=== PATIENT | female | born 1960 | race Caucasian/White ===

== ENCOUNTER 2016-07-16 20:44 | Inpatient (IN) | payer OTHER ==
[~2016-07-16] VITALS: Ht 157.5 cm; Wt 78.1 kg
[~2016-07-16 20:44] MED LIST: ADVIN25/60 INH; ALBU1AER9 INH; EXEN1INJ3 INJ; FLUO40CA8 PO; GABA1CAP4 PO; INSUINJ12 SQ; OXYB10TA13 PO; SYMIN160 INH; TIOTCAP INH; TRAZ50TA35 PO
[2016-07-16] MEDS ORDERED: ONDANSETRON INJ 2 MG/ML 2 ML VIAL IV STA ×2 (21:18→23:36)
--- NOTE | 2016-07-16 21:40 | DIAGNOSTIC IMAGING REPORT ---
CHEST ONE VIEW PORTABLE CLINICAL HISTORY: DKA mental status change COMPARISON STUDY: 05/20/2015 FINDINGS: The bones soft tissues and hemidiaphragms are normal. The cardiomediastinal silhouette is normal. The lungs are clear. The pulmonary vasculature is normal. IMPRESSION: Negative chest. Electronically signed by: Victor Manuel Langston M.D. 07/16/2016 9:39 PM Dictated Date/Time: 07/16/2016 9:39 PM
[2016-07-16] MEDS ORDERED: LVMI SQ (22:07)
[2016-07-16] MEDS ORDERED: [UNRECOGNIZED DRUG - REMARK] (22:07)
[2016-07-16] MEDS ORDERED: SPRIN/30 INH (22:07)
[2016-07-16] MEDS ORDERED: INSDGI SC (22:07)
[2016-07-16] MEDS ORDERED: OXYC1TAB3 PO (22:07)
[2016-07-16 22:14] LABS: BASO % 0.1 %; BASO ABS # 0.01 K/uL (0-0.2); COMPLETE YES; EOS % 0.1 %; HEMATOCRIT 42.1 % (37-47); IG% 0.8 %; LYMPH % 15.2 %; LYMPH ABS # 1.37 K/uL (1.2-3.4); MEAN CELL VOLUME 87.3 fL (80-100); MEAN CORPUSCULAR HEMOGLOBIN 29.9 pg (25-34); MEAN CORPUSCULAR HGB CONC 34.2 g/dl (32-36); MEAN PLATELET VOLUME 9.6 fL (7.4-10.4); MONO % 7.9 %; NEUT % 75.9 %; PLATELET COUNT 170 K/uL (130-400); RED BLOOD COUNT 4.82 M/uL (4.2-5.4); WHITE BLOOD COUNT 9.03 K/uL (4.8-10.8)
[2016-07-16] MEDS ORDERED: SODIUM CHLORIDE 0.9% 1000ML 2,000 ML IV STA (22:24)
[2016-07-16] MEDS ORDERED: SODIUM CHLORIDE 0.9% 1000ML 1,000 ML IV STA (22:24)
[2016-07-16 22:34] LABS: ALB/GLOB RATIO 0.6 (0.9-2); BETA-HYDROXYBUTYRATE 43.6 mg/dL (0.2-2.81); BUN/CREATININE RATIO 22.1 (10-20); CALCIUM 9.6 mg/dl (8.5-10.1); CREATININE 1.4 mg/dl (0.60-1.20); POTASSIUM 4.9 mmol/L (3.5-5.1)
[2016-07-16] MEDS ORDERED: NovoLIN-R INSULIN PER UNIT CHARGE IV STA (22:38)
[2016-07-16 22:59] LABS: PROTHROMBIN TIME (PATIENT) 10.2 SECONDS (9.0-12.0)
[2016-07-16 23:03] LABS: MANUAL MICROSCOPIC REQUIRED? NO; REVIEW REQ? NO; URINE APPEARANCE CLEAR (CLEAR); URINE BILIRUBIN NEG (NEG); URINE COLOR YELLOW; URINE NITRITE NEG (NEG); URINE SPECIFIC GRAVITY 1.028 (1.000-1.030); UROBILINOGEN NEG (NEG); ZZUR CULT IF INDIC CLEAN CATCH YES
[2016-07-16 23:03] LABS: MAGNESIUM 2.2 mg/dl (1.8-2.4)
[2016-07-16] MEDS ORDERED: MODERATE STRESS LEVEL ONE (23:15)
[2016-07-16] MEDS ORDERED: CEFTRIAXONE SOD INJ 1 GM ADDVIAL IV STA (23:32)
[2016-07-16 23:46] LABS: VEN BLD GAS O2 SATURATION 90.4 %; VEN BLOOD GAS BASE EXCESS -1.1 mmol/L
[2016-07-17] VITALS (7 sets, daily range): BP systolic 99–137; BP diastolic 60–75; PULSE 90–103; TEMP 36.2–36.8; O2SAT 18–96; BMI 30.2
[2016-07-17] MEDS ORDERED: GLUCOSE 10 TABS/TUBE PO PRN (00:15)
[2016-07-17] MEDS ORDERED: DEXTROSE 50% 50 ML SYR IV PRN (00:15)
[2016-07-17] MEDS ORDERED: GLUCOSE 40% GEL 15 GM TUBE PO PRN (00:15)
[2016-07-17] MEDS ORDERED: GLUCAGON FOR INJ 1 MG VIAL SQ PRN (00:15)
[2016-07-17] MEDS ORDERED: INSULIN HUMAN REGULAR IV BOLUS 2 UNIT in SYRINGE 0 ML IV SCH (00:30)
[2016-07-17] MEDS: INSULIN REGULAR 250 UNITS in SODIUM CHLORIDE 0.9% 250ML 250 ML IV SCH ×9 (00:50→23:09)
[2016-07-17] MEDS ORDERED: INSULIN IV INFUSION PROTOCOL STA (02:04)
[2016-07-17] MEDS ORDERED: ACETAMINOPHEN 325 MG TAB PO PRN (02:15)
[2016-07-17] MEDS ORDERED: DC ALL PREVIOUSLY ORDERED DIABETES MEDS ONE (02:15)
[2016-07-17] MEDS ORDERED: MODERATE STRESS LEVEL ONE (02:15)
[2016-07-17] MEDS ORDERED: DKA GOAL RANGE 150-250 mg/dl 1 EA ONE (02:15)
[2016-07-17] MEDS ORDERED: POLYETHYLENE (MIRALAX) 17 GM PACK PO PRN (02:15)
[2016-07-17] MEDS ORDERED: MAGNESIUM HYDROXIDE SUSP 30 ML UDC PO PRN (02:15)
[2016-07-17] MEDS ORDERED: ONDANSETRON INJ 2 MG/ML 2 ML VIAL IV PRN (02:15)
[2016-07-17] MEDS ORDERED: PENDING NSS+20mEq KCL IVF SCH (02:15)
[2016-07-17] MEDS ORDERED: ALUMINUM/MAGNESIUM/SIMETH (MAALOX MAX) 30 ML UDC PO PRN (02:15)
[2016-07-17] MEDS ORDERED: PHARMACY GLYCEMIC MGMT CONSULT PRN (03:19)
--- NOTE | 2016-07-17 03:21 | History and Physical ---
History & Physical Date & Time of Service: Jul 17, 2016 at 03:04 Chief Complaint: Hyperglycemia, Insulin Dependent Diabetes Mellitus Primary Care Physician: No Doctor, Assigned History of Present Illness Source: patient 55 y/o F w/Hx IDDM, COPD, continued tobacco abuse. Pt developed abdominal pain nausea and vomiting 2 days earlier. She did not administer her insulin over this period as she was concerned that she would become hypoglycemic due to lack of PO intake. She denies fevers, diarrhea or dysuria. Initial labs revealed hyperglycemia at > 600 with an anion gap and ketones however there was no acidosis on an ABG and her bicarb was only moderately low. Past Medical/Surgical History Medical Problems: (1) Arthritis Status: Chronic (2) Asthma Status: Chronic (3) Depression Status: Chronic (4) DM (diabetes mellitus) Status: Chronic (5) HTN (hypertension) Status: Chronic Family History Diabetes mellitus Father in a [place] [facility] [place] [facility] at 65 - does not know cause - states mother from natural causes Social History Smokes 1.5 packs or more daily - no ETOH Smoking Status: Current Every Day Smoker Drug Use: none Marital Status: single Housing status: other Occupational Status: disabled Multi-Drug Resistant Organisms History of MDRO: No Allergies Coded Allergies: Codeine (Verified Allergy, Intermediate, dizziness, 07/16/16) Tramadol (Verified Allergy, Intermediate, itchy, 07/16/16) Metformin (Verified Allergy, Unknown, ., 07/16/16) Naproxen (Verified Allergy, Unknown, Unknown, 07/16/16) Aspirin (Verified Adverse Reaction, Unknown, rectal bleeding, 07/16/16) Home Medications Scheduled Budesonide/Formoterol Fumarate (Symbicort 160/4.5 Inhaler ), 2 PUFFS INH BID Fluoxetine (Prozac), 40 MG PO DAILY Fluticasone Prop/Salmeterol (Advair Diskus 250/50 60 Dose), 1 PUFF INH BID Gabapentin (Gabapentin), 300 MG PO TID Insulin Detemir (Levemir), 8 UNITS SQ QAM Insulin Glargine (Lantus), 10 UNITS SC QPM Oxybutynin Chloride Er (Ditropan Xl), 10 MG PO DAILY Tiotropium [place] (Spiriva Handihaler), 1 CAP INH DAILY Scheduled PRN Albuterol (Proair Hfa), 2 PUFFS INH Q4 PRN for Wheezing Oxycodone Ir (Roxicodone Ir), 1-2 TAB PO Q4H PRN for Severe Pain Trazodone Hcl (Trazodone), 50-100 MG PO HS PRN for Sleep Miscellaneous Medications [Antibiotic Unk], Unknown Dose Review of Systems Constitutional: No chills, No fever, No sweats Eyes: No eye pain, No worsening of vision ENT: No hearing loss, No nasal symptoms, No unusual epistaxis Respiratory: + cough (chronic productive cough) Cardiovascular: No PND, No chest pain, No orthopnea Abdomen: + nausea, + pain, + vomiting, No constipation, No diarrhea Musculoskeletal: No joint pain, No muscle pain Genitourinary - Female: No dysuria, No urinary frequency Neurologic: + weakness, No memory loss, No paralysis Psychiatric: No depression symptoms Endocrine: + fatigue Hematologic / Lymphatic: No abnormal bleeding/bruising Integumentary: No rash Allergic / Immunologic: No environmental allergies Physical Exam Vital Signs Date Time Temp Pulse Resp B/P Pulse Ox O2 Delivery O2 Flow Rate FiO2 07/17/16 02:34 105 20 131/79 95 07/17/16 01:38 109 20 127/74 93 Room Air 07/16/16 23:47 106 20 104/66 95 Room Air 07/16/16 21:46 110 20 129/81 98 Room Air 07/16/16 20:57 115 07/16/16 20:56 36.7 102 20 124/79 96 Room Air General Appearance: WD/WN, no apparent distress, + pertinent finding ( Overweight middle aged female in n distress) Head: normocephalic, atraumatic Eyes: normal inspection, PERRL, EOMI ENT: normal ENT inspection, pharynx normal Neck: supple, no JVD Respiratory/Chest: chest non-tender, lungs clear, no respiratory distress, no accessory muscle use, + decreased breath sounds Cardiovascular: regular rate, rhythm, no edema, no gallop, no JVD, no murmur, normal peripheral pulses Abdomen/GI: normal bowel sounds, non tender, soft Back: normal inspection, no CVA tenderness, no muscle spasm, normal range of motion Extremities/Musculoskelatal: normal inspection, no calf tenderness, normal capillary refill, no pedal edema, normal range of motion Neurologic/Psych: dry color tester II-XII nml as tested, no motor/sensory deficits, alert, oriented x 3 Skin: normal color, warm/dry, no rash Diagnostics Laboratory Results Results Past 24 Hours Test 07/16/16 20:53 07/16/16 21:15 07/16/16 22:50 07/16/16 23:20 Range/Units Bedside Glucose > 600 502 70-90 mg/dl White Blood Count 9.03 4.8-10.8 K/uL Red Blood Count 4.82 4.2-5.4 M/uL Hemoglobin 14.4 12.0-16.0 g/dL Hematocrit 42.1 37-47 % Mean Corpuscular Volume 87.3 80-100 fL Mean Corpuscular Hemoglobin 29.9 25-34 pg Mean Corpuscular Hemoglobin Concent 34.2 32-36 g/dl Platelet Count 170 130-400 K/uL Mean Platelet Volume 9.6 7.4-10.4 fL Neutrophils (%) (Auto) 75.9 % Lymphocytes (%) (Auto) 15.2 % Monocytes (%) (Auto) 7.9 % Eosinophils (%) (Auto) 0.1 % Basophils (%) (Auto) 0.1 % Neutrophils # (Auto) 6.86 1.4-6.5 K/uL Lymphocytes # (Auto) 1.37 1.2-3.4 K/uL Monocytes # (Auto) 0.71 0.11-0.59 K/uL Eosinophils # (Auto) 0.01 0-0.5 K/uL Basophils # (Auto) 0.01 0-0.2 K/uL RDW Standard Deviation 49.0 36.4-46.3 fL RDW Coefficient of Variation 15.1 11.5-14.5 % Immature Granulocyte % (Auto) 0.8 % Immature Granulocyte # (Auto) 0.07 0.00-0.02 K/uL Prothrombin Time 10.2 9.0-12.0 SECONDS Prothromb Time International Ratio 1.0 0.9-1.1 Activated Partial Thromboplast Time 26.8 21.0-31.0 SECONDS Partial Thromboplastin Ratio 1.0 Sodium Level 126 136-145 mmol/L Potassium Level 4.9 3.5-5.1 mmol/L Chloride Level 87 98-107 mmol/L Carbon Dioxide Level 22 21-32 mmol/L Anion Gap 17.0 3-11 mmol/L Blood Urea Nitrogen 31 7-18 mg/dl Creatinine 1.40 0.60-1.20 mg/dl Est Creatinine Clear Calc Drug Dose 42.6 ml/min Estimated GFR () 48.6 Estimated GFR (Non- 41.9 BUN/Creatinine Ratio 22.1 10-20 Random Glucose 685 70-99 mg/dl Calcium Level 9.6 8.5-10.1 mg/dl Magnesium Level 2.2 1.8-2.4 mg/dl Total Bilirubin 0.5 0.2-1 mg/dl Aspartate Amino Transf (AST/SGOT) 8 15-37 U/L Alanine Aminotransferase (ALT/SGPT) 16 12-78 U/L Alkaline Phosphatase 85 45-117 U/L Troponin I < 0.015 0-0.045 ng/ml Total Protein 8.4 6.4-8.2 gm/dl Albumin 3.3 3.4-5.0 gm/dl Globulin 5.1 2.5-4.0 gm/dl Albumin/Globulin Ratio 0.6 0.9-2 Beta-Hydroxybutyric Acid 43.60 0.2-2.81 mg/dL Urine Color YELLOW Urine Appearance CLEAR CLEAR Urine pH 5.0 4.5-7.5 Urine Specific [place] 1.028 1.000-1.030 Urine Protein TRACE NEG Urine Glucose (UA) 3+ NEG Urine Ketones 2+ NEG Urine Occult Blood 1+ NEG Urine Nitrite NEG NEG Urine Bilirubin NEG NEG Urine Urobilinogen NEG NEG Urine Leukocyte Esterase NEG NEG Urine WBC (Auto) 10-30 0-5 /hpf Urine RBC (Auto) 0-4 0-4 /hpf Urine Hyaline Casts (Auto) 0 0-5 /lpf Urine Epithelial Cells (Auto) 5-10 0-5 /lpf Urine Bacteria (Auto) 2+ NEG Test 07/16/16 23:37 07/17/16 01:54 Range/Units Venous Blood pH 7.43 7.36-7.41 Venous Blood Partial Pressure CO2 35 38.0-50.0 mmHg Venous Blood Partial Pressure O2 60 mmHg Venous Blood HCO3 23 mmol/L Venous Blood Oxygen Saturation 90.4 % Venous Blood Base Excess -1.1 mmol/L Bedside Glucose 373 70-90 mg/dl Microbiology Results 3/17/17 Urine Culture, Received Pending Impression Assessment and Plan 55 y/o F w/Hx IDDM, COPD, continued tobacco abuse. Pt developed abdominal pain nausea and vomiting 2 days earlier. She did not administer her insulin over this period as she was concerned that she would become hypoglycemic due to lack of PO intake. She denies fevers, diarrhea or dysuria. Initial labs revealed hyperglycemia at > 600 with an anion gap and ketones however there was no acidosis on an ABG and her bicarb was only moderately low. 1) Hyperglycemia - anion gap - pt is not acidotic however considering her labs and persistently elevated Glu we will place her on a DKA protocol. BMP, Mag, Phos will be checked Q4 and replaced as necessary. 2) Nausea, vomiting - no pain at the time of admission - progressive diet - IVF , antiemetics as needed 3) COPD - no evidence of exacerbation - cont inhalers as prescribed 4) Tobacco abuse - explained to pt in no uncertain terms regarding the hazards of continued smoking with COPD and DM. Full code - Heparin prophylaxis Total time for this admit including review of labs, meds, records - discussion with ER attending and pt - 38 min Level of Care Telemetry Resuscitation Status FULL RESUSCITATION VTE Prophylaxis VTE Risk Assessment Done? Y/N: Yes Risk Level: Low Given or contraindicated: Unfractionated heparin SQ
[2016-07-17] MEDS ORDERED: TRAZODONE HCL 50 MG TAB PO PRN (03:30)
[2016-07-17] MEDS ORDERED: ALBUTEROL HFA 8 GM INHALER INH PRN (03:30)
[2016-07-17] MEDS ORDERED: OXYCODONE HCL IR 5 MG TAB (IMMEDIATE RELEASE) PO PRN (03:30)
[2016-07-17] MEDS ORDERED: NURSING VERBAL MED ORDER ONE ×4 (03:45→21:45)
[2016-07-17 04:19] LABS: BUN/CREATININE RATIO 24.8 (10-20); CALCIUM 8.7 mg/dl (8.5-10.1); CREATININE 1.1 mg/dl (0.60-1.20); PHOSPHORUS 2.4 mg/dl (2.5-4.9); POTASSIUM 4.1 mmol/L (3.5-5.1)
[2016-07-17 04:35] LABS: BETA-HYDROXYBUTYRATE 25.2 mg/dL (0.2-2.81)
--- NOTE | 2016-07-17 04:35 | Pharmacy Progress Note ---
Glycemic: Assessment & Plan Date of Service Jul 17, 2016. Assessment & Plan Regarding Inpatient Glycemic Control: Assessment: * 55 y/o diabetic who has been unwell x 2 days prior to admission with nausea and vomiting. * has not take her insulin secondary to decreased PO intake. * BSGs subsequently elevated * Upon admission, BSG >600mg/dL, BHA elevated, anion gap and ketones * insulin infusion started in ED with NSS IV fluids. * A1c unknown at time of consult Plan: * Continue IV insulin infusion at this time * Moderate protocol * Goal range 150-250mg/dL * NovoLog PC and HS * IV fluids per protocol (based on K+ and BSG) * A1c ordered with AM labs to help assess home regimen and SQ insulin needs * also added to discharge instructions * Lantus 10 units SQ q PM ordered by college or university business manager.
[2016-07-17] MEDS: NSS + 20MEQ KCL 1000ML 1,000 ML IV SCH ×4 (04:37→23:40)
[2016-07-17 05:56] LABS: ESTIMATED AVERAGE GLUCOSE 355 mg/dl; HA1C FLAG Normal (Normal)
[2016-07-17] MEDS ORDERED: HEPARIN SOD 5000 UNIT/0.5 ML CARP SQ SCH (06:00)
--- NOTE | 2016-07-17 06:27 | EMERGENCY ROOM VISIT NOTE ---
History First contact with patient: 22:21 Chief Complaint: VOMITING Stated Complaint: HYPERGLYCEMIA, INSULIN DEPENDENT DIABETES MELLITUS Nursing Triage Summary: see triage note History of Present Illness The patient is a 55 year old female who presents to the Emergency Room with complaints of nausea, vomiting and hyperglycemia today. Patient states her blood sugars yesterday were in the 100s. Patient denies chest pain, dyspnea, fever, chills, cough, congestion, back pain, urinary symptoms, abdominal pain, flulike illness. No history of DKA. Review of Systems See HPI for pertinent positives & negatives. A total of 10 systems reviewed and were otherwise negative. Past Medical/Surgical History Medical Problems: (1) Arthritis (2) Asthma (3) Depression (4) DM (diabetes mellitus) (5) HTN (hypertension) (6) Insulin dependent diabetes mellitus (7) Lumbago Family History Diabetes mellitus Social History Smoking Status: Current Every Day Smoker Alcohol Use: none Drug Use: none Marital Status: single Housing Status: lives alone Occupation Status: disabled Current/Historical Medications Scheduled Budesonide/Formoterol Fumarate (Symbicort 160/4.5 Inhaler ), 2 PUFFS INH BID Fluoxetine (Prozac), 40 MG PO DAILY Fluticasone Prop/Salmeterol (Advair Diskus 250/50 60 Dose), 1 PUFF INH BID Gabapentin (Gabapentin), 300 MG PO TID Insulin Detemir (Levemir), 8 UNITS SQ QAM Insulin Glargine (Lantus), 10 UNITS SC QPM Oxybutynin Chloride Er (Ditropan Xl), 10 MG PO DAILY Tiotropium [place] (Spiriva Handihaler), 1 CAP INH DAILY Scheduled PRN Albuterol (Proair Hfa), 2 PUFFS INH Q4 PRN for Wheezing Oxycodone Ir (Roxicodone Ir), 1-2 TAB PO Q4H PRN for Severe Pain Trazodone Hcl (Trazodone), 50-100 MG PO HS PRN for Sleep Miscellaneous Medications [Antibiotic Unk], Unknown Dose Allergies Coded Allergies: Codeine (Verified Allergy, Intermediate, dizziness, 07/16/16) Tramadol (Verified Allergy, Intermediate, itchy, 07/16/16) Metformin (Verified Allergy, Unknown, ., 07/16/16) Naproxen (Verified Allergy, Unknown, Unknown, 07/16/16) Aspirin (Verified Adverse Reaction, Unknown, rectal bleeding, 07/16/16) Physical Exam Vital Signs Date Time Temp Pulse Resp B/P Pulse Ox O2 Delivery O2 Flow Rate FiO2 07/17/16 01:38 109 20 127/74 93 Room Air 07/16/16 23:47 106 20 104/66 95 Room Air 07/16/16 21:46 110 20 129/81 98 Room Air 07/16/16 20:57 115 07/16/16 20:56 36.7 102 20 124/79 96 Room Air Pain Rating (0-10): 0 Physical Exam VITALS: Vitals are noted on the nurse's note and reviewed by myself. Vital signs tachycardic GENERAL: Pleasant female actively vomiting, in no acute distress, nondiaphoretic , well-developed well-nourished. SKIN: The skin was without rashes, erythema, edema, or bruising. There is no tenting of the skin. Capillary reflex less than 2 seconds. HEAD: Normocephalic atraumatic. EARS: External auditory canals clear, tympanic membranes pearly sandoval without erythema or effusion bilaterally. EYES: Pupils equal round and reactive to light and accommodation. Conjunctivae without injection, sclerae without icterus. Extraocular movements intact. NOSE: Patent, turbinates without inflammation or discharge. No sinus tenderness. MOUTH: Mucous membranes dry. Pharynx without erythema or exudate. Uvula midline. Airway patent. Tongue does not deviate. NECK: Supple without nuchal rigidity. No lymphadenopathy. No thyromegaly. Cervical spine is nontender. No JVD. HEART: Regular rate and rhythm LUNGS: Clear to auscultation bilaterally without wheezes, rales or rhonchi. No dullness to percussion. No retractions or accessory muscle use. ABDOMEN: Positive bowel sounds x 4. Normal tympanic percussion. Soft, nontender, without masses or organomegaly. Angulo sign negative. No guarding or rebound tenderness. MUSCULOSKELETAL: No muscle atrophy, erythema, or edema noted. NEURO: Patient was alert and oriented to person place and time. Normal sensation to light and sharp touch. No focal neurological deficits. Medical Decision & Procedures Laboratory Results 07/16/16 21:15 Red Blood Count 4.82, Mean Corpuscular Volume 87.3, Mean Corpuscular Hemoglobin 29.9, Mean Corpuscular Hemoglobin Concent 34.2, Mean Platelet Volume 9.6, Neutrophils (%) (Auto) 75.9, Lymphocytes (%) (Auto) 15.2, Monocytes (%) (Auto) 7.9, Eosinophils (%) (Auto) 0.1, Basophils (%) (Auto) 0.1, Neutrophils # (Auto) 6.86, Lymphocytes # (Auto) 1.37, Monocytes # (Auto) 0.71, Eosinophils # (Auto) 0.01, Basophils # (Auto) 0.01 Test 07/16/16 21:15 07/16/16 22:50 07/16/16 23:37 White Blood Count 9.03 K/uL (4.8-10.8) Red Blood Count 4.82 M/uL (4.2-5.4) Hemoglobin 14.4 g/dL (12.0-16.0) Hematocrit 42.1 % (37-47) Mean Corpuscular Volume 87.3 fL (80-100) Mean Corpuscular Hemoglobin 29.9 pg (25-34) Mean Corpuscular Hemoglobin Concent 34.2 g/dl (32-36) Platelet Count 170 K/uL (130-400) Mean Platelet Volume 9.6 fL (7.4-10.4) Neutrophils (%) (Auto) 75.9 % Lymphocytes (%) (Auto) 15.2 % Monocytes (%) (Auto) 7.9 % Eosinophils (%) (Auto) 0.1 % Basophils (%) (Auto) 0.1 % Neutrophils # (Auto) 6.86 K/uL (1.4-6.5) Lymphocytes # (Auto) 1.37 K/uL (1.2-3.4) Monocytes # (Auto) 0.71 K/uL (0.11-0.59) Eosinophils # (Auto) 0.01 K/uL (0-0.5) Basophils # (Auto) 0.01 K/uL (0-0.2) RDW Standard Deviation 49.0 fL (36.4-46.3) RDW Coefficient of Variation 15.1 % (11.5-14.5) Immature Granulocyte % (Auto) 0.8 % Immature Granulocyte # (Auto) 0.07 K/uL (0.00-0.02) Prothrombin Time 10.2 SECONDS (9.0-12.0) Prothromb Time International Ratio 1.0 (0.9-1.1) Activated Partial Thromboplast Time 26.8 SECONDS (21.0-31.0) Partial Thromboplastin Ratio 1.0 Magnesium Level 2.2 mg/dl (1.8-2.4) Total Bilirubin 0.5 mg/dl (0.2-1) Aspartate Amino Transf (AST/SGOT) 8 U/L (15-37) Alanine Aminotransferase (ALT/SGPT) 16 U/L (12-78) Alkaline Phosphatase 85 U/L (45-117) Troponin I < 0.015 ng/ml (0-0.045) Total Protein 8.4 gm/dl (6.4-8.2) Albumin 3.3 gm/dl (3.4-5.0) Globulin 5.1 gm/dl (2.5-4.0) Albumin/Globulin Ratio 0.6 (0.9-2) Urine Color YELLOW Urine Appearance CLEAR (CLEAR) Urine pH 5.0 (4.5-7.5) Urine Specific [place] 1.028 (1.000-1.030) Urine Protein TRACE (NEG) Urine Glucose (UA) 3+ (NEG) Urine Ketones 2+ (NEG) Urine Occult Blood 1+ (NEG) Urine Nitrite NEG (NEG) Urine Bilirubin NEG (NEG) Urine Urobilinogen NEG (NEG) Urine Leukocyte Esterase NEG (NEG) Urine WBC (Auto) 10-30 /hpf (0-5) Urine RBC (Auto) 0-4 /hpf (0-4) Urine Hyaline Casts (Auto) 0 /lpf (0-5) Urine Epithelial Cells (Auto) 5-10 /lpf (0-5) Urine Bacteria (Auto) 2+ (NEG) Venous Blood pH 7.43 (7.36-7.41) Venous Blood Partial Pressure CO2 35 mmHg (38.0-50.0) Venous Blood Partial Pressure O2 60 mmHg Venous Blood HCO3 23 mmol/L Venous Blood Oxygen Saturation 90.4 % Venous Blood Base Excess -1.1 mmol/L Medications Administered Medications (Trade) Dose Ordered Sig/Barbra Route Start Time Stop Time Status Last Admin Dose Admin Ondansetron HCl 4 mg 4 mg NOW STAT IV 07/16/16 21:18 07/16/16 21:20 DC 07/16/16 21:41 4 MG Sodium Chloride (Nss 1000ml) 2,000 ml @ 999 mls/hr Q2H1M STAT IV 07/16/16 22:24 07/17/16 00:24 DC 07/16/16 22:39 999 MLS/HR Insulin Human Regular (novoLIN-R U-100 PER UNIT) 10 units NOW STAT IV 07/16/16 22:38 07/16/16 22:39 DC 07/16/16 22:38 10 UNITS Ceftriaxone Sodium (Rocephin Inj) 1 gm NOW STAT IV 07/16/16 23:32 07/16/16 23:33 DC 07/16/16 23:46 1 GM Ondansetron HCl 4 mg 4 mg NOW STAT IV 07/16/16 23:36 07/16/16 23:37 DC 07/16/16 23:47 4 MG Insulin Human Regular 2 unit/ Syringe 2 ml @ 1 mls/min 0030 IV 07/17/16 00:30 07/17/16 00:31 DC 07/17/16 00:50 1 MLS/MIN Insulin Human Regular/Sodium Chloride (novoLIN-R/Nss 250ml) 252.5 ml @ 0 mls/hr TODAY@0030 IV 07/17/16 00:30 07/17/16 11:29 07/17/16 00:50 1.9 MLS/HR ED Course Prior records/ancillary studies reviewed and summarized above. Nursing notes reviewed. Additional history obtained from family. The patient's history was concerning for vomiting with hyperglycemia Differential diagnosis: Etiologies such as metabolic, infection, hypo/hyperglycemia, electrolyte abnormalities, cardiac sources, intracerebral event, toxicologic, neurologic, as well as others were entertained. Physical examination: As above. ER treatment provided: IV Lock Rocephin, IV fluids, insulin with drip On reassessment the patient felt better. Diagnostics interpretation by me: ECG: Normal sinus, normal intervals, no acute ST-T wave changes. Impression normal sinus rhythm interpreted by myself The labs revealed hyperglycemia with an a.m. Concerning for DKA, urine concerning for infection and sent for culture Imaging studies: CHEST ONE VIEW PORTABLE CLINICAL HISTORY: DKA mental status change COMPARISON STUDY: 05/20/2015 FINDINGS: The bones soft tissues and hemidiaphragms are normal. The cardiomediastinal silhouette is normal. The lungs are clear. The pulmonary vasculature is normal. IMPRESSION: Negative chest. Electronically signed by: Victor Manuel Langston M.D. 07/16/2016 9:39 PM Consultation: A consultation was placed with the hospitalist, Dr Colon. The case was discussed and diagnostics were reviewed. The patient was evaluated in the ER for further treatment. Exam and history seem consistent with hyperglycemia with an and Concerning for DKA. She is started on insulin drip with moderate stress. She is hydrated as above. She started on antibiotics for possible UTI and urine culture was sent. She will be evaluated by medicine for admission. She was reassessed multiple times. By the evaluation outlined above emergent etiologies such as cardiac sources, intracerebral event, toxologic, neurologic, as well as others were deemed relatively unlikely. The pt informed about the findings as listed above. All questions were answered and pleased with the treatment. Case reviewed by attending Medical Decision As above Impression Primary Impression: DKA (diabetic ketoacidoses) Additional Impression: UTI (urinary tract infection) Departure Information Dispostion Admitted as an inpatient Condition GOOD Referrals No Doctor, Assigned (PCP) Forms HOME CARE DOCUMENTATION FORM, IMPORTANT VISIT INFORMATION Patient Instructions [facility] Problem Qualifiers Primary Impression: DKA (diabetic ketoacidoses) Diabetes mellitus type: type 2 Diabetes mellitus complication detail: without coma Qualified Codes: E13.10 - Other specified diabetes mellitus with ketoacidosis without coma
[2016-07-17] MEDS ORDERED: INFLUENZA ADMINISTRATION CHARGE ONE (08:00)
[2016-07-17] MEDS ORDERED: INFLUENZA VIRUS QUAD VACCINE 0.5 ML SYR IM. ONE (08:00)
[2016-07-17 08:33] LABS: BUN/CREATININE RATIO 27.6 (10-20); CALCIUM 9.1 mg/dl (8.5-10.1); CREATININE 0.87 mg/dl (0.60-1.20); POTASSIUM 4.3 mmol/L (3.5-5.1)
[2016-07-17 08:34] LABS: PHOSPHORUS 2.3 mg/dl (2.5-4.9)
[2016-07-17 08:43] LABS: BETA-HYDROXYBUTYRATE 20.17 mg/dL (0.2-2.81)
[2016-07-17] MEDS: FLUTICASONE/SALMETEROL 250/50 (ADVAIR) 14 PUFF/1 INHALER INH SCH ×2 (08:45→21:39)
[2016-07-17] MEDS: GABAPENTIN 300 MG CAP PO SCH ×3 (08:47→21:39)
[2016-07-17] MEDS: BUDESONIDE/FORMOTEROL FUMARATE 160/4.5 60 PUFFS/INHALER INH SCH ×2 (08:47→21:39)
[2016-07-17] MEDS: OXYBUTYNIN CHLORIDE 5 MG TABCR PO SCH (08:47)
[2016-07-17] MEDS: FLUOXETINE HCL 20 MG CAP PO SCH (08:47)
[2016-07-17] MEDS: INSULIN ASPART 100 UNITS/ML 3 ML PEN SC SCH ×4 (08:49→20:33)
[2016-07-17] MEDS ORDERED: TIOTROPIUM BROMIDE 5 PUFF/90 MCG INH INH SCH (09:00)
[2016-07-17] MEDS ORDERED: INSULIN ASPART 100 UNITS/ML 3 ML PEN SC SCH (09:00)
[2016-07-17] MEDS ORDERED: INSULIN GLARGINE SOLOSTAR 100 UNITS/ML 3 ML PEN SC SCH ×2 (09:20→21:00)
[2016-07-17] MEDS ORDERED: PANTOprazole SOD 40 MG TAB PO STA (09:53)
--- NOTE | 2016-07-17 09:53 | Progress Note ---
Subjective Date of Service: Jul 17, 2016. Subjective Pt evaluation today including: conversation w/ patient, physical exam, chart review, lab review, review of studies, conversation w/ performance consultant, review of inpatient medication list Voiding: no voiding problems Reported no appetite, however nausea edition was resolved, no vomiting, last bowel movement was 2 days ago, nurse reported in monitoring tech was showing possible tachycardia or a flutter, EKG was done Problem List Medical Problems: (1) DKA (diabetic ketoacidoses) Status: Acute (2) Mood disorder Status: Acute (3) Non-cardiac chest pain Status: Acute (4) Suicidal ideation Status: Acute (5) UTI (urinary tract infection) Status: Acute Review of Systems Constitutional: + fatigue, No chills, No fever, No problem reported, No sweats , No weakness, No weight loss Eyes: No diplopia, No discharge, No eye pain, No redness, No worsening of vision ENT: No dental problems, No hearing loss, No nasal symptoms, No sore throat, No tinnitus, No trouble swallowing, No unusual epistaxis Respiratory: + cough, No dyspnea at rest, No dyspnea on exertion, No hemoptysis , No shortness of breath, No sputum, No wheezing Cardiac: No PND, No chest pain, No claudication, No edema, No orthopnea, No palpitations Abdomen: No constipation, No diarrhea, No nausea, No pain, No vomiting Musculoskeletal: + joint pain, No calf pain, No muscle pain, No swelling Female : No abnormal vaginal bleeding, No dysuria, No hematuria, No incontinence, No urinary frequency, No vaginal discharge Neurologic: + problem reported (very sensitive bilateral lower extremity because or neuropathy), No balance problems, No memory loss, No numbness/ tingling, No paralysis, No vertigo, No weakness Psychiatric: No anhedonism, No anxiety, No depression symptoms, No insomnia, No substance abuse Heme: No abnormal bleeding/bruising, No clotting problems, No night sweats, No swollen lymph nodes Endo: No excessive thirst, No excessive urination, No fatigue Skin: No bleeding, No color change, No itch, No new/changing skin lesions, No rash Objective Vital Signs Date Time Temp Pulse Resp B/P Pulse Ox O2 Delivery O2 Flow Rate FiO2 07/17/16 07:49 36.8 103 16 108/65 90 Room Air 07/17/16 04:00 94 Room Air 07/17/16 04:00 94 Room Air 07/17/16 03:30 36.8 100 20 137/67 07/17/16 03:30 94 Room Air 07/17/16 02:34 105 20 131/79 95 07/17/16 01:38 109 20 127/74 93 Room Air 07/16/16 23:47 106 20 104/66 95 Room Air 07/16/16 21:46 110 20 129/81 98 Room Air 07/16/16 20:57 115 07/16/16 20:56 36.7 102 20 124/79 96 Room Air Physical Exam General Appearance: WD/WN, no apparent distress, + obese, + pertinent finding ( look much older than her age) Eyes: normal inspection, PERRL, EOMI, sclerae normal ENT: normal ENT inspection, hearing grossly normal, pharynx normal, + pertinent finding (mucosa is not dry) Neck: supple, no adenopathy, thyroid normal, no JVD, no carotid bruits, trachea midline Respiratory/Chest: chest non-tender, normal breath sounds, no respiratory distress, no accessory muscle use, + decreased breath sounds, + wheezing ( occasional) Cardiovascular: regular rate, rhythm, no edema, no gallop, no JVD, no murmur Abdomen: normal bowel sounds, non tender, soft, no organomegaly, no pulsatile mass Extremities: normal range of motion, non-tender, normal inspection, no pedal edema, no calf tenderness, normal capillary refill, pelvis stable Neurologic/Psychiatric: 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 nml as tested, no motor/sensory deficits, alert, normal mood/affect, oriented x 3 Skin: normal color, warm/dry, no rash Lymphatic: no adenopathy Laboratory Results Last 24 Hours Test 07/16/16 20:53 07/16/16 21:15 07/16/16 22:50 07/16/16 23:20 Bedside Glucose > 600 mg/dl 502 mg/dl White Blood Count 9.03 K/uL Red Blood Count 4.82 M/uL Hemoglobin 14.4 g/dL Hematocrit 42.1 % Mean Corpuscular Volume 87.3 fL Mean Corpuscular Hemoglobin 29.9 pg Mean Corpuscular Hemoglobin Concent 34.2 g/dl Platelet Count 170 K/uL Mean Platelet Volume 9.6 fL Neutrophils (%) (Auto) 75.9 % Lymphocytes (%) (Auto) 15.2 % Monocytes (%) (Auto) 7.9 % Eosinophils (%) (Auto) 0.1 % Basophils (%) (Auto) 0.1 % Neutrophils # (Auto) 6.86 K/uL Lymphocytes # (Auto) 1.37 K/uL Monocytes # (Auto) 0.71 K/uL Eosinophils # (Auto) 0.01 K/uL Basophils # (Auto) 0.01 K/uL RDW Standard Deviation 49.0 fL RDW Coefficient of Variation 15.1 % Immature Granulocyte % (Auto) 0.8 % Immature Granulocyte # (Auto) 0.07 K/uL Prothrombin Time 10.2 SECONDS Prothromb Time International Ratio 1.0 Activated Partial Thromboplast Time 26.8 SECONDS Partial Thromboplastin Ratio 1.0 Sodium Level 126 mmol/L Potassium Level 4.9 mmol/L Chloride Level 87 mmol/L Carbon Dioxide Level 22 mmol/L Anion Gap 17.0 mmol/L Blood Urea Nitrogen 31 mg/dl Creatinine 1.40 mg/dl Est Creatinine Clear Calc Drug Dose 42.6 ml/min Estimated GFR () 48.6 Estimated GFR (Non- 41.9 BUN/Creatinine Ratio 22.1 Random Glucose 685 mg/dl Calcium Level 9.6 mg/dl Magnesium Level 2.2 mg/dl Total Bilirubin 0.5 mg/dl Aspartate Amino Transf (AST/SGOT) 8 U/L Alanine Aminotransferase (ALT/SGPT) 16 U/L Alkaline Phosphatase 85 U/L Troponin I < 0.015 ng/ml Total Protein 8.4 gm/dl Albumin 3.3 gm/dl Globulin 5.1 gm/dl Albumin/Globulin Ratio 0.6 Beta-Hydroxybutyric Acid 43.60 mg/dL Urine Color YELLOW Urine Appearance CLEAR Urine pH 5.0 Urine Specific [place] 1.028 Urine Protein TRACE Urine Glucose (UA) 3+ Urine Ketones 2+ Urine Occult Blood 1+ Urine Nitrite NEG Urine Bilirubin NEG Urine Urobilinogen NEG Urine Leukocyte Esterase NEG Urine WBC (Auto) 10-30 /hpf Urine RBC (Auto) 0-4 /hpf Urine Hyaline Casts (Auto) 0 /lpf Urine Epithelial Cells (Auto) 5-10 /lpf Urine Bacteria (Auto) 2+ Test 07/16/16 23:37 07/17/16 01:54 07/17/16 03:49 07/17/16 03:53 Venous Blood pH 7.43 7.36 Venous Blood Partial Pressure CO2 35 mmHg Venous Blood Partial Pressure O2 60 mmHg Venous Blood HCO3 23 mmol/L Venous Blood Oxygen Saturation 90.4 % Venous Blood Base Excess -1.1 mmol/L Bedside Glucose 373 mg/dl 356 mg/dl Sodium Level 134 mmol/L Potassium Level 4.1 mmol/L Chloride Level 99 mmol/L Carbon Dioxide Level 24 mmol/L Anion Gap 11.0 mmol/L Blood Urea Nitrogen 27 mg/dl Creatinine 1.10 mg/dl Est Creatinine Clear Calc Drug Dose 54.3 ml/min Estimated GFR () 65.0 Estimated GFR (Non- 56.1 BUN/Creatinine Ratio 24.8 Random Glucose 339 mg/dl Estimated Average Glucose 355 mg/dl Hemoglobin A1c 14.0 % Calcium Level 8.7 mg/dl Phosphorus Level 2.4 mg/dl Beta-Hydroxybutyric Acid 25.20 mg/dL Test 07/17/16 04:42 07/17/16 05:46 07/17/16 06:54 07/17/16 07:58 Bedside Glucose 340 mg/dl 321 mg/dl 327 mg/dl Venous Blood pH 7.41 Sodium Level 135 mmol/L Potassium Level 4.3 mmol/L Chloride Level 101 mmol/L Carbon Dioxide Level 21 mmol/L Anion Gap 13.0 mmol/L Blood Urea Nitrogen 24 mg/dl Creatinine 0.87 mg/dl Est Creatinine Clear Calc Drug Dose 68.5 ml/min Estimated GFR () 86.3 Estimated GFR (Non- 74.5 BUN/Creatinine Ratio 27.6 Random Glucose 305 mg/dl Calcium Level 9.1 mg/dl Phosphorus Level 2.3 mg/dl Beta-Hydroxybutyric Acid 20.17 mg/dL Test 07/17/16 07:59 07/17/16 08:27 07/17/16 08:34 07/17/16 09:07 Bedside Glucose 290 mg/dl 370 mg/dl Creatine Kinase MB Ratio Creatine Kinase MB < 0.5 ng/ml Troponin I < 0.015 ng/ml Assessment and Plan 55 y/o F w/Hx IDDM, COPD, continued tobacco abuse admitted because of severe hyperglycemia Severe hyperglycemia with history of insulin-dependent diabetic, uncontrolled, A1c 14, no us no acidosis in ABG, bicarbonate was more than 20, I don't believe she has DKA Condition is improving after insulin drip, the latest blood glucose was 299 Will restart home dose Lantus insulin 8 units in the morning 10 units in the evening, Continue insulin drip Continue IV fluid Diabetic education Possible gastritis with abdominal pain nausea and vomiting 2 days prior to this admission. Resolved, but will make sure give Protonix by mouth Acute kidney failure with creatinine 1.4, totally resolved, likely because of dehydration from hyperglycemia History of COPD with history of tobacco abuse disorder - no evidence of exacerbation - cont inhalers as prescribed, and will give nicotine patch, consult to quit smoking , and offer help GI and DVT prophylaxis is covered Possible discharge day [address] [facility] stay due to: multiple IV medications needed Discharge planning: home
[2016-07-17] MEDS ORDERED: INSULIN GLARGINE SOLOSTAR 100 UNITS/ML 3 ML PEN SC ONE (11:00)
[2016-07-17 13:25] LABS: BUN/CREATININE RATIO 27.4 (10-20); CALCIUM 8.8 mg/dl (8.5-10.1); CREATININE 0.77 mg/dl (0.60-1.20); POTASSIUM 4.2 mmol/L (3.5-5.1)
[2016-07-17 13:27] LABS: PHOSPHORUS 1.8 mg/dl (2.5-4.9)
[2016-07-17] MEDS ORDERED: INSULIN PROTOCOL GOAL RANGE ONE ×2 (14:00→15:15)
--- NOTE | 2016-07-17 14:05 | Pharmacy Progress Note ---
Glycemic Control Intl Consult Date of Service Jul 17, 2016. Scope Glycemic Pharmacist consulted for glycemic control and to write orders per [facility] inpatient glycemic control protocol Objective Weight (Kilograms): 75.000 Accuchecks BSG (last 24hrs): Test 07/16/16 20:53 07/16/16 21:15 07/16/16 23:20 07/17/16 01:54 Bedside Glucose > 600 mg/dl (70-90) 502 mg/dl (70-90) 373 mg/dl (70-90) Random Glucose 685 mg/dl (70-99) Test 07/17/16 03:49 07/17/16 03:53 07/17/16 04:42 07/17/16 05:46 Bedside Glucose 356 mg/dl (70-90) 340 mg/dl (70-90) 321 mg/dl (70-90) Random Glucose 339 mg/dl (70-99) Test 07/17/16 06:54 07/17/16 07:58 07/17/16 07:59 07/17/16 09:07 Bedside Glucose 327 mg/dl (70-90) 290 mg/dl (70-90) 370 mg/dl (70-90) Random Glucose 305 mg/dl (70-99) Test 07/17/16 10:06 07/17/16 10:56 07/17/16 12:04 07/17/16 12:10 Bedside Glucose 347 mg/dl (70-90) 321 mg/dl (70-90) 271 mg/dl (70-90) Random Glucose 287 mg/dl (70-99) Test 07/17/16 13:11 Bedside Glucose 386 mg/dl (70-90) Laboratory Data (last 24hrs) Test 07/16/16 21:15 07/17/16 03:53 07/17/16 07:58 07/17/16 12:04 Anion Gap 17.0 mmol/L 11.0 mmol/L 13.0 mmol/L 11.0 mmol/L BUN/Creatinine Ratio 22.1 24.8 27.6 27.4 Blood Urea Nitrogen 31 mg/dl 27 mg/dl 24 mg/dl 21 mg/dl Creatinine 1.40 mg/dl 1.10 mg/dl 0.87 mg/dl 0.77 mg/dl Potassium Level 4.9 mmol/L 4.1 mmol/L 4.3 mmol/L 4.2 mmol/L Sodium Level 126 mmol/L 134 mmol/L 135 mmol/L 135 mmol/L White Blood Count 9.03 K/uL Red Blood Count 4.82 M/uL Hemoglobin 14.4 g/dL Hematocrit 42.1 % Mean Corpuscular Volume 87.3 fL Mean Corpuscular Hemoglobin 29.9 pg Mean Corpuscular Hemoglobin Concent 34.2 g/dl Platelet Count 170 K/uL Mean Platelet Volume 9.6 fL Neutrophils (%) (Auto) 75.9 % Lymphocytes (%) (Auto) 15.2 % Monocytes (%) (Auto) 7.9 % Eosinophils (%) (Auto) 0.1 % Basophils (%) (Auto) 0.1 % Neutrophils # (Auto) 6.86 K/uL Lymphocytes # (Auto) 1.37 K/uL Monocytes # (Auto) 0.71 K/uL Eosinophils # (Auto) 0.01 K/uL Basophils # (Auto) 0.01 K/uL Hemoglobin A1c 14.0 % HbA1c Test 07/17/16 03:53 Hemoglobin A1c 14.0 % (4.5-5.6) H Recent Pertinent Medications Outpatient Anti-diabetic Regimen: * Lantus 8 units SQ AM * Levemir 10 units SQ PM Assessment & Plan ASSESSMENT: * 55yo diabetic female with poor outpatient control per A1c = 14% on 07/17/16 * Pt initiated on IV insulin infusion for severe hyperglycemia w/o acidosis. Outpatient basal insulin doses resumed with infusion to help facilitate transitioning off of insulin drip. * Outpatient doses are likely too low for patient's degree of insulin resistance. Regimen will need adjusted at discharge. Based on A1c of 14% patient will need prandial insulin in addition to increased basal insulin doses. * Will initiate aggressive weight based SQ basal bolus insulin regimen in addition to IV insulin infusion. The IV insulin infusion will serve as "correctional" insulin. * ADA & AACE recommend a goal blood sugar range 140-180 mg/dl for the majority of critically ill & non-critically ill patients. However, more stringent targets may be selected in individual cases. PLAN FOR INPATIENT GLYCEMIC CONTROL: * Regarding the IV insulin infusion: * LOWER the Goal Range to 140 - 180 mg/dl * Regarding IVF: Continue IVF as ordered per protocol * Initial fluid therapy is directed toward expansion of the intravascular, interstitial, and intracellular volume, all of which are reduced in hyperglycemic crises and mosque of renal perfusion. Adequate hydration increases insulin sensitivity. * Prevent Hypoglycemia: Incorporate 5% dextrose to replacement fluids to allow continued insulin administration until ketonemia is controlled while at the same time avoiding hypoglycemia. Change IVF to incorporate dextrose when BSG reaches ordered goal range * Prevention of Hypokalemia: Change IVF to incorporate potassium when serum K+ falls below the upper limit of normal for lab (5.1 mmol/L) * INCREASE Basal insulin, patient uses 2 different basal insulins and would like to continue this for admission. For cost savings purposes, this may need simplified if prandial insulin is added as well at discharge. * Patient received Lantus 8 units SQ this AM, will give additional 8 units this AM and then continue Lantus 15 units SQ AM tomorrow. * Increase PM basal insulin dose to Levemir 15 units SQ PM * Correctional Insulin with NOVOLOG per scale ACHS or Q6hrs while NPO * Goal Range: Low 140 mg/dL - High 180 mg/dL * Correction Factor: 20 mg/dL/unit not to be utilized while on IV insulin infusion * Nutritional / Prandial insulin per carb ratio of 1 unit per 7 grams CHO consumed * A1c added to d/c instructions to be communicated to PCP * Please note that the plan above was derived based on current level of insulin resistance and hospital stress. These recommendations are appropriate for inpatient admission only. Plan of care upon discharge will need to be reassessed to avoid potential outpatient hypo/hyperglycemia. Thank you.
[2016-07-17 16:59] LABS: BUN/CREATININE RATIO 24.6 (10-20); CALCIUM 8.6 mg/dl (8.5-10.1); CREATININE 0.87 mg/dl (0.60-1.20); POTASSIUM 4.1 mmol/L (3.5-5.1)
[2016-07-17 17:13] LABS: PHOSPHORUS 1.5 mg/dl (2.5-4.9)
[2016-07-17] MEDS ORDERED: POTASSIUM PHOS 3 MMOL/1 ML INFUSION IV STA (17:24)
[2016-07-17] MEDS ORDERED: POTASSIUM PHOSPHATE INJ 30 MMOL in SODIUM CHLORIDE 0.9% 500ML 500 ML IV ONE (18:00)
[2016-07-17] MEDS ORDERED: INSULIN DETEMIR FLEXPEN/FLEX TOUCH 100 UNITS/ML 3ML SC SCH ×2 (21:00)
[2016-07-17 21:16] LABS: BUN/CREATININE RATIO 26.1 (10-20); CALCIUM 8.3 mg/dl (8.5-10.1); CREATININE 0.79 mg/dl (0.60-1.20); POTASSIUM 4.2 mmol/L (3.5-5.1)
[2016-07-17] MEDS: TIOTROPIUM BROMIDE 5 PUFF/90 MCG INH INH SCH (22:05)
[2016-07-17] MEDS: PENDING D5 1/2NS+20mEq KCL IVF SCH ×2 (22:15→23:40)
[2016-07-18] VITALS (7 sets, daily range): BP systolic 84–122; BP diastolic 52–78; PULSE 86–96; TEMP 36.5–37; O2SAT 94–97
[2016-07-18] MEDS: INSULIN REGULAR 250 UNITS in SODIUM CHLORIDE 0.9% 250ML 250 ML IV SCH ×7 (00:06→09:12)
[2016-07-18 01:00] LABS: BUN/CREATININE RATIO 28.1 (10-20); CALCIUM 8.1 mg/dl (8.5-10.1); CREATININE 0.63 mg/dl (0.60-1.20); PHOSPHORUS 2.3 mg/dl (2.5-4.9); POTASSIUM 4.1 mmol/L (3.5-5.1)
[2016-07-18] MEDS ORDERED: NURSING VERBAL MED ORDER ONE ×2 (02:15→05:00)
[2016-07-18] MEDS ORDERED: D5W AND 1/2NSS + 20MEQ KCL 1,000 ML IV SCH (02:30)
[2016-07-18] MEDS ORDERED: NSS + 20MEQ KCL 1000ML 1,000 ML IV SCH (05:15)
[2016-07-18] MEDS: FLUTICASONE/SALMETEROL 250/50 (ADVAIR) 14 PUFF/1 INHALER INH SCH ×2 (08:12→20:00)
[2016-07-18] MEDS: BUDESONIDE/FORMOTEROL FUMARATE 160/4.5 60 PUFFS/INHALER INH SCH ×2 (08:12→20:03)
[2016-07-18] MEDS: GABAPENTIN 300 MG CAP PO SCH (08:13)
[2016-07-18] MEDS: OXYBUTYNIN CHLORIDE 5 MG TABCR PO SCH (08:13)
[2016-07-18] MEDS: PANTOprazole SOD 40 MG TAB PO SCH (08:14)
[2016-07-18] MEDS: FLUOXETINE HCL 20 MG CAP PO SCH (08:16)
[2016-07-18] MEDS: ENOXAPARIN 40 MG/0.4 ML SYR SQ SCH (08:17)
[2016-07-18] MEDS: INSULIN ASPART 100 UNITS/ML 3 ML PEN SC SCH ×4 (08:25→20:09)
[2016-07-18] MEDS: INSULIN GLARGINE SOLOSTAR 100 UNITS/ML 3 ML PEN SC SCH ×2 (08:25→20:08)
[2016-07-18] MEDS ORDERED: INSULIN GLARGINE SOLOSTAR 100 UNITS/ML 3 ML PEN SC SCH (09:00)
[2016-07-18] MEDS ORDERED: NICOTINE 14 MG/24 HR TDSY TD SCH (09:00)
--- NOTE | 2016-07-18 10:42 | Progress Note ---
Subjective Date of Service: Jul 18, 2016. Subjective Pt evaluation today including: conversation w/ patient, physical exam, chart review, lab review, review of studies, review of inpatient medication list Was anxious and report to like cigarettes craving, want to go outside to have smoking, or wants to go home, reported she is missing her cats at home Otherwise no other complaining, Problem List Medical Problems: (1) DKA (diabetic ketoacidoses) Status: Acute (2) Mood disorder Status: Acute (3) Non-cardiac chest pain Status: Acute (4) Suicidal ideation Status: Acute (5) UTI (urinary tract infection) Status: Acute Review of Systems Constitutional: + fatigue, No chills, No fever, No problem reported, No sweats , No weakness, No weight loss Eyes: No diplopia, No discharge, No eye pain, No redness, No worsening of vision ENT: No dental problems, No hearing loss, No nasal symptoms, No sore throat, No tinnitus, No trouble swallowing, No unusual epistaxis Respiratory: No cough, No dyspnea at rest, No dyspnea on exertion, No hemoptysis, No shortness of breath, No sputum, No wheezing Cardiac: No PND, No chest pain, No claudication, No edema, No orthopnea, No palpitations Abdomen: + constipation, No diarrhea, No nausea, No pain, No vomiting Musculoskeletal: No calf pain, No joint pain, No muscle pain, No swelling Female : No abnormal vaginal bleeding, No dysuria, No hematuria, No incontinence, No urinary frequency, No vaginal discharge Neurologic: No balance problems, No memory loss, No numbness/tingling, No paralysis, No vertigo, No weakness Psychiatric: No anhedonism, No anxiety, No depression symptoms, No insomnia, No substance abuse Heme: No abnormal bleeding/bruising, No clotting problems, No night sweats, No swollen lymph nodes Endo: No excessive thirst, No excessive urination, No fatigue Skin: No bleeding, No color change, No itch, No new/changing skin lesions, No rash Objective Vital Signs Date Time Temp Pulse Resp B/P Pulse Ox O2 Delivery O2 Flow Rate FiO2 07/18/16 08:00 Room Air 07/18/16 07:22 36.7 86 18 100/67 97 07/18/16 04:00 Room Air 07/18/16 04:00 96 105/70 07/18/16 03:51 37.0 93 20 84/52 95 Room Air 07/18/16 00:00 Room Air 07/17/16 23:29 36.5 99 18 99/60 94 Room Air 07/17/16 20:00 Room Air 07/17/16 19:39 36.5 90 18 109/72 18 Room Air 07/17/16 16:12 Room Air 07/17/16 14:55 36.6 96 16 109/69 96 Room Air 07/17/16 12:23 Room Air 07/17/16 11:49 36.2 103 16 108/75 96 Nasal Cannula Physical Exam General Appearance: WD/WN, no apparent distress, + pertinent finding (mild anxious) Eyes: normal inspection, PERRL, EOMI, sclerae normal ENT: normal ENT inspection, hearing grossly normal, pharynx normal Neck: supple, no adenopathy, thyroid normal, no JVD, no carotid bruits, trachea midline Respiratory/Chest: chest non-tender, normal breath sounds, no respiratory distress, no accessory muscle use, + decreased breath sounds Cardiovascular: regular rate, rhythm, no edema, no gallop, no JVD, no murmur Abdomen: normal bowel sounds, non tender, soft, no organomegaly, no pulsatile mass Extremities: normal range of motion, non-tender, normal inspection, no pedal edema, no calf tenderness, normal capillary refill, pelvis stable, + pertinent finding (right lower extremity sensitive to touch because of pain) Neurologic/Psychiatric: 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, no motor/sensory deficits, alert, normal mood/affect, oriented x 3 Skin: normal color, warm/dry, no rash Lymphatic: no adenopathy Laboratory Results Last 24 Hours Test 07/17/16 10:56 07/17/16 12:04 07/17/16 12:10 07/17/16 13:11 Bedside Glucose 321 mg/dl 271 mg/dl 386 mg/dl Sodium Level 135 mmol/L Potassium Level 4.2 mmol/L Chloride Level 102 mmol/L Carbon Dioxide Level 22 mmol/L Anion Gap 11.0 mmol/L Blood Urea Nitrogen 21 mg/dl Creatinine 0.77 mg/dl Est Creatinine Clear Calc Drug Dose 77.4 ml/min Estimated GFR () 100.0 Estimated GFR (Non- 86.3 BUN/Creatinine Ratio 27.4 Random Glucose 287 mg/dl Calcium Level 8.8 mg/dl Phosphorus Level 1.8 mg/dl Test 07/17/16 13:58 07/17/16 15:01 07/17/16 16:04 07/17/16 16:20 Bedside Glucose 315 mg/dl 285 mg/dl 241 mg/dl Sodium Level 136 mmol/L Potassium Level 4.1 mmol/L Chloride Level 103 mmol/L Carbon Dioxide Level 24 mmol/L Anion Gap 9.0 mmol/L Blood Urea Nitrogen 21 mg/dl Creatinine 0.87 mg/dl Est Creatinine Clear Calc Drug Dose 68.5 ml/min Estimated GFR () 86.3 Estimated GFR (Non- 74.5 BUN/Creatinine Ratio 24.6 Random Glucose 211 mg/dl Calcium Level 8.6 mg/dl Phosphorus Level 1.5 mg/dl Test 07/17/16 17:04 07/17/16 18:02 07/17/16 19:04 07/17/16 20:02 Bedside Glucose 245 mg/dl 236 mg/dl 231 mg/dl 186 mg/dl Test 07/17/16 20:28 07/17/16 21:03 07/17/16 21:57 07/17/16 23:04 Venous Blood pH 7.42 Sodium Level 135 mmol/L Potassium Level 4.2 mmol/L Chloride Level 103 mmol/L Carbon Dioxide Level 23 mmol/L Anion Gap 9.0 mmol/L Blood Urea Nitrogen 21 mg/dl Creatinine 0.79 mg/dl Est Creatinine Clear Calc Drug Dose 75.4 ml/min Estimated GFR () 97.0 Estimated GFR (Non- 83.7 BUN/Creatinine Ratio 26.1 Random Glucose 164 mg/dl Calcium Level 8.3 mg/dl Phosphorus Level 2.0 mg/dl Bedside Glucose 173 mg/dl 206 mg/dl 207 mg/dl Test 07/18/16 00:04 07/18/16 00:14 07/18/16 01:00 07/18/16 01:57 Bedside Glucose 163 mg/dl 155 mg/dl 112 mg/dl Sodium Level 136 mmol/L Potassium Level 4.1 mmol/L Chloride Level 105 mmol/L Carbon Dioxide Level 24 mmol/L Anion Gap 7.0 mmol/L Blood Urea Nitrogen 18 mg/dl Creatinine 0.63 mg/dl Est Creatinine Clear Calc Drug Dose 94.6 ml/min Estimated GFR () 116.2 Estimated GFR (Non- 100.3 BUN/Creatinine Ratio 28.1 Random Glucose 153 mg/dl Calcium Level 8.1 mg/dl Phosphorus Level 2.3 mg/dl Test 07/18/16 02:13 07/18/16 02:32 07/18/16 02:45 07/18/16 03:47 Bedside Glucose 103 mg/dl 118 mg/dl 152 mg/dl 224 mg/dl Test 07/18/16 04:46 07/18/16 05:41 07/18/16 06:47 07/18/16 07:43 Bedside Glucose 300 mg/dl 225 mg/dl 170 mg/dl 172 mg/dl Test 07/18/16 08:45 07/18/16 09:09 07/18/16 09:48 Bedside Glucose 224 mg/dl 255 mg/dl 219 mg/dl Assessment and Plan 55 y/o F w/Hx IDDM, COPD, continued tobacco abuse admitted because of severe hyperglycemia Severe hyperglycemia upon admission with history of insulin-dependent diabetic, uncontrolled, A1c 14, no acidosis in ABG, bicarbonate was more than 20, I don't believe she has DKA Condition is improving after insulin drip Her home dose Lantus insulin 8 units in the morning 10 units in the evening, Discussed with pharmacist, increased to Lantus 20 units twice a day, Continue insulin drip, was slowly bridging over to subcutaneous Lantus, plus insulin sliding scale for post prandial choleretic Discontinue IV fluid, diabetic diet Diabetic education was ordered Diabetic neuropathy, increased the Neurontin from 300 to 400 3 times a day Possible gastritis with abdominal pain nausea and vomiting 2 days prior to this admission. Resolved, continue Protonix by mouth Constipation, will give Colace, MiraLAX and Dulcolax as needed Acute kidney failure with creatinine 1.4, totally resolved, likely because of dehydration from hyperglycemia History of COPD with history of tobacco abuse disorder - no evidence of exacerbation cont inhalers as prescribed, and will give nicotine patch, consult to quit smoking , and offer help GI and DVT prophylaxis is covered Possible discharge day 1 or 2 Continued [facility] stay due to: home environment unsafe for pt Discharge planning: home
[2016-07-18] MEDS ORDERED: BISACODYL 10 MG SUPP PR PRN (10:45)
[2016-07-18] MEDS ORDERED: NICOTINE 21 MG/24 HR TDSY TD ONE (11:00)
[2016-07-18] MEDS ORDERED: BISACODYL 10 MG SUPP PR ONE (11:00)
[2016-07-18] MEDS ORDERED: DOCUSATE SODIUM 100 MG CAP PO ONE (11:00)
--- NOTE | 2016-07-18 11:11 | Pharmacy Progress Note ---
Glycemic Control: Progress Nt Date of Service Jul 18, 2016. Scope Glycemic Pharmacist consulted for glycemic control and to write orders per [facility] inpatient glycemic control protocol. Objective Accuchecks BSG (last 24hrs): Test 07/17/16 12:04 07/17/16 12:10 07/17/16 13:11 07/17/16 13:58 Random Glucose 287 mg/dl (70-99) Bedside Glucose 271 mg/dl (70-90) 386 mg/dl (70-90) 315 mg/dl (70-90) Test 07/17/16 15:01 07/17/16 16:04 07/17/16 16:20 07/17/16 17:04 Bedside Glucose 285 mg/dl (70-90) 241 mg/dl (70-90) 245 mg/dl (70-90) Random Glucose 211 mg/dl (70-99) Test 07/17/16 18:02 07/17/16 19:04 07/17/16 20:02 07/17/16 20:28 Bedside Glucose 236 mg/dl (70-90) 231 mg/dl (70-90) 186 mg/dl (70-90) Random Glucose 164 mg/dl (70-99) Test 07/17/16 21:03 07/17/16 21:57 07/17/16 23:04 07/18/16 00:04 Bedside Glucose 173 mg/dl (70-90) 206 mg/dl (70-90) 207 mg/dl (70-90) 163 mg/dl (70-90) Test 07/18/16 00:14 07/18/16 01:00 07/18/16 01:57 07/18/16 02:13 Random Glucose 153 mg/dl (70-99) Bedside Glucose 155 mg/dl (70-90) 112 mg/dl (70-90) 103 mg/dl (70-90) Test 07/18/16 02:32 07/18/16 02:45 07/18/16 03:47 07/18/16 04:46 Bedside Glucose 118 mg/dl (70-90) 152 mg/dl (70-90) 224 mg/dl (70-90) 300 mg/dl (70-90) Test 07/18/16 05:41 07/18/16 06:47 07/18/16 07:43 07/18/16 08:45 Bedside Glucose 225 mg/dl (70-90) 170 mg/dl (70-90) 172 mg/dl (70-90) 224 mg/dl (70-90) Test 07/18/16 09:09 07/18/16 09:48 Bedside Glucose 255 mg/dl (70-90) 219 mg/dl (70-90) Laboratory Data (last 24hrs) Test 07/17/16 12:04 07/17/16 16:20 07/17/16 20:28 07/18/16 00:14 Anion Gap 11.0 mmol/L 9.0 mmol/L 9.0 mmol/L 7.0 mmol/L BUN/Creatinine Ratio 27.4 24.6 26.1 28.1 Blood Urea Nitrogen 21 mg/dl 21 mg/dl 21 mg/dl 18 mg/dl Creatinine 0.77 mg/dl 0.87 mg/dl 0.79 mg/dl 0.63 mg/dl Potassium Level 4.2 mmol/L 4.1 mmol/L 4.2 mmol/L 4.1 mmol/L Sodium Level 135 mmol/L 136 mmol/L 135 mmol/L 136 mmol/L HbA1c: Test 07/17/16 03:53 Hemoglobin A1c 14.0 % (4.5-5.6) H Recent Pertinent Medications Outpatient Anti-diabetic Regimen: * Lantus 8 units SQ AM * Levemir 10 units SQ PM Assessment & Plan ASSESSMENT: * 55yo diabetic female with poor outpatient control per A1c = 14% on 07/17/16 * Outpatient regimen will need adjusted at discharge. Based on A1c patient will need prandial insulin in addition to increased basal insulin doses. * Pt initiated on IV insulin infusion for severe hyperglycemia w/o acidosis/ metabolic changes. * Outpatient basal insulin doses resumed with infusion to help facilitate transitioning off of insulin drip. The IV insulin infusion is basically serving as "correctional" insulin. * Patient meets criteria to transition off of IV insulin infusion and continue SQ basal bolus insulin regimen monotherapy * Basal insulin doses have been increased/titrated over the last 24hrs * ADA & AACE recommend a goal blood sugar range 140-180 mg/dl for the majority of critically ill & non-critically ill patients. However, more stringent targets may be selected in individual cases. PLAN FOR INPATIENT GLYCEMIC CONTROL: * Regarding the IV insulin infusion: * Transition off of infusion * Increase basal insulin doses further to help facilitate drip "turning itself off" * Will continue overlap with Lantus x 4 more hours this morning. D/C gtt ~ 1300 if or when held per calculator, whichever happens sooner. * INCREASE Basal insulin, patient uses 2 different basal insulins as an outpatient. For cost savings purposes, will simplify this as prandial insulin will most likely be needed at discharge. * INCREASE basal insulin with Lantus (only) to 20 units SQ BID * NOVOLOG per scale ACHS or Q6hrs while NPO * Goal Range: Low 140 mg/dL - High 180 mg/dL * Correction Factor: 20 mg/dL/unit * Nutritional / Prandial insulin per carb ratio of 1 unit per 7 grams CHO consumed * A1c added to d/c instructions to be communicated to PCP LOOKING AHEAD TO DISCHARGE: * A1c = 14%. Pt needs increased basal insulin dosing plus prandial insulin * Ideally, recommend SQ basal bolus with Lantus + NovoLog with meals * Recommend continuing Lantus 15-20 units SQ BID * Recommend NovoLog 10units SQ TIDM * If above regimen is cost-prohibited or too cumbersome (5 injections/day): * Recommend Novolin 70/30 premixed insulin 30-40 units SQ with the morning meal + 10-20 units SQ with the evening meal. * Total daily [id number] units/day * Please note that the plan above was derived based on current level of insulin resistance and hospital stress. These recommendations are appropriate for inpatient admission only. Plan of care upon discharge will need to be reassessed to avoid potential outpatient hypo/hyperglycemia. Thank you.
[2016-07-18] MEDS ORDERED: [UNRECOGNIZED DRUG - REMARK] SCH (13:00)
[2016-07-18] MEDS: GABAPENTIN 400 MG CAP PO SCH ×2 (14:13→20:05)
[2016-07-18] MEDS: TIOTROPIUM BROMIDE 5 PUFF/90 MCG INH INH SCH (20:01)
[2016-07-18] MEDS: DOCUSATE SODIUM 100 MG CAP PO SCH (20:04)
[2016-07-19] VITALS (9 sets, daily range): BP systolic 106–118; BP diastolic 72–78; PULSE 77–99; TEMP 36.5–37.1; O2SAT 94–98; Ht 157.5 cm; Wt 78.1 kg
[2016-07-19 06:45] LABS: CALCIUM 8.6 mg/dl (8.5-10.1); CREATININE 0.76 mg/dl (0.60-1.20); MAGNESIUM 2.1 mg/dl (1.8-2.4); PHOSPHORUS 2.4 mg/dl (2.5-4.9); POTASSIUM 4.4 mmol/L (3.5-5.1)
--- NOTE | 2016-07-19 07:49 | Hospitalist Progress Note ---
Hospitalist Progress Note Date of Service Jul 19, 2016. Objective Vital Signs Date Time Temp Pulse Resp B/P Pulse Ox O2 Delivery O2 Flow Rate FiO2 07/19/16 04:33 94 Room Air 07/19/16 03:56 37.0 83 20 118/76 96 Room Air 07/19/16 00:15 94 Room Air 07/19/16 00:01 37.1 99 20 106/72 97 Room Air 07/18/16 20:00 94 Room Air 07/18/16 19:24 36.5 92 18 122/78 94 Room Air 07/18/16 16:00 Room Air 07/18/16 15:34 36.9 93 18 103/62 94 Room Air 07/18/16 12:00 Room Air 07/18/16 11:51 36.5 96 18 114/76 96 07/18/16 08:00 Room Air Laboratory Results Last 24 Hours Test 07/18/16 07:43 07/18/16 08:45 07/18/16 09:09 07/18/16 09:48 Bedside Glucose 172 mg/dl 224 mg/dl 255 mg/dl 219 mg/dl Test 07/18/16 11:04 07/18/16 16:20 07/18/16 20:04 07/19/16 05:40 Bedside Glucose 163 mg/dl 213 mg/dl 238 mg/dl Sodium Level 137 mmol/L Potassium Level 4.4 mmol/L Chloride Level 103 mmol/L Carbon Dioxide Level 25 mmol/L Anion Gap 9.0 mmol/L Blood Urea Nitrogen 15 mg/dl Creatinine 0.76 mg/dl Est Creatinine Clear Calc Drug Dose 80.0 ml/min Estimated GFR () 101.6 Estimated GFR (Non- 87.7 BUN/Creatinine Ratio 20.0 Random Glucose 238 mg/dl Calcium Level 8.6 mg/dl Phosphorus Level 2.4 mg/dl Magnesium Level 2.1 mg/dl Assessment and Plan 55 y/o F wPMHx IDDM, COPD, continued tobacco abuse admitted because of severe hyperglycemia with glucose >600 at time of admission, not in DKA Severe hyperglycemia upon admission with history of insulin-dependent diabetic, uncontrolled, - A1c 14, - Condition is improving after insulin drip - off now - Pharmacy on board- have increased Lantus 20 units BID, was only receiving 8 U in the morning and 10 U in the evening prior to admission. - Continue sliding scale insulin ACHS - Discontinue IV fluid, diabetic diet - marketing traffic manager on board Diabetic neuropathy - cont Neurontin from 400 TID Possible gastritis with abdominal pain nausea and vomiting 2 days prior to this admission. - Resolved, continue Protonix by mouth Constipation - prn Colace, MiraLAX and Dulcolax Acute kidney failure - creatinine 1.4 now down to 0.76 - totally resolved, likely because of dehydration from hyperglycemia History of COPD with history of tobacco abuse disorder - no evidence of exacerbation - cont inhalers as prescribed, and will give nicotine patch, consult to quit smoking , and offer help GI and DVT prophylaxis is covered Disposition: From home
[2016-07-19] MEDS: FLUTICASONE/SALMETEROL 250/50 (ADVAIR) 14 PUFF/1 INHALER INH SCH (08:08)
[2016-07-19] MEDS: BUDESONIDE/FORMOTEROL FUMARATE 160/4.5 60 PUFFS/INHALER INH SCH (08:08)
[2016-07-19] MEDS: DOCUSATE SODIUM 100 MG CAP PO SCH (08:09)
[2016-07-19] MEDS: OXYBUTYNIN CHLORIDE 5 MG TABCR PO SCH (08:09)
[2016-07-19] MEDS: GABAPENTIN 400 MG CAP PO SCH ×2 (08:09→14:02)
[2016-07-19] MEDS: PANTOprazole SOD 40 MG TAB PO SCH (08:10)
[2016-07-19] MEDS: FLUOXETINE HCL 20 MG CAP PO SCH (08:10)
[2016-07-19] MEDS: ENOXAPARIN 40 MG/0.4 ML SYR SQ SCH (08:11)
[2016-07-19] MEDS: INSULIN GLARGINE SOLOSTAR 100 UNITS/ML 3 ML PEN SC SCH (08:16)
[2016-07-19] MEDS: INSULIN ASPART 100 UNITS/ML 3 ML PEN SC SCH ×2 (08:18→12:35)
--- NOTE | 2016-07-19 08:41 | Clinical Documentation Query ---
CLINICAL DOCUMENTATION QUERY 55 year old female who presents to the Emergency Room with complaints of nausea, vomiting and hyperglycemia today. In your clinical opinion is this patient being managed for: ( ) Diabetes mellitus with Hyperglycemic Hyperosmolar State (HHS) ( ) Other explanation of clinical findings (Please Explain) ( ) Unable to determine (Please Define) ( ) Need to Discuss ( ) Not Agree The medical record reflects the following clinical findings, treatment, and risk factors. Clinical Indicators: Patient reports not giving herself her normal required insulin to do lack of PO intake. Sodium 126, Serum Glucose 685, Urine glucose 3+, Treatment: IVF boluses, IV insulin push then gtt, IV Potassium, Risk Factors: Age, diabetes, underlying question of UTI and gastritis. Please clarify and document your clinical opinion in the progress notes and discharge summary. Terms such as "probable", "suspected", "likely", "questionable", "possible", or "still to be ruled out" are acceptable. IF IN AGREEMENT, YOU MUST DOCUMENT ABOVE DIAGNOSTIC STATEMENT IN DAILY PROGRESS NOTES AND DISCHARGE SUMMARY. This document is not part of the patient's record. Thank You, Kayden Rosado, BAKARI [phone]
[2016-07-19] MEDS ORDERED: NICOTINE 21 MG/24 HR TDSY TD SCH (09:00)
[2016-07-19] MEDS ORDERED: NCDT21 TD (10:07)
[2016-07-19] MEDS ORDERED: GABA1CAP4 PO (10:07)
--- NOTE | 2016-07-19 10:45 | Discharge Summary ---
Discharge Summary Date of Service Jul 19, 2016. (Lee Ann Dillon PA-C) Discharge Summary Admission Date: Jul 17, 2016 at 02:10 Discharge Date: Jul 19, 2016 Discharge Disposition: Home Principal Diagnosis: hyperglycemia Problems/Secondary Diagnoses: IDDM, COPD, chronic tobacco abuse, obesity, intellectual disability/reading impairment Procedures: CHEST ONE VIEW PORTABLE CLINICAL HISTORY: DKA mental status change COMPARISON STUDY: 05/20/2015 FINDINGS: The bones soft tissues and hemidiaphragms are normal. The cardiomediastinal silhouette is normal. The lungs are clear. The pulmonary vasculature is normal. IMPRESSION: Negative chest. Electronically signed by: Victor Manuel Langston M.D. 07/16/2016 9:39 PM Dictated Date/Time: 07/16/2016 9:39 PM The status of this report is Signed. Draft = Not yet reviewed or approved by Radiologist. Signed = Reviewed and approved by Radiologist. Consultations: Diabetic education (Lee Ann Dillon PA-C) Medication Reconciliation New Medications: Insulin Glargine (Lantus) 100 Unit/Ml Inj 20 UNITS SC AMPM for 30 Days, #60 DOSE Insulin Aspart (Novolog Flexpen) 100 Units/Ml Inj 10 UNITS SC ACHS for 30 Days, #90 DOSE Take 10 U with meals Nicotine (Nicotine) 1 Patch Tdsy 1 PATCH TD QAM for 21 Days, #21 PATCH Changed Medications: Gabapentin (Gabapentin) 300 Mg Cap 400 MG PO TID for 15 Days, #60 DOSE 3 Refills (Changed from: 300 MG) Continued Medications: Albuterol (Proair Hfa) Aers 2 PUFFS INH Q4 PRN for Wheezing NEEDED FOR WHEEZING. Budesonide/Formoterol Fumarate (Symbicort 160/4.5 Inhaler ) Aero 2 PUFFS INH BID Fluoxetine (Prozac) 40 Mg Cap 40 MG PO DAILY Fluticasone Prop/Salmeterol (Advair Diskus 250/50 60 Dose) 1 Ea Aerp 1 PUFF INH BID Oxybutynin Chloride Er (Ditropan Xl) 10 Mg Tab 10 MG PO DAILY Oxycodone Ir (Roxicodone Ir) 5 Mg Tab 1-2 TAB PO Q4H PRN for Severe Pain, #12 TAB Tiotropium [place] (Spiriva Handihaler) 30 Puff/540 Mcg Aerp 1 CAP INH DAILY, INHALER Trazodone Hcl (Trazodone) 50 Mg Tab 50-100 MG PO HS PRN for Sleep, TAB [Antibiotic Unk] () Unknown Dose Discontinued Medications: Insulin Detemir (Levemir) 100 Units/Ml Inj 8 UNITS SQ PM Insulin Glargine (Lantus) 100 Unit/Ml Inj 10 UNITS SC QAM, VIAL Discharge Exam The patient was seen and examined this morning. Patient reports feeling well. Is anticipating discharge to home today. States she was spoken to about diet and exercise. chemical educator is planning on coming to see the patient today , discussion was held with Case Management regarding insurance coverage for Lantus and NovoLog, which should be affordable for the patient. The patient denies any chest pain, shortness of breath, abdominal pain, constipation. Patient reports she had a bowel movement last night. She is eating and drinking fine. Review of Systems: Constitutional: No chills, No fatigue, No fever, No sweats, No weakness Eyes: No diplopia, No worsening of vision ENT: No nasal symptoms, No sore throat Respiratory: No cough, No shortness of breath Cardiovascular: No chest pain, No palpitations Abdomen: No constipation, No nausea, No pain, No vomiting Musculoskeletal: No joint pain, No swelling Genitourinary - Female: No dysuria, No hematuria Neurologic: + numbness/tingling (bilateral lower extremities up to ankle) Integumentary: No itch, No rash Physical Exam: General Appearance: WD/WN, no apparent distress, + obese Eyes: PERRL, + pertinent finding (endentulous) ENT: hearing grossly normal, pharynx normal Neck: supple, no JVD Respiratory/Chest: lungs clear, normal breath sounds, no respiratory distress, no accessory muscle use Cardiovascular: regular rate, rhythm, normal peripheral pulses Abdomen / GI: normal bowel sounds, non tender, soft, no organomegaly, + pertinent finding (obese) Extremities: no calf tenderness, no pedal edema Neurologic/Psychiatric: alert, normal mood/affect, oriented x 3 Skin: normal color, warm/dry (Lee Ann Dillon, JEANA) Hospital Course H&P per Dr. Isaiah MD. History of Present Illness Source: patient 55 y/o F w/Hx IDDM, COPD, continued tobacco abuse. Pt developed abdominal pain nausea and vomiting 2 days earlier. She did not administer her insulin over this period as she was concerned that she would become hypoglycemic due to lack of PO intake. She denies fevers, diarrhea or dysuria. Initial labs revealed hyperglycemia at > 600 with an anion gap and ketones however there was no acidosis on an ABG and her bicarb was only moderately low. PE: Vital Signs Date Time Temp Pulse Resp B/P Pulse Ox O2 Delivery O2 Flow Rate FiO2 07/17/16 02:34 105 20 131/79 95 07/17/16 01:38 109 20 127/74 93 Room Air 07/16/16 23:47 106 20 104/66 95 Room Air 07/16/16 21:46 110 20 129/81 98 Room Air 07/16/16 20:57 115 07/16/16 20:56 36.7 102 20 124/79 96 Room Air General Appearance: WD/WN, no apparent distress, + pertinent finding ( Overweight middle aged female in n distress) Head: normocephalic, atraumatic Eyes: normal inspection, PERRL, EOMI ENT: normal ENT inspection, pharynx normal Neck: supple, no JVD Respiratory/Chest: chest non-tender, lungs clear, no respiratory distress, no accessory muscle use, + decreased breath sounds Cardiovascular: regular rate, rhythm, no edema, no gallop, no JVD, no murmur, normal peripheral pulses Abdomen/GI: normal bowel sounds, non tender, soft Back: normal inspection, no CVA tenderness, no muscle spasm, normal range of motion Extremities/Musculoskelatal: normal inspection, no calf tenderness, normal capillary refill, no pedal edema, normal range of motion Neurologic/Psych: program coordinator executive education II-XII nml as tested, no motor/sensory deficits, alert, oriented x 3 Skin: normal color, warm/dry, no rash Hospital Course: 55 y/o F wPMHx IDDM, COPD, continued tobacco abuse admitted because of severe hyperglycemia with glucose >600 at time of admission, not in DKA Severe hyperglycemia upon admission with history of insulin-dependent diabetic, uncontrolled, - A1c 14 - Condition is improving after insulin drip - off now - Pharmacy on board- have increased Lantus 20 units BID, was only receiving 8 U in the morning and 10 U in the evening prior to admission. - Discussion was held with case management regarding Lantus and NovoLog insurance coverage, appears that this will be affordable for the patient can be discharged on the regimen - Continue sliding scale insulin ACHS - Discontinue IV fluid, diabetic diet - chemical educator on board - Insulin regimen was adjusted to Lantus 20 units twice daily, pt was previously on levemir - Novolog 10 U three times daily with meals. - Pt was counseled on continuing to eat a balanced diet as instructed while in the hospital with fruits and vegetables, and low amounts of carbohydrates such as pasta, bread, crackers, chips, and other junk food. Diabetic neuropathy - cont Neurontin from 400 TID Possible gastritis with abdominal pain nausea and vomiting 2 days prior to this admission. - Resolved, continue Protonix by mouth Constipation - prn Colace, MiraLAX and Dulcolax Acute kidney failure - creatinine 1.4 now down to 0.76 - totally resolved, likely because of dehydration from hyperglycemia History of COPD with history of tobacco abuse disorder - no evidence of exacerbation - cont inhalers as prescribed - Smoking cessation was encouraged: nicotine patch prescribed at discharge DVT ppx: Edwar, SCDs Patient is ambulating out of bed Disposition: From home, discharge home today Total Time Spent: Greater than 30 minutes This includes examination of the patient, discharge planning, medication reconciliation, and communication with other providers. (Lee Ann Dillon PA-C) MARYSE Physician Supervision Note: I interviewed and examined the patient. Discussed with Lee Ann Dillon PAC and agree with findings and plan as documented in the note. Any exceptions or clarifications are listed here: None Pt was interested in going home, was counselled in diabetic foot care and smoking cessation vitals are stable car is regular lungs are clear Ok for discharge, case management has worked to provide insurance friendly insulin, encouraged close follow up Documented By: Aquilino Merrill (Aquilino Merrill M.D.) Discharge Instructions Please refer to the electronic Patient Visit Report (Discharge Instructions) for additional information. (Lee Ann Dillon, JEANA) Follow-Up Follow up with your Primary Care Provider within 1 week. (Lee Ann Dillon PA-C)
--- NOTE | 2016-07-19 10:55 | Discharge Instructions ---
Discharge Instructions Date of Service Jul 19, 2016. Admission Reason for Admission: Hyperglycemia, Insulin Dependent Diabetes Mellitus Discharge Discharge Diagnosis / Problem: hyperglycemia Discharge Goals Goal(s): Decrease discomfort, Improve function, Increase independence, Improve disease control Activity Recommendations Activity Limitations: resume your previous activity Lifting Limitations: no more than 25 pounds, gradually increase as tolerated Exercise/Sports Limitations: gradually increase as tolerated Shower/Bathe: no limitations Driving or Machine Use: DO NOT DRIVE . Instructions / Follow-Up Instructions / Follow-Up You were admitted to [facility] with hyperglycemia and diagnosed with hypoglycemia due to dehydration and gastritis with nausea and vomiting. - During your stay here you were treated with intravenous fluids. - Insulin regimen was adjusted and you required Lantus 20 units twice daily, ( long acting insulin) which is an increase from what you were previously taking. - Novolog (short acting insulin) should be taken three times daily with meals. - You have received a prescription for both of the types of insulin as listed above - Continue to eat a balanced diet as instructed while in the hospital with fruits and vegetables, and low amounts of carbohydrates such as pasta, bread, crackers, chips, and other junk food. Imaging studies which were completed include chest x-ray, and were normal Continue taking on the medications as prescribed. Follow-up with your PCP within one week. Current Hospital Diet Patient's current hospital diet: AHA Diet (Heart Healthy), Diabetes Type 2 Diet Discharge Diet Recommended Diet: AHA Diet (Heart Healthy), Diabetes Type 2 Diet Procedures Procedures Performed: None Pending Studies Studies pending at discharge: no Laboratory Results Hemoglobin A1c Test 07/17/16 03:53 Range/Units Estimated Average Glucose 355 mg/dl Hemoglobin A1c 14.0 H 4.5-5.6 % Medical Emergencies . Who to Call and When: Medical Emergencies: If at any time you feel your situation is an emergency, please call 911 immediately. . Non-Emergent Contact Non-Emergency issues call your: Primary Care Provider Call Non-Emergent contact if: you have a fever, temperature is above 100.5, you have any medication questions Headache, lightheadedness, dizziness, pain, heart flutter, abdominal pain, nausea, vomiting, diarrhea, constipation, or if you have other concerns regarding your health. . Past History Medical & Surgical History: (1) Hyperglycemia (2) Asthma (3) DM (diabetes mellitus) (4) HTN (hypertension) (5) Lumbago (6) Chronic lower back pain (7) Depression . "Provider Documentation" section prepared by Kassandra Dillon. VTE Core Measure Inpt VTE Proph given/why not?: Unfractionated heparin SQ
[2016-07-19] MEDS ORDERED: NVLGIPEN SC (13:52)
[2016-07-19] MEDS ORDERED: INSDGI SC (13:52)
[2016-07-20] MEDS ORDERED: HMLIS INJ (10:24)
--- NOTE | 2016-07-20 10:38 | Hospitalist Progress Note ---
Hospitalist Progress Note Date of Service Jul 20, 2016. Objective Vital Signs Date Time Temp Pulse Resp B/P Pulse Ox O2 Delivery O2 Flow Rate FiO2 07/19/16 12:11 36.9 93 17 95 Room Air 07/19/16 12:09 36.9 93 17 115/77 95 Room Air 07/19/16 12:00 94 Room Air Laboratory Results Last 24 Hours Test 07/19/16 11:40 Bedside Glucose 350 mg/dl Assessment and Plan Was called by Care Management and was told that the patients insurance would not cover novolog flexpen, but that humalog quickpen. Quickpen was in formulary for the patient. Changes to medications have been made per the EMR. I prescribed her humalog quickpen 10 U TID with meals through EMR and faxed a prescription for needles for that specific pen. CM, Emely Gerard, called the patient and left a message for further dosing instructions.
== END 2016-07-19 14:31 | disposition home or self-care (01) | DRG 638 ==
LOC: ENRESERVTM → ENRESERVDT → EDBD 20:44 → C.EDC 20:45 → C.MED 07-17 02:10
PROVIDERS: ADMIT Internal Medicine; ATTEND Hospitalist
DX: E11.65 Type 2 diabetes mellitus with hyperglycemia (principal); N17.9 Acute kidney failure, unspecified; N39.0 Urinary tract infection, site not specified; J44.9 Chronic obstructive pulmonary disease, unspecified; E11.40 Type 2 diabetes mellitus with diabetic neuropathy, unspecified; K29.70 Gastritis, unspecified, without bleeding; F17.210 Nicotine dependence, cigarettes, uncomplicated; E86.0 Dehydration; K59.00 Constipation, unspecified; I10 Essential (primary) hypertension; E66.9 Obesity, unspecified; M19.90 Unspecified osteoarthritis, unspecified site; J45.909 Unspecified asthma, uncomplicated; F32.9 Major depressive disorder, single episode, unspecified; M54.5 Low back pain; F79 Unspecified intellectual disabilities; F81.9 Developmental disorder of scholastic skills, unspecified; Z79.899 Other long term (current) drug therapy; Z79.4 Long term (current) use of insulin; Z79.891 Long term (current) use of opiate analgesic; Z79.51 Long term (current) use of inhaled steroids

== ENCOUNTER 2017-12-26 22:16 | Emergency (ER) | payer OTHER ==
[~2017-12-26] VITALS: Ht 157.5 cm; Wt 88.1 kg
[~2017-12-26 22:16] MED LIST changes: -EXEN1INJ3 INJ; +GABA-1219 PO; -GABA1CAP4 PO; +HMLIS INJ; -INSUINJ12 SQ; +NCDT21 TD; +OXYC-90 PO; +SPRIN/30 INH; -TIOTCAP INH; +[UNRECOGNIZED DRUG - REMARK]
[2017-12-26 22:30] VITALS: TEMP 36.6; Ht 157.5 cm; Wt 88.1 kg
[2017-12-26] MEDS ORDERED: KETOROLAC TROMETHAMINE 60 MG/2 ML VIAL IM STA (23:32)
[2017-12-26] MEDS ORDERED: OXYCODONE/ACETAMINOPHEN 5-325 TAB PO ONE (23:45)
--- NOTE | 2017-12-26 23:46 | EMERGENCY ROOM VISIT NOTE ---
History Report prepared by Maurice: Araceli Iglesias Under the Supervision of: Dr. Tawny Osuna D.O. First contact with patient: 23:08 Chief Complaint: ARM PAIN Stated Complaint: LEFT ARM PAIN/TINGLING, LOWER BACK PAIN History of Present Illness The patient is a 57 year old female who presents to the Emergency Room with complaints of persistent right arm pain that started 3-4 days ago. The patient rates her pain a 9/10 in severity. The patient reports the pain radiates to her neck and into her back. She is complaining of pain in her mid-back. The patient states the pain in her neck is giving her a headache. She states her right arm has been tingly and weak which started yesterday. She notes she has had trouble sleeping since yesterday. The daughter states she lifted the patient's arm up and she heard a pop. The patient states it was very painful. The patient states she has been taking Ibuprofen for pain with no relief. She denies any recent falls or injuries. She has a history of diabetes and COPD. Source of History: patient Onset: 3-4 days ago Position: arm (right) Symptom Intensity: 9/10 Quality: tingling Timing: other (persistent) Associated Symptoms: + neck pain, + back pain, + weakness Review of Systems See HPI for pertinent positives & negatives. A total of 10 systems reviewed and were otherwise negative. Past Medical & Surgical Medical Problems: (1) Arthritis (2) Asthma (3) Depression (4) DM (diabetes mellitus) (5) HTN (hypertension) (6) Insulin dependent diabetes mellitus (7) Lumbago Family History Diabetes mellitus Social History Smoking Status: Heavy Tobacco Smoker Alcohol Use: none Drug Use: none Marital Status: single Housing Status: lives alone Occupation Status: disabled Current/Historical Medications Scheduled Budesonide/Formoterol Fumarate (Symbicort 160/4.5 Inhaler ), 2 PUFFS INH BID Fluoxetine (Prozac), 40 MG PO DAILY Fluticasone Prop/Salmeterol (Advair Diskus 250/50 60 Dose), 1 PUFF INH BID Gabapentin (Gabapentin), 400 MG PO TID Insulin Human Lispro (Humalog Kwikpen), 10 UNITS INJ TID Oxybutynin Chloride Er (Ditropan Xl), 10 MG PO DAILY Tiotropium Blain (Spiriva Handihaler), 1 CAP INH DAILY Scheduled PRN Albuterol Hfa (Ventolin Hfa), 2 PUFFS INH Q6H PRN for SOB/Wheezing Trazodone Hcl (Trazodone), 50-100 MG PO HS PRN for Sleep Allergies Coded Allergies: Codeine (Verified Allergy, Intermediate, dizziness, 12/27/17) Tramadol (Verified Allergy, Intermediate, itchy, 12/27/17) Metformin (Verified Allergy, Unknown, ., 12/27/17) Naproxen (Verified Allergy, Unknown, Unknown, 12/27/17) Aspirin (Verified Adverse Reaction, Unknown, rectal bleeding, 12/27/17) Physical Exam Vital Signs Date Time Temp Pulse Resp B/P (MAP) Pulse Ox O2 Delivery O2 Flow Rate FiO2 12/27/17 00:43 95 20 158/75 94 12/26/17 22:30 36.6 98 18 162/77 95 Room Air Physical Exam General: Obese female, smells heavily of tobacco. HEENT: Head - normocephalic and atraumatic Pupils are equal, round, and reactive to light. Extraocular eye muscles are intact, and sclera are anicteric. Nose - moist nasal mucosa without discharge. Mouth - moist buccal mucosa. Oropharynx is nonerythematous and there is no tonsillar exudate or edema noted. Neck: Supple; no JVD, nuchal rigidity, cervical lymphadenopathy; pain to palpation over the entire cervical spine.. Heart: Regular rate and rhythm. There is a normal S1 and S2 with no murmurs, clicks, or gallops appreciated. Lungs: Clear to auscultation bilaterally with no wheezes, rales, or rhonchi. Abdomen: Soft, completely nontender, nondistended, with good bowel sounds. There are no palpable pulsatile masses or hepatosplenomegaly. There is no guarding, rigidity, or rebound noted. Back: Pain to palpation to entire thoracic spine with light touch. Extremities: No evidence of cyanosis, clubbing, or edema. There are easily palpable peripheral pulses. Limited range of motion in right upper extremity especially at shoulder, cannot abduct or extend back. The patient cannot raise her right arm over her head. Skin: warm and dry with good turgor and no rashes. Medical Decision & Procedures Medications Administered Medications (Trade) Dose Ordered Sig/Barbra Route Start Time Stop Time Status Last Admin Dose Admin Oxycodone/ Acetaminophen (Percocet 5-325mg Tab) 1 tab NOW ONCE PO 12/26/17 23:45 12/26/17 23:46 DC 12/26/17 23:51 1 TAB Ketorolac Tromethamine (Toradol Inj) 60 mg NOW STAT IM 12/26/17 23:32 12/26/17 23:34 DC 12/26/17 23:51 60 MG Procedure Toradol Inj 60 mg IM. Oxycodone/Acetaminophen 1 tab PO. ED Course 5: Past medical records reviewed. The patient was evaluated in room C12B. A complete history and physical exam was performed. 2331: Ordered Toradol Inj 60 mg IM. 5: Ordered Oxycodone/Acetaminophen 1 tab PO. 0018: I reevaluated the patient. She has had some relief. I offered her a sling. 0030: Upon reevaluation, the patient is resting comfortably. I discussed findings and results with her. She verbalized agreement of the treatment plan. She was discharged home. Medical Decision The patient is a 57 year old female who presents to the Emergency Department with right arm pain. Differential diagnosis includes rotator cuff injury, herniated cervical disc, cervical strain, shoulder strain. The patient has exquisite pain with any type of movement to her right shoulder. She has moderate pain with palpation to the cervical spine, thoracic spine, and entire right shoulder/rotator cuff. The patient was given a dose of Toradol and Percocet with significant improvement in her symptoms. A sling was placed for comfort. I have asked the patient to follow-up with her PCP for further evaluation with MRI. The patient tells me that she recently had an MRI of her entire spine. She was encouraged to continue to use NSAIDs for the discomfort. Medication Reconcilliation Current Medication List: was personally reviewed by me Blood Pressure Screening Patient's blood pressure: Elevated blood pressure Blood pressure disposition: Elevated BP felt to be situational Impression Primary Impression: Thoracic spine pain Additional Impression: Rotator cuff tendonitis Scribe Attestation The scribe's documentation has been prepared under my direction and personally reviewed by me in its entirety. I confirm that the note above accurately reflects all work, treatment, procedures, and medical decision making performed by me. Departure Information Dispostion Home / Self-Care Referrals Dustin Patel M.D. (PCP) Patient Instructions My [facility] tarpipe Additional Instructions Use the arm sling for comfort take arm out 3-4 times a day to do range of motion exercises Motrin - 600mg every 6 hours with food for pain. Follow up with PCP to schedule MRI of C-spine and right shoulder Arrange of ortho follow up Problem Qualifiers Additional Impression: Rotator cuff tendonitis Laterality: right Qualified Codes: M75.81 - Other shoulder lesions, right shoulder
[2017-12-27] MEDS ORDERED: VNTHFA/IN INH (00:28)
[2017-12-27 00:43] VITALS: BP 158/75; PULSE 95; O2SAT 94
== END 2017-12-27 00:43 | disposition home or self-care (01) ==
LOC: C.EDB 22:17 → C.EDC 12-27 00:43
DX: M54.6 Pain in thoracic spine (principal); M75.81 Other shoulder lesions, right shoulder; M19.90 Unspecified osteoarthritis, unspecified site; J45.909 Unspecified asthma, uncomplicated; F32.9 Major depressive disorder, single episode, unspecified; E11.9 Type 2 diabetes mellitus without complications; I10 Essential (primary) hypertension; Z79.4 Long term (current) use of insulin; F17.200 Nicotine dependence, unspecified, uncomplicated; Z88.5 Allergy status to narcotic agent; Z88.8 Allergy status to other drugs, medicaments and biological substances

== ENCOUNTER 2019-05-07 12:25 | Inpatient (IN) ==
--- OUTSIDE RECORDS SUMMARY | 2019-05-07 12:27 | External Medical Summary | Continuity of Care Document ---
:1960 Author Name Curtis Burkett Address Unavailable Unavailable , Care Team Providers Name Role Phone Randi Burkett Unavailable [email or web address] Unavailable Unavailable Problems Active medical history not documented Allergies and Adverse Reactions No Known Drug Allergies (Allergy) Medications oxyCODONE HCl - 5 MG Oral Tablet; TAKE 1 TABLET BY MOUTH LELO RY DAY NEEDED Start: 06-Jan-2017 Refills: 0 Ativan 0.5 MG Oral Tablet; TAKE 1 TABLET DAILY NEEDED. Start: 06-Jan-2017 Refills: 0 Procedures Procedures not documented Immunizations Immunizations not documented Social History - Smoking Status Current every day smoker Plan of Treatment Planned Observations Planned Goals not documented Results No Known Results Results not documented Encounters Appointment; Yodit Bryan M.D. 05-Oct-2018 10:20 Encounter Diagnosis: Problem not documented
[2019-05-07] MEDS ORDERED: LEVOFLOXACIN/D5W 750 MG/150 ML BAG IV STA (13:05)
[2019-05-07] MEDS ORDERED: methylPREDNISolone 125 MG/2 ML VIAL IV STA (13:09)
[2019-05-07] MEDS ORDERED: ALBUTEROL 0.083% NEBU SOLN 3 ML VIAL NEB STA (13:09)
[2019-05-07] MEDS ORDERED: SODIUM CHLORIDE 0.9% 1000ML 2,000 ML IV SCH (13:15)
[2019-05-07 13:26] LABS: Basophils # (auto) 0.01 K/uL (0-0.2); Basophils % (auto) 0.1 %; Hematocrit (blood only) 39.8 % (37-47); Hemoglobin 13.3 g/dL (12.0-16.0); Immature Granulocytes # (auto) 0.08 K/uL (0.00-0.02); Immature Granulocytes % (auto) 0.9 %; Lymphocytes # (auto) 1.09 K/uL (1.2-3.4); Mean Corpuscular Hemoglobin 29.6 pg (25-34); Mean Corpuscular Hgb Conc 33.4 g/dL (32-36); Mean Corpuscular Volume 88.4 fL (80-100); Mean Platelet Volume 9.4 fL (7.4-10.4); Monocytes # (auto) 0.74 K/uL (0.11-0.59); Monocytes % (auto) 8.1 %; Neutrophils # (auto) 7.17 K/uL (1.4-6.5); Neutrophils % (auto) 78.9 %; Platelet Count 132 K/uL (130-400); RDW Standard Deviation 48.8 fL (36.4-46.3); White Blood Count 9.09 K/uL (4.8-10.8)
--- NOTE | 2019-05-07 13:37 | XRay Report ---
XR chest 1V portable CLINICAL HISTORY: Dyspnea COMPARISON STUDY: Chest radiograph March 14, 2018. FINDINGS: There is no pneumothorax or pleural effusion. Borderline cardiomegaly is noted. There is re ticulonodular interstitial thickening and mild left basilar opacity. Patient is rotated. IMPRESSION: Interstitial thickening and mild left basilar opacity. Pulmonary edema is favored. An in fectious process could appear similar. Radiographic follow up is recommended. ACT 112: Negative or not required by law. Electronically signed by: Carroll Choi M.D. 05/07/2019 1:35 PM
[2019-05-07 13:38] LABS: Partial Thromboplastin Time 27.7 Seconds (21.0-31.0); Prothrombin Time 10.4 Seconds (9.0-12.0)
[2019-05-07 13:51] LABS: Alanine Aminotransferase 16 U/L (12-78); Albumin Globulin Ratio 0.6 (0.9-2); Albumin Level 2.9 gm/dl (3.4-5.0); Alkaline Phosphatase 66 U/L (45-117); Aspartate Aminotransferase 10 U/L (15-37); BUN Creatinine Ratio 16.7 (10-20); Bilirubin,Total 0.4 mg/dl (0.2-1); Blood Urea Nitrogen 23 mg/dl (7-18); Calcium 9.4 mg/dl (8.5-10.1); Carbon Dioxide 28 mmol/L (21-32); Chloride 98 mmol/L (98-107); Est GFR (African American) 49.2; Est GFR (Non-African American) 42.5; Globulin 5.2 gm/dl (2.5-4.0); Glucose 377 mg/dl (70-99); Potassium 4.8 mmol/L (3.5-5.1); Sodium 131 mmol/L (136-145); Total Protein 8.1 gm/dl (6.4-8.2); Troponin I < 0.015 ng/ml (0-0.045)
[2019-05-07] MEDS ORDERED: NovoLIN-R INSULIN PER UNIT CHARGE IV STA (14:18)
--- NOTE | 2019-05-07 15:41 | Electrocardiogram Report ---
Test Reason : Blood Pressure : / mmHG Vent. Rate : 095 BPM Atrial Rate : 095 BPM P-R Int : 146 ms QRS Dur : 084 ms QT Int : 330 ms P-R-T Axes : 066 020 055 degrees QTc Int : 414 ms Normal sinus rhythm Normal ECG When compared with ECG of 17-JUL-2016 08:29, No significant change was found Confirmed by Gerald Uriarte ([id number]) on 05/07/2019 3:40:56 PM Referred By: REFERRED SELF Confirmed By:Gerald Uriarte
[2019-05-07 16:31] LABS: Influenza B virus by PCR Neg for Influ B (Neg)
--- NOTE | 2019-05-07 17:19 | History & Physical Report ---
Date of Service May 07, 2019 Assessment & Plan (1) Acute respiratory failure: Admit to inpatient PCU on telemetry. Vital signs every 4 hours Duo nebs every 4 hours scheduled with as needed Solu-Medrol 40 mg IV twice daily and taper down Started Tamiflu 75 mg twice daily. Lactate 1.5. Patient does not appear to be septic, most likely local infection. Blood culture pending Started ceftriaxone 2 mg IV every 24 and doxycycline 100 mg p.o. twice daily DVT prophylaxis Heparin 5000 units every 12 hours Full code Present on Admission?: Yes (2) HTN (hypertension): Stable. Patient is not on medication for high blood pressure. Continue monitoring blood pressure Present on Admission?: Yes (3) DM (diabetes mellitus): Patient received steroids in the ER and her blood sugar is not well controlled. Hold hypoglycemic agents and continue with basal glargine and sliding scale insulin. If necessary use full dose of home basal glargine to cover for elevated sugar most likely due to use of steroids. A1c pending. Glycemic control per pharmacy. Present on Admission?: Yes (4) Depression: Stable. Continue home medicine bupropion 300 mg p.o. every morning, fluoxetine 40 mg p.o. daily. Present on Admission?: Yes (5) Acute kidney injury: Avoid nephrotoxic agents. Baseline creatinine 1.09. Today 1.39. Continue monitoring creatinine and GFR daily. Present on Admission?: Yes (6) Influenza A: Started Tamiflu 75 mg p.o. twice a day for 5 days. Present on Admission?: Yes History of Present Illness Chief Complaint: Pneumonia and influenza A Primary Care Provider: Gaby Chi PCU on telemetryPatient is a 58 years old female with past medical history of asthma, hypertension, diabetes mellitus type 2, depression, history of prior head injury, chronic back pain who presents to the emergency room with a complaint of an illness that started a week ago. Patient states that she is experiencing a sore throat and cough with yellowish and green sputum production. Patient states that she also has abdominal pain and episodes of vomiting which were associated with hard coughing. Patient also reports shortness of breath. Patient reports nothing relieves her symptoms. Patient is current smoker but refused a nicotine patch. Patient reports using inhalers. Patient reports fever and chills but denies chest pain abdominal pain frequency or urgency. Labs are reviewed which shows WBCs of 9.09, hemoglobin 13.3, hematocrit 39.8, platelets 132, PT 10.4, INR 1, APTT 27.7, sodium 131, potassium 4.8, chloride 98, BUN 23, creatinine 1.36 from 1.09, GFR 49.2 from 64.8, lactate 0.8, procalcitonin 0.35. Positive influenza A and negative influenza B. Chest x-ray significant for interstitial thickening and mild left basilar opacity. Pulmonary edema is favored. An infectious process could appear similar. Radiological follow-up is recommended. Decision was made to admit patient to [facility] on telemetry for flu generalized malaise and pneumonia. Allergies Allergy/AdvReac Type Severity Reaction Status Date / Time codeine Allergy Intermediate dizziness Verified 05/07/19 13:57 tramadol Allergy Intermediate itchy Verified 05/07/19 13:57 metformin Allergy Unknown . Verified 05/07/19 13:57 naproxen Allergy Unknown Unknown Verified 05/07/19 13:57 aspirin AdvReac Unknown rectal Verified 05/07/19 13:57 bleeding Home Medications Home Medications Medication Instructions Recorded Confirmed Type albuterol sulfate [ProAir HFA] 2 puff INHALATION Q6H PRN 03/14/18 05/07/19 History atorvastatin 20 mg PO QAM 03/14/18 05/07/19 History bupropion HCl 300 mg PO QAM 03/14/18 05/07/19 History cyclobenzaprine 5 mg PO TID PRN #14 tab 03/14/18 05/07/19 Rx empagliflozin [Jardiance] 10 mg PO QAM 03/14/18 05/07/19 History fluoxetine [Prozac] 40 mg PO DAILY 03/14/18 05/07/19 History ibuprofen 800 mg PO TID PRN 03/14/18 05/07/19 History insulin glargine [Lantus Solostar 15 unit SUBCUT BID 03/14/18 05/07/19 History U-100 Insulin] insulin lispro [Humalog KwikPen 20 units SUBCUT BID 03/14/18 05/07/19 History Insulin] levocetirizine 5 mg PO DAILY PRN 03/14/18 05/07/19 History linagliptin [Tradjenta] 5 mg PO DAILY 03/14/18 05/07/19 History loperamide 2 mg PO UD PRN 03/14/18 05/07/19 History montelukast 10 mg PO QPM 03/14/18 05/07/19 History oxybutynin chloride 5 mg PO QAM 03/14/18 05/07/19 History pregabalin [Lyrica] 100 mg PO BID 03/14/18 05/07/19 History ropinirole 0.25 mg PO HS 03/14/18 05/07/19 History trazodone 150 - 200 mg PO HS 03/14/18 05/07/19 History umeclidinium-vilanterol [Anoro 1 puff INHALATION DAILY 03/14/18 05/07/19 History Ellipta] Past Med/Surg History Medical History Diabetes (Chronic) HTN (hypertension) (Chronic) Family History Other No pertinent family history Social History Preferred Language: Danish Communication Ability: Effective Clinical Research Assistant Required: No Beliefs That Will Affect Care: None Current Living Situation: Significant Other Other Information That Helps Us Care for You: No Feels Safe at Home: Yes Safety Concerns: Feels Safe At This Time Smoking Status: Current every day smoker Tobacco Type: cigarettes ; Cigarettes Per Day: 25 ; Hx Alcohol Use: No Hx Substance Use: No Review of Systems Review of Systems: All systems reviewed & are unremarkable except as noted in HPI & below Physical Exam Constitutional: WD/WN, vitals as above + obese Eyes: PERRL, conjunctivae normal, anicteric sclerae ENMT: external ear and nose normal, oropharynx normal Neck: trachea midline, no thyromegaly Respiratory: Auscultation: + crackles and + wheezes Cardiovascular: RRR, no murmur, no edema Vessels: dorsalis pedis pulses present Gastrointestinal (Abdomen): normal bowel sounds, soft, nontender, no hepatosplenomegaly Musculoskeletal: no cyanosis or clubbing, extremities motor strength 5/5 Skin: no rashes, warm and dry Neurologic: patellar DTR's 2+ bilat, sensation intact Psychiatric: A+Ox3, euthymic affect Lymphatic: no cervical or axillary lymphadenopathy Results & Data Vital Signs (Past 12 Hours) Vital Signs Temp Pulse Pulse Resp BP BP Pulse Ox 05/07/19 17:06 115 H 24 145/71 H 94 05/07/19 16:39 116 H 24 137/65 95 05/07/19 16:21 114 H 22 139/58 L 92 05/07/19 15:52 36.7 C 121 H 24 134/74 93 05/07/19 15:00 121 H 22 123/68 94 05/07/19 14:00 113 H 157/74 H 100 05/07/19 13:32 104 H 22 94 05/07/19 13:24 95 H 18 130/66 93 05/07/19 12:42 18 90 05/07/19 12:35 37.2 C 109 H 16 121/69 76 L Code Status & VTE Plan Code Status full code VTE Prophylaxis Plan VTE Prophylaxis will be ordered: Yes PG Care Time/CCT Total # of Minutes Spent Total Time Spent with Patient: Total time spent is greater than 50% in coordination of care (as documented) at patient's floor/unit and/or counseling patient:
[2019-05-07] MEDS ORDERED: GLUCOSE 10 TABS/TUBE PO PRN (17:23)
[2019-05-07] MEDS ORDERED: CARBOHYDRATES FOR HYPOGLYCEMIA PO PRN (17:23)
[2019-05-07] MEDS ORDERED: GLUCAGON FOR INJ 1 MG VIAL SQ PRN (17:23)
[2019-05-07] MEDS ORDERED: DEXTROSE 50% 50 ML SYRINGE IV PRN (17:23)
[2019-05-07] MEDS ORDERED: GLUCOSE 40% GEL 15 GM TUBE PO PRN (17:23)
--- NOTE | 2019-05-07 18:35 | Emergency Department Note ---
Entered by Marylu Sorto acting as a scribe for Nba Chatman DO History of Present Illness General Chief complaint: Flu Like Symptoms Stated complaint: VOMITING Source: patient History of Present Illness Provider complaint: illness Onset (ago): week(s) 1 Location: left and right Pain Consistency: + constant Maximum Pain Intensity: 6 Quality: + other (illness) Associated symptoms: + cough (Yellow and green production), + nausea/vomiting (Positive vomiting; Negative nausea), + shortness of breath and + other (Positive abdominal pain; Positive sore throat; Negative urinary symptoms) The patient, who is a 58 year old female with a medical history of asthma, hypertension and diabetes mellitus, who presents to the Emergency Room with complaints of an illness that started a week ago. The patient states that she is experiencing a sore throat and cough with yellowish and green production. The patient states that she has abdominal pain and an episode of vomiting that is associated with her cough. The patient reports that her last vomiting episode was at 1000 and it resulted from a coughing spell. The patient states that she has shortness of breath. The patient states that she is unable to eat anything. The patient denies fevers or urinary symptoms. The patient confirms that she is currently smoking. The patient states that she has been using her inhaler. The patient denies any previous abdominal surgeries. Home Medications Home Medications Medication Instructions Recorded Confirmed Type albuterol sulfate [ProAir HFA] 2 puff INHALATION Q6H PRN 03/14/18 05/07/19 History atorvastatin 20 mg PO QAM 03/14/18 05/07/19 History bupropion HCl 300 mg PO QAM 03/14/18 05/07/19 History cyclobenzaprine 5 mg PO TID PRN #14 tab 03/14/18 05/07/19 Rx empagliflozin [Jardiance] 10 mg PO QAM 03/14/18 05/07/19 History fluoxetine [Prozac] 40 mg PO DAILY 03/14/18 05/07/19 History ibuprofen 800 mg PO TID PRN 03/14/18 05/07/19 History insulin glargine [Lantus Solostar 15 unit SUBCUT BID 03/14/18 05/07/19 History U-100 Insulin] insulin lispro [Humalog KwikPen 20 units SUBCUT BID 03/14/18 05/07/19 History Insulin] levocetirizine 5 mg PO DAILY PRN 03/14/18 05/07/19 History linagliptin [Tradjenta] 5 mg PO DAILY 03/14/18 05/07/19 History loperamide 2 mg PO UD PRN 03/14/18 05/07/19 History montelukast 10 mg PO QPM 03/14/18 05/07/19 History oxybutynin chloride 5 mg PO QAM 03/14/18 05/07/19 History pregabalin [Lyrica] 100 mg PO BID 03/14/18 05/07/19 History ropinirole 0.25 mg PO HS 03/14/18 05/07/19 History trazodone 150 - 200 mg PO HS 03/14/18 05/07/19 History umeclidinium-vilanterol [Anoro 1 puff INHALATION DAILY 03/14/18 05/07/19 History Ellipta] Allergies Allergy/AdvReac Type Severity Reaction Status Date / Time codeine Allergy Intermediate dizziness Verified 05/07/19 13:57 tramadol Allergy Intermediate itchy Verified 05/07/19 13:57 metformin Allergy Unknown . 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 and A total of 10 systems reviewed and were otherwise negative Physical Exam Vital Signs Vital Signs - 24 hr 05/07/19 12:35 05/07/19 12:42 05/07/19 13:24 Temperature 37.2 C Temperature Source Oral Pulse Rate 109 H Pulse Rate [Apical] 95 H Pulse Rhythm Regular Pulse Strength Normal Respiratory Rate 16 18 18 Respiratory Effort / Characteristics Non-Labored Non-Labored Respiratory Depth Normal Normal Respiratory Pattern Regular Blood Pressure 121/69 Blood Pressure [Left Arm] 130/66 Blood Pressure Mean 86 Blood Pressure Mean [Left Arm] 87 Blood Pressure Position Sitting Pulse Oximetry 76 L 90 93 Oxygen Delivery Method Room Air Nasal Cannula Nasal Cannula Oxygen Flow Rate 2 2 Sepsis Recent Fever Within 48 Hours No Sepsis Action Taken by Nursing No Action Required 05/07/19 13:30 05/07/19 13:32 05/07/19 14:00 Temperature Temperature Source Pulse Rate Pulse Rate [Apical] 104 H 113 H Pulse Rhythm Pulse Strength Respiratory Rate 22 Respiratory Effort / Characteristics Spontaneous Respiratory Depth Respiratory Pattern Blood Pressure Blood Pressure [Left Arm] 157/74 H Blood Pressure Mean Blood Pressure Mean [Left Arm] 101 Blood Pressure Position Pulse Oximetry 94 100 Oxygen Delivery Method Nasal Cannula Nasal Cannula Nebulizer Oxygen Flow Rate 2 2 8 Sepsis Recent Fever Within 48 Hours Sepsis Action Taken by Nursing 05/07/19 15:00 05/07/19 15:52 05/07/19 16:21 Temperature 36.7 C Temperature Source Oral Pulse Rate Pulse Rate [Apical] 121 H 121 H 114 H Pulse Rhythm Pulse Strength Respiratory Rate 22 24 22 Respiratory Effort / Characteristics Respiratory Depth Respiratory Pattern Blood Pressure Blood Pressure [Left Arm] 123/68 134/74 139/58 L Blood Pressure Mean Blood Pressure Mean [Left Arm] 86 94 85 Blood Pressure Position Pulse Oximetry 94 93 92 Oxygen Delivery Method Nasal Cannula Nasal Cannula Nasal Cannula Oxygen Flow Rate 3 3 3 Sepsis Recent Fever Within 48 Hours Sepsis Action Taken by Nursing 05/07/19 16:39 05/07/19 17:06 Temperature Temperature Source Pulse Rate Pulse Rate [Apical] 116 H 115 H Pulse Rhythm Pulse Strength Respiratory Rate 24 24 Respiratory Effort / Characteristics Respiratory Depth Respiratory Pattern Blood Pressure Blood Pressure [Left Arm] 137/65 145/71 H Blood Pressure Mean Blood Pressure Mean [Left Arm] 89 95 Blood Pressure Position Pulse Oximetry 95 94 Oxygen Delivery Method Nasal Cannula Nasal Cannula Oxygen Flow Rate 3 3 Sepsis Recent Fever Within 48 Hours Sepsis Action Taken by Nursing GENERAL: alert, ill appearing, well nourished, alert in bed, on nasal cannula, dyspneic with conversation EYE EXAM: normal conjunctiva OROPHARYNX: no exudate, no erythema, lips, buccal mucosa, and tongue normal and mucous membranes are moist NECK: supple, no nuchal rigidity, no adenopathy, non-tender LUNGS: Diffuse wheezing throughout. Normal chest wall mechanics HEART: no murmurs, S1 normal and S2 normal ABDOMEN: abdomen soft, non-tender, normo-active bowel sounds, no masses, no re bound or guarding. BACK: Back is symmetrical on inspection and there is no deformity, no midline te nderness, no CVA tenderness. SKIN: no rashes and no bruising UPPER EXTREMITIES: upper extremities are grossly normal. LOWER EXTREMITIES: No pitting edema. NEURO EXAM: Normal sensorium, cranial nerves II-XII grossly intact, normal speech, no gross weakness of arms, no gross weakness of legs. Course Course ED COURSE: Vital signs were reviewed and showed hypertensive The patients medical record was reviewed The above diagnostic studies were performed and reviewed. ED treatments and interventions as stated above. 1300: The patient was evaluated in room B5. A complete history and physical examination was performed. 1409: I reviewed the patient's case with Dr. Reed, [facility] Hospitalist. He will evaluate the patient for further management. 1416: Upon reevaluation, the patient is resting.I discussed my findings with the patient and she understands and agrees with the treatment plan. Based on the patients age, coexisting illnesses, exam and lab findings the decision to treat as an inpatient was made. The patient remained stable while under my care. The patient will be evaluated for further management. Consultations Consultation #1: I reviewed the patient's case with Dr. Reed, [facility] Hospital ist. He will evaluate the patient for further management. Time: 14:09 Administered Medications Discontinued Medications Albuterol (Ventolin 0.083% 2.5mg/3ml) 10 mg NEB NOW STA Stop: 05/07/19 13:10 Last Admin: 05/07/19 13:31 Dose: 10 mg Documented by: [id number] Sodium Chloride (Nss 1000ml) 2,000 mls @ 999 mls/hr IV .Q2H1M HU Stop: 05/07/19 15:15 Last Infusion: 05/07/19 15:25 Dose: 0 mls/hr Documented by: [id number] Admin: 05/07/19 13:25 Dose: 999 mls/hr Documented by: [id number] Levofloxacin/Dextrose (Levaquin/D5w) 750 mg in 150 mls @ 100 mls/hr IV NOW STA Stop: 05/07/19 14:34 Last Infusion: 05/07/19 15:00 Dose: 0 mls/hr Documented by: [id number] Admin: 05/07/19 13:27 Dose: 100 mls/hr Documented by: [id number] Insulin Human Regular (Novolin R U-100 Per Unit) 5 units IV NOW STA Stop: 05/07/19 14:19 Last Admin: 05/07/19 14:27 Dose: 5 units Documented by: [id number] Cosigned by: [id number] Methylprednisolone (Solumedrol) 60 mg IV NOW STA Stop: 05/07/19 13:10 Last Admin: 05/07/19 13:25 Dose: 60 mg Documented by: [id number] Critical Care Time Critical Care Time: Yes Total Critical Care Time: 32 I have personally spent about 32 minutes of critical care time in the direct management of this patient. This includes bedside care, interpretation of diagnostic studies, and testing, discussion with consultants, patient, and family members, and other required patient management activities. This 32 minutes is in excess of all separately billable procedures. Medical Decision Making Differential Diagnosis Differential diagnoses includes but is not limited to pneumonia, bronchitis, COPD/Asthma exacerbation, pneumothorax, pulmonary embolism, congestive heart f ailure, acute coronary syndrome Medical Records Attestation: I reviewed the patient's medical records. Home Medications Current Medication List: was personally reviewed by me Laboratory Data Attestation: I reviewed the patient's lab results. Result diagrams: 05/07/19 13:18 05/07/19 13:18 Lab Results 05/07/19 05/07/19 05/07/19 Range/Units 13:10 13:18 13:18 WBC 9.09 (4.8-10.8) K/uL RBC 4.50 (4.2-5.4) M/uL Hgb 13.3 (12.0-16.0) g/dL Hct 39.8 (37-47) % MCV 88.4 (80-100) fL MCH 29.6 (25-34) pg MCHC 33.4 (32-36) g/dL RDW Std Deviation 48.8 H (36.4-46.3) fL RDW Coeff of Iza 15.0 H (11.5-14.5) % Plt Count 132 (130-400) K/uL MPV 9.4 (7.4-10.4) fL Immature Gran % (Auto) 0.9 % Neut % (Auto) 78.9 % Lymph % (Auto) 12.0 % [place] % (Auto) 8.1 % Eos % (Auto) 0.0 % Baso % (Auto) 0.1 % Immature Gran # (Auto) 0.08 H (0.00-0.02) K/uL Neut # (Auto) 7.17 H (1.4-6.5) K/uL Lymph # (Auto) 1.09 L (1.2-3.4) K/uL [place] # (Auto) 0.74 H (0.11-0.59) K/uL Eos # (Auto) 0.00 (0-0.5) K/uL Baso # (Auto) 0.01 (0-0.2) K/uL PT 10.4 (9.0-12.0) Seconds INR 1.0 (0.9-1.1) APTT 27.7 (21.0-31.0) Seconds PTT Ratio 1.0 Sodium (136-145) mmol/L Potassium (3.5-5.1) mmol/L Chloride (98-107) mmol/L Carbon Dioxide (21-32) mmol/L Anion Gap (3-11) BUN (7-18) mg/dl Creatinine (0.6-1.2) mg/dl Est Cr Clr Drug Dosing Est GFR ( Amer) Est GFR (Non-Af Amer) BUN/Creatinine Ratio (10-20) Glucose (70-99) mg/dl POC Glucose (70-99) Calcium (8.5-10.1) mg/dl Total Bilirubin (0.2-1) mg/dl AST (15-37) U/L ALT (12-78) U/L Alkaline Phosphatase (45-117) U/L Troponin I (0-0.045) ng/ml Total Protein (6.4-8.2) gm/dl Albumin (3.4-5.0) gm/dl Globulin (2.5-4.0) gm/dl Albumin/Globulin Ratio (0.9-2) Beta-Hydroxybutyric Acd (0.2-2.81) mg/dl Hepatitis C Ab Screen (Neg) Influenza Type A (PCR) Pos for Influ A A* (Neg) Influenza Type B (PCR) Neg for Influ B (Neg) 05/07/19 05/07/19 05/07/19 Range/Units 13:18 13:18 14:23 WBC (4.8-10.8) K/uL RBC (4.2-5.4) M/uL Hgb (12.0-16.0) g/dL Hct (37-47) % MCV (80-100) fL MCH (25-34) pg MCHC (32-36) g/dL RDW Std Deviation (36.4-46.3) fL RDW Coeff of Iza (11.5-14.5) % Plt Count (130-400) K/uL MPV (7.4-10.4) fL Immature Gran % (Auto) % Neut % (Auto) % Lymph % (Auto) % [place] % (Auto) % Eos % (Auto) % Baso % (Auto) % Immature Gran # (Auto) (0.00-0.02) K/uL Neut # (Auto) (1.4-6.5) K/uL Lymph # (Auto) (1.2-3.4) K/uL [place]ie # (Auto) (0.11-0.59) K/uL Eos # (Auto) (0-0.5) K/uL Baso # (Auto) (0-0.2) K/uL PT (9.0-12.0) Seconds INR (0.9-1.1) APTT (21.0-31.0) Seconds PTT Ratio Sodium 131 L (136-145) mmol/L Potassium 4.8 (3.5-5.1) mmol/L Chloride 98 (98-107) mmol/L Carbon Dioxide 28 (21-32) mmol/L Anion Gap 5.0 (3-11) BUN 23 H (7-18) mg/dl Creatinine 1.36 H (0.6-1.2) mg/dl Est Cr Clr Drug Dosing Not Reportable Est GFR ( Amer) 49.2 Est GFR (Non-Af Amer) 42.5 BUN/Creatinine Ratio 16.7 (10-20) Glucose 377 H* (70-99) mg/dl POC Glucose 389 H* (70-99) Calcium 9.4 (8.5-10.1) mg/dl Total Bilirubin 0.4 (0.2-1) mg/dl AST 10 L (15-37) U/L ALT 16 (12-78) U/L Alkaline Phosphatase 66 (45-117) U/L Troponin I < 0.015 (0-0.045) ng/ml Total Protein 8.1 (6.4-8.2) gm/dl Albumin 2.9 L (3.4-5.0) gm/dl Globulin 5.2 H (2.5-4.0) gm/dl Albumin/Globulin Ratio 0.6 L (0.9-2) Beta-Hydroxybutyric Acd (0.2-2.81) mg/dl Hepatitis C Ab Screen Neg (Neg) Influenza Type A (PCR) (Neg) Influenza Type B (PCR) (Neg) 05/07/19 05/07/19 05/07/19 Range/Units 14:25 15:50 15:51 WBC (4.8-10.8) K/uL RBC (4.2-5.4) M/uL Hgb (12.0-16.0) g/dL Hct (37-47) % MCV (80-100) fL MCH (25-34) pg MCHC (32-36) g/dL RDW Std Deviation (36.4-46.3) fL RDW Coeff of Iza (11.5-14.5) % Plt Count (130-400) K/uL MPV (7.4-10.4) fL Immature Gran % (Auto) % Neut % (Auto) % Lymph % (Auto) % [place] % (Auto) % Eos % (Auto) % Baso % (Auto) % Immature Gran # (Auto) (0.00-0.02) K/uL Neut # (Auto) (1.4-6.5) K/uL Lymph # (Auto) (1.2-3.4) K/uL [place] # (Auto) (0.11-0.59) K/uL Eos # (Auto) (0-0.5) K/uL Baso # (Auto) (0-0.2) K/uL PT (9.0-12.0) Seconds INR (0.9-1.1) APTT (21.0-31.0) Seconds PTT Ratio Sodium (136-145) mmol/L Potassium (3.5-5.1) mmol/L Chloride (98-107) mmol/L Carbon Dioxide (21-32) mmol/L Anion Gap (3-11) BUN (7-18) mg/dl Creatinine (0.6-1.2) mg/dl Est Cr Clr Drug Dosing Est GFR ( Amer) Est GFR (Non-Af Amer) BUN/Creatinine Ratio (10-20) Glucose (70-99) mg/dl POC Glucose 396 H* 378 H* 364 H* (70-99) Calcium (8.5-10.1) mg/dl Total Bilirubin (0.2-1) mg/dl AST (15-37) U/L ALT (12-78) U/L Alkaline Phosphatase (45-117) U/L Troponin I (0-0.045) ng/ml Total Protein (6.4-8.2) gm/dl Albumin (3.4-5.0) gm/dl Globulin (2.5-4.0) gm/dl Albumin/Globulin Ratio (0.9-2) Beta-Hydroxybutyric Acd (0.2-2.81) mg/dl Hepatitis C Ab Screen (Neg) Influenza Type A (PCR) (Neg) Influenza Type B (PCR) (Neg) Imaging Data Radiologist's Impression: Radiology results as stated below per my review and the radiologist's interpretation: XR chest 1V portable CLINICAL HISTORY: Dyspnea COMPARISON STUDY: Chest radiograph March 14, 2018. FINDINGS: There is no pneumothorax or pleural effusion. Borderline cardiomegaly is noted. There is reticulonodular interstitial thickening and mild left basilar opacity. Patient is rotated. IMPRESSION: Interstitial thickening and mild left basilar opacity. Pulmonary edema is favored. An infectious process could appear similar. Radiographic follow up is recommended. ACT 112: Negative or not required by law. Electronically signed by: Carroll Choi M.D. 05/07/2019 1:35 PM ECG Data Attestation: I personally reviewed and interpreted this ECG as follows: Indication: + other (hypoxia) Rate (beats per minute): 95 Rhythm: + sinus rhythm ECG Intervals/blocks: + Normal QT-c ECG [place]: + Normal ECG Findings: no PVCs Blood Pressure Blood Pressure Findings: Elevated blood pressure Blood Pressure Disposition: further management by hospitalist ELBA Narrative The patient, who is a 58 year old female with a medical history of asthma, hypertension and diabetes mellitus, presents to the Emergency Room with complaints of an illness that started a week ago. She notes that it started with a cough, runny nose and congestion. Patient does have a history of asthma and is still smoking. Upon arrival she is found to be hypoxic at 86%. She is placed on 3 L nasal cannula. IV was established blood work was obtained showed no significant leukocytosis or anemia. INR was unremarkable. BMP with mild hyponatremia. Glucose was elevated at 364 and she was given IV insulin. LFTs troponin was normal. Patient was positive for flu A. She did have wheezing throughout her lungs. She was given an hour-long neb treatment. She is covered with IV Levaquin for possible infiltrate on chest x-ray and she did have some mild vascular congestion although I do not think that she is in overt failure. Patient was updated discussed the hospitalist for observation. Impression & Plan Hypoxia, Hyperglycemia, Asthma, Influenza Discharge Plan Visit Data Chief Complaint: Flu Like Symptoms Stated Complaint: VOMITING ED Provider: Nba Chatman Discharge Problem: Hypoxia, Hyperglycemia, Asthma, Influenza Forms Stand Alone Forms: [facility] Prescriptions Prescriptions: No Action fluoxetine [Prozac] 40 mg Capsule 40 mg PO DAILY RF: 0 atorvastatin 20 mg tablet 20 mg PO QAM RF: 0 ibuprofen 800 mg tablet 800 mg PO TID PRN (Reason: Pain) RF: 0 loperamide 2 mg Tablet 2 mg PO UD PRN (Reason: Diarrhea) RF: 0 trazodone 100 mg tablet 150 - 200 mg PO HS RF: 0 ropinirole 0.25 mg tablet 0.25 mg PO HS RF: 0 oxybutynin chloride 5 mg tablet extended release 24hr 5 mg PO QAM RF: 0 montelukast 10 mg tablet 10 mg PO QPM RF: 0 albuterol sulfate [ProAir HFA] 90 mcg/actuation HFA aerosol inhaler 2 puff Inhalation Q6H PRN (Reason: Shortness Of Breath Or Wheezing) RF: 0 insulin lispro [Humalog KwikPen Insulin] 100 unit/mL insulin pen 20 units subcut BID RF: 0 bupropion HCl 300 mg tablet extended release 24 hr 300 mg PO QAM RF: 0 pregabalin [Lyrica] 100 mg capsule 100 mg PO BID RF: 0 Lantus Solostar U-100 Insulin 100 unit/mL (3 mL) insulin pen 15 unit subcut BID RF: 0 levocetirizine 5 mg tablet 5 mg PO DAILY PRN (Reason: Allergy Symptoms) RF: 0 Tradjenta 5 mg tablet 5 mg PO DAILY RF: 0 Anoro Ellipta 62.5-25 mcg/actuation blister with device 1 puff Inhalation DAILY RF: 0 Jardiance 10 mg tablet 10 mg PO QAM RF: 0 cyclobenzaprine 5 mg tablet 5 mg PO TID PRN (Reason: muscle spasm) Qty: 14 RF: 0 Referrals Referrals: Gaby Chi PA-C [Primary Care Provider] - Discharge Problem: Asthma Qualifiers: Asthma severity: unspecified severity Asthma persistence: unspecified Asthma complication type: unspecified Qualified Code(s): J45.909 - Unspecified asthma, uncomplicated The scribe's documentation has been prepared under my direction and personally reviewed by me in its entirety. I confirm that the note above accurately reflects all work, treatment, procedures, and medical decision making performed by me.
[2019-05-07] MEDS ORDERED: POLYETHYLENE (MIRALAX) 17 GM PACK PO PRN (19:16)
[2019-05-07] MEDS ORDERED: MAGNESIUM HYDROXIDE SUSP 30 ML UDC PO PRN (19:16)
[2019-05-07] MEDS ORDERED: ALUMINUM/MAGNESIUM SUSP 30 ML UDC PO PRN (19:16)
[2019-05-07] MEDS ORDERED: ALBUTEROL HFA 8 GM INHALER INH PRN (19:16)
[2019-05-07] MEDS ORDERED: ACETAMINOPHEN 325 MG TAB PO PRN (19:16)
[2019-05-07] MEDS ORDERED: CYCLOBENZAPRINE HCL 5 MG TAB PO PRN (19:16)
[2019-05-07] MEDS ORDERED: PHARMACY GLYCEMIC MGMT CONSULT PRN (19:32)
[2019-05-07] MEDS: ALBUT/IPRATROP 3MG/0.5MG NEB 3 ML VIAL NEB SCH ×2 (19:42→23:18)
[2019-05-07] MEDS ORDERED: PATIENT'S HEIGHT AND/OR WEIGHT NEEDED SCH (19:45)
[2019-05-07] MEDS ORDERED: LOPERAMIDE HCL 2 MG CAP PO PRN (19:52)
[2019-05-07 20:30] LABS: Thyroid Stimulating Hormone 1.42 uIu/ml (0.300-4.500)
[2019-05-07] MEDS ORDERED: INSULIN HUMAN REGULAR IV BOLUS 2 UNITS in SYRINGE 0 ML IV ONE (20:45)
[2019-05-07] MEDS ORDERED: INSULIN GLARGINE SOLOSTAR 100 UNITS/ML 3 ML PEN SC ONE (21:00)
[2019-05-07] MEDS ORDERED: INSULIN GLARGINE SOLOSTAR 100 UNITS/ML 3 ML PEN SQ SCH (21:00)
[2019-05-07] MEDS ORDERED: INSULIN REGULAR 250 UNITS in SODIUM CHLORIDE 0.9% 247.5 ML IV SCH (21:00)
[2019-05-07] MEDS: cefTRIAXone SODIUM 2,000 MG in DEXTROSE 5% 50 ML IV SCH (21:47)
[2019-05-07] MEDS: ATORVASTATIN 20 MG TAB PO SCH (21:48)
[2019-05-07] MEDS: ROPINIROLE HCL 0.25 MG TABLET PO SCH (21:49)
[2019-05-07] MEDS: OXYBUTYNIN CHLORIDE XL 5 MG TABCR PO SCH (21:50)
[2019-05-07] MEDS: TRAZODONE HCL 100 MG TAB PO SCH (21:50)
[2019-05-07] MEDS: MONTELUKAST SODIUM 10 MG TABLET PO SCH (21:50)
[2019-05-07] MEDS: OSELTAMIVIR PHOSPHATE SUSP 30 MG/5 ML UDP PO SCH (21:51)
[2019-05-07] MEDS: HEPARIN SOD 5,000 UNIT/0.5 ML VIAL SQ SCH (21:51)
[2019-05-07] MEDS: DOXYCYCLINE HYCLATE 100 MG CAP PO SCH (21:51)
[2019-05-07] MEDS: PREGABALIN 100 MG CAP PO SCH (21:57)
[2019-05-07] MEDS: INSULIN ASPART 100 UNITS/ML 3 ML PEN SC SCH (22:44)
[2019-05-08] MEDS: [UNRECOGNIZED DRUG - REMARK] SCH ×2 (00:09→08:15)
[2019-05-08] MEDS: ALBUT/IPRATROP 3MG/0.5MG NEB 3 ML VIAL NEB SCH ×6 (02:11→22:04)
[2019-05-08 05:53] LABS: Estimated Average Glucose 209 mg/dl; Hemoglobin A1C 8.9 % (4.5-5.6)
[2019-05-08] MEDS: FLUOXETINE HCL 20 MG CAP PO SCH (08:04)
[2019-05-08] MEDS: INSULIN ASPART 100 UNITS/ML 3 ML PEN SC SCH ×4 (08:04→21:30)
[2019-05-08] MEDS: PREGABALIN 100 MG CAP PO SCH ×2 (08:04→21:34)
[2019-05-08] MEDS: HEPARIN SOD 5,000 UNIT/0.5 ML VIAL SQ SCH ×2 (08:04→21:31)
[2019-05-08] MEDS: OSELTAMIVIR PHOSPHATE SUSP 30 MG/5 ML UDP PO SCH (08:05)
[2019-05-08] MEDS: ATORVASTATIN 20 MG TAB PO SCH (08:05)
[2019-05-08] MEDS: OXYBUTYNIN CHLORIDE XL 5 MG TABCR PO SCH (08:06)
[2019-05-08] MEDS: DOXYCYCLINE HYCLATE 100 MG CAP PO SCH ×2 (08:06→21:38)
[2019-05-08] MEDS: BuPROPion XL 300 MG TABCR PO SCH (08:06)
[2019-05-08 08:35] LABS: Basophils # (auto) 0.02 K/uL (0-0.2); Basophils % (auto) 0.3 %; Hematocrit (blood only) 38.2 % (37-47); Hemoglobin 12.5 g/dL (12.0-16.0); Immature Granulocytes # (auto) 0.12 K/uL (0.00-0.02); Immature Granulocytes % (auto) 1.5 %; Lymphocytes # (auto) 1.32 K/uL (1.2-3.4); Mean Corpuscular Hemoglobin 29.3 pg (25-34); Mean Corpuscular Hgb Conc 32.7 g/dL (32-36); Mean Corpuscular Volume 89.5 fL (80-100); Mean Platelet Volume 9.6 fL (7.4-10.4); Monocytes # (auto) 0.71 K/uL (0.11-0.59); Monocytes % (auto) 9.1 %; Neutrophils # (auto) 5.59 K/uL (1.4-6.5); Neutrophils % (auto) 72.1 %; Platelet Count 145 K/uL (130-400); RDW Coefficient of Variation 15.2 % (11.5-14.5); RDW Standard Deviation 49.3 fL (36.4-46.3); Red Blood Count 4.27 M/uL (4.2-5.4); White Blood Count 7.76 K/uL (4.8-10.8)
[2019-05-08] MEDS ORDERED: INSULIN GLARGINE SOLOSTAR 100 UNITS/ML 3 ML PEN SC SCH (09:00)
[2019-05-08 09:14] LABS: Albumin Globulin Ratio 0.5 (0.9-2); Albumin Level 2.6 gm/dl (3.4-5.0); BUN Creatinine Ratio 24.8 (10-20); Bilirubin,Total 0.2 mg/dl (0.2-1); Calcium 9.5 mg/dl (8.5-10.1); Creatinine Clr Calc Pharmacy 61.7 ml/min; Est GFR (African American) 74.1; Est GFR (Non-African American) 63.9; Globulin 4.9 gm/dl (2.5-4.0); Potassium 4.2 mmol/L (3.5-5.1); Total Protein 7.5 gm/dl (6.4-8.2)
[2019-05-08] MEDS ORDERED: OSELTAMIVIR PHOSPHATE SUSP 30 MG/5 ML UDP PO ONE (10:00)
--- NOTE | 2019-05-08 15:07 | Pharmacy Report ---
Glycemic Control Consultation - Date of Service May 08, 2019 - Scope Scope: Glycemic Pharmacist consulted by Dr Reed on 05/08/2019 for glycemic control and to write orders per [facility] inpatient glycemic control protocol - Objective Weight: 81.2 kg Accuchecks BSG (last 24hrs): 05/07/19 05/07/19 05/07/19 15:50 15:51 19:30 Glucose POC Glucose 378 H* 364 H* 389 H* 05/07/19 05/07/19 05/07/19 19:32 22:03 23:26 Glucose POC Glucose 413 H* 505 H* 453 H* 05/08/19 05/08/19 05/08/19 00:29 01:30 02:34 Glucose POC Glucose 422 H* 420 H* 388 H* 05/08/19 05/08/19 05/08/19 03:28 04:30 05:39 Glucose POC Glucose 352 H* 340 H* 285 H 05/08/19 05/08/19 05/08/19 06:24 07:31 08:01 Glucose 197 H POC Glucose 261 H 217 H 05/08/19 05/08/19 05/08/19 08:31 09:41 10:40 Glucose POC Glucose 257 H 248 H 198 H 05/08/19 05/08/19 05/08/19 11:35 12:53 13:31 Glucose POC Glucose 178 H 203 H 198 H Laboratory Data (last 24hrs): 05/08/19 08:01 Potassium 4.2 Carbon Dioxide 27 Anion Gap 5.0 Creatinine 0.97 D Est Cr Clr Drug Dosing 61.7 HbA1c: Hemoglobin A1c 8.9 % (4.5-5.6) H 05/07/19 19:52 - Recent Pertinent Medications Outpatient Anti-diabetic Regimen: * Jardiance 10 mg daily * Tradjenta 5 mg daily * Lantus 15 units BID * Humalog 20 units BID * Patient has not taken in about 1 week The patient is currently receiving: * Basal insulin: Lantus 15 units x 1 * Correctional Insulin: Novolog Correction per scale ACHS Goal Range: Low -- mg/dL - High -- mg/dL Correction Factor: -- mg/dL/unit * Prandial insulin: Per carb ratio of 1 unit per -- grams CHO consumed * Insulin infusion: running at 5.6 units/hr Risk Factors for Insulin Resistance: * Steroids: Solu-Medrol 60 mg IV x 1 * Infection: flu on Tamiflu plus pneumonia on Rocephin and Doxycycline * Diet: T2DM - Assessment & Plan Assessment & Plan: ASSESSMENT: * Ms Lopez is a very nice 58 y/o woman with T2DM who presents with flu and pneumonia. Patient has not taken her insulin or any pills for about ONE WEEK. * Initially started on insulin infusion with peak rates of 5.6 units/hr (seen this morning). Patient given Lantus 15 units last night and additional 20 units this morning. Home regimen is 30 units daily. Will provide 25 units toda y (45 units or 1.5 x home dose to load patient) at dinner time. Scale for tomorrow. * Novolog weight-based stress of 3 as patient is insulin deficient plus received one dose of steroids. * Hold oral meds while inpatient - not stocked as well. PLAN FOR INPATIENT GLYCEMIC CONTROL: * Holding outpatient oral diabetes medications * Basal insulin * Lantus 25 units SQ x 1 then 15-20 units SQ BID * Lantus 15 units if BSG less than 160 mg/dL * Lantus 20 units if BSG 160 mg/dL or greater * Bolus insulin * NovoLog per scale ACHS or Q6hrs while NPO * Goal Range: Low 110 mg/dL - High 140 mg/dL * Correction Factor: 20 mg/dL/unit * Nutritional / Prandial insulin per carb ratio of 1 unit per 7 grams CHO consumed * Please note that the plan above was derived based on current level of insulin resistance and hospital stress. These recommendations are appropriate for inpatient admission only. Plan of care upon discharge will need to be reassessed to avoid potential outpatient hypo/hyperglycemia. Thank you.
[2019-05-08] MEDS ORDERED: INSULIN GLARGINE SOLOSTAR 100 UNITS/ML 3 ML PEN SC ONE (16:30)
--- NOTE | 2019-05-08 17:29 | Hospitalist Progress Note ---
Date of Service May 08, 2019 Assessment & Plan (1) Acute respiratory failure: CXR noted for L sided PNA Flu A + in ED Nebs Solu-Medrol 40 mg IV twice daily with taper Started Tamiflu 75 mg twice daily. Lactate 1.5 on admission Patient does not appear to be septic, most likely local infection. Blood culture pending Started ceftriaxone 2 mg IV every 24 and doxycycline 100 mg p.o. twice daily Trop neg x1 BNP WNL Pt reported to that her home nebulizer is broken. Rx to for replacement (2) HTN (hypertension): Stable. Patient is not on medication for high blood pressure. Continue monitoring blood pressure (3) DM (diabetes mellitus): Patient received steroids in the ER and her blood sugar is not well controlled. Hold hypoglycemic agents and continue with basal glargine and sliding scale insu lily. If necessary use full dose of home basal glargine to cover for elevated sugar most likely due to use of steroids. A1c 8.9 Insulin drip d/c LDL 50, HDL 17, TG 321 (4) Depression: Stable. Continue home medicine bupropion 300 mg p.o. every morning, fluoxetine 40 mg p.o. daily. (5) Acute kidney injury: Avoid nephrotoxic agents. Baseline creatinine 1.09, but 1.39 on admission WNL s/p IVF (6) Influenza A: Started Tamiflu 75 mg p.o. on 05/07 HS x 5 days. (7) DVT prophylaxis: DVT prophylaxis Heparin 5000 units every 12 hours Full code Subjective Pt still feels SOB, but is better. Not nearly as SOB at rest and feels the LEGGETT is also improved. Still a bit tight. She states that she takes nebs at home and these have not been being given here. She states she had some chest pain on admission, but this is most gone now. Still feels tight though. Tolerating PO without issue. Pt denies fever, abd pain, n/v, LE pain or swelling. Pt states she has started having diarrhea today. She states that happens often with abx use. Review of Systems Review of Systems: Pertinent positives and negatives reviewed in HPI--all others negative Physical Exam Constitutional: WD/WN, vitals as above Eyes: normal visual brooks by confrontation and + anicteric sclerae Neck: normal visual inspection and trachea midline Respiratory: normal respiratory effort; no respiratory distress Auscultation: + diminished lung sounds and + crackles; no wheezes Cardiovascular: Rate/Rhythm: regular rate and regular rhythm Gastrointestinal (Abdomen): Inspection/Auscultation: abdomen not distended Percussion/Palpation: abdomen soft; abdomen nontender Musculoskeletal: Head/Neck/Chest: normocephalic and head atraumatic negative for edema, peripheral pulses intact Skin: no rashes, warm and dry Neurologic: awake; not confused Speech / Cognition: normal speech Psychiatric: A+Ox3, euthymic affect Results & Data Vital Signs (Past 12 Hours) Vital Signs Temp Pulse Pulse Resp BP Pulse Ox 05/08/19 16:28 85 05/08/19 15:44 83 20 98 05/08/19 14:33 36.3 C L 83 20 105/66 98 05/08/19 11:48 36.5 C 90 18 104/65 92 05/08/19 10:25 86 16 96 05/08/19 10:12 84 05/08/19 07:40 36.8 C 86 18 99/60 L 94 05/08/19 07:32 84 20 94 PG Care Time/CCT Total # of Minutes Spent Total Time Spent with Patient: Total time spent is greater than 50% in coordination of care (as documented) at patient's floor/unit and/or counseling patient:
[2019-05-08] MEDS: LACTOBACILLUS ACIDOPHILUS 1 GM PACK PO SCH (17:36)
[2019-05-08] MEDS: cefTRIAXone SODIUM 2,000 MG in DEXTROSE 5% 50 ML IV SCH (21:28)
[2019-05-08] MEDS: TRAZODONE HCL 100 MG TAB PO SCH (21:35)
[2019-05-08] MEDS: ROPINIROLE HCL 0.25 MG TABLET PO SCH (21:37)
[2019-05-08] MEDS: MONTELUKAST SODIUM 10 MG TABLET PO SCH (21:38)
[2019-05-08] MEDS: OSELTAMIVIR PHOSPHATE 75 MG CAP PO SCH (21:41)
[2019-05-09] MEDS: INSULIN ASPART 100 UNITS/ML 3 ML PEN SC SCH ×4 (00:35→12:20)
[2019-05-09] MEDS: ALBUT/IPRATROP 3MG/0.5MG NEB 3 ML VIAL NEB SCH ×4 (02:10→15:24)
[2019-05-09] MEDS: PREGABALIN 100 MG CAP PO SCH (07:43)
[2019-05-09] MEDS: OXYBUTYNIN CHLORIDE XL 5 MG TABCR PO SCH (07:44)
[2019-05-09] MEDS: ATORVASTATIN 20 MG TAB PO SCH (07:44)
[2019-05-09] MEDS: FLUOXETINE HCL 20 MG CAP PO SCH (07:44)
[2019-05-09] MEDS: DOXYCYCLINE HYCLATE 100 MG CAP PO SCH (07:44)
[2019-05-09] MEDS: BuPROPion XL 300 MG TABCR PO SCH (07:45)
[2019-05-09] MEDS: OSELTAMIVIR PHOSPHATE 75 MG CAP PO SCH (07:45)
[2019-05-09] MEDS: LACTOBACILLUS ACIDOPHILUS 1 GM PACK PO SCH ×2 (07:45→12:21)
[2019-05-09 07:58] LABS: Hematocrit (blood only) 36.6 % (37-47); Hemoglobin 11.6 g/dL (12.0-16.0); Mean Corpuscular Hemoglobin 28.7 pg (25-34); Mean Corpuscular Hgb Conc 31.7 g/dL (32-36); Mean Corpuscular Volume 90.6 fL (80-100); Mean Platelet Volume 9.4 fL (7.4-10.4); Platelet Count 177 K/uL (130-400); RDW Coefficient of Variation 15.3 % (11.5-14.5); RDW Standard Deviation 51.1 fL (36.4-46.3); Red Blood Count 4.04 M/uL (4.2-5.4); White Blood Count 9.07 K/uL (4.8-10.8)
[2019-05-09] MEDS: HEPARIN SOD 5,000 UNIT/0.5 ML VIAL SQ SCH (08:16)
[2019-05-09 08:25] LABS: Albumin Level 2.5 gm/dl (3.4-5.0); BUN Creatinine Ratio 24.5 (10-20); Calcium 9.8 mg/dl (8.5-10.1); Creatinine Clr Calc Pharmacy 55.4 ml/min; Est GFR (African American) 65.1; Est GFR (Non-African American) 56.1; Potassium 4.2 mmol/L (3.5-5.1)
[2019-05-09 08:27] LABS: Albumin Globulin Ratio 0.5 (0.9-2); Bilirubin,Total 0.2 mg/dl (0.2-1); Globulin 4.6 gm/dl (2.5-4.0); Total Protein 7.1 gm/dl (6.4-8.2)
[2019-05-09 08:32] LABS: Basophils # (auto) 0.02 K/uL (0-0.2); Basophils % (auto) 0.2 %; Eosinophils # (auto) 0.03 K/uL (0-0.5); Eosinophils % (auto) 0.3 %; Immature Granulocytes # (auto) 0.25 K/uL (0.00-0.02); Immature Granulocytes % (auto) 2.8 %; Lymphocytes # (auto) 2.15 K/uL (1.2-3.4); Lymphocytes % (auto) 23.7 %; Monocytes # (auto) 0.74 K/uL (0.11-0.59); Monocytes % (auto) 8.2 %; Neutrophils # (auto) 5.88 K/uL (1.4-6.5); Neutrophils % (auto) 64.8 %
--- NOTE | 2019-05-09 08:51 | Pharmacy Report ---
Glycemic Control Progress Note - Date of Service May 09, 2019 - Scope Glycemic Pharmacist consulted for glycemic control to write orders per [facility] inpatient glycemic control protocol. - Objective Accuchecks BSG(last 24 hours):: 05/08/19 05/08/19 05/08/19 07:31 08:01 08:31 Glucose 197 H POC Glucose 217 H 257 H 05/08/19 05/08/19 05/08/19 09:41 10:40 11:35 Glucose POC Glucose 248 H 198 H 178 H 05/08/19 05/08/19 05/08/19 12:53 13:31 16:45 Glucose POC Glucose 203 H 198 H 207 H 05/08/19 05/09/19 05/09/19 20:00 00:04 04:01 Glucose POC Glucose 246 H 288 H 238 H 05/09/19 05/09/19 07:39 07:40 Glucose 184 H POC Glucose 199 H HbA1c:: Hemoglobin A1c 8.9 % (4.5-5.6) H 05/07/19 19:52 - Recent Pertinent Medications The patient is currently receiving: * Basal insulin: Lantus 20 units x 1 then 25 units at dinner time. Now ordered Lantus 20 units (15 units if BSG < 160 mg/dL) SQ BID * Correctional Insulin: Novolog Correction per scale ACHS Goal Range: Low 110 mg/dL - High 140 mg/dL Correction Factor: 20 mg/dL/unit * Prandial insulin: Per carb ratio of 1 unit per 7 grams CHO consumed - Outpatient Anti-Diabetic Meds Jardiance 10 mg qAM Lantus 15 units SQ BID Humalog 20 units SQ BID Tradjenta 5 mg daily - Assessment & Plan ASSESSMENT: * See progress note from 05/08/2019 for more background info, in short: * Pt receiving SQ basal bolus insulin regimen for hyperglycemia secondary to baseline DM (outpatient regimen on hold),stress/infection (flu and pneumonia). She received Solu-Medrol 60 mg IV on 05/07/2019 * Patient is currently receiving an average of 70 units of insulin per day in addition to insulin infusion running at max of 5.6 units/hr. This eneded around 1300. * 45 units of basal insulin * 25 units of prandial/correctional insulin * BSGs ranging 178 - 388 mg/dl over the past 24hrs * Changes needed to insulin regimen: * AM Fasting BSG = 199 mg/dl. This is above goal range for patient based on inpatient targets and co-morbidities. The patient's regimen yesterday was basal heavy with 45 units. Will continue with Lantus 20 units SQ BID with a lower dose available if patient's BSGs are lower. * Post-prandial BSGs trended upwards after dinner. Tighten slightly * Total daily dose = 70-80 units. PLAN FOR INPATIENT GLYCEMIC CONTROL: * Continuing Lantus 20 units SQ BID (Lantus 15 units if BSG less than 140 mg/dL) * TIGHTENING correction factor to 18 mg/dl/unit * TIGHTENING carb ratio to 1 unit per 6 grams CHO consumed * Continuing goal range to Low 110 mg/dL - High 140 mg/dL RECOMMENDATIONS FOR DISCHARGE: * Repeat HbA1C. Patient had stopped all agents for about 1 week prior to admission. * Consider d/c of Tradjenta and titrating upwards on insulin as appropriate. Thank you.
[2019-05-09] MEDS ORDERED: INSULIN GLARGINE SOLOSTAR 100 UNITS/ML 3 ML PEN SC ONE (09:00)
[2019-05-09] MEDS ORDERED: INSULIN GLARGINE SOLOSTAR 100 UNITS/ML 3 ML PEN SC SCH (09:00)
--- NOTE | 2019-05-09 14:31 | Discharge Summary ---
Date of Service May 09, 2019 Admission HPI Per Admitting Provider PCU on telemetryPatient is a 58 years old female with past medical history of asthma, hypertension, diabetes mellitus type 2, depression, history of prior head injury, chronic back pain who presents to the emergency room with a complaint of an illness that started a week ago. Patient states that she is experiencing a sore throat and cough with yellowish and green sputum production. Patient states that she also has abdominal pain and episodes of vomiting which were associated with hard coughing. Patient also reports shortness of breath. Patient reports nothing relieves her symptoms. Patient is current smoker but refused a nicotine patch. Patient reports using inhalers. Patient reports fever and chills but denies chest pain abdominal pain frequency or urgency. Labs are reviewed which shows WBCs of 9.09, hemoglobin 13.3, hematocrit 39.8, platelets 132, PT 10.4, INR 1, APTT 27.7, sodium 131, potassium 4.8, chloride 98, BUN 23, creatinine 1.36 from 1.09, GFR 49.2 from 64.8, lactate 0.8, procalcitonin 0.35. Positive influenza A and negative influenza B. Chest x-ray significant for interstitial thickening and mild left basilar opacity. Pulmonary edema is favored. An infectious process could appear similar. Radiological follow-up is recommended. Decision was made to admit patient to [facility] on telemetry for flu generalized malaise and pneumonia. Principal Diagnosis Pt feels she is improving. No SOB at rest or with OOB while on O2. Tolerating PO without issue. Pt denies fever, chest pain, abd pain, n/v/c/d, LE pain or swelling. She is anxious for d/c due to her dogs and feels she is ready for home today. Discharge Exam Constitutional WD/WN, vitals as above Eyes normal visual brooks by confrontation and + anicteric sclerae Neck normal visual inspection and trachea midline Respiratory normal respiratory effort; no respiratory distress Auscultation: no crackles and no wheezes Cardiovascular Rate/Rhythm: regular rate and regular rhythm Gastrointestinal (Abdomen) Inspection/Auscultation: abdomen not distended Percussion/Palpation: abdomen soft; abdomen nontender Musculoskeletal Head/Neck/Chest: normocephalic and head atraumatic Skin no rashes, warm and dry Neurologic awake; not confused Speech / Cognition: normal speech Psychiatric A+Ox3, euthymic affect Discharge Data Allergies Allergy/AdvReac Type Severity Reaction Status Date / Time tramadol Allergy Intermediate itchy Verified 05/07/19 13:57 metformin Allergy Unknown . Verified 05/07/19 13:57 naproxen Allergy Unknown Unknown Verified 05/07/19 13:57 codeine AdvReac Intermediate dizziness Verified 05/08/19 09:30 aspirin AdvReac Unknown rectal Verified 05/07/19 13:57 bleeding Consultations 05/07/19 14:09 ED Decision to Admit Stat Hospital Course (1) Acute respiratory failure: CXR noted for L sided PNA Flu A + in ED Prednisone taper as outpt Finish course of Tamiflu 75 mg twice daily Will complete course of doxy as outpt Lactate 1.5 on admission Blood culture neg on prelim Trop neg x1 BNP WNL Pt reported to CM that her home nebulizer is broken. Rx to CM for replacement (2) HTN (hypertension): Stable. Patient is not on medication for high blood pressure. Continue monitoring blood pressure (3) DM (diabetes mellitus): Patient received steroids in the ER and her blood sugar is not well controlled at baseline A1c 8.9 LDL 50, HDL 17, TG 321 Pt should be on aspirin 81mg for prevention, will leave this to discretion of PCP (4) Depression: Stable. Continue home medicine bupropion 300 mg p.o. every morning, fluoxetine 40 mg p.o. daily. (5) Acute kidney injury: Avoid nephrotoxic agents. Baseline creatinine 1.09, but 1.39 on admission WNL s/p IVF (6) Influenza A: Started Tamiflu 75 mg p.o. on 05/07 HS x 5 days. (7) DVT prophylaxis: DVT prophylaxis Heparin 5000 units every 12 hours Full code Total Time Total Time Spent Total Time Spent (In Minutes): >30 Total Time Includes: Examination of the Patient, Discharge Planning, Medication Reconciliation and Other Discharge Plan Discharge Items Patient Disposition: Home - Self-Care Reason For Visit: FLU,GENERALIZED MALAISE,PNA Discharge Diagnosis: PNA, flu Activity: Resume your previous activity Non-emergency contact: Primary Care Provider Call non-emergency contact if: you have any medication questions and your symptoms worsen Follow-up/Referrals: Gaby Chi PA-C [Primary Care Provider] - 05/15/19 3:00 pm (An appointment has been made on your behalf at your PCP's office with Dr. Billy. ) Diet: Carb Consistent or DM2 Addtl Attending Provider Instructions: You should follow up with your PCP in the next few days Pending Studies at Discharge: Yes Studies:: Final blood cx (prelim neg) Stand-Alone Forms: [facility], Smoking Cessation Medications and DC Order Prescriptions: New oseltamivir 75 mg capsule 75 mg PO BID 3 Days Qty: 6 RF: 0 doxycycline hyclate 100 mg Capsule 100 mg PO BID 10 Days Qty: 20 RF: 0 prednisone 20 mg tablet 20 mg PO UD 8 Days Qty: 8 RF: 0 Continued fluoxetine [Prozac] 40 mg Capsule 40 mg PO DAILY RF: 0 atorvastatin 20 mg tablet 20 mg PO QAM RF: 0 ibuprofen 800 mg tablet 800 mg PO TID PRN (Reason: Pain) RF: 0 loperamide 2 mg Tablet 2 mg PO UD PRN (Reason: Diarrhea) RF: 0 trazodone 100 mg tablet 150 - 200 mg PO HS RF: 0 ropinirole 0.25 mg tablet 0.25 mg PO HS RF: 0 oxybutynin chloride 5 mg tablet extended release 24hr 5 mg PO QAM RF: 0 montelukast 10 mg tablet 10 mg PO QPM RF: 0 albuterol sulfate 90 mcg/actuation HFA aerosol inhaler 2 puff Inhalation Q6H PRN (Reason: Shortness Of Breath Or Wheezing) RF: 0 insulin lispro 100 unit/mL insulin pen 20 units subcut BID RF: 0 bupropion HCl 300 mg tablet extended release 24 hr 300 mg PO QAM RF: 0 pregabalin 100 mg capsule 100 mg PO BID RF: 0 insulin glargine 100 unit/mL (3 mL) insulin pen 15 unit subcut BID RF: 0 levocetirizine 5 mg tablet 5 mg PO DAILY PRN (Reason: Allergy Symptoms) RF: 0 linagliptin 5 mg tablet 5 mg PO DAILY RF: 0 umeclidinium-vilanterol 62.5-25 mcg/actuation blister with device 1 puff Inhalation DAILY RF: 0 empagliflozin 10 mg tablet 10 mg PO QAM RF: 0 cyclobenzaprine 5 mg tablet 5 mg PO TID PRN (Reason: muscle spasm) Qty: 14 RF: 0 Discharge Orders: Discharge Order (Routine); Ordered 05/09/19 Ordered By: Payton Slater Admission Data Admit Date/Time: 05/07/19 17:15 Attending Provider: Payton Slater Admit Provider: Rolando Reed Primary Care Provider: Gaby Chi Other Providers: Rolando Reed Other Interventions: Discharge Summary Assessment (RN) Last Done: 05/09/19 14:48
== END 2019-05-09 16:00 | disposition home or self-care (01) | DRG 193 ==
LOC: ED 12:25 → 2W 17:15 → SUATTDRO 17:15 → 2W 18:33

== ENCOUNTER 2024-03-19 07:51 | Inpatient (IN) ==
--- NOTE | 2024-03-13 09:20 | PAT Medication Instructions ---
Medication Instructions Date of Service March 13, 2024 Home Medications albuterol sulfate 90 mcg/actuation aerosol inhaler (Ventolin HFA) 2 puff inhalation Q6H PRN acetaminophen 500 mg tablet (Tylenol Extra Strength) 1,000 mg PO Q12H PRN hydroxyzine HCl 25 mg tablet 25 mg PO TID PRN insulin glargine 100 unit/mL (3 mL) subcutaneous pen (Lantus Solostar U-100 Insulin) 28 units subcut QAM aripiprazole 2 mg tablet (Abilify) 2 mg PO DAILY bupropion HCl 150 mg tablet,12 hr sustained-release (Wellbutrin SR) 225 mg PO BID dapagliflozin propanediol 10 mg tablet (Farxiga) 10 mg PO DAILY fluticasone fur. 100 mcg-umeclid 62.5 mcg-vilant 25 mcg inhalat.powder (Trelegy Ellipta) 1 inh inhalation DAILY linaclotide 145 mcg capsule (Linzess) 145 mcg PO DAILY lisinopril 10 mg tablet 20 mg PO DAILY atorvastatin 40 mg tablet 40 mg PO DAILY doxycycline hyclate 100 mg tablet 100 mg PO BID duloxetine 30 mg capsule,delayed release sprinkle 30 mg PO DAILY duloxetine 60 mg capsule,delayed release 60 mg PO DAILY famotidine 20 mg tablet 20 mg PO BID insulin lispro 100 unit/mL subcutaneous pen (Humalog KwikPen (U-100) Insulin) 15 unit subcut USEASDIRECTD lamotrigine 150 mg tablet 150 mg PO QAM loperamide 2 mg capsule 2 mg PO Q4H PRN ondansetron 4 mg disintegrating tablet 4 mg PO Q6H PRN oxycodone-acetaminophen 5 mg-325 mg tablet 1 tab PO Q6H PRN quetiapine 50 mg tablet 50 mg PO HS trazodone 100 mg tablet 50 mg PO HS STOP 3 days before surgery dapagliflozin propanediol 10 mg tablet (Farxiga) 10 mg PO DAILY Continue as directed aripiprazole 2 mg tablet (Abilify) 2 mg PO DAILY fluticasone fur. 100 mcg-umeclid 62.5 mcg-vilant 25 mcg inhalat.powder (Trelegy Ellipta) 1 inh inhalation DAILY atorvastatin 40 mg tablet 40 mg PO DAILY duloxetine 30 mg capsule,delayed release sprinkle 30 mg PO DAILY duloxetine 60 mg capsule,delayed release 60 mg PO DAILY DO NOT take the morning of surgery linaclotide 145 mcg capsule (Linzess) 145 mcg PO DAILY lisinopril 10 mg tablet 20 mg PO DAILY insulin lispro 100 unit/mL subcutaneous pen (Humalog KwikPen (U-100) Insulin) 15 unit subcut USEASDIRECTD loperamide 2 mg capsule 2 mg PO Q4H PRN Take morning of surgery With a small sip of water, OTHERWISE NOTHING TO EAT OR DRINK AFTER MIDNIGHT: albuterol sulfate 90 mcg/actuation aerosol inhaler (Ventolin HFA) 2 puff inhalation Q6H PRN(use if needed; please bring with you to hospital day of surgery if possible) acetaminophen 500 mg tablet (Tylenol Extra Strength) 1,000 mg PO Q12H PRN(if needed) hydroxyzine HCl 25 mg tablet 25 mg PO TID PRN(if needed) bupropion HCl 150 mg tablet,12 hr sustained-release (Wellbutrin SR) 225 mg PO BID doxycycline hyclate 100 mg tablet 100 mg PO BID famotidine 20 mg tablet 20 mg PO BID lamotrigine 150 mg tablet 150 mg PO QAM ondansetron 4 mg disintegrating tablet 4 mg PO Q6H PRN(if needed) oxycodone-acetaminophen 5 mg-325 mg tablet 1 tab PO Q6H PRN(if needed) Take evening before surgery albuterol sulfate 90 mcg/actuation aerosol inhaler (Ventolin HFA) 2 puff inhalation Q6H PRN(if needed) acetaminophen 500 mg tablet (Tylenol Extra Strength) 1,000 mg PO Q12H PRN(if needed) hydroxyzine HCl 25 mg tablet 25 mg PO TID PRN(if needed) bupropion HCl 150 mg tablet,12 hr sustained-release (Wellbutrin SR) 225 mg PO BID doxycycline hyclate 100 mg tablet 100 mg PO BID famotidine 20 mg tablet 20 mg PO BID loperamide 2 mg capsule 2 mg PO Q4H PRN(if needed) ondansetron 4 mg disintegrating tablet 4 mg PO Q6H PRN(if needed) oxycodone-acetaminophen 5 mg-325 mg tablet 1 tab PO Q6H PRN(if needed) quetiapine 50 mg tablet 50 mg PO HS trazodone 100 mg tablet 50 mg PO HS Insulin Dependent Diabetic Patients * Test your blood sugar the morning of surgery * If Blood Sugar is GREATER THAN 150, take HALF of your regular dose of: insulin glargine 100 unit/mL (3 mL) subcutaneous pen (Lantus Solostar U-100 Insulin). * If Blood Sugar is LESS THAN 150, DO NOT TAKE ANY: insulin glargine 100 unit/mL (3 mL) subcutaneous pen (Lantus Solostar U-100 Insulin). Other Notes If you have any questions please call us at [phone] or [phone] or [phone] or [phone]
--- NOTE | 2024-03-15 15:58 | Anesthesiology Consultation ---
Date of Service March 15, 2024 Assessment & Plan (1) Encounter for pre-operative examination: Plan - will request hospital records from [facility], patient states was discharged yesterday. - check BSG am DOS. - Per disbursing agent on 03/09/24: Nausea, vomiting and fatigue onset 03/02/24- prescribed and completed antibiotic from PCP (pt unsure which antibiotic) and zofran-persistent nausea and vomiting. Reports negative 03/05/24 COVID test. I contacted patient who states that she still occasionally has coughing, fatigue, chills and nausea-denies productive cough or vomiting today. She states was just discharged from [facility] today. She was advised determination on 03/19 surgery will pend further review of hospital records. [place] with surgeon's office made aware. Chart Review Chart Review: Pending: Refer to Additional Notes / Consult section and Patient NOT seen in Pre Admission Testing History Surgery Operation Date: 03/19/24 09:40 Proposed Procedures p Right Femoral Popliteal Prosthetic Bypass - Alvin Espinoza MD Height/Weight Height: 5 ft 2 in Weight: 73.482 kg Allergies Allergy/AdvReac Type Severity Reaction Status Date / Time tramadol Allergy Intermediate itchy Verified 03/09/24 13:47 naproxen Allergy Unknown avoids due Verified 03/09/24 13:47 to kidney disease stage 2 strawberry Allergy . Verified 03/09/24 13:47 metformin AdvReac Severe severe GI Verified 03/09/24 13:47 distress codeine AdvReac Intermediate dizziness Verified 03/09/24 13:47 aspirin AdvReac Unknown rectal Verified 03/09/24 13:47 bleeding Medications Home Medications Medication Instructions Recorded Confirmed Last Taken albuterol sulfate 90 mcg/actuation 2 puff inhalation Q6H PRN 03/14/18 03/09/24 03/01/24 18:00 aerosol inhaler (Ventolin HFA) Shortness Of Breath Or Wheezing acetaminophen 500 mg tablet 1,000 mg PO Q12H PRN Pain 06/21/19 03/09/24 03/01/24 14:00 (Tylenol Extra Strength) blood sugar diagnostic (OneTouch #10 ea 06/21/19 11/21/20 Unknown Ultra Blue Test Strip) hydroxyzine HCl 25 mg tablet 25 mg PO TID PRN Itching 0203/09/24 03/01/24 10:00 insulin glargine 100 unit/mL (3 28 units subcut QAM 06/21/19 03/09/24 03/01/24 19:00 mL) subcutaneous pen (Lantus Solostar U-100 Insulin) lancets (OneTouch UltraSoft #50 ea 06/21/19 11/21/20 Unknown Lancets) pen needle, diabetic 31 gauge x #30 ea 06/21/19 11/21/20 Unknown 3/16" (BD Ultra-Fine Mini Pen Needle) aripiprazole 2 mg tablet (Abilify) 2 mg PO DAILY 05/11/23 03/09/24 03/01/24 16:00 bupropion HCl 150 mg tablet,12 hr 225 mg PO BID 05/11/23 03/09/24 03/01/24 20:00 sustained-release (Wellbutrin SR) dapagliflozin propanediol 10 mg 10 mg PO DAILY 05/11/23 03/09/24 03/01/24 10:00 tablet (Farxiga) fluticasone fur. 100 mcg-umeclid 1 inh inhalation DAILY 05/11/23 03/09/24 03/01/24 20:00 62.5 mcg-vilant 25 mcg inhalat.powder (Trelegy Ellipta) linaclotide 145 mcg capsule 145 mcg PO DAILY 05/11/23 03/09/24 03/01/24 20:00 (Linzess) lisinopril 10 mg tablet 20 mg PO DAILY 05/11/23 03/09/24 03/01/24 10:00 atorvastatin 40 mg tablet 40 mg PO DAILY 03/09/24 03/09/24 Unknown doxycycline hyclate 100 mg tablet 100 mg PO BID 03/09/24 03/09/24 Unknown duloxetine 30 mg capsule,delayed 30 mg PO DAILY 03/09/24 03/09/24 Unknown release sprinkle duloxetine 60 mg capsule,delayed 60 mg PO DAILY 03/09/24 03/09/24 Unknown release famotidine 20 mg tablet 20 mg PO BID 03/09/24 03/09/24 Unknown insulin lispro 100 unit/mL 15 unit subcut USEASDIRECTD 03/09/24 03/09/24 Unknown subcutaneous pen (Humalog KwikPen (U-100) Insulin) lamotrigine 150 mg tablet 150 mg PO QAM 03/09/24 03/09/24 Unknown loperamide 2 mg capsule 2 mg PO Q4H PRN Diarrhea 03/09/24 03/09/24 Unknown ondansetron 4 mg disintegrating 4 mg PO Q6H PRN n/v 03/09/24 03/09/24 Unknown tablet oxycodone-acetaminophen 5 mg-325 1 tab PO Q6H PRN Pain 03/09/24 03/09/24 Unknown mg tablet quetiapine 50 mg tablet 50 mg PO HS 03/09/24 03/09/24 Unknown trazodone 100 mg tablet 50 mg PO HS 03/09/24 03/09/24 Unknown Past Medical History Medical History (Updated 03/15/24 @ 15:50 by Cece Bhakta PA-C) Anxiety Asthma Bipolar disorder Chronic back pain Chronic kidney disease stage 2 Chronic obstructive pulmonary disease Chronic sinusitis Degenerative disc disease Depression Diabetes mellitus, type 2 Gout History of bleeding ulcers History of kidney stones no surgical intervention, passed on own History of migraine History of pneumonia ~2013 last episode (not hospitalized) History of pressure ulcer right foot (2020?) treated with medication. pt reports resolved. Hx of cancer of uterus (1987) Hx of myocardial infarction "years ago" no surgical intervention. 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 possible sepsis? Hypertension Osteoarthritis PAD (peripheral artery disease) Peripheral neuropathy Poor historian S/P arteriogram of extremity Sleep apnea non-compliant with machine - no machine Past Family History Family History Mother Diabetes Dementia Heart disease Thyroid disease Father Diabetes Heart disease Stroke Brother Diabetes Hypertension Sister Diabetes Hypertension Uncle Cancer of neck Family/Other Thyroid disease Other No family history of adverse response to anesthesia No pertinent family history Past Surgical History Surgical History History of appendectomy History of arthroscopic knee surgery Meniiscectomy History of below knee amputation left History of breast biopsy History of cataract surgery Bilateral History of section x1 History of cholecystectomy History of colonoscopy History of dilatation and curettage History of esophagogastroduodenoscopy (EGD) History of tooth extraction History of total abdominal hysterectomy Social History Smoking Status: Current every day smoker tobacco type: cigarettes Smoking cigarettes per day: 1 pack (advised on policy) Do You Dip or Chew Tobacco: No Hx Alcohol Use: No Alcohol type: hard liquor alcohol intake frequency: holidays/special occasions only Hx Substance Use: No substance use type: does not use Lab Results Anesthesia Preop Results Results Anesthesia Widget: BUN 39 mg/dl (6-23) H 03/02/24 Creat 1.42 mg/dl (0.6-1.2) H 03/02/24 POC Glucose 214 mg/dl (70-99) H 03/02/24 Testing Laboratory Results 02/16 WBC: 10.3 H/H: PLATELETS: 395,000 UA: glucose 500, trace blood Electrocardiogram Date: 02/07/24 Afib, rate 66 bpm RBBB
--- NOTE | 2024-03-19 07:41 | History & Physical Report ---
Date of Service March 19, 2024 History of Present Illness Primary Care Provider: [place] [address] History & Physical Report Signed Patient: MARIELA LOPEZ Admit Date: 03/01/24 MR#: [id number] Att Phy: Alvin Espinoza M.D. Acct ID: [id number] Alysha Phy: Gaby Chi PA-C Date: 1960 Fam Phy: Age: 63 Location: [facility] Sex: F Room/Bed: cc: ~ *NOTICE TO RECEIVING [facility]/AGENCY This information is strictly Confidential and protected under [place] law. [place] law prohibits you from making any further disclosure of this information unless further disclosure is expressly permitted by the written consent of the person to whom it pertains or is authorized by law. A general authorization for the release of medical or other information is not sufficient for this purpose. Hospital accepts no responsibility if the information is made available to any other person, INCLUDING THE PATIENT. Date of Service March 01, 2024 History of Present Illness Primary Care Provider: Gaby Chi Name: MARIELA LOPEZ Patient Number: [id number] : 1960 Date of Service: 02/21/2024 Chief Complaint: Right foot wound HPI: Ms. Lopez is a pleasant 63F with PMH of DM, HTN and PAD. She presents for evaluation of a right foot wound. Patient was last seen in our office in 2019. Since that time she had stents placed by Dr. Urena in her right leg. She also underwent a left BKA for left foot wounds several years ago. Unfortunately she developed a right great toe wound several weeks ago. This became infected and she developed osteomyelitis. She underwent right great toe amputation about one week ago by Dr. Jackman. Her wound however has not healed. She was then referred for an arterial duplex of her right leg and to her office. Patient's surgical wound has not healed. There is drainage. No fevers. Endorses chills. There is no surrounding erythema. She does have 10/10 pain particularly with weightbearing. No claudication or rest pain. Sensation reduced due to neuropathy. Motor intact. The patient denies headaches, fevers, chills, dizziness, chest pain, shortness of breath, abdominal pain, nausea, vomiting, diarrhea, constipation, dysuria, hematuria, or other concerns. Patient has an allergy to aspirin due to GI bleed. Last colonoscopy was in her 40s. She has not taken a blood thinner or antiplatelet since that time. ALLERGIES: INCLUDE ASPIRIN, CODEINE, GLUCOPHAGE, STRAWBERRIES, AND TRAMADOL. HOME MEDICATIONS: Include Anoro Ellipta, atorvastatin, bupropion XL, Humalog, Jardiance, Lantus, levocetirizine, oxybutynin, ropinirole, Singulair, Tradjenta and trazodone. PAST MEDICAL HISTORY: Positive for insulin-dependent diabetes mellitus, hypertension, anxiety, COPD, hypercholesterolemia. Her surgical history is positive for a hysterectomy and a breast biopsy. Left BKA. Right great toe amp FAMILY HISTORY: Positive for coronary artery disease, hypertension, diabetes, carotid disease and CVA as well as peripheral arterial disease in both parents. SOCIAL HISTORY: Positive for cigarette use. She smoked 1-1/2 packs of cigarettes a day since she was a teenager. She denies alcohol or drug use. REVIEW OF SYSTEMS: Negative for fatigue, fevers, sweats, weight loss, abnormal moles or rashes, vision changes or photophobia, ear pain, sinus problems or sore throat, cough, shortness of breath no chest pain, palpitations or syncope. She denies edema, abdominal pain, nausea, vomiting, diarrhea, constipation, muscle weakness, headaches, dizziness, or seizures. Current Home Meds: (Last Updated 02/20 13:40) acetaminophen-oxycodone (acetaminophen-oxycodone 325 mg-5 mg oral tablet) 1 tab PO q6h PRN: as needed for pain atorvastatin (atorvastatin 40 mg oral tablet) TAKE 1 TABLET BY MOUTH EVERY DAY buPROPion (buPROPion 300 mg/24 hours (XL) oral tablet, extended release) 300 mg PO Daily cephalexin (cephalexin 500 mg oral capsule) TAKE 1 CAPSULE BY MOUTH EVERY 8 HOURS FOR 14 DAYS. doxycycline (doxycycline hyclate 100 mg oral capsule) TAKE 1 CAPSULE BY MOUTH TWICE A DAY FOR 14 DAYS empagliflozin (Jardiance 10 mg oral tablet) 10 mg PO qAM fluticasone/umeclidinium/vilanterol (Trelegy Ellipta 100 mcg-62.5 mcg-25 mcg/inh inhalation powder) 1 puff inhaled Daily insulin glargine (Lantus 100 units/mL subcutaneous solution) 20 unit subQ bid insulin lispro (HumaLOG 100 units/mL injectable solution) 20 unit subQ q breakfast and supper levocetirizine (levocetirizine 5 mg oral tablet) 5 mg PO qPM PRN: allergy symptoms linagliptin (Tradjenta 5 mg oral tablet) 5 mg PO Daily loperamide (loperamide 2 mg oral capsule) 2 mg PO q4h metroNIDAZOLE (metroNIDAZOLE 500 mg oral tablet) TAKE 1 TABLET BY MOUTH EVERY 8 HOURS FOR 7 DAYS rOPINIRole (rOPINIRole 0.25 mg oral tablet) 0.25 mg PO qhs traZODone (traZODone 100 mg oral tablet) 100 mg PO qhs umeclidinium-vilanterol (Anoro Ellipta 62.5 mcg-25 mcg/inh inhalation powder) 1 puff inhaled Daily Allergies and Sensitivities: strawberries(Hives) traMADol(Vomiting) codeine(Vomiting) Glucophage(Hyperglycemia) aspirin(Rectal bleeding) Past Medical History: Problems: Atherosclerosis Tobacco user OBJECTIVE Vitals: Last Updated 02/21/24 13:51 Date Temp BP Location Pulse RR SpO2 Pain 02/21/24 4 02/21/24 130/78 Right Arm 02/21/24 146/78 Left Arm 86 95 Vital Signs are the last 3 documented. No Orthostatic Data Available Height and Weight: Last Updated 05/22/18 14:48 Date BMI Wt(kg) Wt(lb) Method Ht(cm) (ft-in) Method 05/22/18 34.31 85.1 187 Standing Scale 157.48 5-2 Heights and Weights are the last 3 documented. Physical Exam General: no acute distress, resting comfortably in chair HEENT:normocephalic,atraumatic Cardiovascular: nontachycardic Pulmonary: breathing comfortably on room air, equal chest rise bilaterally Abdomen: soft, nondistended Extremity:Well healed L BKA. Right leg with DP and PT signal, monophasic. There is an open right foot wound with proene sutures in place. Fibrinous slough appreciated. No pus. Neuro: CNII-CNXII grossly intact, no focal deficits appreciated Skin: warm and well perfused, no rashes or jaundice appreciated Imaging: Review of patient's arterial duplex from today demonstrates occluded right SFA. Stents placed are occluded. There is reconstitution distally at the distal SFA/AK pop. The PT is occluded. The HANK is 0.5 ASSESSMENT: Ms. Lopez is a pleasant 63F with PMH of DM, HTN and PAD. She presents for evaluation of a right foot wound. Patient was last seen in our office in 2019. She recently underwent amputation of her right great toe. This has not healed well and is nonhealing. It will likely need further debridement. She had an arterial duplex performed. This showed occlusion of her right SFA and prior stents. Her HANK was 0.5. Clinically she has decreased pedal flow. Patient has chronic limb threatening ischemia with a current open nonhealing wound and severe PAD based on her HANK. She will need an angiogram with the goal of revascularization of her right leg We discussed the above procedure including steps, what to expect, risks and possible benefits in great detail. Patient was provided the opportunity to ask questions and they were answered to her satisfaction. She would like to proceed with surgery. We will therefore schedule it for a mutually acceptable time. PLAN: _ 1 ) Right lower extremity angiogram, possible intervention I saw and evaluated the patient. Discussed with the resident and agree with the resident's findings and plan as documented in the resident's note. I have personally spent___50__ minutes performing [id number] and [id number] activities on this date of service. Activities Include: _x_ review of the medical record _x_ obtaining a history _x_ physical exam/evaluation __ review labs _x_ review radiology reports _x_ counseling/educating patient/family/caregiver __ discussion/referral to other healthcare professional _x_ documenting care in the medical record __ independent interpretation of results __ communication of results to patient/family/caregiver __ coordination of care Signature Line Electronic Signature on File CC: Aquilino Jackman DPM [address] [facility] [id number] * CC: Gaby Chi PA-C [address] [place] [id number] * Electronically Reviewed/Signed by: Jn Ta MD Author Signature Dt/Tm:02/21/2024 02:39 PM Resident Division of General Surgery Electronically Reviewed/Signed by: Alvin Espinoza MD Cosigner Signature Dt/Tm: 02/21/2024 03:00 PM Business Development Coordinator Melchor Herndon [facility] [place] [address], [address] [place] [address] PC Result Type:Vascular Surgery Outpt Note Date of Service:February 21, 2024 14:17 EDT Authorization Status:Final Author or Import Date:MD Cely, Jn on February 21, 2024 14:39 EDT Verified By:MD Olga, Alvin Boo on February 21, 2024 15:00 EDT Encounter info:[id number], [place] [address], Clinic, 02/21/2024 - 02/21/2024 Allergies Allergy/AdvReac Type Severity Reaction Status Date / Time tramadol Allergy Intermediate itchy Verified 09/30/22 14:48 metformin Allergy Unknown . Verified 09/30/22 14:48 naproxen Allergy Unknown Unknown Verified 09/30/22 14:48 ondansetron [From Zofran] Allergy Unknown Verified 09/30/22 14:48 codeine AdvReac Intermediate dizziness Verified 09/30/22 14:48 aspirin AdvReac Unknown rectal Verified 09/30/22 14:48 bleeding STRAWBERRIES Allergy Unknown Uncoded 09/30/22 14:48 Home Medications Medication Instructions Recorded Confirmed Type albuterol sulfate 90 mcg/actuation 2 puff inhalation Q6H PRN 03/14/18 09/30/22 History aerosol inhaler (Ventolin HFA) Shortness Of Breath Or Wheezing atorvastatin 20 mg tablet (Lipitor) 20 mg PO QAM 03/14/18 09/30/22 History acetaminophen 500 mg tablet 1,000 mg PO Q12H PRN Pain 06/21/19 09/30/22 History (Tylenol Extra Strength) blood sugar diagnostic (OneTouch #10 ea 06/21/19 11/21/20 History Ultra Blue Test Strip) duloxetine 20 mg capsule,delayed 20 mg PO DAILY 06/21/19 09/30/22 History release (Cymbalta) duloxetine 60 mg capsule,delayed 60 mg PO DAILY 06/21/19 09/30/22 History release (Cymbalta) fluticasone propionate 50 1 - 2 sprays intranasal QAM 06/21/19 09/30/22 History mcg/actuation nasal spray,suspension (Flonase Allergy Relief) hydroxyzine HCl 25 mg tablet 25 mg PO TID PRN Itching 06/21/19 09/30/22 History insulin glargine 100 unit/mL (3 20 units subcut BID 06/21/19 09/30/22 History mL) subcutaneous pen (Lantus Solostar U-100 Insulin) lancets (OneTouch UltraSoft #50 ea 06/21/19 11/21/20 History Lancets) pen needle, diabetic 31 gauge x #30 ea 06/21/19 11/21/20 History 3/16" (BD Ultra-Fine Mini Pen Needle) aluminum-mag hydroxide-simethicone 5 ml PO ONCE PRN 05/11/23 History 200 mg-200 mg-20 mg/5 mL oral susp (Maalox Advanced) aripiprazole 2 mg tablet (Abilify) 2 mg PO DAILY 05/11/23 History bupropion HCl 150 mg tablet,12 hr 225 mg PO BID 05/11/23 History sustained-release (Wellbutrin SR) dapagliflozin propanediol 10 mg 10 mg PO DAILY 05/11/23 History tablet (Farxiga) docusate sodium 100 mg capsule 100 mg PO DAILY 05/11/23 History (Colace) famotidine 20 mg tablet (Pepcid) 20 mg PO BID 05/11/23 History fluticasone fur. 100 mcg-umeclid 1 inh inhalation DAILY 05/11/23 History 62.5 mcg-vilant 25 mcg inhalat.powder (Trelegy Ellipta) furosemide 20 mg tablet (Lasix) 20 mg PO DAILY 05/11/23 History hydrocodone 7.5 mg-acetaminophen 1 tab PO Q8H PRN 05/11/23 History 325 mg tablet lactobacillus combination no.9 4 4,000 mmu cells PO DAILY 05/11/23 History billion cell capsule (Adult 50 Plus Probiotic) linaclotide 145 mcg capsule 145 mcg PO DAILY 05/11/23 History (Linzess) lisinopril 10 mg tablet 20 mg PO DAILY 05/11/23 History pantoprazole 40 mg tablet,delayed 40 mg PO DAILY 05/11/23 History release polyethylene glycol 3350 17 17 g PO DAILY PRN 05/11/23 History gram/dose oral powder (Miralax) trazodone 50 mg tablet 50 mg PO DAILY 05/11/23 History Past Med/Surg History Problem List (Updated 05/11/23 @ 09:02 by Kurt Wright MA) GERD (gastroesophageal reflux disease) PAD (peripheral artery disease) DVT prophylaxis Influenza A Acute kidney injury Acute respiratory failure Hypoxia (Acute) Hyperglycemia (Acute) Influenza (Acute) HTN (hypertension) (Chronic) DM (diabetes mellitus) (Chronic) Asthma (Chronic) Back contusion (Acute) Contracture of right shoulder (Acute) Hyperglycemia (Acute) Syncope (Acute) Head injury (Acute) Multiple contusions (Acute) Back contusion (Acute) Hyperglycemia (Acute) Syncope (Acute) Head injury (Acute) Back contusion (Acute) Shoulder contusion (Acute) Sciatica (Acute) Arthritis (Chronic) Depression (Chronic) Back pain (Acute) Cervical strain (Acute) Chronic lower back pain (Acute) Chronic lower back pain (Acute) Contusion of multiple sites (Acute) Fall (Acute) Head trauma (Acute) Hyperglycemia (Acute) Insulin dependent diabetes mellitus Postconcussive syndrome (Acute) Sciatica (Acute) Medical History (Updated 05/11/23 @ 09:02 by Kurt Wright MA) Diabetes HTN (hypertension) Surgical History History of colonoscopy History of breast biopsy History of cataract surgery BilateralHistory of arthroscopic knee surgery MeniiscectomyHistory of appendectomy History of total abdominal hysterectomy Family History (Updated 05/11/23 @ 09:25 by Kurt Wright MA) Mother Diabetes Thyroid disease Dementia Heart diseaseFather Diabetes Heart disease StrokeBrother Diabetes HypertensionSister Diabetes HypertensionUncle Cancer of neckFamily/Other Thyroid diseaseOther No pertinent family history Social History Smoking Status: Current every day smoker Cigarettes Per Day: 1/2 pack; Hx Alcohol Use: No Hx Substance Use: No Preferred Language: Lithuanian Communication Ability: Effective Director Cardiovascular Required: No Beliefs That Will Affect Care: None marital status: Life Partner Current Living Situation: Spouse Feels Safe at Home: Yes Assistive Devices: None Signed By: <Electronically signed by Alvin Espinoza MD> 03/01/24 0952 Created: 03/01/24 0951 The status of this report is Signed. Draft = Not yet reviewed or approved by Medical Physician. Signed = Reviewed and approved by Medical Physician. Allergies Allergy/AdvReac Type Severity Reaction Status Date / Time tramadol Allergy Intermediate itchy Verified 03/09/24 13:47 naproxen Allergy Unknown avoids due Verified 03/09/24 13:47 to kidney disease stage 2 strawberry Allergy . Verified 03/09/24 13:47 metformin AdvReac Severe severe GI Verified 03/09/24 13:47 distress codeine AdvReac Intermediate dizziness Verified 03/09/24 13:47 aspirin AdvReac Unknown rectal Verified 03/09/24 13:47 bleeding Home Medications Medication Instructions Recorded Confirmed Type albuterol sulfate 90 mcg/actuation 2 puff inhalation Q6H PRN 03/14/18 03/09/24 History aerosol inhaler (Ventolin HFA) Shortness Of Breath Or Wheezing acetaminophen 500 mg tablet 1,000 mg PO Q12H PRN Pain 06/21/19 03/09/24 History (Tylenol Extra Strength) blood sugar diagnostic (OneTouch #10 ea 06/21/19 11/21/20 History Ultra Blue Test Strip) hydroxyzine HCl 25 mg tablet 25 mg PO TID PRN Itching 06/21/19 03/09/24 History insulin glargine 100 unit/mL (3 28 units subcut QAM 06/21/19 03/09/24 History mL) subcutaneous pen (Lantus Solostar U-100 Insulin) lancets (OneTouch UltraSoft #50 ea 06/21/19 11/21/20 History Lancets) pen needle, diabetic 31 gauge x #30 ea 06/21/19 11/21/20 History 3/16" (BD Ultra-Fine Mini Pen Needle) aripiprazole 2 mg tablet (Abilify) 2 mg PO DAILY 05/11/23 03/09/24 History bupropion HCl 150 mg tablet,12 hr 225 mg PO BID 05/11/23 03/09/24 History sustained-release (Wellbutrin SR) dapagliflozin propanediol 10 mg 10 mg PO DAILY 05/11/23 03/09/24 History tablet (Farxiga) fluticasone fur. 100 mcg-umeclid 1 inh inhalation DAILY 05/11/23 03/09/24 History 62.5 mcg-vilant 25 mcg inhalat.powder (Trelegy Ellipta) linaclotide 145 mcg capsule 145 mcg PO DAILY 05/11/23 03/09/24 History (Linzess) lisinopril 10 mg tablet 20 mg PO DAILY 05/11/23 03/09/24 History atorvastatin 40 mg tablet 40 mg PO DAILY 03/09/24 03/09/24 History doxycycline hyclate 100 mg tablet 100 mg PO BID 03/09/24 03/09/24 History duloxetine 30 mg capsule,delayed 30 mg PO DAILY 03/09/24 03/09/24 History release sprinkle duloxetine 60 mg capsule,delayed 60 mg PO DAILY 03/09/24 03/09/24 History release famotidine 20 mg tablet 20 mg PO BID 03/09/24 03/09/24 History insulin lispro 100 unit/mL 15 unit subcut USEASDIRECTD 03/09/24 03/09/24 History subcutaneous pen (Humalog KwikPen (U-100) Insulin) lamotrigine 150 mg tablet 150 mg PO QAM 03/09/24 03/09/24 History loperamide 2 mg capsule 2 mg PO Q4H PRN Diarrhea 03/09/24 03/09/24 History ondansetron 4 mg disintegrating 4 mg PO Q6H PRN n/v 03/09/24 03/09/24 History tablet oxycodone-acetaminophen 5 mg-325 1 tab PO Q6H PRN Pain 03/09/24 03/09/24 History mg tablet quetiapine 50 mg tablet 50 mg PO HS 03/09/24 03/09/24 History trazodone 100 mg tablet 50 mg PO HS 03/09/24 03/09/24 History Past Med/Surg History Problem List (Updated 03/15/24 @ 15:50 by Cece Bhakta PA-C) Encounter for pre-operative examination GERD (gastroesophageal reflux disease) PAD (peripheral artery disease) Insulin dependent diabetes mellitus Chronic lower back pain (Acute) Cervical strain (Acute) Depression (Chronic) Arthritis (Chronic) Asthma (Chronic) DM (diabetes mellitus) (Chronic) HTN (hypertension) (Chronic) Medical History Anxiety Asthma Bipolar disorder Chronic back pain Chronic kidney disease stage 2 Chronic obstructive pulmonary disease Chronic sinusitis Degenerative disc disease Depression Diabetes mellitus, type 2 Gout History of bleeding ulcers History of kidney stones no surgical intervention, passed on own History of migraine History of pneumonia ~2013 last episode (not hospitalized) History of pressure ulcer right foot (2020?) treated with medication. pt reports resolved. Hx of cancer of uterus (1987) Hx of myocardial infarction "years ago" no surgical intervention. 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 possible sepsis? Hypertension Osteoarthritis PAD (peripheral artery disease) Peripheral neuropathy Poor historian S/P arteriogram of extremity Sleep apnea non-compliant with machine - no machine Surgical History History of appendectomy History of arthroscopic knee surgery Meniiscectomy History of below knee amputation left History of breast biopsy History of cataract surgery Bilateral History of section x1 History of cholecystectomy History of colonoscopy History of dilatation and curettage History of esophagogastroduodenoscopy (EGD) History of tooth extraction History of total abdominal hysterectomy Family History Mother Diabetes Dementia Heart disease Thyroid disease Father Diabetes Heart disease Stroke Brother Diabetes Hypertension Sister Diabetes Hypertension Uncle Cancer of neck Family/Other Thyroid disease Other No family history of adverse response to anesthesia No pertinent family history Social History Smoking Status: Current every day smoker Tobacco Type: Cigarettes Cigarettes Per Day: 1 pack (advised on policy); Second Hand Exposure: No; Do You Dip or Chew Tobacco: No; Tobacco Cessation Education Requested by Patient: No Hx Alcohol Use: No Hx Substance Use: No Preferred Language: Lithuanian Communication Ability: Effective Director Cardiovascular Required: No Beliefs That Will Affect Care: None marital status: Life Partner Current Living Situation: Spouse Other Information That Helps Us Care for You: No Feels Safe at Home: Yes Safety Concerns: Feels Safe At This Time Assistive Devices: Prosthesis and Wheelchair
--- OUTSIDE RECORDS SUMMARY | 2024-03-19 08:30 | External Medical Summary | Continuity of Care Document ---
Author Name Unknown Organization [place] [address] [facility] Address [address] [place], [place] [id number] Care Team Providers Care Fire Engine Operator Name Role Phone Gaby Chi Primary Care Physician [phone] [id number] Date(s): 03/06/24 - 03/06/[address], [address] [place] [address] [phone] Encounter Diagnosis Atherosclerosis(Discharge Diagnosis) - 03/06/24 Discharge Disposition: Home or Self Care Attending Physician: MD Espinoza Eugene J Referring Physician: JEANA Chi Taylor M Allergies, Adverse Reactions, Alerts Substance Criticality Severity Reaction Reaction Severity Status codeine Vomiting Active aspirin Rectal bleeding Acti ve Glucophage Hyperglycemia Activ e traMADol Vomiting Active strawberries Hives Active Medications acetaminophen-oxycodone 325 mg-5 mg oral tablet Start: 02/21/24 1:33:00 PM EDT, 1 tab, PO, q6h, Refills: 0, PRN: as needed for pain Start Date: 02/21/24 Status: Ordered Anoro Ellipta 62.5 mcg-25 mcg/inh inhalation powder Start: 05/22/18 2:40:00 PM EST, 1 puff, inhaled, Daily Start Date: 05/22/18 Status: Ordered atorvastatin 40 mg oral tablet TAKE 1 TABLET BY MOUTH EVERY DAY Start Date: 02/21/24 Status: Ordered buPROPion 300 mg/24 hours (XL) oral tablet, extended release Start: 05/22/18 2:42:00 PM EST, 1 tab, PO, Daily Start Date: 05/22/18 Status: Ordered cephalexin 500 mg oral capsule TAKE 1 CAPSULE BY MOUTH EVERY 8 HOURS FOR 14 DAYS. Start Date: 02/21/24 Status: Ordered doxycycline hyclate 100 mg oral capsule TAKE 1 CAPSULE BY MOUTH TWICE A DAY FOR 14 DAYS Start Date: 02/21/24 Status: Ordered HumaLOG 100 units/mL injectable solution Start: 05/22/18 2:39:00 PM EST, See Instructions, 20 unit subQ q breakfast and supper Start Date: 05/22/18 Status: Ordered Jardiance 10 mg oral tablet Start: 05/22/18 2:41:00 PM EST, 1 tab, PO, qAM Start Date: 05/22/18 Status: Ordered Lantus 100 units/mL subcutaneous solution Start: 05/22/18 2:40:00 PM EST, 20 unit =, subQ, bid Start Date: 05/22/18 Status: Ordered levocetirizine 5 mg oral tablet Start: 05/22/18 2:42:00 PM EST, 1 tab, PO, qPM, PRN: allergy symptoms Start Date: 05/22/18 Status: Ordered loperamide 2 mg oral capsule Start: 02/21/24 1:33:00 PM EDT, 1 cap, PO, q4h Start Date: 02/21/24 Status: Ordered metroNIDAZOLE 500 mg oral tablet TAKE 1 TABLET BY MOUTH EVERY 8 HOURS FOR 7 DAYS Start Date: 02/21/24 Status: Ordered Percocet 5 mg-325 mg oral tablet Start: 03/06/24 3:01:00 PM EST, 1 tab, PO, q6h, Disp# 30 tab, Refills: 0, PRN: as needed for pain, Pharmacy: [facility] [id number] Start Date: 03/06/24 Status: Ordered rOPINIRole 0.25 mg oral tablet Start: 05/22/18 2:41:00 PM EST, 1 tab, PO, qhs Start Date: 05/22/18 Status: Ordered Tradjenta 5 mg oral tablet Start: 05/22/18 2:40:00 PM EST, 1 tab, PO, Daily Start Date: 05/22/18 Status: Ordered traZODone 100 mg oral tablet Start: 05/22/18 2:41:00 PM EST, 1 tab, PO, qhs Start Date: 05/22/18 Status: Ordered Trelegy Ellipta 100 mcg-62.5 mcg-25 mcg/inh inhalation powder Start: 02/21/24 1:39:00 PM EDT, 1 puff, inhaled, Daily Start Date: 02/21/24 Status: Ordered Mental Status 03/06/24 Barriers to Learning one year None evide nt Mandatory Health Literacy Documentation Yes Health Literacy Communication Barriers N ever Primary Language Ugandan Problem List Condition Confirmation Course Effective Dates Status Health St atus Informant Atherosclerosis Confirmed Active Tobacco user Confirmed Active Diagnosis Diagnosis Type Effective Dates Health Status Cl inical Service Informant Atherosclerosis Discharge Diagnosis 03/06/24 Vital Signs Most recent to oldest [Reference Range]: 1 Heart Rate 95 bpm (03/06/24 1:56 PM) Blood Pressure 160/76mmHg (03/06/24 1:56 PM) Cuff Pulse Pressure 84 mmHg (03/06/24 1:56 PM) BP Location # 1 Right Arm (03/06/24 1:56 PM) Social History Social History Type Response Smoking Status Never smoked cigaret orin Sex Female Sex Representation Female (finding) Patient Care team information Care Team Personnel Name: JEANA Chi Taylor M Position: Referring Member Role: Primary Care Provider [address]: [address] [place] [id number] [place] Name: JEANA Betancourt Lynn Position: Physician Chronometer Assembler And Adjuster Exempt - Vasc Surg Member Role: Lifetime Relationship [address]: [address] [place] [id number] [place]
[2024-03-19] MEDS: LACTATED RINGER'S 1,000 ML IV SCH ×2 (08:55→17:52)
[2024-03-19] MEDS ORDERED: INSULIN HUMAN REGULAR PER UNIT 10 UNITS in SYRINGE 0 ML IV STA (09:15)
[2024-03-19] MEDS ORDERED: MIDAZOLAM HCL 1 MG/ML 2ML VIAL ONE (09:22)
[2024-03-19] MEDS ORDERED: ROCURONIUM BROMIDE 10 MG/ML 5 ML VIAL IV ONE ×3 (09:22→13:58)
[2024-03-19] MEDS ORDERED: fentaNYL citrate PF 100 MCG/2 ML VIAL ONE ×3 (09:22→15:19)
[2024-03-19] MEDS ORDERED: LIDOCAINE 2% 2 ML VIAL/AMP(20MG/ML) INFIL ONE ×2 (09:22→12:25)
[2024-03-19] MEDS ORDERED: PROPOFOL IV EMULSION 10 MG/ML 20 ML VIAL IV ONE ×2 (09:22→12:25)
[2024-03-19] MEDS: NovoLIN-R INSULIN PER UNIT CHARGE IV STA (09:29)
[2024-03-19] MEDS ORDERED: NALOXONE HCL 0.4 MG/1 ML VIAL/CARP IV PRN (09:32)
[2024-03-19] MEDS ORDERED: fentaNYL citrate PF 100 MCG/2 ML VIAL IV PRN (09:32)
[2024-03-19] MEDS ORDERED: ePHEDrine sulfate 50 MG/ML AMP IV PRN (09:32)
[2024-03-19] MEDS ORDERED: ATROPINE SULFATE 0.1 MG/ML 10ML SYR IV PRN (09:32)
[2024-03-19] MEDS ORDERED: FLUMAZENIL 0.1 MG/1 ML 10 ML VIAL IV PRN (09:32)
[2024-03-19] MEDS ORDERED: ONDANSETRON INJ 2 MG/ML 2 ML VIAL IV PRN ×2 (09:32→17:15)
[2024-03-19] MEDS: ALBUTEROL 0.083% NEBU SOLN 3 ML VIAL ONE (09:36)
[2024-03-19] MEDS: NovoLIN-R INSULIN PER UNIT CHARGE ONE ×2 (09:38→16:12)
--- NOTE | 2024-03-19 10:59 | History & Physical Bridge Note ---
Date of Service March 19, 2024 History & Physical Bridge Note I have examined the patient, reviewed the History & Physical and in the interval since the performance of the History & Physical I have noted the following changes of clinical significance: no changes noted
[2024-03-19] MEDS: ceFAZolin 2000MG 2,000 MG/15 ML SYR IV SCH ×2 (11:51→20:29)
[2024-03-19] MEDS ORDERED: PHENYLEPHRINE 100MCG/ML 5ML SYR ONE (12:26)
[2024-03-19] MEDS ORDERED: NITROGLYCERIN/D5W 100 MCG/ML BTL ONE (12:26)
[2024-03-19] MEDS ORDERED: ESMOLOL HCL INJ 10 MG/ML 10ML VIAL IV ONE (12:26)
[2024-03-19] MEDS ORDERED: HEPARIN SOD (PORCINE) 1000 UNIT/ML ONE ×2 (13:01→14:08)
[2024-03-19] MEDS ORDERED: METOPROLOL TARTRATE 1 MG/ML VIAL IV ONE (13:11)
[2024-03-19] MEDS: LIDOCAINE 1% LOCAL 20 ML VIAL ONE (13:42)
[2024-03-19] MEDS: PAPAVERINE HCL INJ 30 MG/ML 2 ML VIAL ONE (13:42)
[2024-03-19] MEDS: BUPIVACAINE/EPINEPHRINE 0.5% MPF 1:200,000 30 ML VIAL ONE (13:43)
[2024-03-19] MEDS: ALBUTEROL 0.083% NEBU SOLN 3 ML VIAL NEB STA (13:44)
[2024-03-19] MEDS: THROMBIN FOR SOLN 20000 UNIT KIT ONE (14:56)
[2024-03-19] MEDS: GELATIN SPONGE SZ 100 ONE (14:56)
[2024-03-19] MEDS: ceFAZolin 330 MG/ML 1 GM VIAL ONE (14:57)
[2024-03-19] MEDS: HEPARIN (PORCINE) 1000 UNIT/ML 10 ML (CATH LAB USE ONLY) ONE (14:57)
[2024-03-19] MEDS ORDERED: SUGAMMADEX SODIUM 200 MG/2 ML VIAL IV ONE ×2 (14:59→15:15)
--- NOTE | 2024-03-19 15:15 | Post Operative Brief Note ---
Immediate Post Op Note Date of Surgery March 19, 2024 Pre & Post Diagnosis Operation Date: 03/19/24 09:40 Pre-Op Diagnosis: Non Healing Wound Right foot Post-Op Diagnosis: Non Healing Wound Right foot I identified the patient and participated in the time-out.: Yes Procedure Operation Date: 03/19/24 09:40 Actual Procedures p Right Common Femoral Artery Endarterectomy with Bovine Patch, Right Above the Knee Femoral Popliteal Prosthetic Bypass - Alvin Espinoza MD Surgeon Alvin Espinoza MD Front Desk Specialist Jeremiah,PAC Estimated Blood Loss 100 Findings Consistent with Post-Op Diagnosis Drains Juarez Catheter (inserted by Preeti Dumont RN without difficulty draining clear yellow urine. ) Anesthesia Type General Complications none Disposition Accompanied Patient To Recovery: No Disposition: Recovery Room
--- NOTE | 2024-03-19 15:16 | Operative Report ---
Post Operative Report Pre & Post Diagnosis Operation Date: 03/19/24 09:40 Pre-Op Diagnosis: Non Healing Wound Right foot Post-Op Diagnosis: Non Healing Wound Right foot I identified the patient and participated in the time-out.: Yes Procedure Operation Date: 03/19/24 09:40 Actual Procedures p Right Common Femoral Artery Endarterectomy with Bovine Patch, Right Above the Knee Femoral Popliteal Prosthetic Bypass - Alvin Espinoza MD Surgeon Alvin Espinoza MD Interface Designer Jeremiah,PAC Estimated Blood Loss 100 Findings Consistent with Post-Op Diagnosis Specimens none Anesthesia Type General Complications none Disposition Accompanied Patient To Recovery: No Disposition: Recovery Room Indications This is a 63-year-old female who had an amputation of toes of her right foot and now has a nonhealing wound with necrotic tissue. She has a superficial femoral artery occlusion and infrapopliteal occlusive disease. Endovascular treatment cannot be done. She is now admitted for femoropopliteal bypass of the right side. I have discussed the risks options and benefits of the procedure with the patient. The patient understands the risks options and benefits and agrees to the procedure. Description of Procedure The patient was taken the operating placed spine position. After general esthesia was accomplished the right lower extremity and groin were prepped and draped in a sterile manner. A timeout was performed and the patient was identified. A longitude incision made in the right groin. This carried down through the common femoral artery was identified. It was heavily calcified from the inguinal ligament down to the bifurcation. There was isolated just above the inguinal ligament and both superficial and profundofemoral artery origins were isolated. Patient was heparinized at that time. A longitudinal arteriotomy was performed revealing extensive plaque in the common femoral artery causing a near occlusion of the common femoral artery. We then started endarterectomy in appropriate plane. This was carried upward to a nice breakoff point was accomplished at the inguinal ligament. It was carried down distally to get nice breaking points off the profunda and superficial femoral artery. All loose flap and debris were removed. After this was completed the arteriotomy was closed with a bovine patch using a 5-0 Prolene suture. Once this was completed clamps were removed and good good flow was noted through the profunda. We then made a longitudinal incision in the lower thigh and the medial aspect. This carried out to the proximal popliteal artery was identified. It was good caliber and soft and very usable for anastomosis. We then made a subsartorial tunnel and passed a 6 mm ringed propatent graft. The popliteal arteries then clamped proximal distally. A longitude arteriotomy was performed. Good lumen was noted. The graft was beveled and an distal anastomosis was accomplished with a 5-0 Prolene suture. Clamps were removed. There was backbleeding seen up through the graft. Clamp was then replaced on the graft just before the anastomosis and the graft irrigated free of blood. We then reclamped the common femoral artery proximal distally. We performed a longitudinal arteriotomy in the bovine patch and then trimmed the [place]Unruly graft to the appropriate length and beveled in the appropriate fashion. We then did a proximal anastomosis in end-to-side fashion using a 5-0 Prolene suture in the usual vascular fashion. Backbleeding and forward bleeding was allowed to occur. Final few sutures were placed securely tied. Clamps were removed. Good flow was seen. There is good Doppler signals heard in the foot at that point. I have hemostasis was noted of the suture lines. Wounds were also inspected attic hemostasis was noted. Wounds were then closed in usual fashion using 2-0 Vicryl suture for femoral sheath, 3-0 Vicryl subtendinous layer both incisions, and karan for the skin. Sterile dressings were applied to the wounds.The patient left the operation room in satisfactory condition and tolerated the procedure well. All needle and sponge counts were correct at the end of the procedure. Erica Betancourt Pac assisted due to lack of resident availability and was necessary for positioning, draping, retraction, wound closure deep layers, subcutaneous tissue, and skin closure and was necessary for assisting with the case. I attest to the content of the Intraoperative Record and any orders documented therein. Any exceptions are noted below.
[2024-03-19] MEDS ORDERED: LABETALOL HCL IV 5 MG/ML 20ML IV ONE (15:42)
[2024-03-19] MEDS: INSULIN HUMAN REGULAR SC STA (15:50)
[2024-03-19] MEDS: PROMETHAZINE HCL 6.25 MG in SODIUM CHLORIDE 0.9% 50 ML IV PRN (16:00)
[2024-03-19] MEDS ORDERED: LOPERAMIDE HCL 2 MG CAP PO PRN (17:15)
[2024-03-19] MEDS ORDERED: ALBUTEROL HFA 8 GM INHALER INH PRN (17:15)
[2024-03-19] MEDS ORDERED: oxyCODONE/ACETAMINOPHEN 5mg/325mg TAB PO PRN (17:15)
[2024-03-19] MEDS ORDERED: hydrOXYzine HCl 25 MG TAB PO PRN (17:15)
[2024-03-19] MEDS ORDERED: PHARMACY GLYCEMIC MGMT CONSULT PRN (17:15)
[2024-03-19] MEDS ORDERED: ONDANSETRON 4 MG OD TAB PO PRN (17:15)
[2024-03-19] MEDS: PROMETHAZINE HCL INJ 25 MG/ML 1 ML VIAL ONE (17:18)
[2024-03-19] MEDS: SODIUM CHLORIDE 0.9% 50 ML BAG ONE (17:18)
--- NOTE | 2024-03-19 17:24 | Anesthesiology Progress Note ---
Date of Service March 19, 2024 Anesthesia Post Procedure Vital Signs Vital Signs: Temp Pulse Resp BP BP BP Pulse Ox 03/19/24 17:10 36.9 C 86 21 183/70 H 158/77 H 97 03/19/24 16:40 36.9 C 84 20 165/92 H 181/64 H 96 03/19/24 16:30 84 23 157/92 H 176/61 H 96 03/19/24 16:20 84 20 168/89 H 182/65 H 93 03/19/24 16:10 84 21 163/75 H 181/65 H 97 03/19/24 16:00 82 19 164/70 H 189/82 H 95 03/19/24 15:50 79 21 157/73 H 178/97 H 91 03/19/24 15:40 78 21 168/71 H 180/80 H 88 L 03/19/24 15:32 36 C L 80 20 166/72 H 194/93 H 85 L 03/19/24 09:36 91 H 17 98 03/19/24 08:40 03/19/24 08:40 36.6 C 90 18 158/94 H 98 O2 Del Method O2 Flow Rate 03/19/24 17:10 Nasal Cannula 2 03/19/24 16:40 Nasal Cannula 2 03/19/24 16:30 Oxymask 2 03/19/24 16:20 Oxymask 2 03/19/24 16:10 Oxymask 5 03/19/24 16:00 Oxymask 5 03/19/24 15:50 Oxymask 15 03/19/24 15:40 Oxymask 15 03/19/24 15:32 Oxymask 15 03/19/24 09:36 Room Air 03/19/24 08:40 Room Air 03/19/24 08:40 Room Air Pain Intensity Right Foot: Pain Intensity: 6 Transfer of Care Handoff Completed per policy Notes Mental Status: alert / awake / arousable Patient Amnestic to Procedure: Yes Nausea / Vomiting: adequately controlled Pain: adequately controlled Airway Patency, RR, SpO2: stable & adequate BP & HR: stable & adequate Hydration State: stable & adequate Anesthetic Complications: no major complications apparent
--- NOTE | 2024-03-19 17:46 | Critical Care Consultation ---
Date of Consultation March 19, 2024 Assessment & Plan (1) GERD (gastroesophageal reflux disease): (2) PAD (peripheral artery disease): (3) Insulin dependent diabetes mellitus: (4) HTN (hypertension): (5) Bipolar disorder: (6) Depression: (7) Anxiety: (8) Sleep apnea: Plan -- Peripheral vascular disease S/p right femoropopliteal bypass on 03/19/[address] Espinoza Continue with neurochecks Monitor for signs of bleeding --COPD with emphysema On Trelegy 100 at home -- Diabetes type 2 Continue with ICU hypoglycemia protocol -- Hypertension and dyslipidemia Lisinopril 20 mg Atorvastatin 40 mg -- Anxiety with mood/bipolar disorder On duloxetine 60 Mg in the morning, 30 mg in the evening, Aripiprazole 2 mg Quetiapine 50 mg, trazodone 50 mg -- GERD Continue with Pepcid --History of SANDIP Noncompliant with CPAP --Prophylaxis VTE: IPC GI: Pepcid Lines: Left radial Diet: Cardiac Plan: Strict in and out Monitor H&H ICU hypoglycemia protocol Given the patient has SANDIP, would recommend to keep O2 saturation around 90-92%, do not avoid oxygen with the patient Patient is still very somnolent, once the patient starts to wake up would recommend to give her evening dose of her mood disorder medication. Please note the above document was generated using voice recognition software. It may contain grammatical, syntax or spelling errors.Any formal questions or concerns about the content, text or information contained within the body of this dictation should be directly addressed to the provider for clarification. History of Present Illness Attending Physician: Alvin Espinoza MD History of Present Illness 63-year-old female came to the hospital for femoropopliteal bypass Past medical history: Hypertension, diabetes, peripheral artery disease Patient was sent to the ICU for postop care At the time of examination patient was not in any distress She was still under the influence of anesthesia Systolic blood pressure was in the 170s on the radial line, heart rate in the 80s She was somnolent but easily arousable. Denied any shortness of breath, no chest pain Complained of some discomfort in the right groin as well as right lower quadrant Mild headache Had some nausea in the PACU. Social history: Approximately 17-olob-tule smoking history Allergies Allergy/AdvReac Type Severity Reaction Status Date / Time tramadol Allergy Intermediate itchy Verified 03/19/24 08:30 naproxen Allergy Unknown avoids due Verified 03/19/24 08:30 to kidney disease stage 2 strawberry Allergy Hives Verified 03/19/24 08:31 metformin AdvReac Severe severe GI Verified 03/19/24 08:30 distress codeine AdvReac Intermediate dizziness Verified 03/19/24 08:30 aspirin AdvReac Unknown rectal Verified 03/19/24 08:30 bleeding Home Medications Medication Instructions Recorded Confirmed Type albuterol sulfate 90 mcg/actuation 2 puff inhalation Q6H PRN 03/14/18 03/19/24 History aerosol inhaler (Ventolin HFA) Shortness Of Breath Or Wheezing acetaminophen 500 mg tablet 1,000 mg PO Q12H PRN Pain 06/21/19 03/19/24 History (Tylenol Extra Strength) blood sugar diagnostic (Fuelmaxx IncTouch #10 ea 06/21/19 11/21/20 History Ultra Blue Test Strip) hydroxyzine HCl 25 mg tablet 25 mg PO TID PRN Itching 06/21/19 03/19/24 History insulin glargine 100 unit/mL (3 28 units subcut QAM 06/21/19 03/19/24 History mL) subcutaneous pen (Lantus Solostar U-100 Insulin) lancets (Simplebookletuch UltraSoft #50 ea 06/21/19 11/21/20 History Lancets) pen needle, diabetic 31 gauge x #30 ea 06/21/19 11/21/20 History 3/16" (BD Ultra-Fine Mini Pen Needle) aripiprazole 2 mg tablet (Abilify) 2 mg PO DAILY 05/11/23 03/19/24 History bupropion HCl 150 mg tablet,12 hr 225 mg PO BID 05/11/23 03/19/24 History sustained-release (Wellbutrin SR) dapagliflozin propanediol 10 mg 10 mg PO DAILY 05/11/23 03/19/24 History tablet (Farxiga) fluticasone fur. 100 mcg-umeclid 1 inh inhalation DAILY 05/11/23 03/19/24 Hist ory 62.5 mcg-vilant 25 mcg inhalat.powder (Trelegy Ellipta) lisinopril 10 mg tablet 20 mg PO DAILY 05/11/23 03/19/24 History atorvastatin 40 mg tablet 40 mg PO DAILY 03/09/24 03/19/24 History doxycycline hyclate 100 mg tablet 100 mg PO BID 03/09/24 03/19/24 History duloxetine 30 mg capsule,delayed 30 mg PO DAILY 03/09/24 03/19/24 History release sprinkle duloxetine 60 mg capsule,delayed 60 mg PO DAILY 03/09/24 03/19/24 History release (Cymbalta) famotidine 20 mg tablet 20 mg PO BID 03/09/24 03/19/24 History insulin lispro 100 unit/mL 15 unit subcut USEASDIRECTD 03/09/24 03/19/24 History subcutaneous pen (Humalog KwikPen (U-100) Insulin) lamotrigine 150 mg tablet 150 mg PO QAM 03/09/24 03/19/24 History loperamide 2 mg capsule 2 mg PO Q4H PRN Diarrhea 03/09/24 03/19/24 History ondansetron 4 mg disintegrating 4 mg PO Q6H PRN n/v 03/09/24 03/19/24 History tablet oxycodone-acetaminophen 5 mg-325 1 tab PO Q6H PRN Pain 03/09/24 03/19/24 History mg tablet quetiapine 50 mg tablet 50 mg PO HS 03/09/24 03/19/24 History trazodone 100 mg tablet 50 mg PO HS 03/09/24 03/19/24 History Patient History Medical History Anxiety Asthma Bipolar disorder Chronic back pain Chronic kidney disease stage 2 Chronic obstructive pulmonary disease Chronic sinusitis Degenerative disc disease Depression Diabetes mellitus, type 2 Gout History of bleeding ulcers History of kidney stones no surgical intervention, passed on own History of migraine History of pneumonia ~2013 last episode (not hospitalized) History of pressure ulcer right foot (2020?) treated with medication. pt reports resolved. Hx of cancer of uterus (1987) Hx of myocardial infarction "years ago" no surgical intervention. no lacing presser Hx of sepsis treated at [facility] 01/2024? possible sepsis? Hypertension Osteoarthritis PAD (peripheral artery disease) Peripheral neuropathy Poor historian S/P arteriogram of extremity Sleep apnea non-compliant with machine - no machine Surgical History History of appendectomy History of arthroscopic knee surgery Meniiscectomy History of below knee amputation left History of breast biopsy History of cataract surgery Bilateral History of section x1 History of cholecystectomy History of colonoscopy History of dilatation and curettage History of esophagogastroduodenoscopy (EGD) History of tooth extraction History of total abdominal hysterectomy Family History Mother Diabetes Dementia Heart disease Thyroid disease Father Diabetes Heart disease Stroke Brother Diabetes Hypertension Sister Diabetes Hypertension Uncle Cancer of neck Family/Other Thyroid disease Other No family history of adverse response to anesthesia No pertinent family history Social History Smoking Status: Current every day smoker Tobacco Type: Cigarettes Cigarettes Per Day: 1 pack (advised on policy); Second Hand Exposure: No; Do You Dip or Chew Tobacco: No; Tobacco Cessation Education Requested by Patient: No Hx Alcohol Use: No Hx Substance Use: No Preferred Language: Frisian Communication Ability: Effective Varnish Maker Required: No Beliefs That Will Affect Care: None marital status: Life Partner Current Living Situation: Spouse Other Information That Helps Us Care for You: No Feels Safe at Home: Yes Safety Concerns: Feels Safe At This Time Assistive Devices: Prosthesis and Wheelchair Review of Systems Review of Systems: All systems reviewed & are unremarkable except as noted in HPI & below Physical Exam Physical Exam: Constitutional: No acute distress HEENT: EOMI, PERRLA Respiratory system: Decreased air entry bilaterally, no wheeze, rhonchi, mild crackles bilaterally CVS: S1-S2 positive, no murmurs or gallops Abdomen: Soft, nondistended, positive bowel sounds x4, obese, mild right lower quadrant tenderness, no rebound Extremities: +2 pulses bilaterally radialis/+1 right dorsalis pedis, no cyanosis, left BKA, +1 right lower extremity edema Neuro: Somnolent but easily arousable, moving all extremities to command Psych: Unable to assess G/U: Positive Juarez Skin: no rashes, warm and dry Lymphatic: no cervical or axillary lymphadenopathy Results & Data Results & Data Vital Signs (Past 12 Hours) Vital Signs Temp Pulse Resp BP BP BP Pulse Ox 03/19/24 17:15 03/19/24 17:10 36.9 C 86 21 183/70 H 158/77 H 97 03/19/24 16:40 36.9 C 84 20 165/92 H 181/64 H 96 03/19/24 16:30 84 23 157/92 H 176/61 H 96 03/19/24 16:20 84 20 168/89 H 182/65 H 93 03/19/24 16:10 84 21 163/75 H 181/65 H 97 03/19/24 16:00 82 19 164/70 H 189/82 H 95 03/19/24 15:50 79 21 157/73 H 178/97 H 91 03/19/24 15:40 78 21 168/71 H 180/80 H 88 L 03/19/24 15:32 36 C L 80 20 166/72 H 194/93 H 85 L 03/19/24 09:36 91 H 17 98 03/19/24 08:40 03/19/24 08:40 36.6 C 90 18 158/94 H 98 O2 Del Method O2 Flow Rate 03/19/24 17:15 Nasal Cannula 2 03/19/24 17:10 Nasal Cannula 2 03/19/24 16:40 Nasal Cannula 2 03/19/24 16:30 Oxymask 2 03/19/24 16:20 Oxymask 2 03/19/24 16:10 Oxymask 5 03/19/24 16:00 Oxymask 5 03/19/24 15:50 Oxymask 15 03/19/24 15:40 Oxymask 15 03/19/24 15:32 Oxymask 15 03/19/24 09:36 Room Air 03/19/24 08:40 Room Air 03/19/24 08:40 Room Air Coding Level of Care Code 87686 IN/OBS CONSULT LVL 4,60M Diagnoses GERD (gastroesophageal reflux disease) K21.9 PAD (peripheral artery disease) I73.9 Insulin dependent diabetes mellitus E11.9; Z79.4 HTN (hypertension) I10 Bipolar disorder F31.9 Depression F32.A Anxiety F41.9 Sleep apnea G47.30
[2024-03-19] MEDS: INSULIN ASPART PER UNIT CHARGE SC SCH ×2 (18:20→23:49)
[2024-03-19] MEDS: LANTUS PER UNIT CHARGE SC STA (18:21)
[2024-03-19] MEDS: QUEtiapine FUMARATE 25 MG TABLET PO SCH (20:31)
[2024-03-19] MEDS: FAMOTIDINE 20 MG TAB PO SCH (20:31)
[2024-03-19] MEDS: traZODone HCL 50 MG TAB PO SCH (20:31)
[2024-03-19] MEDS ORDERED: NON-FORMULARY MEDICATION (Doxycycline Hyclate 100 mg Tablet) PO SCH (21:00)
[2024-03-19] MEDS ORDERED: buPROPion SR 150 MG TABCR PO SCH (21:00)
[2024-03-19] MEDS: oxyCODONE/ACETAMINOPHEN 5mg/325mg TAB PO PRN (21:13)
[2024-03-20 04:18] LABS: Basophils # (auto) 0.01 K/uL (0.00-0.20); Basophils % (auto) 0.1 %; Eosinophils # (auto) 0.02 K/uL (0.00-0.50); Eosinophils % (auto) 0.2 %; Hematocrit (blood only) 25.6 % (37.0-47.0); Hemoglobin 8.1 g/dl (12.0-16.0); Immature Granulocytes # (auto) 0.06 K/uL (0.01-0.20); Immature Granulocytes % (auto) 0.6 %; Lymphocytes # (auto) 2.04 K/uL (1.20-3.40); Lymphocytes % (auto) 19.9 %; Mean Corpuscular Hemoglobin 30.1 pg (25.0-34.0); Mean Corpuscular Hgb Conc 31.6 g/dL (32.0-36.0); Mean Corpuscular Volume 95.2 fL (80.0-100.0); Mean Platelet Volume 9.1 fL (9.4-12.4); Monocytes # (auto) 0.75 K/uL (0.11-0.59); Monocytes % (auto) 7.3 %; Neutrophils # (auto) 7.37 K/uL (1.40-6.50); Neutrophils % (auto) 71.9 %; Platelet Count 260 K/uL (130-400); RDW Coefficient of Variation 14.6 % (11.5-14.5); RDW Standard Deviation 50.4 fL (36.4-46.3); Red Blood Count 2.69 M/uL (4.20-5.40); White Blood Count 10.25 K/ul (4.8-10.8)
[2024-03-20 04:34] LABS: BUN Creatinine Ratio 18.9 (10-20); Calcium 8.6 mg/dl (8.6-10.3); Creatinine Clr Calc Pharmacy 46.9 ml/min
--- NOTE | 2024-03-20 07:32 | Critical Care Progress Note ---
Date of Service March 20, 2024 Assessment & Plan (1) GERD (gastroesophageal reflux disease): (2) PAD (peripheral artery disease): (3) Insulin dependent diabetes mellitus: (4) HTN (hypertension): (5) Bipolar disorder: (6) Depression: (7) Anxiety: (8) Sleep apnea: Plan -- Peripheral vascular disease S/p right femoropopliteal bypass on 03/19/[address] Espinoza Continue with neurochecks Monitor for signs of bleeding --COPD with emphysema On Trelegy 100 at home -- Diabetes type 2 Continue with ICU hypoglycemia protocol -- Hypertension and dyslipidemia Lisinopril 20 mg Atorvastatin 40 mg -- Anxiety with mood/bipolar disorder On duloxetine 60 Mg in the morning, 30 mg in the evening, Aripiprazole 2 mg Quetiapine 50 mg, trazodone 50 mg -- GERD Continue with Pepcid --History of SANDIP Noncompliant with CPAP --Prophylaxis VTE: IPC GI: Pepcid Lines: Left radial Diet: Cardiac Plan: In/out: +1 L, urine output 1800 mL Patient's hemoglobin did drop by 2 g compared to her baseline. 1 unit PRBCs were ordered by vascular team Repeat H&H later today Surgery has been informed regarding the right lower quadrant tenderness. Disposition as per vascular surgery Please note the above document was generated using voice recognition software. It may contain grammatical, syntax or spelling errors.Any formal questions or concerns about the content, text or information contained within the body of this dictation should be directly addressed to the provider for clarification. Admission and Anticipated Discharge Date Admission Date: March 19, 2024 Subjective Patient seen and examined at bedside. No acute distress, no adverse events overnight She was awake alert oriented and answering all the questions appropriately No nausea or vomiting Fair appetite Denied any chest pain, no shortness of breath Was saturating 95 to 96% on room air Review of Systems 2 Review of Systems: All systems reviewed & are unremarkable except as noted in Subjective Physical Exam 2 Physical Exam: Constitutional: No acute distress HEENT: EOMI, PERRLA Respiratory system: Decreased air entry bilaterally, no wheeze, rhonchi, mild crackles bilaterally CVS: S1-S2 positive, no murmurs or gallops Abdomen: Soft, nondistended, positive bowel sounds x4, obese, positive right lower quadrant tenderness, no rebound Extremities: +2 pulses bilaterally radialis/+1 right dorsalis pedis, no cyanosis, left BKA, +1 right lower extremity edema Neuro: Somnolent but easily arousable, moving all extremities to command Psych: Unable to assess G/U: Positive Juarez Skin: no rashes, warm and dry Lymphatic: no cervical or axillary lymphadenopathy Results & Data Results & Data Vital Signs (Past 12 Hours) Vital Signs Temp Pulse Resp BP Pulse Ox O2 Del Method O2 Flow Rate 03/20/24 06:12 94 H 27 H 91 03/20/24 06:09 142/68 H 03/20/24 06:00 95 H 28 H 89 L 03/20/24 05:54 95 H 27 H 92 03/20/24 05:39 134/66 03/20/24 05:09 145/69 H 03/20/24 05:09 93 H 26 H 91 03/20/24 05:00 92 H 27 H 91 03/20/24 04:57 92 H 27 H 91 03/20/24 04:36 93 H 25 H 94 03/20/24 04:21 92 H 26 H 92 03/20/24 04:15 91 H 27 H 91 03/20/24 04:09 140/70 03/20/24 04:09 89 25 H 92 03/20/24 04:03 89 24 92 03/20/24 03:51 92 H 24 94 03/20/24 03:42 92 H 27 H 91 03/20/24 03:39 140/71 03/20/24 03:39 140/71 03/20/24 03:39 140/71 03/20/24 03:39 140/71 03/20/24 03:36 90 24 92 03/20/24 03:15 89 26 H 92 03/20/24 03:12 36.8 C 03/20/24 03:03 90 24 93 03/20/24 02:54 89 23 92 03/20/24 02:42 90 21 94 03/20/24 02:39 149/70 H 03/20/24 02:36 89 22 94 03/20/24 02:24 90 21 92 03/20/24 02:12 88 22 93 03/20/24 02:09 129/64 03/20/24 02:09 129/64 03/20/24 02:09 129/64 03/20/24 02:09 129/64 03/20/24 01:54 88 21 93 03/20/24 01:42 87 23 91 03/20/24 01:39 126/63 03/20/24 01:39 126/63 03/20/24 01:36 87 23 91 03/20/24 01:33 85 21 93 03/20/24 01:21 87 21 93 03/20/24 01:12 86 22 94 03/20/24 01:09 123/61 03/20/24 01:09 123/61 03/20/24 01:09 123/61 03/20/24 01:06 86 22 93 03/20/24 00:54 87 19 92 03/20/24 00:45 89 21 96 03/20/24 00:39 124/65 03/20/24 00:36 89 18 97 03/20/24 00:30 89 20 93 03/20/24 00:09 125/69 03/20/24 00:09 125/69 03/20/24 00:08 86 22 100 03/20/24 00:05 87 19 100 03/20/24 00:05 36.7 C 03/19/24 23:53 87 20 98 03/19/24 23:39 111/63 03/19/24 23:30 87 20 98 03/19/24 23:23 89 20 98 03/19/24 23:15 88 20 98 03/19/24 23:09 113/62 03/19/24 23:09 113/62 03/19/24 23:00 90 20 97 03/19/24 22:39 131/66 03/19/24 22:39 131/66 03/19/24 22:39 131/66 03/19/24 22:21 87 23 98 03/19/24 22:20 87 22 98 03/19/24 22:18 87 22 98 03/19/24 22:09 87 25 H 96 03/19/24 22:09 133/66 03/19/24 22:09 133/66 03/19/24 22:09 133/66 03/19/24 22:02 88 25 H 97 03/19/24 21:50 88 23 97 03/19/24 21:45 88 25 H 98 03/19/24 21:39 138/72 03/19/24 21:36 87 24 98 03/19/24 21:21 86 23 97 03/19/24 21:18 86 19 98 03/19/24 21:09 129/84 03/19/24 21:09 129/84 03/19/24 21:03 87 23 97 03/19/24 20:45 85 21 98 03/19/24 20:39 154/79 H 03/19/24 20:39 154/79 H 03/19/24 20:21 89 18 100 03/19/24 20:15 84 21 100 03/19/24 20:00 86 19 99 03/19/24 19:51 86 23 99 03/19/24 19:45 85 19 100 03/19/24 19:39 170/82 H 03/19/24 19:39 89 20 100 03/19/24 19:32 Nasal Cannula 2 03/19/24 19:31 36.9 C 03/19/24 19:30 88 20 96 Laboratory Results 03/20/24 03:44 03/20/24 03:44 Coding Level of Care Code 50171 SUB INP/OBS CARE 235MIN Diagnoses GERD (gastroesophageal reflux disease) K21.9 PAD (peripheral artery disease) I73.9 Insulin dependent diabetes mellitus E11.9; Z79.4 HTN (hypertension) I10 Bipolar disorder F31.9 Depression F32.A Anxiety F41.9 Sleep apnea G47.30
[2024-03-20] MEDS: LANTUS PER UNIT CHARGE SC SCH (08:05)
[2024-03-20] MEDS: FLUTICASONE FUROATE 100MCG 14 PUFFS/INHALER INH SCH (08:06)
[2024-03-20] MEDS: lisinopril 20 MG TAB PO SCH (08:06)
[2024-03-20] MEDS: UMECLIDINIUM/VILANTEROL 62.5/25MCG 7 PUFFS/INHALER INH SCH (08:06)
[2024-03-20] MEDS: ARIPIprazole 1 MG/ML ORAL SOLN 150 ML BTL PO SCH (08:07)
[2024-03-20] MEDS: DULoxetine HCL 60 MG CAP PO SCH (08:07)
[2024-03-20] MEDS: DULoxetine HCL 30 MG CAP PO SCH (08:07)
[2024-03-20] MEDS: ATORVASTATIN 40 MG TAB PO SCH (08:07)
[2024-03-20] MEDS: lamoTRIgine 100 MG TAB PO SCH (08:07)
[2024-03-20] MEDS: lamoTRIgine 25 MG TAB PO SCH (08:07)
[2024-03-20] MEDS ORDERED: SODIUM CHLORIDE 0.9% 100 ML IV PRN (08:49)
[2024-03-20] MEDS ORDERED: SODIUM CHLORIDE 0.9% 50 ML IV PRN (08:49)
[2024-03-20] MEDS ORDERED: NON-FORMULARY MEDICATION (Dapagliflozin Propanediol [Farxiga] 10 mg tablet) PO SCH (09:00)
[2024-03-20] MEDS ORDERED: LANTUS PER UNIT CHARGE SC SCH (09:00)
[2024-03-20] MEDS ORDERED: NON-FORMULARY MEDICATION (Fluticasone-Umeclidin-Vilanter [Trelegy Ellipta] 100-62.5-25 mcg INH SCH (09:00)
--- NOTE | 2024-03-20 09:01 | Surgery Progress Note ---
Date of Service March 20, 2024 Assessment & Plan (1) S/P femoral-popliteal bypass surgery: Plan: Pt now POD #1 after RLE RUBY SOFTWARE DEVELOPER endart and fem-AK pop BPG, doing well post op. Foot pain improved, now with incisional pain primary concern. (2) PAD (peripheral artery disease): Plan: see above (3) Acute blood loss as cause of postoperative anemia: Plan: Hgb 8.1 this AM. Pt asymptomatic, however, will transfuse 1 U PRBC d/t significant blood loss. Admission and Anticipated Discharge Date Admission Date: March 19, 2024 Subjective 63 yo f POD #1 after R RUBY SOFTWARE DEVELOPER endarterectomy with bovine patch and femoral-AK pop prosthetic BPG, seen in f/u today. Pt states pain in R groin and leg incisions, but pain in her foot is significantly improved. No other complaints. Review of Systems Review of Systems: All systems reviewed & are unremarkable except as noted in HPI & below Physical Exam Constitutional: WD/WN, vitals as above not in distress Respiratory: normal respiratory effort, lungs clear to auscultation (coarse) Auscultation: + diminished lung sounds Cardiovascular: Rate/Rhythm: regular rate and regular rhythm Vessels: abdominal aortic pulse present, posterior tibial pulses present (doppler RLE, LLE BKA) and dorsalis pedis pulses present (doppler RLE, LLE BKA) Gastrointestinal (Abdomen): Inspection/Auscultation: abdomen normal to inspection and normal bowel sounds Percussion/Palpation: abdomen soft; abdom en nontender Musculoskeletal: Extremities: + amputation noted Skin: no rashes, warm and dry Neurologic: moves all extremities and awake; no focal motor deficits and not confused Psychiatric: A+Ox3, euthymic affect Results & Data Vital Signs (Past 12 Hours) Vital Signs Temp Pulse Resp BP Pulse Ox O2 Del Method 03/20/24 08:00 95 H 22 116/67 92 03/20/24 07:46 Room Air 03/20/24 07:41 98 H 03/20/24 07:37 36.5 C 03/20/24 06:12 94 H 27 H 91 03/20/24 06:09 142/68 H 03/20/24 06:00 95 H 28 H 89 L 03/20/24 05:54 95 H 27 H 92 03/20/24 05:39 134/66 03/20/24 05:09 145/69 H 03/20/24 05:09 93 H 26 H 91 03/20/24 05:00 92 H 27 H 91 03/20/24 04:57 92 H 27 H 91 03/20/24 04:36 93 H 25 H 94 03/20/24 04:21 92 H 26 H 92 03/20/24 04:15 91 H 27 H 91 03/20/24 04:09 140/70 03/20/24 04:09 89 25 H 92 03/20/24 04:03 89 24 92 03/20/24 03:51 92 H 24 94 03/20/24 03:42 92 H 27 H 91 03/20/24 03:39 140/71 03/20/24 03:39 140/71 03/20/24 03:39 140/71 03/20/24 03:39 140/71 03/20/24 03:36 90 24 92 03/20/24 03:15 89 26 H 92 03/20/24 03:12 36.8 C 03/20/24 03:03 90 24 93 03/20/24 02:54 89 23 92 03/20/24 02:42 90 21 94 03/20/24 02:39 149/70 H 03/20/24 02:36 89 22 94 03/20/24 02:24 90 21 92 03/20/24 02:12 88 22 93 03/20/24 02:09 129/64 03/20/24 02:09 129/64 03/20/24 02:09 129/64 03/20/24 02:09 129/64 03/20/24 01:54 88 21 93 03/20/24 01:42 87 23 91 03/20/24 01:39 126/63 03/20/24 01:39 126/63 03/20/24 01:36 87 23 91 03/20/24 01:33 85 21 93 03/20/24 01:21 87 21 93 03/20/24 01:12 86 22 94 03/20/24 01:09 123/61 03/20/24 01:09 123/61 03/20/24 01:09 123/61 03/20/24 01:06 86 22 93 03/20/24 00:54 87 19 92 03/20/24 00:45 89 21 96 03/20/24 00:39 124/65 03/20/24 00:36 89 18 97 03/20/24 00:30 89 20 93 03/20/24 00:09 125/69 03/20/24 00:09 125/69 03/20/24 00:08 86 22 100 03/20/24 00:05 87 19 100 03/20/24 00:05 36.7 C 03/19/24 23:53 87 20 98 03/19/24 23:39 111/63 03/19/24 23:30 87 20 98 03/19/24 23:23 89 20 98 03/19/24 23:15 88 20 98 03/19/24 23:09 113/62 03/19/24 23:09 113/62 03/19/24 23:00 90 20 97 03/19/24 22:39 131/66 03/19/24 22:39 131/66 03/19/24 22:39 131/66 03/19/24 22:21 87 23 98 03/19/24 22:20 87 22 98 03/19/24 22:18 87 22 98 03/19/24 22:09 87 25 H 96 03/19/24 22:09 133/66 03/19/24 22:09 133/66 03/19/24 22:09 133/66 03/19/24 22:02 88 25 H 97 03/19/24 21:50 88 23 97 03/19/24 21:45 88 25 H 98 03/19/24 21:39 138/72 03/19/24 21:36 87 24 98 03/19/24 21:21 86 23 97 03/19/24 21:18 86 19 98 03/19/24 21:09 129/84 03/19/24 21:09 129/84 03/19/24 21:03 87 23 97
[2024-03-20] MEDS: MoRPHine SULFATE 4 MG/ML 1 ML CARP\\VIAL IV PRN (09:48)
--- NOTE | 2024-03-20 10:29 | Pharmacy Report ---
Pharmacy Glycemic Short Note 2 - Date of Service March 20, 2024 - Glycemic Short BSG Results (Last 24 hours): 03/19/24 03/19/24 03/19/24 15:41 15:43 17:25 Glucose POC Glucose 314 H* 314 H* 312 H* 03/19/24 03/19/24 03/19/24 17:26 20:20 23:30 Glucose POC Glucose 334 H* 255 H 195 H 03/20/24 03/20/24 03/20/24 03:27 03:44 07:23 Glucose 163 H POC Glucose 159 H 224 H OUTPATIENT ANTIDIABETIC REGIMEN: * Dapagliflozin * Lantus, unclear dose. 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 Will split BID for now as an inpatient, and scale dose. Total daily dose today will range 23-38 units * Severe stress Novolog appropriate for now, and correction factor reduced BSG's yesterday nicely. Significant CHO intake with breakfast today - will see how the CHO manages this. May loosen if see a significant downtrend in BSG's PLAN FOR INPATIENT GLYCEMIC CONTROL: * Hold outpatient dapagliflozin * Basal insulin * Lantus 18 units SQ x1 this AM then 5-20 units tonight based on BSG * Bolus insulin * NovoLog per scale ACHS or Q6hrs while NPO * Goal Range: Low 140 mg/dL - High 180 mg/dL * Correction Factor: 25 mg/dL/unit * Nutritional / Prandial insulin per carb ratio of 1 unit per 8 grams CHO consumed
[2024-03-20 13:28] LABS: Hematocrit (blood only) 28.9 % (37.0-47.0); Hemoglobin 9.3 g/dl (12.0-16.0)
[2024-03-20 18:18] LABS: Estimated Average Glucose 263 mg/dl; Hemoglobin A1C 10.8 % (4.5-5.6)
[2024-03-20] MEDS: LANTUS PER UNIT CHARGE SC ONE (20:23)
[2024-03-20 21:01] VITALS: RESP 16
--- NOTE | 2024-03-20 21:37 | Podiatry Consultation ---
Date of Consultation March 20, 2024 Assessment & Plan (1) S/P femoral-popliteal bypass surgery: (2) PAD (peripheral artery disease): (3) Osteomyelitis of foot, right, acute: (4) 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 bone: Plan Patient was examined and evaluated. We discussed at length the etiology and treatment of her right forefoot wound. We discussed that she will require an amputation of the forefoot, and would benefit most from a transmetatarsal amputation. We would be happy to perform this here in the next couple of days, however, she would like to have this done in [place] with Dr. Jackman. Dr. Jackman is theoretically retiring soon, which I know from professional experience, and may not want to take this on. She is welcome to discharge home when stable per Dr. Espinoza and follow up with Dr. Jackman. If he is on willing to perform the surgical intervention, we would be happy to reassess for transmetatarsal amputation on an outpatient basis. This could still be performed at [facility] and likely in the next 1-2 weeks.As long as her right foot remains stable, she can have this performed on an outpatient basis though we did discuss that if she elects to attempt follow-up with Dr. Jackman and she gets worse acutely, she would require presenting to the emergency department and likely having a more emergent transmetatarsal amputation performed. I did discuss thhat my firm recommendation is a transmetatarsal amputation performed by me here on , so she is not currently amenable to this. Until then, that is to say until her surgical intervention, she should continue with local wound care to prevent infection. given the level of necrosis and obvious osteomyelitis, should benefit from conservative wound care rather than any expensive or invasive collagenase ointment. A prescription for mupirocin ointment was ordered and daily dressing changes can be performed. Thank you for the consult, we are happy to help if she changes her mind. Otherwise, we will see her on an as-needed basis. History of Present Illness Reason for Consultation: Right foot wound Attending Physician: Alvin Espinoza MD History of Present Illness Patient seen at bedside. She states that she has been admitted on this hospitalization after revascularization of her right lower extremity. She has been admitted to Dr. Espinoza's service After this surgical revascularization. She did have a right hallux amputation performed by a physician in [place] everal weeks ago and that wound has not healed. Since that time, her second toe has also become gangrenous. This all happened quickly, As prior to the right foot ulcer developing she had not had foot and ankle concerns on this side. She has also had a left Leg below the knee amputation, However. Now, since the wreck revascularization she has had decreased pain to the forefoot but does still have pain with pressure from the leg at and bed sheets. She would like definitive surgical correction for this wound if possible, but also would like this performed in [place] by her former surgeon. She denies any new or worsening signs or symptoms of infection, locally or systemically. She also denies any other recent medical history changes. Allergies Allergy/AdvReac Type Severity Reaction Status Date / Time tramadol Allergy Intermediate itchy Verified 03/19/24 08:30 naproxen Allergy Unknown avoids due Verified 03/19/24 08:30 to kidney disease stage 2 strawberry Allergy Hives Verified 03/19/24 08:31 metformin AdvReac Severe severe GI Verified 03/19/24 08:30 distress codeine AdvReac Intermediate dizziness Verified 03/19/24 08:30 aspirin AdvReac Unknown rectal Verified 03/19/24 08:30 bleeding Home Medications Medication Instructions Recorded Confirmed Type albuterol sulfate 90 mcg/actuation 2 puff inhalation Q6H PRN 03/14/18 03/19/24 History aerosol inhaler (Ventolin HFA) Shortness Of Breath Or Wheezing acetaminophen 500 mg tablet 1,000 mg PO Q12H PRN Pain 06/21/19 03/19/24 History (Tylenol Extra Strength) blood sugar diagnostic (StarCardTouch #10 ea 06/21/19 11/21/20 History Ultra Blue Test Strip) hydroxyzine HCl 25 mg tablet 25 mg PO TID PRN Itching 06/21/19 03/19/24 History insulin glargine 100 unit/mL (3 28 units subcut QAM 06/21/19 03/19/24 History mL) subcutaneous pen (Lantus Solostar U-100 Insulin) lancets (StarCardTouch UltraSoft #50 ea 06/21/19 11/21/20 History Lancets) pen needle, diabetic 31 gauge x #30 ea 06/21/19 11/21/20 History 3/16" (BD Ultra-Fine Mini Pen Needle) aripiprazole 2 mg tablet (Abilify) 2 mg PO DAILY 05/11/23 03/19/24 History bupropion HCl 150 mg tablet,12 hr 225 mg PO BID 05/11/23 03/19/24 History sustained-release (Wellbutrin SR) dapagliflozin propanediol 10 mg 10 mg PO DAILY 05/11/23 03/19/24 History tablet (Farxiga) fluticasone fur. 100 mcg-umeclid 1 inh inhalation DAILY 05/11/23 03/19/24 History 62.5 mcg-vilant 25 mcg inhalat.powder (Trelegy Ellipta) lisinopril 10 mg tablet 20 mg PO DAILY 05/11/23 03/19/24 History atorvastatin 40 mg tablet 40 mg PO DAILY 03/09/24 03/19/24 History doxycycline hyclate 100 mg tablet 100 mg PO BID 03/09/24 03/19/24 History duloxetine 30 mg capsule,delayed 30 mg PO DAILY 03/09/24 03/19/24 History release sprinkle duloxetine 60 mg capsule,delayed 60 mg PO DAILY 03/09/24 03/19/24 History release (Cymbalta) famotidine 20 mg tablet 20 mg PO BID 03/09/24 03/19/24 History insulin lispro 100 unit/mL 15 unit subcut USEASDIRECTD 03/09/24 03/19/24 History subcutaneous pen (Humalog KwikPen (U-100) Insulin) lamotrigine 150 mg tablet 150 mg PO QAM 03/09/24 03/19/24 History loperamide 2 mg capsule 2 mg PO Q4H PRN Diarrhea 03/09/24 03/19/24 History ondansetron 4 mg disintegrating 4 mg PO Q6H PRN n/v 03/09/24 03/19/24 History tablet oxycodone-acetaminophen 5 mg-325 1 tab PO Q6H PRN Pain 03/09/24 03/19/24 History mg tablet quetiapine 50 mg tablet 50 mg PO HS 03/09/24 03/19/24 History trazodone 100 mg tablet 50 mg PO HS 03/09/24 03/19/24 History Patient History Medical History Hx of sepsis treated at [facility] 01/2024? possible sepsis? Poor historian Osteoarthritis History of pressure ulcer right foot (2020?) treated with medication. pt reports resolved. Gout Degenerative disc disease Chronic back pain History of kidney stones no surgical intervention, passed on own Chronic kidney disease stage 2 History of bleeding ulcers Diabetes mellitus, type 2 Hx of cancer of uterus (1987) Chronic sinusitis Bipolar disorder Depression Anxiety History of migraine Peripheral neuropathy Hypertension History of pneumonia ~2013 last episode (not hospitalized) Chronic obstructive pulmonary disease Asthma PAD (peripheral artery disease) S/P arteriogram of extremity Hx of myocardial infarction "years ago" no surgical intervention. no cuff stitcher Sleep apnea non-compliant with machine - no machine Surgical History History of section x1 History of dilatation and curettage History of below knee amputation left History of cholecystectomy History of tooth extraction History of esophagogastroduodenoscopy (EGD) History of colonoscopy History of breast biopsy History of cataract surgery Bilateral History of arthroscopic knee surgery Meniiscectomy History of appendectomy History of total abdominal hysterectomy Family History Mother Diabetes Dementia Heart disease Thyroid disease Father Diabetes Heart disease Stroke Brother Diabetes Hypertension Sister Diabetes Hypertension Uncle Cancer of neck Family/Other Thyroid disease Other No family history of adverse response to anesthesia No pertinent family history Social History Smoking Status: Current every day smoker Tobacco Type: Cigarettes Cigarettes Per Day: 1 pack (advised on policy); Second Hand Exposure: No; Do You Dip or Chew Tobacco: No; Tobacco Cessation Education Requested by Patient: No Hx Alcohol Use: No Hx Substance Use: No Preferred Language: Serbian Communication Ability: Effective Fixed Interest Dealer Required: No Beliefs That Will Affect Care: None marital status: Life Partner Current Living Situation: Spouse Other Information That Helps Us Care for You: No Feels Safe at Home: Yes Safety Concerns: Feels Safe At This Time Assistive Devices: Walker and Wheelchair Review of Systems Review of Systems: All systems reviewed & are unremarkable except as noted in HPI & below Constitutional: no fever, no chills and no fatigue Eyes: no problem reported Ear, Nose, Mouth, Throat: no problem reported Respiratory: no problem reported Cardiovascular: + edema; no problem reported Gastrointestinal: no nausea, no vomiting and no problem reported Genitourinary: no problem reported Musculoskeletal: no problem reported Integumentary: + non-healing lesions, + skin ulcer, + w ounds and + erythema Neurologic: + loss of sensation, + numbness and + pa resthesia; no generalized weakness Psychiatric: no problem reported Physical Exam Physical Exam: Left lower extremity amputation noted. Right lower extremity focused exam: DP/PT pulses nonpalpable on clinical exam. Large ischemic appearing ulceration is noted circumferentially around the head of the first metatarsal along with dorsal foot, extending to the level of the proximal second metatarsal. This wound is 100% fibrotic with the metatarsal head obviously noted. The right second toe is also mummified, 100% necrotic to the level of the second metatarsal phalangeal joint. No ascending cellulitis is noted. Pain is noted on palpation of the toes, consistent with these clinical exam findings. CFT is still brisk to the remaining digits. Active range of motion is noted to the third fourth and fifth toes with no motion to the second toe. No remaining ulcerations noted otherwise. Constitutional: WD/WN, vitals as above + ill appearing and + obese Eyes: PERRL, conjunctivae normal, anicteric sclerae ENMT: external ear and nose normal, oropharynx normal Neck: trachea midline, no thyromegaly normal visual inspection Respiratory: normal respiratory effort; no respiratory distress Cardiovascular: Rate/Rhythm: regular rate and regular rhythm Vessels: + posterior tibial pulses abnormal and + dorsalis pedis pulses abnormal Chest (Breasts): Chest: normal inspection of chest Gastrointestinal (Abdomen): Inspection/Auscultation: abdomen normal to inspection Percussion/Palpation: + abdomen tender and abdomen soft Musculoskeletal: no cyanosis or clubbing, extremities motor strength 5/5 Head/Neck/Chest: normocephalic and head atraumatic Extremities: extremities normal to inspection and + amputation noted Skin: + ulcer, + wound, + skin atrophy and + d ry skin Neurologic: awake; + abnormal touch/pain/proprioception, + abnormal sensation to monofilament and no focal motor deficits Psychiatric: A+Ox3, euthymic affect Results & Data Vital Signs (Past 12 Hours) Vital Signs Temp Pulse Pulse Resp BP BP BP 03/20/24 20:02 37.0 C 90 16 116/71 03/20/24 14:46 36.8 C 85 12 109/69 03/20/24 12:21 37.0 C 90 16 116/71 03/20/24 11:25 03/20/24 11:22 36.5 C 91 H 16 113/66 03/20/24 11:08 37.0 C 88 18 129/63 03/20/24 10:08 37.1 C 88 18 131/66 03/20/24 09:38 37.2 C 87 18 112/56 L Pulse Ox O2 Del Method 03/20/24 20:02 90 Room Air 03/20/24 14:46 92 Room Air 03/20/24 12:21 91 03/20/24 11:25 Room Air 03/20/24 11:22 94 Room Air 03/20/24 11:08 95 03/20/24 10:08 97 03/20/24 09:38 92
[2024-03-21] MEDS: NICOTINE 21 MG/24 HR TDSY TD SCH (08:47)
[2024-03-21] MEDS: MUPIROCIN 2% OINT 22 GM TUBE EXT SCH (08:48)
[2024-03-21] MEDS: LANTUS PER UNIT CHARGE SC SCH (08:54)
--- NOTE | 2024-03-21 10:25 | Pharmacy Report ---
Pharmacy Glycemic Short Note 2 - Date of Service March 21, 2024 - Glycemic Short BSG Results (Last 24 hours): 03/20/24 03/20/24 03/20/24 11:28 16:36 20:05 POC Glucose 287 H 256 H 247 H 03/21/24 07:19 POC Glucose 218 H OUTPATIENT ANTIDIABETIC REGIMEN: * Dapagliflozin * Lantus, unclear dose. 28 units daily or 20 units BID both possibilities * Humalog 15 units SC UD * HbA1c pending for this AM ASSESSMENT: 03/21 * Yareli received 71 units of insulin yesterday (38 were basal) * Fasting BSG this AM above goal range, will give a slightly increased dose this AM and allow for extra at bedtime if BSGs remain elevated * Post-prandial BSGs continued to be elevated throughout the day, tightened Novolog parameters similar to reported home Humalog dosing, lowered goal range. * No glycemic stressors noted at this time. 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 Will split BID for now as an inpatient, and scale dose. Total daily dose today will range 23-38 units * Severe stress Novolog appropriate for now, and correction factor reduced BSG's yesterday nicely. Significant CHO intake with breakfast today - will see how the CHO manages this. May loosen if see a significant downtrend in BSG's PLAN FOR INPATIENT GLYCEMIC CONTROL: * Hold outpatient dapagliflozin * Basal insulin * Lantus 40 units SQ daily * Lantus 0-10 units SQ HS based on BSG (see eMAR for additional details) * Bolus insulin * NovoLog per scale ACHS or Q6hrs while NPO * Goal Range: Low 110 mg/dL - High 140 mg/dL * Correction Factor: 25 mg/dL/unit * Nutritional / Prandial insulin per carb ratio of 1 unit per 8 grams CHO consumed
--- NOTE | 2024-03-21 13:23 | Surgery Progress Note ---
Date of Service March 21, 2024 Assessment & Plan (1) S/P femoral-popliteal bypass surgery: Plan: Pt now POD #2 after RLE FLAT CLOTHIER endart and fem-AK pop BPG, doing well post op. Foot pain improved. Incisional pain improved. Pt wishes to go home today. (2) PAD (peripheral artery disease): Plan: see above (3) Acute blood loss as cause of postoperative anemia: Plan: Hgb improved, stable. No further transfusion required. Admission and Anticipated Discharge Date Admission Date: March 19, 2024 Subjective 63 yo f POD #2 after RLE FLAT CLOTHIER endart and fem-AK pop BPG, seen in f/u today. Pt states incisional pain is improved. R foot pain much improved. No new complaints. Review of Systems Review of Systems: All systems reviewed & are unremarkable except as noted in HPI & below Physical Exam Constitutional: WD/WN, vitals as above not in distress Respiratory: normal respiratory effort, lungs clear to auscultation (coarse) Auscultation: + diminished lung sounds Cardiovascular: Rate/Rhythm: regular rate and regular rhythm Vessels: abdominal aortic pulse present, posterior tibial pulses present (doppler RLE, LLE BKA) and dorsalis pedis pulses present (doppler RLE, LLE BKA) Gastrointestinal (Abdomen): Inspection/Auscultation: abdomen normal to inspection and normal bowel sounds Percussion/Palpation: abdomen soft; abdomen nontender Musculoskeletal: Extremities: + amputation noted R foot large open wound noted. Skin: no rashes, warm and dry Neurologic: moves all extremities and awake; no focal motor deficits and not confused Psychiatric: A+Ox3, euthymic affect Results & Data Vital Signs (Past 12 Hours) Vital Signs Temp Pulse Resp BP Pulse Ox O2 Del Method 03/21/24 09:00 Room Air 03/21/24 07:18 36.8 C 94 H 16 114/70 91 Room Air
--- NOTE | 2024-03-21 13:24 | Discharge Summary ---
Date of Service March 21, 2024 Admission HPI Per Admitting Provider [facility] [place] [address] History & Physical Report Signed Patient: MARIELA RUBY Admit Date: 03/01/24 MR#: [id number] Att Phy: Alvin Espinoza M.D. Acct ID: [id number] Alysha Phy: Gaby Chi MARYSE-Halina Date: 1960 Fam Phy: Age: 63 Location: [facility] Sex: F Room/Bed: cc: ~ *NOTICE TO RECEIVING REPUBLICAN/AGENCY This information is strictly Confidential and protected under [place] law. [place] law prohibits you from making any further disclosure of this information unless further disclosure is expressly permitted by the written consent of the person to whom it pertains or is authorized by law. A general authorization for the release of medical or other information is not sufficient for this purpose. Hospital accepts no responsibility if the information is made available to any other person, INCLUDING THE PATIENT. Date of Service March 01, 2024 History of Present Illness Primary Care Provider: Gaby Chi Name: MARIELA RUBY Patient Number: [id number] : 1960 Date of Service: 02/21/2024 Chief Complaint: Right foot wound HPI: Ms. Ruby is a pleasant 63F with PMH of DM, HTN and PAD. She presents for evaluation of a right foot wound. Patient was last seen in our office in 2019. Since that time she had stents placed by Dr. Urena in her right leg. She also underwent a left BKA for left foot wounds several years ago. Unfortunately she developed a right great toe wound several weeks ago. This became infected and she developed osteomyelitis. She underwent right great toe amputation about one week ago by Dr. Jackman. Her wound however has not healed. She was then referred for an arterial duplex of her right leg and to her office. Patient's surgical wound has not healed. There is drainage. No fevers. Endorses chills. There is no surrounding erythema. She does have 10/10 pain particularly with weightbearing. No claudication or rest pain. Sensation reduced due to neuropathy. Motor intact. The patient denies headaches, fevers, chills, dizziness, chest pain, shortness of breath, abdominal pain, nausea, vomiting, diarrhea, constipation, dysuria, hematuria, or other concerns. Patient has an allergy to aspirin due to GI bleed. Last colonoscopy was in her 40s. She has not taken a blood thinner or antiplatelet since that time. ALLERGIES: INCLUDE ASPIRIN, CODEINE, GLUCOPHAGE, STRAWBERRIES, AND TRAMADOL. HOME MEDICATIONS: Include Anoro Ellipta, atorvastatin, bupropion XL, Humalog, Jardiance, Lantus, levocetirizine, oxybutynin, ropinirole, Singulair, Tradjenta and trazodone. PAST MEDICAL HISTORY: Positive for insulin-dependent diabetes mellitus, hypertension, anxiety, COPD, hypercholesterolemia. Her surgical history is positive for a hysterectomy and a breast biopsy. Left BKA. Right great toe amp FAMILY HISTORY: Positive for coronary artery disease, hypertension, diabetes, carotid disease and CVA as well as peripheral arterial disease in both parents. SOCIAL HISTORY: Positive for cigarette use. She smoked 1-1/2 packs of cigarettes a day since she was a teenager. She denies alcohol or drug use. REVIEW OF SYSTEMS: Negative for fatigue, fevers, sweats, weight loss, abnormal moles or rashes, vision changes or photophobia, ear pain, sinus problems or sore throat, cough, shortness of breath no chest pain, palpitations or syncope. She denies edema, abdominal pain, nausea, vomiting, diarrhea, constipation, muscle weakness, headaches, dizziness, or seizures. Current Home Meds: (Last Updated 02/20 13:40) acetaminophen-oxycodone (acetaminophen-oxycodone 325 mg-5 mg oral tablet) 1 tab PO q6h PRN: as needed for pain atorvastatin (atorvastatin 40 mg oral tablet) TAKE 1 TABLET BY MOUTH EVERY DAY buPROPion (buPROPion 300 mg/24 hours (XL) oral tablet, extended release) 300 mg PO Daily cephalexin (cephalexin 500 mg oral capsule) TAKE 1 CAPSULE BY MOUTH EVERY 8 HOURS FOR 14 DAYS. doxycycline (doxycycline hyclate 100 mg oral capsule) TAKE 1 CAPSULE BY MOUTH TWICE A DAY FOR 14 DAYS empagliflozin (Jardiance 10 mg oral tablet) 10 mg PO qAM fluticasone/umeclidinium/vilanterol (Trelegy Ellipta 100 mcg-62.5 mcg-25 mcg/inh inhalation powder) 1 puff inhaled Daily insulin glargine (Lantus 100 units/mL subcutaneous solution) 20 unit subQ bid insulin lispro (HumaLOG 100 units/mL injectable solution) 20 unit subQ q breakfast and supper levocetirizine (levocetirizine 5 mg oral tablet) 5 mg PO qPM PRN: allergy symptoms linagliptin (Tradjenta 5 mg oral tablet) 5 mg PO Daily loperamide (loperamide 2 mg oral capsule) 2 mg PO q4h metroNIDAZOLE (metroNIDAZOLE 500 mg oral tablet) TAKE 1 TABLET BY MOUTH EVERY 8 HOURS FOR 7 DAYS rOPINIRole (rOPINIRole 0.25 mg oral tablet) 0.25 mg PO qhs traZODone (traZODone 100 mg oral tablet) 100 mg PO qhs umeclidinium-vilanterol (Anoro Ellipta 62.5 mcg-25 mcg/inh inhalation powder) 1 puff inhaled Daily Allergies and Sensitivities: strawberries(Hives) traMADol(Vomiting) codeine(Vomiting) Glucophage(Hyperglycemia) aspirin(Rectal bleeding) Past Medical History: Problems: Atherosclerosis Tobacco user OBJECTIVE Vitals: Last Updated 02/21/24 13:51 Date Temp BP Location Pulse RR SpO2 Pain 02/21/24 4 02/21/24 130/78 Right Arm 02/21/24 146/78 Left Arm 86 95 Vital Signs are the last 3 documented. No Orthostatic Data Available Height and Weight: Last Updated 05/22/18 14:48 Date BMI Wt(kg) Wt(lb) Method Ht(cm) (ft-in) Method 05/22/18 34.31 85.1 187 Standing Scale 157.48 5-2 Heights and Weights are the last 3 documented. Physical Exam General: no acute distress, resting comfortably in chair HEENT:normocephalic,atraumatic Cardiovascular: nontachycardic Pulmonary: breathing comfortably on room air, equal chest rise bilaterally Abdomen: soft, nondistended Extremity:Well healed L BKA. Right leg with DP and PT signal, monophasic. There is an open right foot wound with proene sutures in place. Fibrinous slough appreciated. No pus. Neuro: CNII-CNXII grossly intact, no focal deficits appreciated Skin: warm and well perfused, no rashes or jaundice appreciated Imaging: Review of patient's arterial duplex from today demonstrates occluded right SFA. Stents placed are occluded. There is reconstitution distally at the distal SFA/AK pop. The PT is occluded. The HANK is 0.5 ASSESSMENT: Ms. Ruby is a pleasant 63F with PMH of DM, HTN and PAD. She presents for evaluation of a right foot wound. Patient was last seen in our office in 2019. She recently underwent amputation of her right great toe. This has not healed well and is nonhealing. It will likely need further debridement. She had an arterial duplex performed. This showed occlusion of her right SFA and prior stents. Her HANK was 0.5. Clinically she has decreased pedal flow. Patient has chronic limb threatening ischemia with a current open nonhealing wound and severe PAD based on her HANK. She will need an angiogram with the goal of revascularization of her right leg We discussed the above procedure including steps, what to expect, risks and possible benefits in great detail. Patient was provided the opportunity to ask questions and they were answered to her satisfaction. She would like to proceed with surgery. We will therefore schedule it for a mutually acceptable time. PLAN: _ 1 ) Right lower extremity angiogram, possible intervention I saw and evaluated the patient. Discussed with the resident and agree with the resident's findings and plan as documented in the resident's note. I have personally spent___50__ minutes performing [id number] and ewq-kxgp-eg-face activities on this date of service. Activities Include: _x_ review of the medical record _x_ obtaining a history _x_ physical exam/evaluation __ review labs _x_ review radiology reports _x_ counseling/educating patient/family/caregiver __ discussion/referral to other healthcare professional _x_ documenting care in the medical record __ independent interpretation of results __ communication of results to patient/family/caregiver __ coordination of care Signature Line Electronic Signature on File CC: Aquilino Jackman DPM [address] [facility] [id number] * CC: Gaby Chi PA-C [address] [place] [id number] * Electronically Reviewed/Signed by: Jn Ta MD Author Signature Dt/Tm:02/21/2024 02:39 PM Resident Division of General Surgery Electronically Reviewed/Signed by: Alvin Espinoza MD Cosigner Signature Dt/Tm: 02/21/2024 03:00 PM Administration Clerk Melchor [facility] [place] [address], [address] [place] [address] PC Result Type:Vascular Surgery Outpt Note Date of Service:February 21, 2024 14:17 EDT Authorization Status:Final Author or Import Date:MD Cely, Jn on February 21, 2024 14:39 EDT Verified By:MD Olga, Alvin Boo on February 21, 2024 15:00 EDT Encounter info:[id number], [place] [address], Clinic, 02/21/2024 - 02/21/2024 Allergies Allergy/AdvReac Type Severity Reaction Status Date / Time tramadol Allergy Intermediate itchy Verified 09/30/22 14:48 metformin Allergy Unknown . Verified 09/30/22 14:48 naproxen Allergy Unknown Unknown Verified 09/30/22 14:48 ondansetron [From Zofran] Allergy Unknown Verified 09/30/22 14:48 codeine AdvReac Intermediate dizziness Verified 09/30/22 14:48 aspirin AdvReac Unknown rectal Verified 09/30/22 14:48 bleeding STRAWBERRIES Allergy Unknown Uncoded 09/30/22 14:48 Home Medications Medication Instructions Recorded Confirmed Type albuterol sulfate 90 mcg/actuation 2 puff inhalation Q6H PRN 03/14/18 09/30/22 History aerosol inhaler (Ventolin HFA) Shortness Of Breath Or Wheezing atorvastatin 20 mg tablet (Lipitor) 20 mg PO QAM 03/14/18 09/30/22 History acetaminophen 500 mg tablet 1,000 mg PO Q12H PRN Pain 06/21/19 09/30/22 History (Tylenol Extra Strength) blood sugar diagnostic (OneTouch #10 ea 06/21/19 11/21/20 History Ultra Blue Test Strip) duloxetine 20 mg capsule,delayed 20 mg PO DAILY 06/21/19 09/30/22 History release (Cymbalta) duloxetine 60 mg capsule,delayed 60 mg PO DAILY 06/21/19 09/30/22 History release (Cymbalta) fluticasone propionate 50 1 - 2 sprays intranasal QAM 06/21/19 09/30/22 History mcg/actuation nasal spray,suspension (Flonase Allergy Relief) hydroxyzine HCl 25 mg tablet 25 mg PO TID PRN Itching 06/21/19 09/30/22 History insulin glargine 100 unit/mL (3 20 units subcut BID 06/21/19 09/30/22 History mL) subcutaneous pen (Lantus Solostar U-100 Insulin) lancets (OneTouch UltraSoft #50 ea 06/21/19 11/21/20 History Lancets) pen needle, diabetic 31 gauge x #30 ea 06/21/19 11/21/20 History 3/16" (BD Ultra-Fine Mini Pen Needle) aluminum-mag hydroxide-simethicone 5 ml PO ONCE PRN 05/11/23 History 200 mg-200 mg-20 mg/5 mL oral susp (Maalox Advanced) aripiprazole 2 mg tablet (Abilify) 2 mg PO DAILY 05/11/23 History bupropion HCl 150 mg tablet,12 hr 225 mg PO BID 05/11/23 History sustained-release (Wellbutrin SR) dapagliflozin propanediol 10 mg 10 mg PO DAILY 05/11/23 History tablet (Farxiga) docusate sodium 100 mg capsule 100 mg PO DAILY 05/11/23 History (Colace) famotidine 20 mg tablet (Pepcid) 20 mg PO BID 05/11/23 History fluticasone fur. 100 mcg-umeclid 1 inh inhalation DAILY 05/11/23 History 62.5 mcg-vilant 25 mcg inhalat.powder (Trelegy Ellipta) furosemide 20 mg tablet (Lasix) 20 mg PO DAILY 05/11/23 History hydrocodone 7.5 mg-acetaminophen 1 tab PO Q8H PRN 05/11/23 History 325 mg tablet lactobacillus combination no.9 4 4,000 mmu cells PO DAILY 05/11/23 History billion cell capsule (Adult 50 Plus Probiotic) linaclotide 145 mcg capsule 145 mcg PO DAILY 05/11/23 History (Linzess) lisinopril 10 mg tablet 20 mg PO DAILY 05/11/23 History pantoprazole 40 mg tablet,delayed 40 mg PO DAILY 05/11/23 History release polyethylene glycol 3350 17 17 g PO DAILY PRN 05/11/23 History gram/dose oral powder (Miralax) trazodone 50 mg tablet 50 mg PO DAILY 05/11/23 History Past Med/Surg History Problem List (Updated 05/11/23 @ 09:02 by Kurt Wright MA) GERD (gastroesophageal reflux disease) PAD (peripheral artery disease) DVT prophylaxis Influenza A Acute kidney injury Acute respiratory failure Hypoxia (Acute) Hyperglycemia (Acute) Influenza (Acute) HTN (hypertension) (Chronic) DM (diabetes mellitus) (Chronic) Asthma (Chronic) Back contusion (Acute) Contracture of right shoulder (Acute) Hyperglycemia (Acute) Syncope (Acute) Head injury (Acute) Multiple contusions (Acute) Back contusion (Acute) Hyperglycemia (Acute) Syncope (Acute) Head injury (Acute) Back contusion (Acute) Shoulder contusion (Acute) Sciatica (Acute) Arthritis (Chronic) Depression (Chronic) Back pain (Acute) Cervical strain (Acute) Chronic lower back pain (Acute) Chronic lower back pain (Acute) Contusion of multiple sites (Acute) Fall (Acute) Head trauma (Acute) Hyperglycemia (Acute) Insulin dependent diabetes mellitus Postconcussive syndrome (Acute) Sciatica (Acute) Medical History (Updated 05/11/23 @ 09:02 by Kurt Wright MA) Diabetes HTN (hypertension) Surgical History History of colonoscopy History of breast biopsy History of cataract surgery BilateralHistory of arthroscopic knee surgery MeniiscectomyHistory of appendectomy History of total abdominal hysterectomy Family History (Updated 05/11/23 @ 09:25 by Kurt Wright MA) Mother Diabetes Thyroid disease Dementia Heart diseaseFather Diabetes Heart disease StrokeBrother Diabetes HypertensionSister Diabetes HypertensionUncle Cancer of neckFamily/Other Thyroid diseaseOther No pertinent family history Social History Smoking Status: Current every day smoker Cigarettes Per Day: 1/2 pack; Hx Alcohol Use: No Hx Substance Use: No Preferred Language: Turkish Communication Ability: Effective Preboarder Required: No Beliefs That Will Affect Care: None marital status: Life Partner Current Living Situation: Spouse Feels Safe at Home: Yes Assistive Devices: None Signed By: <Electronically signed by Alvin Espinoza MD> 03/01/24 0952 Created: 03/01/24 0951 The status of this report is Signed. Draft = Not yet reviewed or approved by Medical Physician. Signed = Reviewed and approved by Medical Physician. Admission Exam Per Admitting Provider General: no acute distress, resting comfortably in chair HEENT:normocephalic,atraumatic Cardiovascular: nontachycardic Pulmonary: breathing comfortably on room air, equal chest rise bilaterally Abdomen: soft, nondistended Extremity:Well healed L BKA. Right leg with DP and PT signal, monophasic. There is an open right foot wound with proene sutures in place. Fibrinous slough appreciated. No pus. Neuro: CNII-CNXII grossly intact, no focal deficits appreciated Skin: warm and well perfused, no rashes or jaundice appreciated Principal Diagnosis 1. s/p RLE PSYCHOLOGIST SOCIAL endarterectomy with bovine patch and fem-above knee pop prosthetic BPG 2. RLE critical limb ischemia wtih tissue loss. Discharge Exam Constitutional WD/WN, vitals as above not in distress Respiratory normal respiratory effort, lungs clear to auscultation (coarse) Auscultation: + diminished lung sounds Cardiovascular Rate/Rhythm: regular rate and regular rhythm Vessels: abdominal aortic pulse present, posterior tibial pulses present (doppler RLE, LLE BKA) and dorsalis pedis pulses present (doppler RLE, LLE BKA) Gastrointestinal (Abdomen) Inspection/Auscultation: abdomen normal to inspection and normal bowel sounds Percussion/Palpation: abdomen soft; abdomen nontender Musculoskeletal Extremities: + amputation noted Skin no rashes, warm and dry Neurologic moves all extremities and awake; no focal motor deficits and not confused Psychiatric A+Ox3, euthymic affect Discharge Data Allergies Allergy/AdvReac Type Severity Reaction Status Date / Time tramadol Allergy Intermediate itchy Verified 03/19/24 08:30 naproxen Allergy Unknown avoids due Verified 03/19/24 08:30 to kidney disease stage 2 strawberry Allergy Hives Verified 03/19/24 08:31 metformin AdvReac Severe severe GI Verified 03/19/24 08:30 distress codeine AdvReac Intermediate dizziness Verified 03/19/24 08:30 aspirin AdvReac Unknown rectal Verified 03/19/24 08:30 bleeding Consultations 03/19/24 17:15 Consult Chicken And Fish Cleaner Routine 03/20/24 08:49 Consult Podiatry Routine Procedures Performed Operation Date: 03/19/24 09:40 Actual Procedures p Right Common Femoral Artery Endarterectomy with Bovine Patch, Right Above the Knee Femoral Popliteal Prosthetic Bypass - Alvin Espinoza MD Diabetes Follow up Diabetes Follow-up Needed for HgbA1c >9% Hospital Course (1) S/P femoral-popliteal bypass surgery: Pt now POD #2 after RLE PSYCHOLOGIST SOCIAL endart and fem-AK pop BPG, doing well post op. Foot pain improved. Incisional pain improved. Pt wishes to go home today. (2) PAD (peripheral artery disease): see above (3) Acute blood loss as cause of postoperative anemia: Hgb improved, stable. No further transfusion required. Total Time Total Time Spent Total Time Spent (In Minutes): 0 Discharge Plan Discharge Items Patient Disposition: Home - Home Health Services Reason For Visit: Atherosclerosis Discharge Diagnosis: 1. s/p RLE PSYCHOLOGIST SOCIAL endarterectomy with bovine patch and fem-above knee pop prosthetic BPG 2. Critical limb ischemia Activity: Per Instructions section Lifting: No more than 10 pounds Non-emergency contact: Primary Care Provider and Surgeon Call non-emergency contact if: you have any medication questions, your symptoms worsen, your pain is not controlled, your pain is concerning for you, you have a fever, your wound has increased redness and your wound has increased drainage Follow-up/Referrals: Alvin Espinoza MD [Physician] - (Follow up with Dr Espinoza or Erica Betancourt PA-C, in 2 weeks) Gaby Chi PA-C [Primary Care Provider] - (Follow up with your PCP within 2 weeks) Aquilino Jackman M.D. [Outside Practitioners] - (Follow up with Dr Jackman to discuss R foot.) Diet: Carb Consistent or DM2 and Heart Healthy Addtl Attending Provider Instructions: ACTIVITY RECOMMENDATIONS: 1. May shower, no soaking baths. 2. No lifting more than 10 lbs for 6 weeks. 3. Continue wound dressings as per wound clinic and Dr Jackman's recommendations. 4. R groin wound vac can be fully removed and disposed of when the battery dies, usually within [address] Espinoza's office if any questions. SPECIAL CARE INSTRUCTIONS: Call your doctor if: * Temperature above 101 degrees * Pain not relieved by pain medicine ordered * There is increased drainage or redness from any incision * You have any unanswered questions or concerns. Pending Studies at Discharge: No Stand-Alone Forms: [facility], Smoking Cessation Medications and DC Order Prescriptions: New oxycodone-acetaminophen [Percocet] 5-325 mg Tablet 1 - 2 tab PO Q6H PRN (Reason: pain) Qty: 30 0RF Continued aripiprazole [Abilify] 2 mg tablet 2 mg PO DAILY bupropion HCl [Wellbutrin SR] 150 mg tablet sustained-release 12 hr 225 mg PO BID Farxiga 10 mg tablet 10 mg PO DAILY lisinopril 10 mg tablet 20 mg PO DAILY Trelegy Ellipta 100-62.5-25 mcg blister with device 1 inh inhalation DAILY hydroxyzine HCl 25 mg tablet 25 mg PO TID PRN (Reason: Itching) (DME) OneTouch Ultra Blue Test Strip Strip See Rx Instructions .ROUTE .MEDSUPPLY Qty: 10 Rx Instructions: Test blood sugars three times a day (DME) lancets [OneTouch UltraSoft Lancets] Misc See Rx Instructions .ROUTE .MEDSUPPLY Qty: 50 Rx Instructions: Test blood sugars three times a day Lantus Solostar U-100 Insulin 100 unit/mL (3 mL) insulin pen 28 units SQ QAM (DME) pen needle, diabetic [BD Ultra-Fine Mini Pen Needle] 31 gauge x 3/16" needle See Rx Instructions .ROUTE .MEDSUPPLY Qty: 30 Rx Instructions: Use 6 per day as directed with insulin albuterol sulfate [Ventolin HFA] 90 mcg/actuation HFA aerosol inhaler 2 puff Inhalation Q6H PRN (Reason: Shortness Of Breath Or Wheezing) ondansetron 4 mg Tablet,Disintegrating 4 mg PO Q6H PRN (Reason: n/v) atorvastatin 40 mg Tablet 40 mg PO DAILY lamotrigine 150 mg Tablet 150 mg PO QAM loperamide 2 mg Capsule 2 mg PO Q4H PRN (Reason: Diarrhea) Rx Instructions: administer after each loose stool until symptoms controlled; do not exceed 8 mg per 24 hrs famotidine 20 mg Tablet 20 mg PO BID trazodone 100 mg Tablet 50 mg PO HS duloxetine [Cymbalta] 60 mg Capsule,Delayed Release(Dr/Ec) 60 mg PO DAILY quetiapine 50 mg Tablet 50 mg PO HS duloxetine 30 mg Capsule, Delayed Rel Sprinkle 30 mg PO DAILY doxycycline hyclate [Doxy] 100 mg Tablet 100 mg PO BID insulin lispro [Humalog KwikPen Insulin] 100 unit/mL Insulin Pen 15 unit SUBCUT USEASDIRECTD Held acetaminophen [Tylenol Extra Strength] 500 mg tablet 1,000 mg PO Q12H PRN (Reason: Pain) Hold Instructions: Hold while taking oxycodone/acetaminophen. May restart when no longer taking oxycodone/acetaminophen Discontinued oxycodone-acetaminophen 5-325 mg Tablet 1 tab PO Q6H PRN (Reason: Pain) Discharge Orders: Discharge Order (Routine); Ordered 03/21/24 Ordered By: Erica Pal/Other Patient Handouts: Managing Type 2 Diabetes Admission Data Admit Date/Time: 03/19/24 10:59 Attending Provider: Alvin Espinoza Admit Provider: Alvin Espinoza Primary Care Provider: Gaby Chi Other Providers: Familia Verma; Carl Crouch; Alan Chaves; Fili Ahn; Parag Tejada; Clara Morrow; Delio Hooker; Devi Brown; Tigist Monterroso; Miguel Ma; Joey Carvalho; Yara Hussein; Dean Sidhu
[2024-03-21 14:47] VITALS: BP 100/62; PULSE 85; TEMP 97.9; O2SAT 92
--- NOTE | 2024-03-21 16:48 | Podiatry Progress Note ---
Date of Service March 21, 2024 Assessment & Plan (1) S/P femoral-popliteal bypass surgery: (2) PAD (peripheral artery disease): (3) Osteomyelitis of foot, right, acute: (4) 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 bone: Plan Patient was examined and evaluated. - Pt should keep dressing clean, dry, and intact. Wound care or home care can change as needed. - Should f/u with Dr. Jackman within one week for more definitive care. - If she has no follow up within a few weeks or is unable to see him, we should see her in our office for further care. - Pt understands and is amenable to this. Admission and Anticipated Discharge Date Admission Date: March 19, 2024 Subjective Pt seen at bedside at lunch time. No new concerns. States she is working on getting home today. Denies any changes to the foot. Still has pain with light pressure to toes. Review of Systems Constitutional: no fever, no chills and no fatigue Eyes: no problem reported Ear, Nose, Mouth, Throat: no problem reported Respiratory: no problem reported Cardiovascular: + edema; no problem reported Gastrointestinal: no nausea, no vomiting and no problem reported Genitourinary: no problem reported Musculoskeletal: no problem reported Integumentary: + non-healing lesions, + skin ulcer, + w ounds and + erythema Neurologic: + loss of sensation, + numbness and + pa resthesia; no generalized weakness Psychiatric: no problem reported Physical Exam Physical Exam: Left lower extremity amputation noted. Right lower extremity focused exam: DP/PT pulses nonpalpable on clinical exam. Large ischemic appearing ulceration is noted circumferentially around the head of the first metatarsal along with dorsal foot, extending to the level of the proximal second metatarsal. This wound is 100% fibrotic with the metatarsal head obviously noted. The right second toe is also mummified, 100% necrotic to the level of the second metatarsal phalangeal joint. No ascending cellulitis is noted. Pain is noted on palpation of the toes, consistent with these clinical exam findings. CFT is still brisk to the remaining digits. Active range of motion is noted to the third fourth and fifth toes with no motion to the second toe. No remaining ulcerations noted otherwise. Constitutional: WD/WN, vitals as above + ill appearing and + obese Eyes: PERRL, conjunctivae normal, anicteric sclerae ENMT: external ear and nose normal, oropharynx normal Neck: trachea midline, no thyromegaly normal visual inspection Respiratory: normal respiratory effort; no respiratory distress Cardiovascular: Rate/Rhythm: regular rate and regular rhythm Vessels: + posterior tibial pulses abnormal and + dorsalis pedis pulses abnormal Chest (Breasts): Chest: normal inspection of chest Gastrointestinal (Abdomen): Inspection/Auscultation: abdomen normal to inspection Percussion/Palpation: + abdomen tender and abdomen soft Musculoskeletal: no cyanosis or clubbing, extremities motor strength 5/5 Head/Neck/Chest: normocephalic and head atraumatic Extremities: extremities normal to inspection and + amputation noted Skin: + ulcer, + wound, + skin atrophy and + d ry skin Neurologic: awake; + abnormal touch/pain/proprioception, + abnormal sensation to monofilament and no focal motor deficits Psychiatric: A+Ox3, euthymic affect Results & Data Results & Data Vital Signs (Past 12 Hours) Vital Signs Temp Pulse Pulse Resp BP BP Pulse Ox 03/21/24 14:46 36.6 C 85 16 100/62 92 03/21/24 09:00 03/21/24 07:18 36.8 C 94 H 16 114/70 91 O2 Del Method 03/21/24 14:46 Room Air 03/21/24 09:00 Room Air 03/21/24 07:18 Room Air
[2024-03-21] MEDS ORDERED: LANTUS PER UNIT CHARGE SC SCH (21:00)
== END 2024-03-21 16:33 | disposition home health service (06) | DRG 253 ==
LOC: ASU 07:51 → 1E 10:59 → 3N 03-20 11:18

== ENCOUNTER 2024-03-23 17:26 | Inpatient (IN) ==
--- NOTE | 2024-03-23 17:37 | Emergency Department Note ---
Impression & Plan Osteomyelitis of foot, right, acute, Cellulitis of right leg, 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 bone, S/P femoral-popliteal bypass surgery ED Provider Note NAME: MARIELA RUBY AGE: 63 SEX: F : 1960 ARRIVES VIA: Ambulance INFORMANT: Patient, ED PROVIDER(S): Darron Levin MD CHIEF COMPLAINT: Leg pain and swelling MEDICAL DECISION MAKING: Patient presents for leg pain and swelling. IV was established and blood work was obtained. The patient did have a DVT study performed the patient was ordered empiric antibiotics. Patient also ordered IV fentanyl. Patient's blood work shows a normal white count hemoglobin 9.2 with a normal platelet count kidney function is unremarkable. Pro-Claude elevated 2.2. TSH high but free T4 normal. No evidence of DVT. Mild cardiomegaly noted on x-ray. Patient still had associated pain. Patient was ordered additional IV fentanyl. Given the concern for foot infection wound swab was obtained. I did speak the on-call hospitalist service and the patient was admitted to the medicine service. Discussion w/ other healthcare providers: Dr. Guardado inpatient medicine service Prior /Outside records reviewed: Reviewed part of a discharge summary from March 21, 2024 from Erica criosstomo. 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 Status post femoropopliteal bypass PAD osteomyelitis of the right foot with chronic ulcer of the right foot with necrosis of bone. Differential diagnosis: Cellulitis, postop infection, abscess, necrotizing fasciitis, osteomyelitis, DVT among others were considered Diagnostics, as interpreted by me: ECG: Normal sinus rhythm, rate of 96, normal intervals, normal axis no ST elevations or T WI. Cardiac monitoring: An order was placed for continuous cardiac monitoring. The monitor shows a rate of 95 with sinus rhythm. Patient was placed on pulse oximetry Medical decision rules: None Imaging studies: I informally interpreted the patient's Chest x-ray does not show obvious pneumonia or pneumothorax with formal report to follow. HPI: Patient presents due to concern for worsening right lower extremity pain swelling and redness. The patient was recently admitted and did have a femoral- popliteal bypass completed during her recent hospitalization. Patient states that she noticed the swelling and redness today. She did take some pain medication at home but without improvement in symptoms. The patient has felt feverish and chilled but no documented temperature at home. Patient is yet to be seen by home health or wound care. Patient did have some concern that she might of had some drainage coming from her staple site. The patient does have a wound VAC in place PAST MEDICAL HISTORY: See Below PAST SURGICAL HISTORY: See Below SOCIAL HISTORY: See Below HOME MEDICATIONS: See Below ALLERGIES: See Below VITALS: See Below PHYSICAL EXAMINATION: GENERAL: NAD, non-toxic. EYE EXAM: Normal conjunctiva. PERRL, no anisocoria and EOM's grossly intact w/o pain. OROPHARYNX: Moist mucus membranes, grossly normal dentition. NECK: Trachea midline, no stridor. LUNGS: Clear to auscultation. Normal chest wall mechanics. HEART: NSR, no MRG. ABDOMEN: Abdomen soft, non-tender, no masses, no rebound or guarding. BACK: No CVA TTP. SKIN: No rashes and no bruising. UPPER EXTREMITIES: Upper extremities are grossly normal. LOWER EXTREMITIES: Right lower extremity with redness noted to the medial aspect proximal to the stapled incisional site distal to the wound VAC in the groin extending down to the lower leg, compartments are soft, no obvious drainage noted at the staple site. Open wound from prior amputation of the first phalanx noted more proximally over the dorsal aspect of the right foot. Associated erythema and foul-smelling. No obvious crepitus. NEURO EXAM: A&O x3, cranial nerves II-XII grossly intact, normal speech, moves all 4 extremities. Past Med/Surg History Problem List (Updated 03/24/24 @ 18:24 by Darron Levin MD) Cellulitis of right leg (Acute) Anemia SANDIP (obstructive sleep apnea) 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 bone (Acute) Osteomyelitis of foot, right, acute (Acute) Acute blood loss as cause of postoperative anemia S/P femoral-popliteal bypass surgery (Acute) Encounter for pre-operative examination GERD (gastroesophageal reflux disease) PAD (peripheral artery disease) Insulin dependent diabetes mellitus Chronic lower back pain (Acute) Cervical strain (Acute) Depression (Chronic) Arthritis (Chronic) Asthma (Chronic) DM (diabetes mellitus) (Chronic) HTN (hypertension) (Chronic) Medical History Hx of sepsis treated at [facility] 01/2024? possible sepsis? Poor historian Osteoarthritis History of pressure ulcer right foot (2020?) treated with medication. pt reports resolved. Gout Degenerative disc disease Chronic back pain History of kidney stones no surgical intervention, passed on own Chronic kidney disease stage 2 History of bleeding ulcers Diabetes mellitus, type 2 Hx of cancer of uterus (1987) Chronic sinusitis Bipolar disorder Depression Anxiety History of migraine Peripheral neuropathy Hypertension History of pneumonia ~2013 last episode (not hospitalized) Chronic obstructive pulmonary disease Asthma PAD (peripheral artery disease) S/P arteriogram of extremity Hx of myocardial infarction "years ago" no surgical intervention. no oncology pharmacist Sleep apnea non-compliant with machine - no machine Surgical History History of section x1 History of dilatation and curettage History of below knee amputation left History of cholecystectomy History of tooth extraction History of esophagogastroduodenoscopy (EGD) History of colonoscopy History of breast biopsy History of cataract surgery Bilateral History of arthroscopic knee surgery Meniiscectomy History of appendectomy History of total abdominal hysterectomy Family History Mother Diabetes Dementia Heart disease Thyroid disease Father Diabetes Heart disease Stroke Brother Diabetes Hypertension Sister Diabetes Hypertension Uncle Cancer of neck Family/Other Thyroid disease Other No family history of adverse response to anesthesia No pertinent family history Social History Smoking Status: Current every day smoker Tobacco Type: Cigarettes Cigarettes Per Day: 1 pack (advised on policy); Second Hand Exposure: No; Do You Dip or Chew Tobacco: No; Hx Alcohol Use: No Hx Substance Use: No Preferred Language: Slovenian Communication Ability: Effective Java Programmer Required: No Beliefs That Will Affect Care: None marital status: Life Partner Current Living Situation: Spouse Current Living Situation Comment: WITH Other Information That Helps Us Care for You: No Feels Safe at Home: Yes Safety Concerns: Feels Safe At This Time Assistive Devices: Walker and Wheelchair Allergies Allergies Allergy/AdvReac Type Severity Reaction Status Date / Time tramadol Allergy Intermediate itchy Verified 03/19/24 08:30 naproxen Allergy Unknown avoids due Verified 03/19/24 08:30 to kidney disease stage 2 strawberry Allergy Hives Verified 03/19/24 08:31 metformin AdvReac Severe severe GI Verified 03/19/24 08:30 distress codeine AdvReac Intermediate dizziness Verified 03/19/24 08:30 aspirin AdvReac Unknown rectal Verified 03/19/24 08:30 bleeding Home Meds Home Medications Medication Instructions Recorded Confirmed albuterol sulfate 90 mcg/actuation 2 puff inhalation Q6H PRN 03/14/18 03/19/24 aerosol inhaler (Ventolin HFA) Shortness Of Breath Or Wheezing acetaminophen 500 mg tablet 1,000 mg PO Q12H PRN Pain 06/21/19 03/19/24 (Tylenol Extra Strength) blood sugar diagnostic (LINAGORATouch #10 ea 06/21/19 11/21/20 Ultra Blue Test Strip) hydroxyzine HCl 25 mg tablet 25 mg PO TID PRN Itching 06/21/19 03/19/24 insulin glargine 100 unit/mL (3 20 units subcut BID 06/21/19 03/21/24 mL) subcutaneous pen (Lantus Solostar U-100 Insulin) lancets (mobiDEOSuch UltraSoft #50 ea 06/21/19 11/21/20 Lancets) pen needle, diabetic 31 gauge x #30 ea 06/21/19 11/21/20 3/16" (BD Ultra-Fine Mini Pen Needle) aripiprazole 2 mg tablet (Abilify) 2 mg PO DAILY 05/11/23 03/19/24 bupropion HCl 150 mg tablet,12 hr 225 mg PO BID 05/11/23 03/19/24 sustained-release (Wellbutrin SR) dapagliflozin propanediol 10 mg 10 mg PO DAILY 05/11/23 03/19/24 tablet (Farxiga) fluticasone fur. 100 mcg-umeclid 1 inh inhalation DAILY 05/11/23 03/19/24 62.5 mcg-vilant 25 mcg inhalat.powder (Trelegy Ellipta) lisinopril 10 mg tablet 20 mg PO DAILY 05/11/23 03/19/24 atorvastatin 40 mg tablet 40 mg PO DAILY 03/09/24 03/19/24 doxycycline hyclate 100 mg tablet 100 mg PO BID 03/09/24 03/19/24 duloxetine 30 mg capsule,delayed 30 mg PO DAILY 03/09/24 03/19/24 release sprinkle duloxetine 60 mg capsule,delayed 60 mg PO DAILY 03/09/24 03/19/24 release (Cymbalta) famotidine 20 mg tablet 20 mg PO BID 03/09/24 03/19/24 insulin lispro 100 unit/mL 15 unit subcut WM 03/09/24 03/21/24 subcutaneous pen (Humalog KwikPen (U-100) Insulin) lamotrigine 150 mg tablet 150 mg PO QAM 03/09/24 03/19/24 loperamide 2 mg capsule 2 mg PO Q4H PRN Diarrhea 03/09/24 03/19/24 ondansetron 4 mg disintegrating 4 mg PO Q6H PRN n/v 03/09/24 03/19/24 tablet quetiapine 50 mg tablet 50 mg PO HS 03/09/24 03/19/24 trazodone 100 mg tablet 50 mg PO HS 03/09/24 03/19/24 Previous Rx's Medication Instructions Recorded oxycodone-acetaminophen 5 mg-325 1 - 2 tab PO Q6H PRN pain #30 tabs 03/21/24 mg tablet (Percocet) Results & Data (ED) Vital Signs Vital Signs - 24 hr 03/23/24 21:00 Pulse Rate [Apical] 86 Pulse Rhythm [Apical] Regular Pulse Strength [Apical] Normal Respiratory Rate 20 Respiratory Effort / Characteristics Non-Labored Respiratory Depth Normal Respiratory Pattern Regular Blood Pressure [Left Arm] 132/70 Blood Pressure Mean [Left Arm] 90 Blood Pressure Position [Left Arm] Lying Pulse Oximetry 98 Oxygen Delivery Method Room Air Home Medications Current Medication List: was personally reviewed by me Laboratory Data Attestation: I reviewed the patient's lab results. 03/24/24 06:24 03/24/24 06:24 Lab Results 03/23/24 03/23/24 Range/Units 18:15 18:19 WBC 10.07 (4.8-10.8) K/ul RBC 3.16 L (4.20-5.40) M/uL Hgb 9.2 L (12.0-16.0) g/dl Hct 29.6 L (37.0-47.0) % MCV 93.7 (80.0-100.0) fL MCH 29.1 (25.0-34.0) pg MCHC 31.1 L (32.0-36.0) g/dL RDW Std Deviation 52.1 H (36.4-46.3) fL RDW Coeff of Iza 15.1 H (11.5-14.5) % Plt Count 252 (130-400) K/uL MPV 9.0 L (9.4-12.4) fL Immature Gran % (Auto) 1.1 % Neut % (Auto) 77.1 % Lymph % (Auto) 15.7 % [place] % (Auto) 5.0 % Eos % (Auto) 0.8 % Baso % (Auto) 0.3 % Neut # (Auto) 7.77 H (1.40-6.50) K/uL Lymph # (Auto) 1.58 (1.20-3.40) K/uL [place] # (Auto) 0.50 (0.11-0.59) K/uL Eos # (Auto) 0.08 (0.00-0.50) K/uL Baso # (Auto) 0.03 (0.00-0.20) K/uL Immature Gran # (Auto) 0.11 (0.01-0.20) K/uL Sodium 136 (136-145) mmol/L Potassium 4.3 (3.5-5.1) mmol/L Chloride 102 (98-107) mmol/L Carbon Dioxide 25 (21-32) mmol/L Anion Gap 9 (3-11) BUN 22 (6-23) mg/dl Creatinine 1.08 (0.6-1.2) mg/dl Est Cr Clr Drug Dosing 51.8 ml/min eGFR 57.36 BUN/Creatinine Ratio 20.4 H (10-20) Glucose 194 H (70-99(Fasting)) mg/dl Lactate 0.7 (0.4-2.0) mmol/L Calcium 9.8 (8.6-10.3) mg/dl Total Bilirubin 0.5 (0.2-1.0) mg/dl AST 15 (13-39) U/L ALT 9 (7-52) U/L Alkaline Phosphatase 151 H (34-104) U/L Total Protein 7.4 (6.0-8.3) gm/dl Albumin 3.2 L (3.4-5.0) gm/dl Globulin 4.2 H (2.5-4.0) gm/dl Albumin/Globulin Ratio 0.8 L (0.9-2) Procalcitonin 2.21 H (0-0.5) ng/ml TSH 5.924 H (0.300-4.500) uIu/ml Free T4 0.83 (0.61-1.60) ng/dl Administered Medications Aripiprazole (Aripiprazole 1 Mg/Ml Oral Soln 150 Ml Btl) 2 mg PO DAILY HU Stop: 04/23/24 08:59 Last Admin: 03/24/24 08:12 Dose: 2 mg Documented By: Atorvastatin Calcium (Atorvastatin 40 Mg Tab) 40 mg PO DAILY HU Stop: 04/23/24 08:59 Last Admin: 03/24/24 08:18 Dose: 40 mg Documented By: Bupropion HCl (Bupropion Sr 150 Mg Tabcr) 225 mg PO BID HU Stop: 04/22/24 23:13 Last Admin: 03/24/24 08:11 Dose: 225 mg Documented By: Admin: 03/24/24 00:46 Dose: 225 mg Documented By: VK Duloxetine HCl (Duloxetine Hcl 60 Mg Cap) 60 mg PO DAILY HU Stop: 04/23/24 08:59 Last Admin: 03/24/24 08:12 Dose: 60 mg Documented By: Famotidine (Famotidine 20 Mg Tab) 20 mg PO BID HU Stop: 04/23/24 08:59 Last Admin: 03/24/24 08:11 Dose: 20 mg Documented By: Fluticasone Furoate (Fluticasone Furoate 100mcg 14 Puffs/Inhaler) 1 puffs INH DAILY HU Stop: 04/23/24 08:59 Last Admin: 03/24/24 08:11 Dose: 1 puffs Documented By: Daptomycin 500 mg/ Syringe 10 mls @ 5 mls/min IV Q24H HU; Protocol Stop: 05/05/24 06:59 Last Admin: 03/24/24 06:00 Dose: 5 mls/min Documented By: VK Piperacillin Sod/Tazobactam Sod (Zosyn) 4.5 gm in 100 mls @ 25 mls/hr IV Q8H PENDING SALE TO [facility]; Protocol Stop: 05/05/24 00:59 Last Admin: 03/24/24 16:56 Dose: 25 mls/hr Documented By: Infusion: 03/24/24 11:39 Dose: Infused Documented By: Admin: 03/24/24 08:10 Dose: 25 mls/hr Documented By: Infusion: 03/24/24 05:05 Dose: Infused Documented By: Admin: 03/24/24 01:05 Dose: 25 mls/hr Documented By: ANJELICA Sodium Chloride (Nss) 1,000 mls @ 80 mls/hr IV .[id number] PENDING SALE TO [facility] Stop: 03/25/24 12:59 Last Admin: 03/24/24 15:56 Dose: 80 mls/hr Documented By: Insulin Aspart (Insulin Aspart Per Unit Charge) 0 units SC ACHS PENDING SALE TO [facility] Stop: 04/23/24 01:59 Last Admin: 03/24/24 16:55 Dose: 10 units Documented By: CROW Co-signed By: LYNDA Admin: 03/24/24 11:57 Dose: 13 units Documented By: CROW Co-signed By: DELIO Admin: 03/24/24 08:09 Dose: 8 units Documented By: CROW Co-signed By: DELIO Admin: 03/24/24 02:25 Dose: 7 units Documented By: ANJELICA Co-signed By: KHOI Lamotrigine (Lamotrigine 100 Mg Tab) 150 mg PO QAM PENDING SALE TO [facility] Stop: 04/23/24 08:59 Last Admin: 03/24/24 08:18 Dose: 150 mg Documented By: Miscellaneous (Remove Nicoderm Patch) 1 each N/A DAILY@0859 PENDING SALE TO [facility] Stop: 04/23/24 08:58 Last Admin: 03/24/24 08:04 Dose: Not Given Documented By: Nicotine (Nicotine 21 Mg/24 Hr Tdsy) [facility] Stop: 04/23/24 08:59 Last Admin: 03/24/24 08:12 Dose: 1 patch Documented By: Oxycodone/Acetaminophen (Oxycodone/Acetaminophen 5mg/325mg Tab) 1 - 2 tab PO Q4H PRN PRN Reason: Moderate Pain (Scale 4, 5, 6) Stop: 04/06/24 23:13 Last Admin: 03/24/24 13:48 Dose: 2 tab Documented By: Admin: 03/24/24 08:10 Dose: 2 tab Documented By: Admin: 03/24/24 00:53 Dose: 2 tab Documented By: ANJELICA Quetiapine Fumarate (Quetiapine Fumarate 25 Mg Tablet) 50 mg PO HS HU Stop: 04/22/24 23:13 Last Admin: 03/24/24 00:46 Dose: 50 mg Documented By: ANJELICA Umeclidinium/Vilanterol (Umeclidinium/Vilanterol 62.5/25mcg 7 Puffs/Inhaler) 1 puffs INH DAILY HU Stop: 04/23/24 08:59 Last Admin: 03/24/24 08:11 Dose: 1 puffs Documented By: Discontinued Medications Fentanyl Citrate (Fentanyl Citrate Pf 100 Mcg/2 Ml Vial) 25 mcg IV NOW STA Stop: 03/23/24 17:59 Last Admin: 03/23/24 18:42 Dose: 25 mcg Documented By: SRL Fentanyl Citrate (Fentanyl Citrate Pf 100 Mcg/2 Ml Vial) 25 mcg IV NOW ONE Stop: 03/23/24 19:57 Last Admin: 03/23/24 20:06 Dose: 25 mcg Documented By: DORIS Vancomycin HCl 2,000 mg/ (Sodium Chloride) 540 mls @ 200 mls/hr IV NOW ONE Stop: 03/23/24 20:39 Last Infusion: 03/24/24 01:05 Dose: Infused Documented By: Admin: 03/23/24 21:57 Dose: 200 mls/hr Documented By: DORIS Piperacillin Sod/Tazobactam Sod (Zosyn) 4.5 gm in 100 mls @ 200 mls/hr IV NOW ONE; Protocol Stop: 03/23/24 18:35 Last Infusion: 03/23/24 20:35 Dose: Infused Documented By: Admin: 03/23/24 18:42 Dose: 200 mls/hr Documented By: SRL Acetaminophen (Ofirmev) 1,000 mg in 100 mls @ 400 mls/hr IV NOW STA Stop: 03/23/24 20:10 Last Infusion: 03/23/24 21:58 Dose: Infused Documented By: Admin: 03/23/24 20:35 Dose: 400 mls/hr Documented By: DORIS Insulin Glargine (Lantus Per Unit Charge) 20 units SQ BID HU Stop: 12/23/24 08:59 Last Admin: 03/24/24 08:09 Dose: 20 units Documented By: Co-signed By: DELIO Lisinopril (Lisinopril 20 Mg Tab) 20 mg PO DAILY PENDING SALE TO [facility] Stop: 04/23/24 08:59 Last Admin: 03/24/24 08:12 Dose: 20 mg Documented By: Imaging Data Radiologist's Impression: Venous Doppler Study 03/23/24 17:58 Exam(s): US VENOUS RIGHT LOWER EXTREMITY EXAM: US Duplex Right Lower Extremity Veins CLINICAL HISTORY: Reason for exam: pain, redness. TECHNIQUE: Real-time duplex ultrasound scan of the right lower extremity veins integrating B-mode two-dimensional vascular structure, Doppler spectral analysis, color flow Doppler imaging and compression. COMPARISON: No relevant prior studies available. FINDINGS: Examination limited by severe pain. Deep veins: Unremarkable. No DVT in the visualized common femoral, femoral, proximal deep femoral or popliteal veins. The veins demonstrate normal color flow, are normally compressible, with normal phasic flow and/or augmentation response. Soft tissues: No acute abnormality. No popliteal cyst. IMPRESSION: No evidence of deep venous thrombosis. Electronically signed by: Kermit Potter M.D. 03/23/24 22:22 PM Chest X-Ray 03/23/24 17:59 Exam(s): XR CXR 1 VIEW EXAM: XR Chest, 1 View CLINICAL HISTORY: weakness. TECHNIQUE: Frontal view of the chest. COMPARISON: None 2017. FINDINGS: Heart is mildly enlarged. At this carotid calcifications of the aortic knob. Mild diffuse interstitial prominence compatible with CHF. No definite focal pneumonia per no pleural effusion or pneumothorax. Bones are osteopenic. IMPRESSION: Mild cardiomegaly. CHF. Electronically signed by: Kermit Potter M.D. 03/23/24 22:34 PM Discharge Plan Visit Data Chief Complaint: Leg Injury/Pain Stated Complaint: LEG PAIN ED Provider: Darron Levin Discharge Problem: Osteomyelitis of foot, right, acute, Cellulitis of right leg, 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 bone, S/P femoral-popliteal bypass surgery Patient Disposition: Admitted As Inpatient Discharge Instructions Interventions: ED Discharge Assessment Last Done: 03/23/24 22:10
[2024-03-23] MEDS ORDERED: VANCOMYCIN CONSULT ACTIVE PRN (17:58)
[2024-03-23] MEDS: PIPERACILLIN/TAZOBACTAM 4.5 GM/100 ML BAG IV ONE (18:42)
[2024-03-23] MEDS: fentaNYL citrate PF 100 MCG/2 ML VIAL IV STA (18:42)
[2024-03-23 18:52] LABS: Albumin Globulin Ratio 0.8 (0.9-2); Albumin Level 3.2 gm/dl (3.4-5.0); BUN Creatinine Ratio 20.4 (10-20); Bilirubin,Total 0.5 mg/dl (0.2-1.0); Calcium 9.8 mg/dl (8.6-10.3); Creatinine Clr Calc Pharmacy 51.8 ml/min; Globulin 4.2 gm/dl (2.5-4.0); Potassium 4.3 mmol/L (3.5-5.1); Total Protein 7.4 gm/dl (6.0-8.3)
[2024-03-23 18:59] LABS: Basophils # (auto) 0.03 K/uL (0.00-0.20); Basophils % (auto) 0.3 %; Eosinophils # (auto) 0.08 K/uL (0.00-0.50); Eosinophils % (auto) 0.8 %; Hematocrit (blood only) 29.6 % (37.0-47.0); Hemoglobin 9.2 g/dl (12.0-16.0); Immature Granulocytes # (auto) 0.11 K/uL (0.01-0.20); Immature Granulocytes % (auto) 1.1 %; Lymphocytes # (auto) 1.58 K/uL (1.20-3.40); Lymphocytes % (auto) 15.7 %; Mean Corpuscular Hemoglobin 29.1 pg (25.0-34.0); Mean Corpuscular Hgb Conc 31.1 g/dL (32.0-36.0); Mean Corpuscular Volume 93.7 fL (80.0-100.0); Neutrophils # (auto) 7.77 K/uL (1.40-6.50); Neutrophils % (auto) 77.1 %; Platelet Count 252 K/uL (130-400); RDW Coefficient of Variation 15.1 % (11.5-14.5); RDW Standard Deviation 52.1 fL (36.4-46.3); Red Blood Count 3.16 M/uL (4.20-5.40); White Blood Count 10.07 K/ul (4.8-10.8)
[2024-03-23 19:06] LABS: Thyroid Stimulating Hormone 5.924 uIu/ml (0.300-4.500)
[2024-03-23 19:41] LABS: T4 Free Thyroxine 0.83 ng/dl (0.61-1.60)
[2024-03-23] MEDS: fentaNYL citrate PF 100 MCG/2 ML VIAL IV ONE (20:06)
[2024-03-23] MEDS: ACETAMINOPHEN 1,000 MG/100 ML VIAL IV STA (20:35)
--- NOTE | 2024-03-23 21:19 | History & Physical Report ---
Date of Service March 23, 2024 Assessment & Plan (1) 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 bone: Plan: 63 y/ female with complicated PMH that presented here due to worsening pain, erythema on her right lower extremity Patient had a femoral-popliteal bypass done on recent admission (03/21) She had a right hallux amputation done on [facility] several weeks ago due to Osteomyelitis Her second toe has become gangrenous, she was seen here by Dr. Sidhu (Note reviewed) who offered transmetatarsal amputation but patient declined. She follows with Dr. Jackman on [place] Will admit to PCU for IV antibiotic and pain control s/p Zosyn and IV Vanco on ED No leukocytosis Procal elevated: 2.21 Venous duplex pending Wound culture sent Pain control IV Daptomycin and IV Zosyn Consult Vascular surgery in the setting of recent surgery Discussed with Podiatry Dr. Espinal overnight who saw the patient 2 days prior, he would be States he will be willing do to surgery on 04/01 as that his early availability. Should refer to vascular surgery regarding TMA if need it on this admission. Consider ID consult for outpatient ABX treatment Wound care ordered CMP, CBC, INR AM (2) Osteomyelitis of foot, right, acute: Plan: see above (3) S/P femoral-popliteal bypass surgery: Plan: Recent femoral-popliteal bypass continue pain medication consult Vascular surgery for further recommendation holding ASA 81 mg due to GI bleed Wound VAC in placed, erythema surrounding (4) GERD (gastroesophageal reflux disease): Plan: Continue Famotidine (5) DM (diabetes mellitus): Plan: A1C: 10.8 (03/19) Lantus: 40 units SQ daily Novalog scale Pharmacy consulted Hold home medication (6) HTN (hypertension): Plan: Continue Lisinopril 20 mg Continue Atorvastatin 40 mg for hyperlipidemia (7) PAD (peripheral artery disease): Plan: see above (8) Bipolar disorder: Plan: On duloxetine 60 Mg in the morning, 30 mg in the evening, Aripiprazole 2 mg Quetiapine 50 mg, trazodone 50 mg (9) SANDIP (obstructive sleep apnea): Plan: Noncompliant with CPAP (10) Asthma: Plan: continue home inhalers (11) Anemia: Plan: Hgb : 9.2 Received 1 PRBC on last admission stable CBC AM Plan FEN: DM2/ HH Code status: full code DVT ppx: SCDs Dispo: PCU History of Present Illness Primary Care Provider: Gaby oDwns is 63 y/o female with complicated PMH of DM, HTN, PAD, Bipolar syndrome, CAD, Stage II CKD, Asthma, SANDIP, Hyperlipidemia, chronic anemia, Hyperlipidemia that presented here due to worsening erythema and pain due to worsening pain, erythema on her right lower extremity. Patient was recently admitted for a femoral-popliteal bypass done on recent admission. Discharge on 03/21. She had a right hallux amputation done [facility] several weeks ago due to infected wound that resulted in osteomyelitis. She follows with Dr. Jackman on [place]. Patient was seen by commission auditor Podiatry on last admission who recommended transmetatarsal amputation but patient refused at that moment. She wanted to be done by her surgeon at [place]. Patient refers 8/10 in pain scale on arrival. Patient is unable to take aspirin due to GI bleed. No antiplatelet or anticoagulation therapy. Patient currently smoke one and half pack. Patient refers nausea and chills. Denied any SOB, chest pain, palpitations, vomiting, diarrhea, abdominal pain or any other symptoms. ED course: IV Vancomycin and IV Zosyn. Wound culture taken. Fentanyl for pain control. Venous duplex pending Allergies Allergy/AdvReac Type Severity Reaction Status Date / Time tramadol Allergy Intermediate itchy Verified 03/19/24 08:30 naproxen Allergy Unknown avoids due Verified 03/19/24 08:30 to kidney disease stage 2 strawberry Allergy Hives Verified 03/19/24 08:31 metformin AdvReac Severe severe GI Verified 03/19/24 08:30 distress codeine AdvReac Intermediate dizziness Verified 03/19/24 08:30 aspirin AdvReac Unknown rectal Verified 03/19/24 08:30 bleeding Home Medications Medication Instructions Recorded Confirmed Type albuterol sulfate 90 mcg/actuation 2 puff inhalation Q6H PRN 03/14/18 03/19/24 History aerosol inhaler (Ventolin HFA) Shortness Of Breath Or Wheezing acetaminophen 500 mg tablet 1,000 mg PO Q12H PRN Pain 06/21/19 03/19/24 History (Tylenol Extra Strength) blood sugar diagnostic (OneTouch #10 ea 06/21/19 11/21/20 History Ultra Blue Test Strip) hydroxyzine HCl 25 mg tablet 25 mg PO TID PRN Itching 06/21/19 03/19/24 History insulin glargine 100 unit/mL (3 20 units subcut BID 06/21/19 03/21/24 History mL) subcutaneous pen (Lantus Solostar U-100 Insulin) lancets (OneTouch UltraSoft #50 ea 06/21/19 11/21/20 History Lancets) pen needle, diabetic 31 gauge x #30 ea 06/21/19 11/21/20 History 3/16" (BD Ultra-Fine Mini Pen Needle) aripiprazole 2 mg tablet (Abilify) 2 mg PO DAILY 05/11/23 03/19/24 History bupropion HCl 150 mg tablet,12 hr 225 mg PO BID 05/11/23 03/19/24 History sustained-release (Wellbutrin SR) dapagliflozin propanediol 10 mg 10 mg PO DAILY 05/11/23 03/19/24 History tablet (Farxiga) fluticasone fur. 100 mcg-umeclid 1 inh inhalation DAILY 05/11/23 03/19/24 History 62.5 mcg-vilant 25 mcg inhalat.powder (Trelegy Ellipta) lisinopril 10 mg tablet 20 mg PO DAILY 05/11/23 03/19/24 History atorvastatin 40 mg tablet 40 mg PO DAILY 03/09/24 03/19/24 History doxycycline hyclate 100 mg tablet 100 mg PO BID 03/09/24 03/19/24 History duloxetine 30 mg capsule,delayed 30 mg PO DAILY 03/09/24 03/19/24 History release sprinkle duloxetine 60 mg capsule,delayed 60 mg PO DAILY 03/09/24 03/19/24 History release (Cymbalta) famotidine 20 mg tablet 20 mg PO BID 03/09/24 03/19/24 History insulin lispro 100 unit/mL 15 unit subcut WM 03/09/24 03/21/24 History subcutaneous pen (Humalog KwikPen (U-100) Insulin) lamotrigine 150 mg tablet 150 mg PO QAM 03/09/24 03/19/24 History loperamide 2 mg capsule 2 mg PO Q4H PRN Diarrhea 03/09/24 03/19/24 History ondansetron 4 mg disintegrating 4 mg PO Q6H PRN n/v 03/09/24 03/19/24 History tablet quetiapine 50 mg tablet 50 mg PO HS 03/09/24 03/19/24 History trazodone 100 mg tablet 50 mg PO HS 03/09/24 03/19/24 History oxycodone-acetaminophen 5 mg-325 1 - 2 tab PO Q6H PRN pain #30 tabs 03/21/24 Rx mg tablet (Percocet) Past Med/Surg History Problem List (Updated 03/24/24 @ 18:24 by Darron Levin MD) Cellulitis of right leg (Acute) Anemia SANDIP (obstructive sleep apnea) 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 bone (Acute) Osteomyelitis of foot, right, acute (Acute) Acute blood loss as cause of postoperative anemia S/P femoral-popliteal bypass surgery (Acute) Encounter for pre-operative examination GERD (gastroesophageal reflux disease) PAD (peripheral artery disease) Insulin dependent diabetes mellitus Chronic lower back pain (Acute) Cervical strain (Acute) Depression (Chronic) Arthritis (Chronic) Asthma (Chronic) DM (diabetes mellitus) (Chronic) HTN (hypertension) (Chronic) Medical History Hx of sepsis treated at [facility] 01/2024? possible sepsis? Poor historian Osteoarthritis History of pressure ulcer right foot (2020?) treated with medication. pt reports resolved. Gout Degenerative disc disease Chronic back pain History of kidney stones no surgical intervention, passed on own Chronic kidney disease stage 2 History of bleeding ulcers Diabetes mellitus, type 2 Hx of cancer of uterus (1987) Chronic sinusitis Bipolar disorder Depression Anxiety History of migraine Peripheral neuropathy Hypertension History of pneumonia ~2013 last episode (not hospitalized) Chronic obstructive pulmonary disease Asthma PAD (peripheral artery disease) S/P arteriogram of extremity Hx of myocardial infarction "years ago" no surgical intervention. no esthetician and [facility] Sleep apnea non-compliant with machine - no machine Surgical History History of section x1 History of dilatation and curettage History of below knee amputation left History of cholecystectomy History of tooth extraction History of esophagogastroduodenoscopy (EGD) History of colonoscopy History of breast biopsy History of cataract surgery Bilateral History of arthroscopic knee surgery Meniiscectomy History of appendectomy History of total abdominal hysterectomy Family History Mother Diabetes Dementia Heart disease Thyroid disease Father Diabetes Heart disease Stroke Brother Diabetes Hypertension Sister Diabetes Hypertension Uncle Cancer of neck Family/Other Thyroid disease Other No family history of adverse response to anesthesia No pertinent family history Social History Smoking Status: Current every day smoker Tobacco Type: Cigarettes Cigarettes Per Day: 1 pack (advised on policy); Second Hand Exposure: No; Do You Dip or Chew Tobacco: No; Hx Alcohol Use: No Hx Substance Use: No Preferred Language: Greek Communication Ability: Effective Band Attacher Required: No Beliefs That Will Affect Care: None marital status: Life Partner Current Living Situation: Spouse Current Living Situation Comment: WITH Other Information That Helps Us Care for You: No Feels Safe at Home: Yes Safety Concerns: Feels Safe At This Time Assistive Devices: Walker and Wheelchair Review of Systems Review of Systems: as per HPI Physical Exam Constitutional: WD/WN, vitals as above ENMT: external ear and nose normal, oropharynx normal Respiratory: normal respiratory effort, lungs clear to auscultation Cardiovascular: RRR, no murmur, no edema Gastrointestinal (Abdomen): normal bowel sounds, soft, nontender, no hepatosplenomegaly Skin: Right lower extremity: Redness noted in incisional site distal to wound vac in the ground extending to the lower leg. Right foot: open right wound. Second gangrene toe. [place] foot with redness and swelling. Results & Data Results & Data Vital Signs (Past 12 Hours) Vital Signs Temp Pulse Pulse Resp BP BP Pulse Ox 03/23/24 18:19 89 03/23/24 17:59 94 H 20 94 03/23/24 17:35 93 H 19 158/93 H 98 03/23/24 17:35 36.9 C 93 H 19 158/93 H 98 O2 Del Method 03/23/24 18:19 03/23/24 17:59 Room Air 03/23/24 17:35 Room Air 03/23/24 17:35 Room Air Code Status & VTE Plan VTE Prophylaxis Plan VTE Prophylaxis will be ordered: Yes Supervising Physician Co-Signing Physician Notes Attending addendum: I have physically seen this patient, have supervised the medical residents activities, and agree with the H&P unless as otherwise noted. Assessment and Plan: Diabetic right foot ulcer and bone necrosis- Status post right great toe amputation due to osteomyelitis at [facility] several weeks ago Second toe at this point is gangrenous, the patient was given option of metatarsal amputation, but patient declined Status post vancomycin IV and Zosyn IV from the ED Admit on daptomycin IV and Zosyn IV Follow wound culture sensitivities Patient's primary complaint on presentation is out of worsening pain and erythema of right lower extremity Severe PAD/status post femoropopliteal bypass on 03/21/2024- Consult vascular surgery Continue wound VAC Antibiotics as noted above Antiplatelet and anticoagulation on hold due to GI bleeding history Resumption will be up to vascular Diabetes mellitus- Lantus [address] Accu-Cheks NovoLog SSI Pharmacy glycemic consult Bipolar disorder- Continue duloxetine, aripiprazole, quetiapine, and trazodone Asthma/SANDIP- Continue routine inhalers DuoNebs every 2 hours as needed Patient does not use her CPAP at home, will be available if needed during this admission Resident Activity Tracking Resident Involvement: Resident Care Provided Care Provided: Adult Hospital Medicine (10) Asthma Asthma complication type: unspecified Asthma persistence: unspecified Asthma severity: unspecified severity Qualified Code(s): J45.909 - Unspecified asthma, uncomplicated
[2024-03-23] MEDS: VANCOMYCIN HCL 2,000 MG in SODIUM CHLORIDE 0.9% 500 ML IV ONE (21:57)
[2024-03-23] MEDS ORDERED: GLUCOSE 10 TAB/TUBE PO PRN (23:14)
[2024-03-23] MEDS ORDERED: ACETAMINOPHEN 325 MG TAB PO PRN (23:14)
[2024-03-23] MEDS ORDERED: GLUCOSE 40% GEL 15 GM TUBE PO PRN (23:14)
[2024-03-23] MEDS ORDERED: DEXTROSE 50% 50 ML SYRINGE IV PRN (23:14)
[2024-03-23] MEDS ORDERED: ACETAMINOPHEN 1,000 MG/100 ML VIAL IV PRN (23:14)
[2024-03-23] MEDS ORDERED: ALBUTEROL HFA 8 GM INHALER INH PRN (23:14)
[2024-03-23] MEDS ORDERED: PHARMACY GLYCEMIC MGMT CONSULT PRN (23:14)
[2024-03-23] MEDS ORDERED: GLUCAGON FOR INJ 1 MG VIAL SQ PRN (23:14)
[2024-03-23] MEDS ORDERED: CARBOHYDRATES FOR HYPOGLYCEMIA PO PRN (23:14)
[2024-03-24] MEDS: buPROPion SR 150 MG TABCR PO SCH (00:46)
[2024-03-24] MEDS: QUEtiapine FUMARATE 25 MG TABLET PO SCH (00:46)
[2024-03-24] MEDS: oxyCODONE/ACETAMINOPHEN 5mg/325mg TAB PO PRN (00:53)
[2024-03-24] MEDS: PIPERACILLIN/TAZOBACTAM 4.5 GM/100 ML BAG IV SCH (01:05)
[2024-03-24] MEDS: INSULIN ASPART PER UNIT CHARGE SC SCH (02:25)
[2024-03-24] MEDS: DAPTOmycin 500 MG in SYRINGE 0 ML IV SCH (06:00)
[2024-03-24 06:08] LABS: Appearance Urine Clear (Clear); Bacteria Urine Automated None Seen (None Seen); Bilirubin Urine Negative (Negative); Blood Urine Negative (Negative); Cast Urine Automated 0-2 /lpf (0-2); Color Urine Yellow; Glucose Urine UA 1+ (Negative); Ketones Urine Negative (Negative); Leukocyte Esterase Urine Negative (Negative); Nitrite Urine Negative (Negative); Protein Urine 3+ (Negative); Specific Gravity Urine 1.018 (1.000-1.030); Urobilinogen Urine Negative (Negative); WBC Urine Automated 0-5 /hpf (0-5)
[2024-03-24 06:47] LABS: Basophils # (auto) 0.02 K/uL (0.00-0.20); Basophils % (auto) 0.2 %; Eosinophils # (auto) 0.14 K/uL (0.00-0.50); Eosinophils % (auto) 1.7 %; Hematocrit (blood only) 25.6 % (37.0-47.0); Immature Granulocytes # (auto) 0.07 K/uL (0.01-0.20); Immature Granulocytes % (auto) 0.9 %; Lymphocytes # (auto) 1.79 K/uL (1.20-3.40); Lymphocytes % (auto) 21.8 %; Mean Corpuscular Hemoglobin 29.3 pg (25.0-34.0); Mean Corpuscular Hgb Conc 31.3 g/dL (32.0-36.0); Mean Corpuscular Volume 93.8 fL (80.0-100.0); Mean Platelet Volume 8.8 fL (9.4-12.4); Monocytes % (auto) 6.1 %; Neutrophils % (auto) 69.3 %; Platelet Count 216 K/uL (130-400); RDW Coefficient of Variation 15.1 % (11.5-14.5); RDW Standard Deviation 51.9 fL (36.4-46.3); Red Blood Count 2.73 M/uL (4.20-5.40); White Blood Count 8.22 K/ul (4.8-10.8)
--- NOTE | 2024-03-24 07:12 | Electrocardiogram Report ---
Test Reason : Blood Pressure : */* mmHG Vent. Rate : 96 BPM Atrial Rate : 96 BPM P-R Int : 154 ms QRS Dur : 74 ms QT Int : 324 ms P-R-T Axes : 56 10 51 degrees QTcB Int : 409 ms Normal sinus rhythm Normal ECG When compared with ECG of 23-Aug-2019 12:28, No significant change was found Confirmed by Buster Renteria ([id number]) on 03/24/2024 7:11:34 AM Referred By: REFERRED SELF Confirmed By: Buster Renteria
[2024-03-24 07:20] LABS: Prothrombin Time 11.1 Seconds (9.0-12.0)
[2024-03-24 07:32] LABS: Albumin Globulin Ratio 0.7 (0.9-2); Albumin Level 2.7 gm/dl (3.4-5.0); BUN Creatinine Ratio 20.7 (10-20); Bilirubin,Total 0.4 mg/dl (0.2-1.0); Calcium 8.9 mg/dl (8.6-10.3); Creatinine Clr Calc Pharmacy 46.2 ml/min; Globulin 3.7 gm/dl (2.5-4.0); Total Protein 6.4 gm/dl (6.0-8.3)
[2024-03-24] MEDS: LANTUS PER UNIT CHARGE SQ SCH ×2 (08:09→21:39)
[2024-03-24] MEDS: UMECLIDINIUM/VILANTEROL 62.5/25MCG 7 PUFFS/INHALER INH SCH (08:11)
[2024-03-24] MEDS: FLUTICASONE FUROATE 100MCG 14 PUFFS/INHALER INH SCH (08:11)
[2024-03-24] MEDS: FAMOTIDINE 20 MG TAB PO SCH (08:11)
[2024-03-24] MEDS: ARIPIprazole 1 MG/ML ORAL SOLN 150 ML BTL PO SCH (08:12)
[2024-03-24] MEDS: DULoxetine HCL 60 MG CAP PO SCH (08:12)
[2024-03-24] MEDS: lisinopril 20 MG TAB PO SCH (08:12)
[2024-03-24] MEDS: NICOTINE 21 MG/24 HR TDSY TD SCH (08:12)
[2024-03-24] MEDS: lamoTRIgine 100 MG TAB PO SCH (08:18)
[2024-03-24] MEDS: ATORVASTATIN 40 MG TAB PO SCH (08:18)
[2024-03-24] MEDS ORDERED: NON-FORMULARY MEDICATION (Fluticasone-Umeclidin-Vilanter [Trelegy Ellipta] 100-62.5-25 mcg INH SCH (09:00)
--- NOTE | 2024-03-24 12:29 | XRay Report ---
Exam(s): XR CXR 1 VIEW EXAM: XR Chest, 1 View CLINICAL HISTORY: weakness. TECHNIQUE: Frontal view of the chest. COMPARISON: None 2017. FINDINGS: Heart is mildly enlarged. At this carotid calcifications of the aortic knob. Mild diffuse interstitial prominence compatible with CHF. No definite focal pneumonia per no pleural effusion or pneumothorax. Bones are osteopenic. IMPRESSION: Mild cardiomegaly. CHF. Electronically signed by: Kermit Potter M.D. 03/23/24 22:34 PM
--- NOTE | 2024-03-24 12:29 | Ultrasound Report ---
Exam(s): US VENOUS RIGHT LOWER EXTREMITY EXAM: US Duplex Right Lower Extremity Veins CLINICAL HISTORY: Reason for exam: pain, redness. TECHNIQUE: Real-time duplex ultrasound scan of the right lower extremity veins integrating B-mode two-dimensional vascular structure, Doppler spectral analysis, color flow Doppler imaging and compression. COMPARISON: No relevant prior studies available. FINDINGS: Examination limited by severe pain. Deep veins: Unremarkable. No DVT in the visualized common femoral, femoral, proximal deep femoral or popliteal veins. The veins demonstrate normal color flow, are normally compressible, with normal phasic flow and/or augmentation response. Soft tissues: No acute abnormality. No popliteal cyst. IMPRESSION: No evidence of deep venous thrombosis. Electronically signed by: Kermit Potter M.D. 03/23/24 22:22 PM
--- NOTE | 2024-03-24 12:48 | Hospitalist Progress Note ---
Date of Service March 24, 2024 Assessment & Plan (1) 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 bone: Plan: 63 y/ female with complicated PMH that presented here due to worsening pain, erythema on her right lower extremity Patient had a femoral-popliteal bypass done on recent admission (03/21) She had a right hallux amputation done on [facility] several weeks ago due to Osteomyelitis Her second toe has become gangrenous, she was seen here by Dr. Sidhu (Note reviewed) who offered transmetatarsal amputation but patient declined. She follows with Dr. Jackman on [place] Continue IV daptomycin and IV Zosyn No leukocytosis Procal elevated: 2.21 Venous duplex negative for DVT Wound culture sent Pain control IV Daptomycin and IV Zosyn Consult Vascular surgery in the setting of recent surgery Admitting team had discussed with Podiatry Dr. Espinal overnight who saw the patient 2 days prior, he will be willing do to surgery on 04/01 as that his early availability. Should refer to vascular surgery regarding TMA if need it on this admission. Consider ID consult for outpatient ABX treatment Wound care ordered Noted mild bump in creatinine. Will hydrate gently. Discontinue lisinopril CMP, CBC, INR AM (2) Osteomyelitis of foot, right, acute: Plan: see above (3) S/P femoral-popliteal bypass surgery: Plan: Recent femoral-popliteal bypass continue pain medication consult Vascular surgery for further recommendation holding ASA 81 mg due to GI bleed (4) GERD (gastroesophageal reflux disease): Plan: Continue Famotidine (5) DM (diabetes mellitus): Plan: A1C: 10.8 (03/19) Lantus: 40 units SQ daily Novalog scale Pharmacy consulted Hold home medication (6) HTN (hypertension): Plan: Continue Lisinopril 20 mg Continue Atorvastatin 40 mg for hyperlipidemia (7) PAD (peripheral artery disease): Plan: see above (8) Bipolar disorder: Plan: On duloxetine 60 Mg in the morning, 30 mg in the evening, Aripiprazole 2 mg Quetiapine 50 mg, trazodone 50 mg (9) SANDIP (obstructive sleep apnea): Plan: Noncompliant with CPAP (10) Asthma: Plan: continue home inhalers (11) Anemia: Plan: Hgb : 9.2 Received 1 PRBC on last admission stable CBC AM Plan FEN: DM2/ HH Code status: full code DVT ppx: SCDs Dispo: PCU Admission and Anticipated Discharge Date Admission Date: March 23, 2024 Subjective Patient was seen and examined at 10:35 AM. She says that her right foot still hurts quite a bit. She denied any chest pain or shortness of breath. She gets tearful when we talk about amputation Review of Systems Review of Systems: All systems reviewed & are unremarkable except as noted in Subjective Physical Exam Physical Exam: General: Awake, conversant Heart: S1, S2/regular rate and rhythm, no murmur rubs or gallops Lungs: Clear to auscultation bilaterally. Normal effort Abdomen: Soft/nontender/nondistended. No hepatosplenomegaly Extremities: No clubbing/cyanosis. No edema. Right foot dressing on. Left BKA Behavior: Appropriate, cooperative Results & Data Results & Data Vital Signs (Past 12 Hours) Vital Signs Temp Pulse Pulse Resp BP Pulse Ox O2 Del Method 03/24/24 10:55 36.6 C 79 20 96/55 L 96 Room Air 03/24/24 07:21 36.5 C 82 16 96/67 L 97 Room Air 03/24/24 07:14 71 03/24/24 04:37 36.6 C 73 16 100/63 97 Room Air Laboratory Results Abnormal lab results 03/23/24 03/24/24 03/24/24 Range/Units 18:19 02:21 05:48 RBC 3.16 L (4.20-5.40) M/uL Hgb 9.2 L (12.0-16.0) g/dl Hct 29.6 L (37.0-47.0) % MCHC 31.1 L (32.0-36.0) g/dL RDW Std Deviation 52.1 H (36.4-46.3) fL RDW Coeff of Iza 15.1 H (11.5-14.5) % MPV 9.0 L (9.4-12.4) fL Neut # (Auto) 7.77 H (1.40-6.50) K/uL BUN (6-23) mg/dl Creatinine (0.6-1.2) mg/dl BUN/Creatinine Ratio 20.4 H (10-20) Glucose 194 H (70-99(Fasting)) mg/dl POC Glucose 280 H (70-99) mg/dl AST (13-39) U/L Alkaline Phosphatase 151 H (34-104) U/L Albumin 3.2 L (3.4-5.0) gm/dl Globulin 4.2 H (2.5-4.0) gm/dl Albumin/Globulin Ratio 0.8 L (0.9-2) Procalcitonin 2.21 H (0-0.5) ng/ml TSH 5.924 H (0.300-4.500) uIu/ml Urine Protein 3+ H (Negative) Urine Glucose (UA) 1+ H (Negative) Urine RBC (Auto) 3-5 H (0-2) /hpf U Epithel Cells (Auto) 6-10 H (0-2) /hpf 03/24/24 03/24/24 03/24/24 Range/Units 06:24 07:22 11:24 RBC 2.73 L (4.20-5.40) M/uL Hgb 8.0 L (12.0-16.0) g/dl Hct 25.6 L (37.0-47.0) % MCHC 31.3 L (32.0-36.0) g/dL RDW Std Deviation 51.9 H (36.4-46.3) fL RDW Coeff of Iza 15.1 H (11.5-14.5) % MPV 8.8 L (9.4-12.4) fL Neut # (Auto) (1.40-6.50) K/uL BUN 25 H (6-23) mg/dl Creatinine 1.21 H (0.6-1.2) mg/dl BUN/Creatinine Ratio 20.7 H (10-20) Glucose 168 H (70-99(Fasting)) mg/dl POC Glucose 165 H 190 H (70-99) mg/dl AST 12 L (13-39) U/L Alkaline Phosphatase 113 H (34-104) U/L Albumin 2.7 L (3.4-5.0) gm/dl Globulin (2.5-4.0) gm/dl Albumin/Globulin Ratio 0.7 L (0.9-2) Procalcitonin (0-0.5) ng/ml TSH (0.300-4.500) uIu/ml Urine Protein (Negative) Urine Glucose (UA) (Negative) Urine RBC (Auto) (0-2) /hpf U Epithel Cells (Auto) (0-2) /hpf PG Care Time/CCT Total # of Minutes Spent Total Time Spent with Patient: Total time spent is greater than 50% in coordination of care (as documented) at patient's floor/unit and/or counseling patient: Coding Level of Care Code 91308 SUB INP/OBS CARE 2/35MIN Diagnoses 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 bone L97.514 Osteomyelitis of foot, right, acute M86.171 S/P femoral-popliteal bypass surgery Z95.828 GERD (gastroesophageal reflux disease) K21.9 DM (diabetes mellitus) E11.9 HTN (hypertension) I10 PAD (peripheral artery disease) I73.9 Bipolar disorder F31.9 SANDIP (obstructive sleep apnea) G47.33 Asthma J45.909 Asthma complication type: unspecified Asthma persistence: unspecified Asthma severity: unspecified severity Anemia D64.9 (10) Asthma Asthma complication type: unspecified Asthma persistence: unspecified Asthma severity: unspecified severity Qualified Code(s): J45.909 - Unspecified asthma, uncomplicated
--- NOTE | 2024-03-24 15:09 | Pharmacy Report ---
Pharmacy Glycemic Short Note 2 - Date of Service March 24, 2024 - Glycemic Short BSG Results (Last 24 hours): 03/23/24 03/24/24 03/24/24 18:19 02:21 06:24 Glucose 194 H 168 H POC Glucose 280 H 03/24/24 03/24/24 07:22 11:24 Glucose POC Glucose 165 H 190 H OUTPATIENT ANTIDIABETIC REGIMEN: * Lantus 20 units BID, Humalog 15 units with meals * A1c 10.8% 03/20/24 ASSESSMENT: * BSG initially elevated on presentation, has downtrended * Lantus initially scaled to gauge needs inpatient (weight based stress of 2 or 3 similar to TDD stress of 1 requirements) * Novolog currently with weight based stress of 3 parameters (between TDD stress of 1 and 2) PLAN FOR INPATIENT GLYCEMIC CONTROL: * Hold outpatient oral diabetes medications * Basal insulin * Lantus 20 units this AM, 15/20 units per scale this PM * Bolus insulin * NovoLog per scale ACHS or Q6hrs while NPO * Goal Range: Low 110 mg/dL - High 140 mg/dL * Correction Factor: 20 mg/dL/unit * Nutritional / Prandial insulin per carb ratio of 1 unit per 6 grams CHO consumed
[2024-03-24] MEDS: SODIUM CHLORIDE 0.9% 1,000 ML IV SCH (15:56)
[2024-03-24] MEDS: traZODone HCL 50 MG TAB PO SCH (20:36)
[2024-03-24] MEDS: DULoxetine HCL 30 MG CAP PO SCH (20:37)
--- NOTE | 2024-03-25 04:20 | Billing Data ---
Date of Service March 25, 2024 Coding Level of Care Code 61475 INT INP/OBS CARE
[2024-03-25 06:59] LABS: BUN Creatinine Ratio 20.1 (10-20); Calcium 8.5 mg/dl (8.6-10.3); Creatinine Clr Calc Pharmacy 41.7 ml/min; Potassium 4.2 mmol/L (3.5-5.1)
[2024-03-25] MEDS: hydrOXYzine HCl 25 MG TAB PO PRN (08:14)
--- NOTE | 2024-03-25 14:08 | Hospitalist Progress Note ---
Date of Service March 25, 2024 Assessment & Plan (1) 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 bone: Plan: 63 y/ female with complicated PMH that presented here due to worsening pain, erythema on her right lower extremity Patient had a femoral-popliteal bypass done on recent admission (03/21) She had a right hallux amputation done on [facility] several weeks ago due to Osteomyelitis Her second toe has become gangrenous, she was seen here by Dr. Sidhu (Note reviewed) who offered transmetatarsal amputation but patient declined. She follows with Dr. Jackman on [place] Will admit to PCU for IV antibiotic and pain control s/p Zosyn and IV Vanco on ED No leukocytosis Procal elevated: 2.21 Venous duplex pending Wound culture sent Pain control IV Daptomycin and IV Zosyn Consult Vascular surgery in the setting of recent surgery Discussed with Podiatry Dr. Espinal overnight who saw the patient 2 days prior, he would be States he will be willing do to surgery on 04/01 as that his early availability. Should refer to vascular surgery regarding TMA if need it on this admission. Consider ID consult for outpatient ABX treatment Wound care ordered CMP, CBC, INR AM (2) Osteomyelitis of foot, right, acute: Plan: see above (3) S/P femoral-popliteal bypass surgery: Plan: Recent femoral-popliteal bypass continue pain medication consult Vascular surgery for further recommendation holding ASA 81 mg due to GI bleed Wound VAC in placed, erythema surrounding (4) GERD (gastroesophageal reflux disease): Plan: Continue Famotidine (5) DM (diabetes mellitus): Plan: A1C: 10.8 (03/19) Lantus: 40 units SQ daily Novalog scale Pharmacy consulted Hold home medication (6) HTN (hypertension): Plan: Hold lisinopril due to slightly bumped creatinine. Noted the patient had elevated creatinine in the past. Increase IV fluids to 100 mL an hour since the patient had borderline hypotension overnight Continue Atorvastatin 40 mg for hyperlipidemia (7) PAD (peripheral artery disease): Plan: see above (8) Bipolar disorder: Plan: On duloxetine 60 Mg in the morning, 30 mg in the evening, Aripiprazole 2 mg Quetiapine 50 mg, trazodone 50 mg (9) SANDIP (obstructive sleep apnea): Plan: Noncompliant with CPAP (10) Asthma: Plan: continue home inhalers (11) Anemia: Plan: Hgb : 9.2 Received 1 PRBC on last admission stable Plan FEN: DM2/ HH Code status: full code DVT ppx: SCDs Dispo: PCU Admission and Anticipated Discharge Date Admission Date: March 23, 2024 Subjective Patient was seen and examined at 11:15 AM. Says that her right lower extremity pain is improving but still there. Review of Systems Review of Systems: All systems reviewed & are unremarkable except as noted in Subjective Physical Exam Physical Exam: General: Awake, conversant Heart: S1, S2/regular rate and rhythm, no murmur rubs or gallops Lungs: Clear to auscultation bilaterally. Normal effort Abdomen: Soft/nontender/nondistended. No hepatosplenomegaly Extremities: No clubbing/cyanosis. No edema. Right foot dressing on. Left BKA Behavior: Appropriate, cooperative Results & Data Results & Data Vital Signs (Past 12 Hours) Vital Signs Temp Pulse Pulse Resp BP Pulse Ox O2 Del Method 03/25/24 13:54 74 03/25/24 10:43 36.5 C 74 16 107/56 L 96 Room Air 03/25/24 07:25 36.5 C 73 16 123/75 96 Room Air 03/25/24 07:07 73 03/25/24 03:51 36.7 C 70 18 111/69 93 Room Air Laboratory Results Abnormal lab results 03/24/24 03/24/24 03/25/24 Range/Units 16:25 21:12 06:01 BUN 27 H (6-23) mg/dl Creatinine 1.34 H (0.6-1.2) mg/dl BUN/Creatinine Ratio 20.1 H (10-20) Glucose 143 H (70-99(Fasting)) mg/dl POC Glucose 140 H 161 H (70-99) mg/dl Calcium 8.5 L (8.6-10.3) mg/dl 03/25/24 03/25/24 Range/Units 07:14 11:27 BUN (6-23) mg/dl Creatinine (0.6-1.2) mg/dl BUN/Creatinine Ratio (10-20) Glucose (70-99(Fasting)) mg/dl POC Glucose 152 H 167 H (70-99) mg/dl Calcium (8.6-10.3) mg/dl PG Care Time/CCT Total # of Minutes Spent Total Time Spent with Patient: Total time spent is greater than 50% in coordination of care (as documented) at patient's floor/unit and/or counseling patient: Coding Level of Care Code 19313 SUB INP/OBS CARE 2/35MIN Diagnoses 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 bone L97.514 Osteomyelitis of foot, right, acute M86.171 S/P femoral-popliteal bypass surgery Z95.828 GERD (gastroesophageal reflux disease) K21.9 DM (diabetes mellitus) E11.9 HTN (hypertension) I10 PAD (peripheral artery disease) I73.9 Bipolar disorder F31.9 SANDIP (obstructive sleep apnea) G47.33 Asthma J45.909 Asthma complication type: unspecified Asthma persistence: unspecified Asthma severity: unspecified severity Anemia D64.9 (10) Asthma Asthma complication type: unspecified Asthma persistence: unspecified Asthma severity: unspecified severity Qualified Code(s): J45.909 - Unspecified asthma, uncomplicated
[2024-03-25] MEDS: LANTUS PER UNIT CHARGE SQ SCH (21:19)
[2024-03-26] MEDS: SODIUM CHLORIDE 0.9% 1,000 ML IV SCH (03:45)
--- NOTE | 2024-03-26 08:37 | Consultation ---
Date of Consultation March 26, 2024 Assessment & Plan (1) PAD (peripheral artery disease): Pt now approx 1 week s/p RLE BUDGET MANAGER endart and fem-AK pop prosthetic BPG. Unsure of appearance of wounds upon arrival, however, no incisional erythema or drainage noted on exam presently. VSS and blood cultures neg so far. Pt also seen by Dr Espinoza. Recommend pt be eval for TMA as previously discussed with Dr Sidhu. The longer the foot open wound is present, pt is at increased risk of foot wound infection and seeding her prosthetic graft, which would likely result in a RLE leg amputation. She is agreeable to the TMA in the interest of RLE preservation. While we do not see signs of active graft infection at this time, do recommend pt complete at least 10 day course of oral abx. History of Present Illness Reason for Consultation: cellulitis Attending Physician: Dustin Patel History of Present Illness 63 yo f with multiple medical problems, including DMII, HTN, SANDIP, GERD, PAD, arthritis, COPD, chronic pain, admitted with possible cellulitis of RLE, seen in consultation today. Pt known to Dr Espinoza for a RLE BUDGET MANAGER endarterectomy and fem- AK pop prosthetic BPG last week. Procedure necessary d/t severe PAD with tissue loss of RLE. Pt states she was at home this weekend and noted her R thigh was red, so came to [facility]. Pt denies fever, N/V, rest pain, other new complaints. Blood cultures neg, mild leukocytosis, VSS. Allergies Allergy/AdvReac Type Severity Reaction Status Date / Time tramadol Allergy Intermediate itchy Verified 03/19/24 08:30 naproxen Allergy Unknown avoids due Verified 03/19/24 08:30 to kidney disease stage 2 strawberry Allergy Hives Verified 03/19/24 08:31 metformin AdvReac Severe severe GI Verified 03/19/24 08:30 distress codeine AdvReac Intermediate dizziness Verified 03/19/24 08:30 aspirin AdvReac Unknown rectal Verified 03/19/24 08:30 bleeding Home Medications Medication Instructions Recorded Confirmed Type albuterol sulfate 90 mcg/actuation 2 puff inhalation Q6H PRN 03/14/18 03/19/24 History aerosol inhaler (Ventolin HFA) Shortness Of Breath Or Wheezing acetaminophen 500 mg tablet 1,000 mg PO Q12H PRN Pain 06/21/19 03/19/24 History (Tylenol Extra Strength) blood sugar diagnostic (OneTouch #10 ea 06/21/19 11/21/20 History Ultra Blue Test Strip) hydroxyzine HCl 25 mg tablet 25 mg PO TID PRN Itching 06/21/19 03/19/24 History insulin glargine 100 unit/mL (3 20 units subcut BID 06/21/19 03/21/24 History mL) subcutaneous pen (Lantus Solostar U-100 Insulin) lancets (AdTonikTouch UltraSoft #50 ea 06/21/19 11/21/20 History Lancets) pen needle, diabetic 31 gauge x #30 ea 06/21/19 11/21/20 History 3/16" (BD Ultra-Fine Mini Pen Needle) aripiprazole 2 mg tablet (Abilify) 2 mg PO DAILY 05/11/23 03/19/24 History bupropion HCl 150 mg tablet,12 hr 225 mg PO BID 05/11/23 03/19/24 History sustained-release (Wellbutrin SR) dapagliflozin propanediol 10 mg 10 mg PO DAILY 05/11/23 03/19/24 History tablet (Farxiga) fluticasone fur. 100 mcg-umeclid 1 inh inhalation DAILY 05/11/23 03/19/24 History 62.5 mcg-vilant 25 mcg inhalat.powder (Trelegy Ellipta) lisinopril 10 mg tablet 20 mg PO DAILY 05/11/23 03/19/24 History atorvastatin 40 mg tablet 40 mg PO DAILY 03/09/24 03/19/24 History doxycycline hyclate 100 mg tablet 100 mg PO BID 03/09/24 03/19/24 History duloxetine 30 mg capsule,delayed 30 mg PO DAILY 03/09/24 03/19/24 History release sprinkle duloxetine 60 mg capsule,delayed 60 mg PO DAILY 03/09/24 03/19/24 History release (Cymbalta) famotidine 20 mg tablet 20 mg PO BID 03/09/24 03/19/24 History insulin lispro 100 unit/mL 15 unit subcut WM 03/09/24 03/21/24 History subcutaneous pen (Humalog KwikPen (U-100) Insulin) lamotrigine 150 mg tablet 150 mg PO QAM 03/09/24 03/19/24 History loperamide 2 mg capsule 2 mg PO Q4H PRN Diarrhea 03/09/24 03/19/24 History ondansetron 4 mg disintegrating 4 mg PO Q6H PRN n/v 03/09/24 03/19/24 History tablet quetiapine 50 mg tablet 50 mg PO HS 03/09/24 03/19/24 History trazodone 100 mg tablet 50 mg PO HS 03/09/24 03/19/24 History oxycodone-acetaminophen 5 mg-325 1 - 2 tab PO Q6H PRN pain #30 tabs 03/21/24 Rx mg tablet (Percocet) Patient History Medical History Hx of sepsis treated at [facility] 01/2024? possible sepsis? Poor historian Osteoarthritis History of pressure ulcer right foot (2020?) treated with medication. pt reports resolved. Gout Degenerative disc disease Chronic back pain History of kidney stones no surgical intervention, passed on own Chronic kidney disease stage 2 History of bleeding ulcers Diabetes mellitus, type 2 Hx of cancer of uterus (1987) Chronic sinusitis Bipolar disorder Depression Anxiety History of migraine Peripheral neuropathy Hypertension History of pneumonia ~2013 last episode (not hospitalized) Chronic obstructive pulmonary disease Asthma PAD (peripheral artery disease) S/P arteriogram of extremity Hx of myocardial infarction "years ago" no surgical intervention. no patient monitor Sleep apnea non-compliant with machine - no machine Surgical History History of section x1 History of dilatation and curettage History of below knee amputation left History of cholecystectomy History of tooth extraction History of esophagogastroduodenoscopy (EGD) History of colonoscopy History of breast biopsy History of cataract surgery Bilateral History of arthroscopic knee surgery Meniiscectomy History of appendectomy History of total abdominal hysterectomy Family History Mother Diabetes Dementia Heart disease Thyroid disease Father Diabetes Heart disease Stroke Brother Diabetes Hypertension Sister Diabetes Hypertension Uncle Cancer of neck Family/Other Thyroid disease Other No family history of adverse response to anesthesia No pertinent family history Social History Smoking Status: Current every day smoker Tobacco Type: Cigarettes Cigarettes Per Day: 1 pack (advised on policy); Second Hand Exposure: No; Do You Dip or Chew Tobacco: No; Hx Alcohol Use: No Hx Substance Use: No Preferred Language: German Communication Ability: Effective Spine Supervisor Required: No Beliefs That Will Affect Care: None marital status: Life Partner Current Living Situation: Spouse Current Living Situation Comment: WITH Other Information That Helps Us Care for You: No Feels Safe at Home: Yes Safety Concerns: Feels Safe At This Time Assistive Devices: Walker and Wheelchair Review of Systems Review of Systems: All systems reviewed & are unremarkable except as noted in HPI & below Physical Exam Constitutional: WD/WN, vitals as above cooperative and comfortable; not in distress Respiratory: normal respiratory effort, lungs clear to auscultation Auscultation: + diminished lung sounds Cardiovascular: Rate/Rhythm: regular rate and regular rhythm Vessels: posterior tibial pulses present (doppler RLE, LLE amputation) and dorsalis pedis pulses present (doppler RLE, LLE amputation); + abnormal peripheral pulses Gastrointestinal (Abdomen): Inspection/Auscultation: abdomen normal to inspection and normal bowel sounds Percussion/Palpation: abdomen soft; abdomen nontender Musculoskeletal: Extremities: strength 5/5 throughout and + amputation noted Skin: + wound (R foot large open wound, +sloug h, mild periwound erythema) and + incision (C/D/I with karan, no erythema noted.) Neurologic: moves all extremities and awake; no focal motor deficits and not confused Psychiatric: A+Ox3, euthymic affect Results & Data Vital Signs (Past 12 Hours) Vital Signs Temp Pulse Pulse Resp BP Pulse Ox O2 Del Method 03/26/24 03:16 36.7 C 79 16 122/69 96 Room Air 03/26/24 02:36 76 03/26/24 00:03 36.8 C 81 17 119/69 96 Room Air
--- NOTE | 2024-03-26 11:45 | Pharmacy Report ---
Pharmacy Glycemic Short Note 2 - Date of Service March 26, 2024 - Glycemic Short BSG Results (Last 24 hours): 03/25/24 03/25/24 03/26/24 16:03 20:52 07:28 POC Glucose 177 H 181 H 150 H 03/26/24 11:19 POC Glucose 164 H OUTPATIENT ANTIDIABETIC REGIMEN: * Lantus 20 units BID, Humalog 15 units with meals * A1c 10.8% 03/20/24 ASSESSMENT: 03/26 * BSGs [phone] mg/dL- with 40 units of lantus, 34 units of prandial/correctional * Will continue current basal/bolus parameters as BSGs are stable, <180 mg/dL 03/24 * BSG initially elevated on presentation, has downtrended * Lantus initially scaled to gauge needs inpatient (weight based stress of 2 or 3 similar to TDD stress of 1 requirements) * Novolog currently with weight based stress of 3 parameters (between TDD stress of 1 and 2) PLAN FOR INPATIENT GLYCEMIC CONTROL: * Hold outpatient oral diabetes medications * Basal insulin * Lantus 20 units sq BID * Bolus insulin * NovoLog per scale ACHS or Q6hrs while NPO * Goal Range: Low 110 mg/dL - High 140 mg/dL * Correction Factor: 20 mg/dL/unit * Nutritional / Prandial insulin per carb ratio of 1 unit per 6 grams CHO consumed
[2024-03-26 12:52] LABS: BUN Creatinine Ratio 16.9 (10-20); Creatinine Clr Calc Pharmacy 43.2 ml/min; Potassium 4.2 mmol/L (3.5-5.1)
--- NOTE | 2024-03-26 20:50 | Hospitalist Progress Note ---
Date of Service March 26, 2024 Assessment & Plan (1) 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 bone: Plan: 63 y/ female with complicated PMH that presented here due to worsening pain, erythema on her right lower extremity Patient had a femoral-popliteal bypass done on recent admission (03/21) She had a right hallux amputation done on [facility] several weeks ago due to Osteomyelitis Her second toe has become gangrenous, she was seen here by Dr. Sidhu (Note reviewed) who offered transmetatarsal amputation but patient declined. She follows with Dr. Jackman on [place] Will admit to PCU for IV antibiotic and pain control s/p Zosyn and IV Vanco on ED No leukocytosis Procal elevated: 2.21 Venous duplex pending Wound culture sent Pain control IV Daptomycin and IV Zosyn Consult Vascular surgery in the setting of recent surgery Dr. Espinal will proceed with TMA on 03/27 Consider ID consult for outpatient ABX treatment Wound care ordered (2) Osteomyelitis of foot, right, acute: Plan: see above (3) S/P femoral-popliteal bypass surgery: Plan: Recent femoral-popliteal bypass continue pain medication consult Vascular surgery for further recommendation holding ASA 81 mg due to GI bleed Wound VAC in placed, erythema surrounding (4) GERD (gastroesophageal reflux disease): Plan: Continue Famotidine (5) DM (diabetes mellitus): Plan: A1C: 10.8 (03/19) Lantus: 40 units SQ daily Novalog scale Pharmacy consulted Hold home medication (6) HTN (hypertension): Plan: Hold lisinopril due to slightly bumped creatinine. Noted the patient had elevated creatinine in the past. Increase IV fluids to 100 mL an hour since the patient had borderline hypotension overnight Continue Atorvastatin 40 mg for hyperlipidemia (7) PAD (peripheral artery disease): Plan: see above (8) Bipolar disorder: Plan: On duloxetine 60 Mg in the morning, 30 mg in the evening, Aripiprazole 2 mg Quetiapine 50 mg, trazodone 50 mg (9) SANDIP (obstructive sleep apnea): Plan: Noncompliant with CPAP (10) Asthma: Plan: continue home inhalers (11) Anemia: Plan: Hgb : 9.2 Received 1 PRBC on last admission stable Plan FEN: DM2/ HH Code status: full code DVT ppx: SCDs Dispo: PCU Admission and Anticipated Discharge Date Admission Date: March 23, 2024 Subjective Patient reports no new symptoms. Physical Exam Physical Exam: General: Awake, conversant Heart: S1, S2/regular rate and rhythm, no murmur rubs or gallops Lungs: Clear to auscultation bilaterally. Normal effort Abdomen: Soft/nontender/nondistended. No hepatosplenomegaly Extremities: No clubbing/cyanosis. No edema. Right foot dressing on. Left BKA Behavior: Appropriate, cooperative Results & Data Results & Data Vital Signs (Past 12 Hours) Vital Signs Temp Pulse Pulse Resp BP Pulse Ox O2 Del Method 03/26/24 19:50 36.4 C L 78 16 128/76 97 Room Air 03/26/24 15:30 36.6 C 82 17 157/78 H 97 Room Air 03/26/24 14:39 81 03/26/24 12:02 36.7 C 79 18 103/63 96 Room Air PG Care Time/CCT Total # of Minutes Spent Total Time Spent with Patient: Total time spent is greater than 50% in coordination of care (as documented) at patient's floor/unit and/or counseling patient: Coding Level of Care Code 67861 SUB INP/OBS CARE 2/35MIN Diagnoses 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 bone L97.514 Osteomyelitis of foot, right, acute M86.171 S/P femoral-popliteal bypass surgery Z95.828 GERD (gastroesophageal reflux disease) K21.9 DM (diabetes mellitus) E11.9 HTN (hypertension) I10 PAD (peripheral artery disease) I73.9 Bipolar disorder F31.9 SANDIP (obstructive sleep apnea) G47.33 Asthma J45.909 Asthma complication type: unspecified Asthma persistence: unspecified Asthma severity: unspecified severity Anemia D64.9 (10) Asthma Asthma complication type: unspecified Asthma persistence: unspecified Asthma severity: unspecified severity Qualified Code(s): J45.909 - Unspecified asthma, uncomplicated
[2024-03-26] MEDS: LANTUS PER UNIT CHARGE SQ SCH (21:30)
--- NOTE | 2024-03-26 21:52 | Podiatry Consultation ---
Date of Consultation March 26, 2024 Assessment & Plan (1) Cellulitis of right leg: (2) 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 bone: (3) Osteomyelitis of foot, right, acute: (4) PAD (peripheral artery disease): (5) Insulin dependent diabetes mellitus: Plan - Examined and evaluated. - Right foot TMA scheduled tomorrow at 11:30. Will attempt primarily closure, though resection of infectious tissue is paramount. - I will be out of town after tomorrow and will not be available for inpatient care until 04/01. - If she does develop any complications healing this in that short of time, she would require a BKA/AKA with Dr. Espinoza. This could be worsening local acute infection or continued/worsening necrosis of the foot. - Will check back in next week, after surgery. History of Present Illness Reason for Consultation: Right foot wound Attending Physician: Dustin Patel History of Present Illness Patient seen at bedside. She states that she had been discharged home but noted worsening pain and local evidence of infection almost immediately upon discharge. She discussed this with her prior surgeon in her hometown who suggested she seek more immediate treatment, so she presented back to [facility]. We were reconsulted as she is now amenable to the right foot transmetatarsal amputation. She states the right foot is acutely painful and feels better hanging off of the edge of the bed. Denies any other systemic signs/symptoms of infection. Denies any concerns with her revascularization site/surgery. Allergies Allergy/AdvReac Type Severity Reaction Status Date / Time tramadol Allergy Intermediate itchy Verified 03/19/24 08:30 naproxen Allergy Unknown avoids due Verified 03/19/24 08:30 to kidney disease stage 2 strawberry Allergy Hives Verified 03/19/24 08:31 metformin AdvReac Severe severe GI Verified 03/19/24 08:30 distress codeine AdvReac Intermediate dizziness Verified 03/19/24 08:30 aspirin AdvReac Unknown rectal Verified 03/19/24 08:30 bleeding Home Medications Medication Instructions Recorded Confirmed Type albuterol sulfate 90 mcg/actuation 2 puff inhalation Q6H PRN 03/14/18 03/19/24 History aerosol inhaler (Ventolin HFA) Shortness Of Breath Or Wheezing acetaminophen 500 mg tablet 1,000 mg PO Q12H PRN Pain 06/21/19 03/19/24 History (Tylenol Extra Strength) blood sugar diagnostic (OneTouch #10 ea 06/21/19 11/21/20 History Ultra Blue Test Strip) hydroxyzine HCl 25 mg tablet 25 mg PO TID PRN Itching 06/21/19 03/19/24 History insulin glargine 100 unit/mL (3 20 units subcut BID 06/21/19 03/21/24 History mL) subcutaneous pen (Lantus Solostar U-100 Insulin) lancets (Micro Interventional DevicesTouch UltraSoft #50 ea 06/21/19 11/21/20 History Lancets) pen needle, diabetic 31 gauge x #30 ea 06/21/19 11/21/20 History 3/16" (BD Ultra-Fine Mini Pen Needle) aripiprazole 2 mg tablet (Abilify) 2 mg PO DAILY 05/11/23 03/19/24 History bupropion HCl 150 mg tablet,12 hr 225 mg PO BID 05/11/23 03/19/24 History sustained-release (Wellbutrin SR) dapagliflozin propanediol 10 mg 10 mg PO DAILY 05/11/23 03/19/24 History tablet (Farxiga) fluticasone fur. 100 mcg-umeclid 1 inh inhalation DAILY 05/11/23 03/19/24 History 62.5 mcg-vilant 25 mcg inhalat.powder (Trelegy Ellipta) lisinopril 10 mg tablet 20 mg PO DAILY 05/11/23 03/19/24 History atorvastatin 40 mg tablet 40 mg PO DAILY 03/09/24 03/19/24 History doxycycline hyclate 100 mg tablet 100 mg PO BID 03/09/24 03/19/24 History duloxetine 30 mg capsule,delayed 30 mg PO DAILY 03/09/24 03/19/24 History release sprinkle duloxetine 60 mg capsule,delayed 60 mg PO DAILY 03/09/24 03/19/24 History release (Cymbalta) famotidine 20 mg tablet 20 mg PO BID 03/09/24 03/19/24 History insulin lispro 100 unit/mL 15 unit subcut WM 03/09/24 03/21/24 History subcutaneous pen (Humalog KwikPen (U-100) Insulin) lamotrigine 150 mg tablet 150 mg PO QAM 03/09/24 03/19/24 History loperamide 2 mg capsule 2 mg PO Q4H PRN Diarrhea 03/09/24 03/19/24 History ondansetron 4 mg disintegrating 4 mg PO Q6H PRN n/v 03/09/24 03/19/24 History tablet quetiapine 50 mg tablet 50 mg PO HS 03/09/24 03/19/24 History trazodone 100 mg tablet 50 mg PO HS 03/09/24 03/19/24 History oxycodone-acetaminophen 5 mg-325 1 - 2 tab PO Q6H PRN pain #30 tabs 03/21/24 Rx mg tablet (Percocet) Patient History Medical History Hx of sepsis treated at [facility] 01/2024? possible sepsis? Poor historian Osteoarthritis History of pressure ulcer right foot (2020?) treated with medication. pt reports resolved. Gout Degenerative disc disease Chronic back pain History of kidney stones no surgical intervention, passed on own Chronic kidney disease stage 2 History of bleeding ulcers Diabetes mellitus, type 2 Hx of cancer of uterus (1987) Chronic sinusitis Bipolar disorder Depression Anxiety History of migraine Peripheral neuropathy Hypertension History of pneumonia ~2013 last episode (not hospitalized) Chronic obstructive pulmonary disease Asthma PAD (peripheral artery disease) S/P arteriogram of extremity Hx of myocardial infarction "years ago" no surgical intervention. no material control specialist Sleep apnea non-compliant with machine - no machine Surgical History History of section x1 History of dilatation and curettage History of below knee amputation left History of cholecystectomy History of tooth extraction History of esophagogastroduodenoscopy (EGD) History of colonoscopy History of breast biopsy History of cataract surgery Bilateral History of arthroscopic knee surgery Meniiscectomy History of appendectomy History of total abdominal hysterectomy Family History Mother Diabetes Dementia Heart disease Thyroid disease Father Diabetes Heart disease Stroke Brother Diabetes Hypertension Sister Diabetes Hypertension Uncle Cancer of neck Family/Other Thyroid disease Other No family history of adverse response to anesthesia No pertinent family history Social History Smoking Status: Current every day smoker Tobacco Type: Cigarettes Cigarettes Per Day: 1 pack (advised on policy); Second Hand Exposure: No; Do You Dip or Chew Tobacco: No; Hx Alcohol Use: No Hx Substance Use: No Preferred Language: Welsh Communication Ability: Effective Cutter In Required: No Beliefs That Will Affect Care: None marital status: Life Partner Current Living Situation: Spouse Current Living Situation Comment: WITH Other Information That Helps Us Care for You: No Feels Safe at Home: Yes Safety Concerns: Feels Safe At This Time Assistive Devices: Walker and Wheelchair Review of Systems Constitutional: no fever, no chills and no fatigue Eyes: no problem reported Ear, Nose, Mouth, Throat: no problem reported Respiratory: no problem reported Cardiovascular: + edema; no problem reported Gastrointestinal: no nausea, no vomiting and no problem reported Genitourinary: no problem reported Musculoskeletal: no problem reported Integumentary: + non-healing lesions, + skin ulcer, + w ounds and + erythema Neurologic: + loss of sensation, + numbness and + pa resthesia; no generalized weakness Psychiatric: no problem reported Physical Exam Physical Exam: Left lower extremity amputation noted. Right lower extremity focused exam: DP/PT pulses nonpalpable on clinical exam. Large ischemic appearing ulceration is noted circumferentially around the head of the first metatarsal along with dorsal foot, extending to the level of the proximal second metatarsal. This wound is 100% fibrotic with the metatarsal head obviously noted. The right second toe is also mummified, 100% necrotic to the level of the second metatarsal phalangeal joint. No ascending cellulitis is noted. Worsened shawn thema locally to the forefoot with worsened ischemic changes to the remaining digits. Pain is noted on palpation of the toes, consistent with these clinical exam findings. CFT is still brisk to the remaining digits. Active range of motion is noted to the third fourth and fifth toes with no motion to the second toe. No remaining ulcerations noted otherwise. Constitutional: WD/WN, vitals as above + ill appearing and + obese Eyes: PERRL, conjunctivae normal, anicteric sclerae ENMT: external ear and nose normal, oropharynx normal Neck: trachea midline, no thyromegaly normal visual inspection Respiratory: normal respiratory effort; no respiratory distress Cardiovascular: Rate/Rhythm: regular rate and regular rhythm Vessels: + posterior tibial pulses abnormal and + dorsalis pedis pulses abnormal Chest (Breasts): Chest: normal inspection of chest Gastrointestinal (Abdomen): Inspection/Auscultation: abdomen normal to inspection Percussion/Palpation: + abdomen tender and abdomen soft Musculoskeletal: no cyanosis or clubbing, extremities motor strength 5/5 Head/Neck/Chest: normocephalic and head atraumatic Extremities: extremities normal to inspection and + amputation noted Skin: + ulcer, + wound, + skin atrophy and + d ry skin Neurologic: awake; + abnormal touch/pain/proprioception, + abnormal sensation to monofilament and no focal motor deficits Psychiatric: A+Ox3, euthymic affect Results & Data Vital Signs (Past 12 Hours) Vital Signs Temp Pulse Pulse Resp BP Pulse Ox O2 Del Method 03/26/24 19:50 36.4 C L 78 16 128/76 97 Room Air 03/26/24 15:30 36.6 C 82 17 157/78 H 97 Room Air 03/26/24 14:39 81 03/26/24 12:02 36.7 C 79 18 103/63 96 Room Air
[2024-03-27 07:51] LABS: BUN Creatinine Ratio 14.4 (10-20); Calcium 8.8 mg/dl (8.6-10.3); Creatinine Clr Calc Pharmacy 44.2 ml/min; Potassium 4.3 mmol/L (3.5-5.1)
[2024-03-27] MEDS: LANTUS PER UNIT CHARGE SC ONE (08:39)
--- NOTE | 2024-03-27 10:31 | Hospitalist Progress Note ---
Date of Service March 27, 2024 Assessment & Plan (1) 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 bone: Plan: 63 y/ female with complicated PMH that presented here due to worsening pain, erythema on her right lower extremity Patient had a femoral-popliteal bypass done on recent admission (03/21) She had a right hallux amputation done on [facility] several weeks ago due to Osteomyelitis Her second toe has become gangrenous, she was seen here by Dr. Sidhu (Note reviewed) who offered transmetatarsal amputation but patient declined. She follows with Dr. Jackman on [place] Will admit to PCU for IV antibiotic and pain control s/p Zosyn and IV Vanco on ED No leukocytosis Procal elevated: 2.21 Venous duplex pending Wound culture sent Pain control IV Daptomycin and IV Zosyn Consult Vascular surgery in the setting of recent surgery Dr. Espinal S/P TMA on 03/27 Consider ID consult for outpatient ABX treatment (2) Osteomyelitis of foot, right, acute: Plan: see above (3) S/P femoral-popliteal bypass surgery: Plan: Recent femoral-popliteal bypass continue pain medication consult Vascular surgery for further recommendation holding ASA 81 mg due to GI bleed Wound VAC in placed, erythema surrounding (4) GERD (gastroesophageal reflux disease): Plan: Continue Famotidine (5) DM (diabetes mellitus): Plan: A1C: 10.8 (03/19) Lantus: 40 units SQ daily Novalog scale Pharmacy consulted Hold home medication (6) HTN (hypertension): Plan: Hold lisinopril due to slightly bumped creatinine. Noted the patient had elevated creatinine in the past. Increase IV fluids to 100 mL an hour since the patient had borderline hypotension overnight Continue Atorvastatin 40 mg for hyperlipidemia (7) PAD (peripheral artery disease): Plan: see above (8) Bipolar disorder: Plan: On duloxetine 60 Mg in the morning, 30 mg in the evening, Aripiprazole 2 mg Quetiapine 50 mg, trazodone 50 mg (9) SANDIP (obstructive sleep apnea): Plan: Noncompliant with CPAP (10) Asthma: Plan: continue home inhalers (11) Anemia: Plan: Hgb : 9.2 Received 1 PRBC on last admission stable Plan FEN: DM2/ HH Code status: full code DVT ppx: SCDs Dispo: PCU Admission and Anticipated Discharge Date Admission Date: March 23, 2024 Subjective 63 yo female reports no new symptoms. Review of Systems Review of Systems: All systems reviewed & are unremarkable except as noted in HPI & below Physical Exam Physical Exam: General: Awake, conversant Heart: S1, S2/regular rate and rhythm, no murmur rubs or gallops Lungs: Clear to auscultation bilaterally. Normal effort Abdomen: Soft/nontender/nondistended. No hepatosplenomegaly Extremities: No clubbing/cyanosis. No edema. Right foot dressing on. Left BKA Behavior: Appropriate, cooperative Results & Data Results & Data Vital Signs (Past 12 Hours) Vital Signs Temp Pulse Resp BP Pulse Ox O2 Del Method 03/27/24 07:22 36.8 C 77 20 118/66 93 Room Air 03/27/24 04:12 36.8 C 79 18 109/69 93 Room Air 03/26/24 23:40 36.7 C 57 L 18 127/75 94 Room Air PG Care Time/CCT Total # of Minutes Spent Total Time Spent with Patient: Total time spent is greater than 50% in coordination of care (as documented) at patient's floor/unit and/or counseling patient: Coding Level of Care Code 94293 SUB INP/OBS CARE 2/35MIN Diagnoses 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 bone L97.514 Osteomyelitis of foot, right, acute M86.171 S/P femoral-popliteal bypass surgery Z95.828 GERD (gastroesophageal reflux disease) K21.9 DM (diabetes mellitus) E11.9 HTN (hypertension) I10 PAD (peripheral artery disease) I73.9 Bipolar disorder F31.9 SANDIP (obstructive sleep apnea) G47.33 Asthma J45.909 Asthma complication type: unspecified Asthma persistence: unspecified Asthma severity: unspecified severity Anemia D64.9 (10) Asthma Asthma complication type: unspecified Asthma persistence: unspecified Asthma severity: unspecified severity Qualified Code(s): J45.909 - Unspecified asthma, uncomplicated
--- NOTE | 2024-03-27 11:38 | History & Physical Bridge Note ---
Date of Service March 27, 2024 History & Physical Bridge Note I have examined the patient, reviewed the History & Physical and in the interval since the performance of the History & Physical I have noted the following changes of clinical significance: no changes noted. Preoperative instructions, postoperative instructions, risks, and outcomes discussed at length. All questions answered. Consent obtained for right transmetatarsal amputation.
--- NOTE | 2024-03-27 11:45 | Anesthesiology Consultation ---
Date of Service March 27, 2024 Assessment & Plan Chart Review Chart Review: Acceptable Risk for Surgery and Patient NOT seen in Pre Admission Testing Consults Requested none ASA ASA4 Proposed Anesthesia Anesthesia Type: MAC Risk / Benefits Reviewed With: PT / POA / Parent / Guardian, Accepts Plan and Informed Consent Obtained History Surgery Operation Date: 03/27/24 11:45 Proposed Procedures p Right Foot Transmetatarsal Amputation - Dean Sidhu DPM Height/Weight Height: 5 ft 2 in Weight: 78.8 kg Allergies Allergy/AdvReac Type Severity Reaction Status Date / Time tramadol Allergy Intermediate itchy Verified 03/19/24 08:30 naproxen Allergy Unknown avoids due Verified 03/19/24 08:30 to kidney disease stage 2 strawberry Allergy Hives Verified 03/19/24 08:31 metformin AdvReac Severe severe GI Verified 03/19/24 08:30 distress codeine AdvReac Intermediate dizziness Verified 03/19/24 08:30 aspirin AdvReac Unknown rectal Verified 03/19/24 08:30 bleeding Medications Home Medications Medication Instructions Recorded Confirmed Last Taken albuterol sulfate 90 mcg/actuation 2 puff inhalation Q6H PRN 03/14/18 03/19/24 03/18/24 18:00 aerosol inhaler (Ventolin HFA) Shortness Of Breath Or Wheezing acetaminophen 500 mg tablet 1,000 mg PO Q12H PRN Pain 06/21/19 03/19/24 03/18/24 14:00 (Tylenol Extra Strength) blood sugar diagnostic (Fit FugitivesTouch #10 ea 06/21/19 11/21/20 Unknown Ultra Blue Test Strip) hydroxyzine HCl 25 mg tablet 25 mg PO TID PRN Itching 06/21/19 03/19/24 03/18/24 08:00 insulin glargine 100 unit/mL (3 20 units subcut BID 06/21/19 03/21/24 03/18/24 08:00 mL) subcutaneous pen (Lantus Solostar U-100 Insulin) lancets (Fit FugitivesTouch UltraSoft #50 ea 06/21/19 11/21/20 Unknown Lancets) pen needle, diabetic 31 gauge x #30 ea 06/21/19 11/21/20 Unknown 3/16" (BD Ultra-Fine Mini Pen Needle) aripiprazole 2 mg tablet (Abilify) 2 mg PO DAILY 05/11/23 03/19/24 03/18/24 18:00 bupropion HCl 150 mg tablet,12 hr 225 mg PO BID 05/11/23 03/19/24 03/18/24 18:00 sustained-release (Wellbutrin SR) dapagliflozin propanediol 10 mg 10 mg PO DAILY 05/11/23 03/19/24 03/18/24 tablet (Farxiga) fluticasone fur. 100 mcg-umeclid 1 inh inhalation DAILY 05/11/23 03/19/24 03/18/24 08:00 62.5 mcg-vilant 25 mcg inhalat.powder (Trelegy Ellipta) lisinopril 10 mg tablet 20 mg PO DAILY 05/11/23 03/19/24 03/01/24 10:00 atorvastatin 40 mg tablet 40 mg PO DAILY 03/09/24 03/19/24 03/18/24 08:00 doxycycline hyclate 100 mg tablet 100 mg PO BID 03/09/24 03/19/24 03/18/24 18:00 duloxetine 30 mg capsule,delayed 30 mg PO DAILY 03/09/24 03/19/24 03/18/24 08:00 release sprinkle duloxetine 60 mg capsule,delayed 60 mg PO DAILY 03/09/24 03/19/24 03/18/24 08:00 release (Cymbalta) famotidine 20 mg tablet 20 mg PO BID 03/09/24 03/19/24 3 Weeks Ago ~02/27/24 insulin lispro 100 unit/mL 15 unit subcut WM 03/09/24 03/21/24 03/18/24 08:00 subcutaneous pen (Humalog KwikPen (U-100) Insulin) lamotrigine 150 mg tablet 150 mg PO QAM 03/09/24 03/19/24 03/18/24 08:00 loperamide 2 mg capsule 2 mg PO Q4H PRN Diarrhea 03/09/24 03/19/24 Unknown ondansetron 4 mg disintegrating 4 mg PO Q6H PRN n/v 03/09/24 03/19/24 03/17/24 tablet quetiapine 50 mg tablet 50 mg PO HS 03/09/24 03/19/24 03/17/24 trazodone 100 mg tablet 50 mg PO HS 03/09/24 03/19/24 03/18/24 oxycodone-acetaminophen 5 mg-325 1 - 2 tab PO Q6H PRN pain #30 tabs 03/21/24 Unknown mg tablet (Percocet) Active Medications Generic Name Dose Route Start Last Admin Trade Name Freq PRN Reason Stop Dose Admin Aripiprazole 2 mg 03/24/24 09:00 03/27/24 08:22 Aripiprazole 1 Mg/Ml Oral Soln 150 Ml Btl PO 04/23/24 08:59 Not Given DAILY HU Atorvastatin Calcium 40 mg 03/24/24 09:00 03/27/24 08:22 Atorvastatin 40 Mg Tab PO 04/23/24 08:59 Not Given DAILY HU Bupropion HCl 225 mg 03/23/24 23:14 03/27/24 08:22 Bupropion Sr 150 Mg Tabcr PO 04/22/24 23:13 Not Given BID HU Duloxetine HCl 60 mg 03/24/24 09:00 03/27/24 08:22 Duloxetine Hcl 60 Mg Cap PO 04/23/24 08:59 Not Given DAILY HU Duloxetine HCl 30 mg 03/24/24 21:00 03/26/24 21:33 Duloxetine Hcl 30 Mg Cap PO 04/23/24 20:59 30 mg PM HU Administration Famotidine 20 mg 03/24/24 09:00 03/27/24 08:23 Famotidine 20 Mg Tab PO 04/23/24 08:59 Not Given BID HU Fluticasone Furoate 1 puffs 03/24/24 09:00 03/27/24 08:38 Fluticasone Furoate 100mcg 14 Puffs/Inhaler INH 04/23/24 08:59 1 puffs DAILY HU Administration Hydroxyzine HCl 25 mg 03/23/24 23:14 03/25/24 08:14 Hydroxyzine Hcl 25 Mg Tab PO 04/22/24 23:13 25 mg TID PRN Administration Itching Daptomycin 500 mg/ Syringe 10 mls @ 5 mls/min 03/24/24 07:00 03/27/24 06:42 IV 05/05/24 06:59 5 mls/min Q24H HU Administration Protocol Piperacillin Sod/Tazobactam Sod 4.5 gm in 100 mls @ 25 mls/hr 03/24/24 01:00 03/27/24 08:39 Zosyn IV 05/05/24 00:59 25 mls/hr Q8H HU Administration Protocol Insulin Aspart 0 units 03/24/24 02:00 03/27/24 11:45 Insulin Aspart Per Unit Charge SC 04/23/24 01:59 Not Given ACHS HU Lamotrigine 150 mg 03/24/24 09:00 03/27/24 08:23 Lamotrigine 100 Mg Tab PO 04/23/24 08:59 Not Given QAM HU Miscellaneous 1 each 03/24/24 08:59 03/27/24 08:38 Remove Nicoderm Patch N/A 04/23/24 08:58 1 each DAILY@0859 HU Administration Nicotine 1 patch 03/24/24 09:00 03/27/24 08:39 Nicotine 21 Mg/24 Hr Tdsy TD 04/23/24 08:59 1 patch QAM HU Administration Oxycodone/Acetaminophen 1 - 2 tab 03/23/24 23:14 03/27/24 03:34 Oxycodone/Acetaminophen 5mg/325mg Tab PO 04/06/24 23:13 2 tab Q4H PRN Administration Moderate Pain (Scale 4, 5, 6) Quetiapine Fumarate 50 mg 03/23/24 23:14 03/26/24 21:34 Quetiapine Fumarate 25 Mg Tablet PO 04/22/24 23:13 50 mg HS HU Administration Trazodone HCl 50 mg 03/24/24 21:00 03/26/24 21:34 Trazodone Hcl 50 Mg Tab PO 04/23/24 20:59 50 mg HS HU Administration Umeclidinium/Vilanterol 1 puffs 03/24/24 09:00 03/27/24 08:38 Umeclidinium/Vilanterol 62.5/25mcg 7 Puffs/Inhaler INH 04/23/24 08:59 1 puffs DAILY HU Administration NPO Date Last Intake of Fluids: 03/26/24 Time Last Intake of Fluids: 22:30 Date Last Intake of Solids: 03/26/24 Time Last Intake of Solids: 22:30 Past Medical History Medical History Hx of sepsis treated at [facility] 01/2024? possible sepsis? Poor historian Osteoarthritis History of pressure ulcer right foot (2020?) treated with medication. pt reports resolved. Gout Degenerative disc disease Chronic back pain History of kidney stones no surgical intervention, passed on own Chronic kidney disease stage 2 History of bleeding ulcers Diabetes mellitus, type 2 Hx of cancer of uterus (1987) Chronic sinusitis Bipolar disorder Depression Anxiety History of migraine Peripheral neuropathy Hypertension History of pneumonia ~2013 last episode (not hospitalized) Chronic obstructive pulmonary disease Asthma PAD (peripheral artery disease) S/P arteriogram of extremity Hx of myocardial infarction "years ago" no surgical intervention. no sales development specialist Sleep apnea non-compliant with machine - no machine Exercise / Class Metabolic Activity II 4-5 Yardwork/Stairs/Walk up hill Past Family History Family History Mother Diabetes Dementia Heart disease Thyroid disease Father Diabetes Heart disease Stroke Brother Diabetes Hypertension Sister Diabetes Hypertension Uncle Cancer of neck Family/Other Thyroid disease Other No family history of adverse response to anesthesia No pertinent family history Past Surgical History Surgical History History of section x1 History of dilatation and curettage History of below knee amputation left History of cholecystectomy History of tooth extraction History of esophagogastroduodenoscopy (EGD) History of colonoscopy History of breast biopsy History of cataract surgery Bilateral History of arthroscopic knee surgery Meniiscectomy History of appendectomy History of total abdominal hysterectomy Past Anesthesia History No Hx of Anesthesia Complications and No Family Hx of Anesthesia Complications History of PONV No Hx of PONV and No Hx of Motion Sickness Social History Smoking Status: Current every day smoker tobacco type: cigarettes Smoking cigarettes per day: 1 pack (advised on policy) Do You Dip or Chew Tobacco: No Hx Alcohol Use: No Alcohol type: hard liquor alcohol intake frequency: holidays/special occasions only Hx Substance Use: No substance use type: does not use Physical Exam Vital Signs Last Vital Signs Temp 36.5 C 03/27/24 11:28 Pulse 80 03/27/24 11:28 Resp 20 03/27/24 11:28 BP 118/67 03/27/24 11:28 Pulse Ox 98 03/27/24 11:28 O2 Del Method Room Air 03/27/24 11:28 Constitutional + obese ENMT Mouth: + edentulous Thyromental Distance: > or= 3.5 Finger Breadths Mallampati Class: II Neck normal visual inspection Respiratory normal respiratory effort Auscultation: lungs clear to auscultation bilaterally Cardiovascular Rate/Rhythm: regular rate and regular rhythm Musculoskeletal RLE wound dressed Psychiatric Orientation: alert Testing Laboratory Results 03/24/24 06:24 03/27/24 06:53 PT 11.1 Seconds (9.0-12.0) 03/24/24 06:24 INR 1.0 (0.9-1.1) 03/24/24 06:24 Urine Color Yellow 03/24/24 05:48 Urine Appearance Clear (Clear) 03/24/24 05:48 Urine pH 6.0 (4.5-7.5) 03/24/24 05:48 Ur Specific [place] 1.018 (1.000-1.030) 03/24/24 05:48 Urine Protein 3+ (Negative) H 03/24/24 05:48 Urine Glucose (UA) 1+ (Negative) H 03/24/24 05:48 Urine Ketones Negative (Negative) 03/24/24 05:48 Urine Nitrite Negative (Negative) 03/24/24 05:48 Ur Leukocyte Esterase Negative (Negative) 03/24/24 05:48 Urine WBC (Auto) 0-5 /hpf (0-5) 03/24/24 05:48 Urine RBC (Auto) 3-5 /hpf (0-2) H 03/24/24 05:48 U Hyaline Cast (Auto) 0-2 /lpf (0-2) 03/24/24 05:48 U Epithel Cells (Auto) 6-10 /hpf (0-2) H 03/24/24 05:48 Urine Bacteria (Auto) None Seen (None Seen) 03/24/24 05:48 03/26/24 Unknown Gram Stain - Final Foot Wound Culture - Preliminary Low counts mixed probable skin microbiota. 03/23/24 18:29 Aerobic Blood Culture - Preliminary Blood No growth in Aerobic bottle after 48 hours. Anaerobic Blood Culture - Preliminary No growth in Anaerobic bottle after 48 hours. 03/23/24 18:19 Aerobic Blood Culture - Preliminary Blood No growth in Aerobic bottle after 48 hours. Anaerobic Blood Culture - Preliminary No growth in Anaerobic bottle after 48 hours. 03/27/24 03/27/24 11:19 07:20 POC Glucose 157 H 147 H
[2024-03-27] MEDS ORDERED: MIDAZOLAM HCL 1 MG/ML 2ML VIAL ONE (11:52)
[2024-03-27] MEDS ORDERED: fentaNYL citrate PF 100 MCG/2 ML VIAL ONE (11:52)
[2024-03-27] MEDS ORDERED: PROPOFOL IV EMULSION 10 MG/ML 20 ML VIAL IV ONE ×2 (11:52→11:53)
[2024-03-27] MEDS ORDERED: ONDANSETRON INJ 2 MG/ML 2 ML VIAL ONE (11:55)
[2024-03-27] MEDS: BUPIVACAINE 0.5 % 5 MG/1 ML MPF 30ML VIAL ONE (12:23)
--- NOTE | 2024-03-27 12:40 | Post Operative Brief Note ---
Immediate Post Op Note Date of Surgery March 27, 2024 Pre & Post Diagnosis Operation Date: 03/27/24 11:45 Pre-Op Diagnosis: Osteomyelitis of foot, right Post-Op Diagnosis: Osteomyelitis of foot, right I identified the patient and participated in the time-out.: Yes Procedure Operation Date: 03/27/24 11:45 Actual Procedures p Right Foot Transmetatarsal Amputation(Right) - Dean Sidhu DPM Surgeon Dean Sidhu DPM Meeting Planner None Estimated Blood Loss 75 Findings Consistent with Post-Op Diagnosis Specimens Right forefoot for pathology Right first metatarsal bone culture Anesthesia Type MAC Complications none Disposition Accompanied Patient To Recovery: Yes Disposition: Recovery Room
--- NOTE | 2024-03-27 13:06 | Anesthesiology Progress Note ---
Date of Service March 27, 2024 Anesthesia Post Procedure Vital Signs Vital Signs: Temp Pulse Pulse Pulse Resp BP Pulse Ox 03/27/24 11:28 36.5 C 80 20 118/67 98 03/27/24 07:22 36.8 C 77 20 118/66 93 03/27/24 04:12 36.8 C 79 18 109/69 93 03/26/24 23:40 36.7 C 57 L 18 127/75 94 03/26/24 22:00 78 03/26/24 19:50 36.4 C L 78 16 128/76 97 03/26/24 15:30 36.6 C 82 17 157/78 H 97 03/26/24 14:39 81 O2 Del Method 03/27/24 11:28 Room Air 03/27/24 07:22 Room Air 03/27/24 04:12 Room Air 03/26/24 23:40 Room Air 03/26/24 22:00 03/26/24 19:50 Room Air 03/26/24 15:30 Room Air 03/26/24 14:39 Pain Intensity Right Leg: Pain Intensity: 8 Transfer of Care Handoff Completed per policy Notes Mental Status: alert / awake / arousable Patient Amnestic to Procedure: Yes Nausea / Vomiting: adequately controlled Pain: adequately controlled Airway Patency, RR, SpO2: stable & adequate BP & HR: stable & adequate Hydration State: stable & adequate Anesthetic Complications: no major complications apparent
--- NOTE | 2024-03-27 14:08 | Pharmacy Report ---
Pharmacy Glycemic Short Note 2 - Date of Service March 27, 2024 - Glycemic Short BSG Results (Last 24 hours): 03/26/24 03/26/24 03/27/24 16:29 20:02 06:53 Glucose 137 H POC Glucose 120 H 124 H 03/27/24 03/27/24 03/27/24 07:20 11:19 12:59 Glucose POC Glucose 147 H 157 H 139 H OUTPATIENT ANTIDIABETIC REGIMEN: * Lantus 20 units BID, Humalog 15 units with meals * A1c 10.8% 03/20/24 ASSESSMENT: 03/27: * BSGs yesterday were: [phone] mg/dL. Received 54 units of insulin, 30 basal + 24 bolus. * Fasting BSG is 147 mg/dL this AM. Patient is NPO for a right foot transmetatarsal amputation today. Assuming a diet will be resumed later this evening. Therefore, will give a reduced dose of basal this AM and resume previous dosing at bedtime. * No adjustment to Novolog. 03/26: * BSGs [phone] mg/dL- with 40 units of lantus, 34 units of prandial/correctional * Will continue current basal/bolus parameters as BSGs are stable, <180 mg/dL 03/24: * BSG initially elevated on presentation, has downtrended * Lantus initially scaled to gauge needs inpatient (weight based stress of 2 or 3 similar to TDD stress of 1 requirements) * Novolog currently with weight based stress of 3 parameters (between TDD stress of 1 and 2) PLAN FOR INPATIENT GLYCEMIC CONTROL: * Hold outpatient oral diabetes medications * Basal insulin * Lantus 10 units SC x 1 this AM * Lantus 20 units SC BID starting this evening * Bolus insulin * NovoLog per scale ACHS or Q6hrs while NPO * Goal Range: Low 110 mg/dL - High 140 mg/dL * Correction Factor: 20 mg/dL/unit * Nutritional / Prandial insulin per carb ratio of 1 unit per 6 grams CHO consumed
[2024-03-27] MEDS: MoRPHine SULFATE 2 MG/ML CARP IV PRN (17:05)
[2024-03-27] MEDS: LANTUS PER UNIT CHARGE SC SCH (21:14)
[2024-03-28 08:06] LABS: BUN Creatinine Ratio 15.1 (10-20); C Reactive Protein 15.3 mg/dl (0-0.5); Creatinine Clr Calc Pharmacy 38.9 ml/min; Potassium 4.4 mmol/L (3.5-5.1)
[2024-03-28] MEDS: LANTUS PER UNIT CHARGE SC SCH (08:35)
--- NOTE | 2024-03-28 09:40 | Surgery Progress Note ---
Date of Service March 28, 2024 Assessment & Plan (1) PAD (peripheral artery disease): Plan: Pt now approx 10 days s/p RLE FULL STACK NET DEVELOPER endart and fem-AK pop prosthetic BPG. No worsening appearance of surgical incisions, but pt continues to complain of severe incisional pain. May benefit from pain management eval prior to discharge. While we do not see signs of active graft infection at this time, do recommend pt complete at least 10 day course of oral abx. Will reeval pt in office next week for staple removal. Admission and Anticipated Discharge Date Admission Date: March 23, 2024 Subjective 63 yo f approx 10 days s/p RLE FULL STACK NET DEVELOPER endarterectomy with bovine patch, and fem-AK pop prosthetic BPG done for limb salvage, seen in f/u today. Pt continues to c/o incisional pain. Pt now s/p RLE TMA by Dr Sidhu yesterday as well. No fever, N/V, other complaints. Review of Systems Review of Systems: All systems reviewed & are unremarkable except as noted in HPI & below Physical Exam Constitutional: WD/WN, vitals as above cooperative and comfortable; not in distress Cardiovascular: Vessels: posterior tibial pulses present (doppler RLE, LLE amputation) and dorsalis pedis pulses present (doppler RLE, LLE amputation) Skin: + incision (C/D/I with karan, no eryth beverly noted.) R foot dressing in place Results & Data Vital Signs (Past 12 Hours) Vital Signs Temp Pulse Pulse Resp BP Pulse Ox O2 Del Method 03/28/24 07:59 36.6 C 83 18 120/62 95 Room Air 03/28/24 05:41 111/69 03/28/24 03:19 36.6 C 110 H 20 92/52 L 92 Room Air 03/27/24 22:29 37.4 C 94 H 20 119/55 L 92 Room Air 03/27/24 22:00 89
--- NOTE | 2024-03-28 11:45 | Pharmacy Report ---
Pharmacy Glycemic Short Note 2 - Date of Service March 28, 2024 - Glycemic Short BSG Results (Last 24 hours): 03/27/24 03/27/24 03/27/24 12:59 16:06 20:17 Glucose POC Glucose 139 H 216 H 114 H 03/28/24 03/28/24 03/28/24 07:05 07:18 11:07 Glucose 155 H POC Glucose 171 H 104 H OUTPATIENT ANTIDIABETIC REGIMEN: * Lantus 20 units BID, Humalog 15 units with meals * A1c 10.8% 03/20/24 ASSESSMENT: 03/28: * BSGs yesterday were [phone] mg/dL. Received 46 units total, 30 units basal + 16 units bolus. * Fasting BSG above goal at 171 mg/dL this AM. Will increase basal back to home dose today. * Lunchtime BSG decreased significantly enough to warrant a change in carb ratio in my opinion. Will loosen carb ratio slightly. 03/27: * BSGs yesterday were: [phone] mg/dL. Received 54 units of insulin, 30 basal + 24 bolus. * Fasting BSG is 147 mg/dL this AM. Patient is NPO for a right foot transmetatarsal amputation today. Assuming a diet will be resumed later this evening. Therefore, will give a reduced dose of basal this AM and resume previous dosing at bedtime. * No adjustment to Novolog. 03/26: * BSGs [phone] mg/dL- with 40 units of lantus, 34 units of prandial/co rrectional * Will continue current basal/bolus parameters as BSGs are stable, <180 mg/dL 03/24: * BSG initially elevated on presentation, has downtrended * Lantus initially scaled to gauge needs inpatient (weight based stress of 2 or 3 similar to TDD stress of 1 requirements) * Novolog currently with weight based stress of 3 parameters (between TDD stress of 1 and 2) PLAN FOR INPATIENT GLYCEMIC CONTROL: * Hold outpatient oral diabetes medications * Basal insulin * Lantus 20 units SC BID * Bolus insulin * NovoLog per scale ACHS or Q6hrs while NPO * Goal Range: Low 110 mg/dL - High 140 mg/dL * Correction Factor: 20 mg/dL/unit * Nutritional / Prandial insulin per carb ratio of 1 unit per 7 grams CHO consumed
--- NOTE | 2024-03-28 20:08 | Hospitalist Progress Note ---
Date of Service March 28, 2024 Assessment & Plan (1) 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 bone: Plan: 63 y/ female with complicated PMH that presented here due to worsening pain, erythema on her right lower extremity Patient had a femoral-popliteal bypass done on recent admission (03/21) She had a right hallux amputation done on [facility] several weeks ago due to Osteomyelitis Her second toe has become gangrenous, she was seen here by Dr. Sidhu (Note reviewed) who offered transmetatarsal amputation but patient declined. She follows with Dr. Jackman on [place] Will admit to PCU for IV antibiotic and pain control s/p Zosyn and IV Vanco on ED No leukocytosis Procal elevated: 2.21 Venous duplex pending Wound culture sent Pain control IV Daptomycin and IV Zosyn Consult Vascular surgery in the setting of recent surgery S/P TMA on 03/27 (2) Osteomyelitis of foot, right, acute: Plan: see above (3) S/P femoral-popliteal bypass surgery: Plan: Recent femoral-popliteal bypass continue pain medication consult Vascular surgery for further recommendation holding ASA 81 mg due to GI bleed Wound VAC in placed, erythema surrounding (4) GERD (gastroesophageal reflux disease): Plan: Continue Famotidine (5) DM (diabetes mellitus): Plan: A1C: 10.8 (03/19) Lantus: 40 units SQ daily Novalog scale Pharmacy consulted Hold home medication (6) HTN (hypertension): Plan: Hold lisinopril due to slightly bumped creatinine. Noted the patient had elevated creatinine in the past. Increase IV fluids to 100 mL an hour since the patient had borderline hypotension overnight Continue Atorvastatin 40 mg for hyperlipidemia (7) PAD (peripheral artery disease): Plan: see above (8) Bipolar disorder: Plan: On duloxetine 60 Mg in the morning, 30 mg in the evening, Aripiprazole 2 mg Quetiapine 50 mg, trazodone 50 mg (9) SANDIP (obstructive sleep apnea): Plan: Noncompliant with CPAP (10) Asthma: Plan: continue home inhalers (11) Anemia: Plan: Hgb : 9.2 Received 1 PRBC on last admission stable Plan FEN: DM2/ HH Code status: full code DVT ppx: SCDs Dispo: PCU Admission and Anticipated Discharge Date Admission Date: March 23, 2024 Subjective 63 yo female reports no new symptoms. Review of Systems Review of Systems: All systems reviewed & are unremarkable except as noted in HPI & below Physical Exam Physical Exam: General: Awake, conversant Heart: S1, S2/regular rate and rhythm, no murmur rubs or gallops Lungs: Clear to auscultation bilaterally. Normal effort Abdomen: Soft/nontender/nondistended. No hepatosplenomegaly Extremities: No clubbing/cyanosis. No edema. Right foot dressing on. Left BKA Behavior: Appropriate, cooperative Results & Data Results & Data Vital Signs (Past 12 Hours) Vital Signs Temp Pulse Resp BP Pulse Ox O2 Del Method 03/28/24 15:36 36.7 C 89 18 159/82 H 92 Room Air 03/28/24 11:30 36.5 C 75 18 117/75 96 Room Air PG Care Time/CCT Total # of Minutes Spent Total Time Spent with Patient: Total time spent is greater than 50% in coordination of care (as documented) at patient's floor/unit and/or counseling patient: Coding Level of Care Code 50128 SUB INP/OBS CARE 2/35MIN Diagnoses 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 bone L97.514 Osteomyelitis of foot, right, acute M86.171 S/P femoral-popliteal bypass surgery Z95.828 GERD (gastroesophageal reflux disease) K21.9 DM (diabetes mellitus) E11.9 HTN (hypertension) I10 PAD (peripheral artery disease) I73.9 Bipolar disorder F31.9 SANDIP (obstructive sleep apnea) G47.33 Asthma J45.909 Asthma complication type: unspecified Asthma persistence: unspecified Asthma severity: unspecified severity Anemia D64.9 (10) Asthma Asthma complication type: unspecified Asthma persistence: unspecified Asthma severity: unspecified severity Qualified Code(s): J45.909 - Unspecified asthma, uncomplicated
--- NOTE | 2024-03-28 21:12 | Podiatry Progress Note ---
Date of Service March 28, 2024 Assessment & Plan (1) Cellulitis of right leg: (2) 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 bone: (3) Osteomyelitis of foot, right, acute: (4) PAD (peripheral artery disease): (5) Insulin dependent diabetes mellitus: Plan - Examined and evaluated. - She can use her right heel to pivot for transfers, more of a protected WB status than a strict NWB. - Increased risk of wound dehiscence with extended WB, though with her left foot BKA, she is not significantly ambulatory. - Can change dressing every 2-3 days, or as needed by physicians. Will check back in personally on Tuesday. - If she is stable medically, can be transferred to SNF/Rehab without the foot slowing down that process. Admission and Anticipated Discharge Date Admission Date: March 23, 2024 Subjective Pt seen at bedside this morning, during breakfast. POD#1 s/p right TMA. Resting comfortably, easily arousable. States she has significant pain to the foot and feels better in dependency. Good appetite. Denies any new signs/symptoms of infection Review of Systems Constitutional: no fever, no chills and no fatigue Eyes: no problem reported Ear, Nose, Mouth, Throat: no problem reported Respiratory: no problem reported Cardiovascular: + edema; no problem reported Gastrointestinal: no nausea, no vomiting and no problem reported Genitourinary: no problem reported Musculoskeletal: no problem reported Integumentary: + non-healing lesions, + skin ulcer, + w ounds and + erythema Neurologic: + loss of sensation, + numbness and + pa resthesia; no generalized weakness Psychiatric: no problem reported Physical Exam Physical Exam: Left lower extremity amputation noted. Right lower extremity focused exam: Surgical dressing left intact today 1 day s/p TMA. No ascending cellulitis. No strikethrough of bleeding/drainage to the [place]y wrap. Constitutional: WD/WN, vitals as above + ill appearing and + obese Eyes: PERRL, conjunctivae normal, anicteric sclerae ENMT: external ear and nose normal, oropharynx normal Neck: trachea midline, no thyromegaly normal visual inspection Respiratory: normal respiratory effort; no respiratory distress Cardiovascular: Rate/Rhythm: regular rate and regular rhythm Vessels: + posterior tibial pulses abnormal and + dorsalis pedis pulses abnormal Chest (Breasts): Chest: normal inspection of chest Gastrointestinal (Abdomen): Inspection/Auscultation: abdomen normal to inspection Percussion/Palpation: + abdomen tender and abdomen soft Musculoskeletal: no cyanosis or clubbing, extremities motor strength 5/5 Head/Neck/Chest: normocephalic and head atraumatic Extremities: extremities normal to inspection and + amputation noted Skin: + skin atrophy and + dry skin Neurologic: awake; + abnormal touch/pain/proprioception, + abnormal sensation to monofilament and no focal motor deficits Psychiatric: A+Ox3, euthymic affect Results & Data Results & Data Vital Signs (Past 12 Hours) Vital Signs Temp Pulse Resp BP Pulse Ox O2 Del Method 03/28/24 20:01 36.7 C 84 17 117/73 94 Room Air 03/28/24 15:36 36.7 C 89 18 159/82 H 92 Room Air 03/28/24 11:30 36.5 C 75 18 117/75 96 Room Air
[2024-03-28] MEDS: POLYETHYLENE (MIRALAX) 17 GM PACK PO PRN (22:00)
[2024-03-29 07:21] LABS: Hematocrit (blood only) 20.6 % (37.0-47.0); Hemoglobin 6.2 g/dl (12.0-16.0); Mean Corpuscular Hemoglobin 28.7 pg (25.0-34.0); Mean Corpuscular Hgb Conc 30.1 g/dL (32.0-36.0); Mean Corpuscular Volume 95.4 fL (80.0-100.0); Mean Platelet Volume 9.4 fL (9.4-12.4); Platelet Count 252 K/uL (130-400); RDW Coefficient of Variation 14.9 % (11.5-14.5); RDW Standard Deviation 52.4 fL (36.4-46.3); Red Blood Count 2.16 M/uL (4.20-5.40); White Blood Count 10.31 K/ul (4.8-10.8)
[2024-03-29 07:30] LABS: BUN Creatinine Ratio 15.9 (10-20); Calcium 8.8 mg/dl (8.6-10.3); Creatinine Clr Calc Pharmacy 43.8 ml/min; Potassium 4.2 mmol/L (3.5-5.1)
[2024-03-29] MEDS ORDERED: SODIUM CHLORIDE 0.9% 100 ML IV PRN (08:20)
[2024-03-29] MEDS ORDERED: SODIUM CHLORIDE 0.9% 50 ML IV PRN (08:20)
[2024-03-29 17:16] LABS: Hematocrit (blood only) 24.8 % (37.0-47.0); Hemoglobin 7.7 g/dl (12.0-16.0)
[2024-03-29 17:30] LABS: Iron 52 mcg/dl (35-150); Total Iron Binding Cap Calc 184 mcg/dl (250-450); Transferrin (FE) Percent Satur 28 % (15-50); Unsaturated Iron Binding Cap 132 mcg/dl (155-355)
[2024-03-29] MEDS: PANTOprazole 40 MG/10 ML SYR IV SCH (20:41)
--- NOTE | 2024-03-29 22:04 | Hospitalist Progress Note ---
Date of Service March 29, 2024 Assessment & Plan (1) 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 bone: Plan: 63 y/ female with complicated PMH that presented here due to worsening pain, erythema on her right lower extremity Patient had a femoral-popliteal bypass done on recent admission (03/21) She had a right hallux amputation done on [facility] several weeks ago due to Osteomyelitis Her second toe has become gangrenous, she was seen here by Dr. Sidhu (Note reviewed) who offered transmetatarsal amputation but patient declined. She follows with Dr. Jackman on [place] Will admit to PCU for IV antibiotic and pain control s/p Zosyn and IV Vanco on ED No leukocytosis Procal elevated: 2.21 Venous duplex pending Wound culture sent Pain control IV Daptomycin and IV Zosyn S/P TMA on 03/27 Consult Vascular surgery in the setting of recent surgery : no intervention required. Keeping patien non weight bearingt over weekend. Patient required transfusion of PRBC on (2) Osteomyelitis of foot, right, acute: Plan: see above (3) S/P femoral-popliteal bypass surgery: Plan: Recent femoral-popliteal bypass continue pain medication consult Vascular surgery for further recommendation holding ASA 81 mg due to GI bleed Wound VAC in placed, (4) GERD (gastroesophageal reflux disease): Plan: Continue Famotidine (5) DM (diabetes mellitus): Plan: A1C: 10.8 (03/19) Lantus: 40 units SQ daily Novalog scale Pharmacy consulted Hold home medication (6) HTN (hypertension): Plan: Hold lisinopril due to slightly bumped creatinine. Noted the patient had elevated creatinine in the past. Increase IV fluids to 100 mL an hour since the patient had borderline hypotension overnight Continue Atorvastatin 40 mg for hyperlipidemia (7) PAD (peripheral artery disease): Plan: see above (8) Bipolar disorder: Plan: On duloxetine 60 Mg in the morning, 30 mg in the evening, Aripiprazole 2 mg Quetiapine 50 mg, trazodone 50 mg (9) SANDIP (obstructive sleep apnea): Plan: Noncompliant with CPAP (10) Asthma: Plan: continue home inhalers (11) Anemia: Plan: Hgb : 9.2 Received 1 PRBC on last admission stable Plan FEN: DM2/ HH Code status: full code DVT ppx: SCDs Dispo: PCU Admission and Anticipated Discharge Date Admission Date: March 23, 2024 Subjective 63 yo female reports no new symptoms. Physical Exam Physical Exam: General: Awake, conversant Heart: S1, S2/regular rate and rhythm, no murmur rubs or gallops Lungs: Clear to auscultation bilaterally. Normal effort Abdomen: Soft/nontender/nondistended. No hepatosplenomegaly Extremities: No clubbing/cyanosis. No edema. Right foot dressing on. Left BKA Behavior: Appropriate, cooperative Results & Data Results & Data Vital Signs (Past 12 Hours) Vital Signs Temp Pulse Pulse Resp BP BP Pulse Ox 03/29/24 21:02 36.4 C L 85 16 106/64 93 03/29/24 15:49 37.0 C 85 18 128/95 95 03/29/24 15:00 86 17 03/29/24 14:45 90 24 03/29/24 14:30 83 25 H 03/29/24 14:24 84 20 03/29/24 14:03 86 31 H 97 03/29/24 14:01 126/72 03/29/24 14:01 126/72 03/29/24 13:54 79 22 96 03/29/24 13:51 79 24 95 03/29/24 13:46 145/81 H 03/29/24 13:31 153/71 H 03/29/24 13:31 153/71 H 03/29/24 13:30 80 25 H 94 03/29/24 13:27 79 23 94 03/29/24 13:16 150/81 H 03/29/24 13:09 80 25 H 92 03/29/24 13:00 146/80 H 03/29/24 13:00 146/80 H 03/29/24 13:00 146/80 H 03/29/24 12:45 124/91 03/29/24 12:45 124/91 03/29/24 12:36 87 21 98 03/29/24 12:30 85 18 96 03/29/24 12:27 84 20 95 03/29/24 12:15 36.9 C 82 128/71 91 03/29/24 12:00 84 19 03/29/24 10:46 36.7 C 89 18 100/64 96 03/29/24 10:18 O2 Del Method 03/29/24 21:02 Room Air 03/29/24 15:49 Room Air 03/29/24 15:00 03/29/24 14:45 03/29/24 14:30 03/29/24 14:24 03/29/24 14:03 03/29/24 14:01 03/29/24 14:01 03/29/24 13:54 03/29/24 13:51 03/29/24 13:46 03/29/24 13:31 03/29/24 13:31 03/29/24 13:30 03/29/24 13:27 03/29/24 13:16 03/29/24 13:09 03/29/24 13:00 03/29/24 13:00 03/29/24 13:00 03/29/24 12:45 03/29/24 12:45 03/29/24 12:36 03/29/24 12:30 03/29/24 12:27 03/29/24 12:15 03/29/24 12:00 03/29/24 10:46 Room Air 03/29/24 10:18 Room Air PG Care Time/CCT Total # of Minutes Spent Total Time Spent with Patient: Total time spent is greater than 50% in coordination of care (as documented) at patient's floor/unit and/or counseling patient: Coding Level of Care Code 92984 SUB INP/OBS CARE 2/35MIN Diagnoses 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 bone L97.514 Osteomyelitis of foot, right, acute M86.171 S/P femoral-popliteal bypass surgery Z95.828 GERD (gastroesophageal reflux disease) K21.9 DM (diabetes mellitus) E11.9 HTN (hypertension) I10 PAD (peripheral artery disease) I73.9 Bipolar disorder F31.9 SANDIP (obstructive sleep apnea) G47.33 Asthma J45.909 Asthma complication type: unspecified Asthma persistence: unspecified Asthma severity: unspecified severity Anemia D64.9 (10) Asthma Asthma complication type: unspecified Asthma persistence: unspecified Asthma severity: unspecified severity Qualified Code(s): J45.909 - Unspecified asthma, uncomplicated
[2024-03-30] MEDS: MoRPHine SULFATE 4 MG/ML 1 ML CARP\\VIAL IV PRN (06:52)
[2024-03-30 07:22] LABS: Hematocrit (blood only) 25.4 % (37.0-47.0); Mean Corpuscular Hemoglobin 29.1 pg (25.0-34.0); Mean Corpuscular Hgb Conc 31.5 g/dL (32.0-36.0); Mean Corpuscular Volume 92.4 fL (80.0-100.0); Mean Platelet Volume 9.1 fL (9.4-12.4); Platelet Count 260 K/uL (130-400); RDW Coefficient of Variation 15.2 % (11.5-14.5); RDW Standard Deviation 51.1 fL (36.4-46.3); Red Blood Count 2.75 M/uL (4.20-5.40); White Blood Count 10.53 K/ul (4.8-10.8)
[2024-03-30 07:38] LABS: Calcium 9.3 mg/dl (8.6-10.3); Potassium 4.2 mmol/L (3.5-5.1)
[2024-03-30 07:44] LABS: BUN Creatinine Ratio 13.7 (10-20); Creatinine Clr Calc Pharmacy 42.2 ml/min
[2024-03-30] MEDS: ONDANSETRON INJ 2 MG/ML 2 ML VIAL IV PRN (08:06)
--- NOTE | 2024-03-30 13:13 | Hospitalist Progress Note ---
Date of Service March 30, 2024 Assessment & Plan (1) 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 bone: Plan: Disposition: Extensive discussion regarding discharge today. Patient does wish to be discharged home. Reviewed PT notes. Reviewed podiatry recommendations. Increased risk of wound dehiscence with excessive weightbearing, does need a protected weightbearing status using the right heel for pivot transfers. Medically stable for SNF/rehab however when working with PT she is unable to transfer with rolling walker, max assist of 1, and was unable to stand independently. Do not feel that discharge home is safe. Discussed that she should have her prosthetic brought in to allow her to have maximal engagement with physical therapy however given her max assist, full flight of stairs in her home, and high risk of wound dehiscence I do not feel that it is medically appropriate to discharge her home at this time. Unfortunately patient reports that she adamantly refuses rehab. Patient is able to verbalize back to provider the risks and benefits of returning home including fall, wound dehiscence, and permanent injury and/or from falls however continues to refuse rehab. Again reiterated recommendations for placement for patient safety, and to have her prosthetic brought in to allow for maximal engagement with PT as with this she may meet goals that she has not currently been able to however at this time leaving for d/c home rather than rehab would be AGAINST MEDICAL ADVICE. - 63 y/ female with complicated PMH that presented here due to worsening pain, erythema on her right lower extremity - Patient had a femoral-popliteal bypass done on recent admission (03/21) - She had a right hallux amputation done on [facility] several weeks ago due to Osteomyelitis - Her second toe has become gangrenous, she was seen here by Dr. Sidhu (Note reviewed) who offered transmetatarsal amputation but patient declined. She follows with Dr. Jackman on [place] Osteomyelitis of the right foot s/p right TMA Wound is well-healing Will narrow IV antibiotics to Unasyn. No growth to date from cultures. Negative MRSA screen. Will narrow antibiotics to Unasyn with target Augmentin for discharge. Would complete at least a minimum 10-day course from operative date (until 04/05/2024) No leukocytosis today. No fever/chills/sweats over (2) Osteomyelitis of foot, right, acute: Plan: see above (3) S/P femoral-popliteal bypass surgery: Plan: Wound VAC Hemoglobin uptrending, daily aspirin restarted for protection (4) GERD (gastroesophageal reflux disease): Plan: Continue Famotidine (5) DM (diabetes mellitus): Plan: A1C: 10.8 (03/19) Lantus: 40 units SQ daily Novalog scale Pharmacy consulted Hold home medication (6) HTN (hypertension): Plan: held for borderline hypotension and upper limit of normal creatinine. BP tolerable 03/30 Continue Atorvastatin 40 mg for hyperlipidemia (7) PAD (peripheral artery disease): Plan: see above (8) Bipolar disorder: Plan: On duloxetine 60 Mg in the morning, 30 mg in the evening, Aripiprazole 2 mg Quetiapine 50 mg, trazodone 50 mg (9) SANDIP (obstructive sleep apnea): Plan: Noncompliant with CPAP (10) Asthma: Plan: continue home inhalers (11) Anemia: Plan: Hgb : 9.2 Received 1 PRBC on last admission stable, uptrending 03/30 Plan FEN: DM2/ HH Code status: full code DVT ppx: SCDs Dispo: PCU Admission and Anticipated Discharge Date Admission Date: March 23, 2024 Lamine Downs is seen at the bedside. No new symptoms today. Did not not have her prosthetic brought in yet, did have difficulty ambulating and standing with PT. She reports that she has at least 6 steps to her house and normally pulls on a rail to ascend these. Extensive discussion regarding discharge today. Patient does wish to be discharged home. Reviewed PT notes. Reviewed podiatry recommendations. Increased risk of wound dehiscence with excessive weightbearing, does need a protected weightbearing status using the right heel for pivot transfers. Medically stable for SNF/rehab however when working with PT she is unable to transfer with rolling walker, max assist of 1, and was unable to stand independently. Do not feel that discharge home is safe. Discussed that she should have her prosthetic brought in to allow her to have maximal engagement with physical therapy however given her max assist, full flight of stairs in her home, and high risk of wound dehiscence I do not feel that it is medically appropriate to discharge her home at this time. Unfortunately patient reports that she adamantly refuses rehab. Patient is able to verbalize back to provider the risks and benefits of returning home including fall, wound dehiscence, and permanent injury and/or from falls however continues to refuse rehab. Again reiterated recommendations for placement for patient safety, and to have her prosthetic brought in to allow for maximal engagement with PT as with this she may meet goals that she has not currently been able to however at this time leaving home would be AGAINST MEDICAL ADVICE. Physical Exam Physical Exam: General: A&Ox3. NAD. Cooperative. HEENT: Atraumatic, normocephalic. Pulm: CTAB A&P. -wheezes, -rales, -rhonchi. Symmetrical chest rise. No increase in work of breathing. No respiratory distress. Cardiac: RRR, -mrg. Radial pulses intact and symmetrical. Abdominal: Nontender Extremities: Left BKA. Right foot with surgical dressing in place C/C/I. Ankle dorsiflexion/plantarflexion is intact without difficulty. Cap refill in the foot is less than 2 seconds Results & Data Results & Data Vital Signs (Past 12 Hours) Vital Signs Temp Pulse Resp BP Pulse Ox O2 Del Method 03/30/24 11:46 36.8 C 91 H 18 146/72 H 97 Room Air 03/30/24 07:50 37.0 C 80 18 136/81 97 Room Air 03/30/24 03:43 36.4 C L 71 15 120/90 98 Room Air PG Care Time/CCT Total # of Minutes Spent Total Time Spent with Patient: Total time spent is greater than 50% in coordination of care (as documented) at patient's floor/unit and/or counseling patient: Coding Level of Care Code 43112 SUB INP/OBS CARE 3/50MIN Diagnoses 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 bone L97.514 Osteomyelitis of foot, right, acute M86.171 S/P femoral-popliteal bypass surgery Z95.828 GERD (gastroesophageal reflux disease) K21.9 DM (diabetes mellitus) E11.9 HTN (hypertension) I10 PAD (peripheral artery disease) I73.9 Bipolar disorder F31.9 SANDIP (obstructive sleep apnea) G47.33 Asthma J45.909 Asthma complication type: unspecified Asthma persistence: unspecified Asthma severity: unspecified severity Anemia D64.9 (10) Asthma Asthma complication type: unspecified Asthma persistence: unspecified Asthma severity: unspecified severity Qualified Code(s): J45.909 - Unspecified asthma, uncomplicated
[2024-03-30] MEDS: AMPICILLIN/SULBACTAM SOD 3,000 MG/100 ML BAG IV SCH (14:23)
[2024-03-30] MEDS: DOXYCYCLINE HYCLATE 100 MG in DEXTROSE 5% MINI-B 100 ML IV SCH (15:25)
[2024-03-31 06:51] LABS: Basophils # (auto) 0.02 K/uL (0.00-0.20); Basophils % (auto) 0.2 %; Eosinophils # (auto) 0.11 K/uL (0.00-0.50); Eosinophils % (auto) 1.1 %; Hematocrit (blood only) 23.3 % (37.0-47.0); Hemoglobin 7.1 g/dl (12.0-16.0); Immature Granulocytes # (auto) 0.14 K/uL (0.01-0.20); Immature Granulocytes % (auto) 1.4 %; Lymphocytes # (auto) 1.68 K/uL (1.20-3.40); Lymphocytes % (auto) 16.7 %; Mean Corpuscular Hemoglobin 28.6 pg (25.0-34.0); Mean Corpuscular Hgb Conc 30.5 g/dL (32.0-36.0); Mean Platelet Volume 9.3 fL (9.4-12.4); Monocytes # (auto) 0.67 K/uL (0.11-0.59); Monocytes % (auto) 6.6 %; Neutrophils # (auto) 7.46 K/uL (1.40-6.50); Platelet Count 287 K/uL (130-400); RDW Coefficient of Variation 14.9 % (11.5-14.5); RDW Standard Deviation 50.9 fL (36.4-46.3); Red Blood Count 2.48 M/uL (4.20-5.40); White Blood Count 10.08 K/ul (4.8-10.8)
[2024-03-31 07:11] LABS: BUN Creatinine Ratio 14.3 (10-20); Creatinine Clr Calc Pharmacy 42.9 ml/min; Potassium 4.1 mmol/L (3.5-5.1)
[2024-03-31 07:26] LABS: Polychromasia 1+
[2024-03-31] MEDS: ADVANCED PROBIOTIC 625 MG CAPSULE PO SCH (09:32)
[2024-03-31] MEDS: LOPERAMIDE HCL 2 MG CAP PO PRN (11:01)
--- NOTE | 2024-03-31 13:39 | Pharmacy Report ---
Pharmacy Glycemic Short Note 2 - Date of Service March 31, 2024 - Glycemic Short BSG Results (Last 24 hours): 03/30/24 03/30/24 03/31/24 16:28 19:48 05:57 Glucose 111 H POC Glucose 182 H 109 H 03/31/24 03/31/24 07:16 11:15 Glucose POC Glucose 140 H 93 OUTPATIENT ANTIDIABETIC REGIMEN: * Lantus 20 units BID, Humalog 15 units with meals * A1c 10.8% 03/20/24 ASSESSMENT: 03/31: * Yareli received 62 units of insulin yesterday (40 were basal) * Fasting BSG this AM within goal range, continue current basal regimen * Trending below goal range at lunchtime, potentially caused by basal vs ov ercorrection. NovoLog parameters loosened yesterday, BSG still below goal range with lunchtime, will trial increasing goal range to allow for less correctional * POD #4 right foot metatarsal amputation, she is receiving Unasyn to treat at this time, no other glycemic stressors noted. 03/28: * BSGs yesterday were [phone] mg/dL. Received 46 units total, 30 units basal + 16 units bolus. * Fasting BSG above goal at 171 mg/dL this AM. Will increase basal back to home dose today. * Lunchtime BSG decreased significantly enough to warrant a change in carb ratio in my opinion. Will loosen carb ratio slightly. 03/27: * BSGs yesterday were: [phone] mg/dL. Received 54 units of insulin, 30 basal + 24 bolus. * Fasting BSG is 147 mg/dL this AM. Patient is NPO for a right foot transmetatarsal amputation today. Assuming a diet will be resumed later this evening. Therefore, will give a reduced dose of basal this AM and resume previous dosing at bedtime. * No adjustment to Novolog. 03/26: * BSGs [phone] mg/dL- with 40 units of lantus, 34 units of prandial/correctional * Will continue current basal/bolus parameters as BSGs are stable, <180 mg/dL 03/24: * BSG initially elevated on presentation, has downtrended * Lantus initially scaled to gauge needs inpatient (weight based stress of 2 or 3 similar to TDD stress of 1 requirements) * Novolog currently with weight based stress of 3 parameters (between TDD stress of 1 and 2) PLAN FOR INPATIENT GLYCEMIC CONTROL: * Hold outpatient oral diabetes medications * Basal insulin * Lantus 20 units SC BID * Bolus insulin * NovoLog per scale ACHS or Q6hrs while NPO * Goal Range: Low 110 mg/dL - High 160 mg/dL * Correction Factor: 25 mg/dL/unit * Nutritional / Prandial insulin per carb ratio of 1 unit per 7 grams CHO consumed
[2024-03-31] MEDS: PROMETHAZINE HCL 12.5 MG/10 ML UDP PO STA (22:28)
--- NOTE | 2024-03-31 22:34 | Hospitalist Progress Note ---
Date of Service March 31, 2024 Assessment & Plan (1) 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 bone: Plan: Disposition: Extensive discussion regarding discharge today. Patient does wish to be discharged home. Reviewed PT notes. Reviewed podiatry recommendations. Increased risk of wound dehiscence with excessive weightbearing, does need a protected weightbearing status using the right heel for pivot transfers. Medically stable for SNF/rehab however when working with PT she is unable to transfer with rolling walker, max assist of 1, and was unable to stand independently. Do not feel that discharge home is safe. Discussed that she should have her prosthetic brought in to allow her to have maximal engagement with physical therapy however given her max assist, full flight of stairs in her home, and high risk of wound dehiscence I do not feel that it is medically appropriate to discharge her home at this time. Unfortunately patient reports that she adamantly refuses rehab. Patient is able to verbalize back to provider the risks and benefits of returning home including fall, wound dehiscence, and permanent injury and/or from falls however continues to refuse rehab. Again reiterated recommendations for placement for patient safety, and to have her prosthetic brought in to allow for maximal engagement with PT as with this she may meet goals that she has not currently been able to however at this time leaving for d/c home rather than rehab would be AGAINST MEDICAL ADVICE. - 63 y/ female with complicated PMH that presented here due to worsening pain, erythema on her right lower extremity - Patient had a femoral-popliteal bypass done on recent admission (03/21) - She had a right hallux amputation done on [facility] several weeks ago due to Osteomyelitis - Her second toe has become gangrenous, she was seen here by Dr. Sidhu (Note reviewed) who offered transmetatarsal amputation but patient declined. She follows with Dr. Jackman on [place] Osteomyelitis of the right foot s/p right TMA Wound is well-healing Will narrow IV antibiotics to Unasyn. No growth to date from cultures. Negative MRSA screen. Will narrow antibiotics to Unasyn with target Augmentin for discharge. Would complete at least a minimum 10-day course from operative date (until 04/05/2024) No leukocytosis today. No fever/chills/sweats over. Continue antibiotics. Ordered orthotics on 03/31 (2) Osteomyelitis of foot, right, acute: Plan: see above (3) S/P femoral-popliteal bypass surgery: Plan: Wound VAC Hemoglobin uptrending, daily aspirin restarted for protection (4) GERD (gastroesophageal reflux disease): Plan: Continue Famotidine (5) DM (diabetes mellitus): Plan: A1C: 10.8 (03/19) Lantus: 40 units SQ daily Novalog scale Pharmacy consulted Hold home medication (6) HTN (hypertension): Plan: held for borderline hypotension and upper limit of normal creatinine. BP tolerable 03/30 Continue Atorvastatin 40 mg for hyperlipidemia (7) PAD (peripheral artery disease): Plan: see above (8) Bipolar disorder: Plan: On duloxetine 60 Mg in the morning, 30 mg in the evening, Aripiprazole 2 mg Quetiapine 50 mg, trazodone 50 mg (9) SANDIP (obstructive sleep apnea): Plan: Noncompliant with CPAP (10) Asthma: Plan: continue home inhalers (11) Anemia: Plan: Hgb : 9.2 Received 1 PRBC on last admission stable, uptrending 03/30 Plan FEN: DM2/ HH Code status: full code DVT ppx: SCDs Dispo: PCU Admission and Anticipated Discharge Date Admission Date: March 23, 2024 Subjective Patient intermittently confused. Review of Systems Review of Systems: All systems reviewed & are unremarkable except as noted in HPI & below Physical Exam Physical Exam: General: Awake, conversant Heart: S1, S2/regular rate and rhythm, no murmur rubs or gallops Lungs: Clear to auscultation bilaterally. Normal effort Abdomen: Soft/nontender/nondistended. No hepatosplenomegaly Extremities: No clubbing/cyanosis. No edema. Right foot dressing on. Left BKA Behavior: Appropriate, cooperative Results & Data Results & Data Vital Signs (Past 12 Hours) Vital Signs Temp Pulse Pulse Resp BP Pulse Ox O2 Del Method 03/31/24 19:33 37.6 C H 96 H 18 134/64 95 Room Air 03/31/24 16:22 36.6 C 93 H 17 145/73 H 95 Room Air 03/31/24 15:25 97 H 03/31/24 11:15 36.7 C 90 18 137/75 96 Room Air PG Care Time/CCT Total # of Minutes Spent Total Time Spent with Patient: Total time spent is greater than 50% in coordination of care (as documented) at patient's floor/unit and/or counseling patient: Coding Level of Care Code 03702 SUB INP/OBS CARE 2/35MIN Diagnoses 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 bone L97.514 Osteomyelitis of foot, right, acute M86.171 S/P femoral-popliteal bypass surgery Z95.828 GERD (gastroesophageal reflux disease) K21.9 DM (diabetes mellitus) E11.9 HTN (hypertension) I10 PAD (peripheral artery disease) I73.9 Bipolar disorder F31.9 SANDIP (obstructive sleep apnea) G47.33 Asthma J45.909 Asthma complication type: unspecified Asthma persistence: unspecified Asthma severity: unspecified severity Anemia D64.9 (10) Asthma Asthma complication type: unspecified Asthma persistence: unspecified Asthma severity: unspecified severity Qualified Code(s): J45.909 - Unspecified asthma, uncomplicated
[2024-04-01 07:51] LABS: Basophils # (auto) 0.02 K/uL (0.00-0.20); Basophils % (auto) 0.3 %; Eosinophils # (auto) 0.08 K/uL (0.00-0.50); Eosinophils % (auto) 1.2 %; Hematocrit (blood only) 25.2 % (37.0-47.0); Hemoglobin 7.6 g/dl (12.0-16.0); Immature Granulocytes # (auto) 0.11 K/uL (0.01-0.20); Immature Granulocytes % (auto) 1.6 %; Lymphocytes # (auto) 0.81 K/uL (1.20-3.40); Mean Corpuscular Hemoglobin 28.5 pg (25.0-34.0); Mean Corpuscular Hgb Conc 30.2 g/dL (32.0-36.0); Mean Corpuscular Volume 94.4 fL (80.0-100.0); Mean Platelet Volume 9.1 fL (9.4-12.4); Monocytes # (auto) 0.45 K/uL (0.11-0.59); Monocytes % (auto) 6.6 %; Neutrophils % (auto) 78.3 %; Nucleated RBC # (auto) 0.02 K/uL (0.00-0.12); Nucleated RBC % (auto) 0.3 %; Platelet Count 294 K/uL (130-400); RDW Coefficient of Variation 15.1 % (11.5-14.5); RDW Standard Deviation 52.3 fL (36.4-46.3); Red Blood Count 2.67 M/uL (4.20-5.40); White Blood Count 6.77 K/ul (4.8-10.8)
[2024-04-01 07:58] LABS: BUN Creatinine Ratio 15.6 (10-20); C Reactive Protein 12.74 mg/dl (0-0.5); Calcium 8.9 mg/dl (8.6-10.3); Creatinine Clr Calc Pharmacy 41.6 ml/min; Potassium 3.3 mmol/L (3.5-5.1)
[2024-04-01] MEDS: LANTUS PER UNIT CHARGE SC ONE (08:01)
[2024-04-01 08:30] LABS: Polychromasia 1+
[2024-04-01 12:12] VITALS: TEMP 97.3
[2024-04-01 15:29] VITALS: BP 116/68; PULSE 101; RESP 23; O2SAT 93
[2024-04-01] MEDS: AMOXICILLIN/CLAVULANATE 875 MG TAB PO ONE (18:31)
[2024-04-01] MEDS ORDERED: LANTUS PER UNIT CHARGE SC SCH (21:00)
--- NOTE | 2024-04-02 10:37 | Coding Query ---
CODING QUERY To promote full compliance with coding requirements relating to patient care, provider participation is requested in all cases of resort desk clerk uncertainty. Please assist us with the question(s) below: HP--hx of CKD 2 (no documented baseline cr) Creatinine 03/23 --1.08 03/24--1.21 03/25---1.4 03/24 IM PN-Noted mild bump in creatinine. Will hydrate gently. Discontinue lisinopril 03/25 + 03/26 IM PN-Hold lisinopril due to slightly bumped creatinine. Noted the patient had elevated creatinine in the past. Increase IV fluids to 100 mL an hour Please clarify the meaning of SANYA. SANYA is not a valid abbreviation. Thank you. ( x ) Acute Kidney Injury ( ) Acute Kidney Insufficiency ( ) CKD ( ) Other (Specify): Principal Diagnosis: "that condition established after study, to be chiefly responsible for occasioning the admission of the patient to the hospital for care." Co-Existing Principal Diagnosis: "when two or more diagnoses equally meet the criteria for principal diagnosis as determined by the circumstances of admission, diagnostic work up, and/or therapy provided, and the Alphabetic Index, Tabular List, or another coding guideline does not provide sequencing direction, any one of the diagnoses may be sequenced first." "When the physician has documented what appears to be a current diagnosis in the body of the record, but has not included the diagnosis in the final diagnostic statement, the physician should be asked whether the diagnosis should be added." (Source Coding [facility] 2 QTR90. p3-4) REGINE
--- NOTE | 2024-04-05 12:04 | Operative Report ---
Post Operative Report Pre & Post Diagnosis Operation Date: 03/27/24 11:45 Pre-Op Diagnosis: Osteomyelitis of foot, right Post-Op Diagnosis: Osteomyelitis of foot, right I identified the patient and participated in the time-out.: Yes Procedure Operation Date: 03/27/24 11:45 Actual Procedures p Right Foot Transmetatarsal Amputation(Right) - Dean Sidhu DPM Surgeon Dean Sidhu DPM Die Mounter None Estimated Blood Loss 75 Findings Consistent with Post-Op Diagnosis Evidence of continued peripheral arterial disease with minimal bleeding during the duration of the case. She did have 50-75 mL of bleeding, though given the nature of this amputation, more would be expected. No proximal extension of infection was noted and prrimary closure was able to be obtained. Specimens Right forefoot was sent for gross pathology with customer response representative samples of the second metatarsal sent for proximal margin testing. Further, represent a samples of the bone was sent for bone culture andd sensitivity testing. Anesthesia Type MAC Complications none Disposition Accompanied Patient To Recovery: Yes Disposition: Recovery Room Indications This patient is a recent hospital patient of ours who was initially evaluated last weeek. She had plans of seeking treatment with her primary development educator in [facility]. It was noted she would require transmetatarsal amputation at that time given the level of ostteomyelitis present on admission as well as her necrosis of her second toe. Still, her goal was to seek treatment for this closer to home. After her discharge home, she re-presented to the hospital after failing to follow up with her local physician. Now, she is amenable to our surgical interrvention. Her symptoms are mostly unchanged, though she does have increasing evidence of acute infection to the amputation of the first metatarsal phalangeal joint. Preoperative instructions, postop instructions, relative risks, and outcomes were all discussed. Consent was obtained for this right foot transmetatarsal amputation. All questions were answered. Description of Procedure The patient was brought to the operating room placed on the operating table in the supine position. Following Administration of IV sedation, local analgesia was obtained utilizing 20 cc of half percent Marcaine plain in a local block fashion. The right lower extremity was then scrubbed, prepped, and draped in the usual aseptic manner. No tourniquet was utilized during the duration of the case given her vascular state attention was directed to the right forefoot where2 converging semielliptical incisions were made circumferentially around the right forefoot. This wwas performed just proximal to the proximal extent of the nonviable, necrotic ulceration at the dorsal aspect of the second metatarsal phalangeal joint. The incisions were carried dowwn directly to the level of the metatarsals. A garcia elevator was utilized to reflect the periosteal tissue from the surgical necks of the metatarsals. A sagittal saw was utilized to resect the metatarsals at the surgical neck individually. Care was taken to maintain the parabola of the forefoot. Once all metatarsals were transected, a scalpel was utilized to resect the remaining soft tissue and disarticulate the remaining forefoot from the remainder of the foot. Electrocautery was utilized to prevent significant blood loss through the forefoot, though minimal bleeding was noted. The incision was flushed with copious amounts of sterile saline and any evidence of interposing extrinsic tendons were retracted distally and transected to prevent impingement on the healing surgical site. All nonviable tissue was again resected and another flush was performed. The incision was closed utilizing 2-0 nylon in a alternating simple interrupted and horizontal mattress pattern. No significant dog ear flaps were noted upon closure. For pathology testing, customer response representative samples of the first metatarsal, which was most clinically infected, were sent for bone culture testing. Proximal margin pathology was obtained from the distal aspect of the second metatarsal after resecting the forefoot. Finally, the remainder of the forefoot was sent for gross pathology testing. The incision was dressed with Xeroform gauze, 4 x 4 gauze, Kerlix, and ABD, and an Davey wrap. The patient tolerated the procedure well and was transferred to the recovery room with vital signs stable and vascular status intact of the feet. Following postoperative monitoring, the patient will be given prescriptions and instructions were discussed with her prior to surgery and sent back to the floor for further follow-up over the next week or so. I attest to the content of the Intraoperative Record and any orders documented therein. Any exceptions are noted below.
--- NOTE | 2024-04-05 23:30 | Discharge Summary ---
Discharge Summary Date of Service April 01, 2024 Principal Dx & Hospital Course #1 = Principal Diagnosis (1) 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 bone: Disposition: Extensive discussion regarding discharge today. Patient does wish to be discharged home. Reviewed PT notes. Reviewed podiatry recommendations. Increased risk of wound dehiscence with excessive weightbearing, does need a protected weightbearing status using the right heel for pivot transfers. Medically stable for SNF/rehab however when working with PT she is unable to transfer with rolling walker, max assist of 1, and was unable to stand independently. Do not feel that discharge home is safe. Discussed that she should have her prosthetic brought in to allow her to have maximal engagement with physical therapy however given her max assist, full flight of stairs in her home, and high risk of wound dehiscence I do not feel that it is medically appropriate to discharge her home at this time. Unfortunately patient reports that she adamantly refuses rehab. Patient is able to verbalize back to provider the risks and benefits of returning home including fall, wound dehiscence, and permanent injury and/or from falls however continues to refuse rehab. Again reiterated recommendations for placement for patient safety, and to have her prosthetic brought in to allow for maximal engagement with PT as with this she may meet goals that she has not currently been able to however at this time leaving for d/c home rather than rehab would be AGAINST MEDICAL ADVICE. - 63 y/ female with complicated PMH that presented here due to worsening pain, erythema on her right lower extremity - Patient had a femoral-popliteal bypass done on recent admission (03/21) - She had a right hallux amputation done on [facility] several weeks ago due to Osteomyelitis - Her second toe has become gangrenous, she was seen here by Dr. Sidhu (Note reviewed) who offered transmetatarsal amputation but patient declined. She follows with Dr. Jackman on [place] Osteomyelitis of the right foot s/p right TMA Wound is well-healing Will narrow IV antibiotics to Unasyn. No growth to date from cultures. Negative MRSA screen. Will narrow antibiotics to Unasyn with target Augmentin for discharge. Would complete at least a minimum 10-day course from operative date (until 04/05/2024) No leukocytosis today. No fever/chills/sweats over. Continue antibiotics. Ordered orthotics on 03/31 Patient signed out against medical advice on 04/01. Daughter accepted to takre patient home against medical advice. Antibiotics ordered. (2) Osteomyelitis of foot, right, acute: see above (3) S/P femoral-popliteal bypass surgery: Wound VAC Hemoglobin uptrending, daily aspirin restarted for protection (4) GERD (gastroesophageal reflux disease): Continue Famotidine (5) DM (diabetes mellitus): A1C: 10.8 (03/19) Lantus: 40 units SQ daily Novalog scale Pharmacy consulted Hold home medication (6) HTN (hypertension): held for borderline hypotension and upper limit of normal creatinine. BP tolerable 03/30 Continue Atorvastatin 40 mg for hyperlipidemia (7) PAD (peripheral artery disease): see above (8) Bipolar disorder: On duloxetine 60 Mg in the morning, 30 mg in the evening, Aripiprazole 2 mg Quetiapine 50 mg, trazodone 50 mg (9) SANDIP (obstructive sleep apnea): Noncompliant with CPAP (10) Asthma: continue home inhalers (11) Anemia: Hgb : 9.2 Received 1 PRBC on last admission stable, uptrending 03/30 Admission HPI Per Admitting Provider Yareli is 63 y/o female with complicated PMH of DM, HTN, PAD, Bipolar syndrome, CAD, Stage II CKD, Asthma, SANDIP, Hyperlipidemia, chronic anemia, Hyperlipidemia that presented here due to worsening erythema and pain due to worsening pain, erythema on her right lower extremity. Patient was recently admitted for a femoral-popliteal bypass done on recent admission. Discharge on 03/21. She had a right hallux amputation done [facility] several weeks ago due to infected wound that resulted in osteomyelitis. She follows with Dr. Jackman on [place]. Patient was seen by automation controls engineer Podiatry on last admission who recommended transmetatarsal amputation but patient refused at that moment. She wanted to be done by her surgeon at [place]. Patient refers 8/10 in pain scale on arrival. Patient is unable to take aspirin due to GI bleed. No antiplatelet or anticoagulation therapy. Patient currently smoke one and half pack. Patient refers nausea and chills. Denied any SOB, chest pain, palpitations, vomiting, diarrhea, abdominal pain or any other symptoms. ED course: IV Vancomycin and IV Zosyn. Wound culture taken. Fentanyl for pain control. Venous duplex pending Discharge Exam General: Awake, conversant Heart: S1, S2/regular rate and rhythm, no murmur rubs or gallops Lungs: Clear to auscultation bilaterally. Normal effort Abdomen: Soft/nontender/nondistended. No hepatosplenomegaly Extremities: No clubbing/cyanosis. No edema. Right foot dressing on. Left BKA Discharge Plan Discharge Items Patient Disposition: Against Medical Advice Reason For Visit: CELLULITIS Activity: As commented below Non-emergency contact: Primary Care Provider Follow-up/Referrals: Gaby Chi PA-C [Primary Care Provider] - Addtl Education Professional Provider Instructions: She can use her right heel to pivot for transfers - Increased risk of wound complications with extended Weight Bearing - Can change dressing every 2-3 days -Recommend transfer to SNF/Rehab without the foot slowing down that process. She should followup with Dr. Sidhu as soon as possible Also followup with PCP. Pending Studies at Discharge: No Stand-Alone Forms: My [employer], Smoking Cessation Medications and DC Order Prescriptions: New amoxicillin-pot clavulanate 875-125 mg tablet 1 tab PO BID Qty: 10 0RF Continued aripiprazole [Abilify] 2 mg tablet 2 mg PO DAILY bupropion HCl [Wellbutrin SR] 150 mg tablet sustained-release 12 hr 225 mg PO BID Farxiga 10 mg tablet 10 mg PO DAILY Trelegy Ellipta 100-62.5-25 mcg blister with device 1 inh inhalation DAILY hydroxyzine HCl 25 mg tablet 25 mg PO TID PRN (Reason: Itching) (DME) OneTouch Ultra Blue Test Strip Strip See Rx Instructions .ROUTE .MEDSUPPLY Qty: 10 Rx Instructions: Test blood sugars three times a day (DME) lancets [OneTouch UltraSoft Lancets] [facility] [place] Instructions .ROUTE .MEDSUPPLY Qty: 50 Rx Instructions: Test blood sugars three times a day Lantus Solostar U-100 Insulin 100 unit/mL (3 mL) insulin pen 20 units SQ BID (DME) pen needle, diabetic [BD Ultra-Fine Mini Pen Needle] 31 gauge x 3/16" needle See Rx Instructions .ROUTE .MEDSUPPLY Qty: 30 Rx Instructions: Use 6 per day as directed with insulin acetaminophen [Tylenol Extra Strength] 500 mg tablet 1,000 mg PO Q12H PRN (Reason: Pain) Hold Instructions: Hold while taking oxycodone/acetaminophen. May restart when no longer taking oxycodone/acetaminophen albuterol sulfate [Ventolin HFA] 90 mcg/actuation HFA aerosol inhaler 2 puff Inhalation Q6H PRN (Reason: Shortness Of Breath Or Wheezing) ondansetron 4 mg Tablet,Disintegrating 4 mg PO Q6H PRN (Reason: n/v) atorvastatin 40 mg Tablet 40 mg PO DAILY lamotrigine 150 mg Tablet 150 mg PO QAM loperamide 2 mg Capsule 2 mg PO Q4H PRN (Reason: Diarrhea) Rx Instructions: administer after each loose stool until symptoms controlled; do not exceed 8 mg per 24 hrs famotidine 20 mg Tablet 20 mg PO BID trazodone 100 mg Tablet 50 mg PO HS duloxetine [Cymbalta] 60 mg Capsule,Delayed Release(Dr/Ec) 60 mg PO DAILY quetiapine 50 mg Tablet 50 mg PO HS duloxetine 30 mg Capsule, Delayed Rel Sprinkle 30 mg PO DAILY insulin lispro [Humalog KwikPen Insulin] 100 unit/mL Insulin Pen 15 unit SUBCUT WM oxycodone-acetaminophen [Percocet] 5-325 mg Tablet 1 - 2 tab PO Q6H PRN (Reason: pain) Qty: 30 0RF Discontinued lisinopril 10 mg tablet 20 mg PO DAILY doxycycline hyclate 100 mg Tablet 100 mg PO BID Discharge Orders: Left Against Medical Advice (Routine); Ordered 04/01/24 Ordered By: Dustin Patel Admission Data Admit Date/Time: 03/23/24 21:18 Attending Provider: Dustin Patel Admit Provider: Joy Bergman Primary Care Provider: Gaby Chi Other Providers: Kevin Romero; Alvin Espinoza; Dean Sidhu Hospital Stay Data Consultations 03/23/24 20:45 ED Decision to Admit Stat 03/24/24 08:00 Consult Vascular Surgery Routine 03/26/24 08:22 Consult Podiatry Routine Procedures Performed Operation Date: 03/27/24 11:45 Actual Procedures p Right Foot Transmetatarsal Amputation(Right) - Dean Sidhu DPM Diagnostic Imagining Performed 03/23/24 17:58 US venous doppler LE RT Stat Pending Results Patient Have Any Pending Studies at Discharge: No Discharge Instructions Given to Patient (Per Discharging Provider) She can use her right heel to pivot for transfers. - Increased risk of wound complications with extended Weight Bearing - Can change dressing every 2-3 days. - recommended transferring to Rehab without the foot slowing down that process. Please see PCP this week. Also call Dr. Dean Sidhu's office for followup. Total Time Total Time Spent Total Time Spent (In Minutes): 35 Coding Level of Care Code 90404 INP/OBS DISCH >30 MIN Diagnoses 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 bone L97.514 Osteomyelitis of foot, right, acute M86.171 S/P femoral-popliteal bypass surgery Z95.828 GERD (gastroesophageal reflux disease) K21.9 DM (diabetes mellitus) E11.9 HTN (hypertension) I10 PAD (peripheral artery disease) I73.9 Bipolar disorder F31.9 SANDIP (obstructive sleep apnea) G47.33 Asthma J45.909 Asthma complication type: unspecified Asthma persistence: unspecified Asthma severity: unspecified severity Anemia D64.9
== END 2024-04-01 18:37 | disposition left against medical advice (07) | DRG 240 ==
LOC: ED 17:26 → SUATTDRO 21:18 → 2E 21:18
DX: Z79.4 Long term (current) use of insulin; L97.514 Non-pressure chronic ulcer of other part of right foot with necrosis of bone; E11.42 Type 2 diabetes mellitus with diabetic polyneuropathy; I25.2 Old myocardial infarction; G47.33 Obstructive sleep apnea (adult) (pediatric); E11.69 Type 2 diabetes mellitus with other specified complication; Z88.5 Allergy status to narcotic agent; Z89.512 Acquired absence of left leg below knee; D64.9 Anemia, unspecified; L03.115 Cellulitis of right lower limb; J45.909 Unspecified asthma, uncomplicated; E11.22 Type 2 diabetes mellitus with diabetic chronic kidney disease; N17.9 Acute kidney failure, unspecified; E11.52 Type 2 diabetes mellitus with diabetic peripheral angiopathy with gangrene; E11.621 Type 2 diabetes mellitus with foot ulcer; I12.9 Hypertensive chronic kidney disease with stage 1 through stage 4 chronic kidney disease, or unspecified chronic kidney disease; E78.5 Hyperlipidemia, unspecified; N18.2 Chronic kidney disease, stage 2 (mild); Z89.411 Acquired absence of right great toe; I70.261 Atherosclerosis of native arteries of extremities with gangrene, right leg; Z79.899 Other long term (current) drug therapy; F17.210 Nicotine dependence, cigarettes, uncomplicated; Z79.51 Long term (current) use of inhaled steroids; F31.9 Bipolar disorder, unspecified; Z88.6 Allergy status to analgesic agent; M86.171 Other acute osteomyelitis, right ankle and foot; Z91.199 Patient's noncompliance with other medical treatment and regimen due to unspecified reason; K21.9 Gastro-esophageal reflux disease without esophagitis

== ENCOUNTER 2025-01-10 14:42 | Observation (INO) ==
--- NOTE | 2025-01-10 14:45 | Emergency Department Note ---
Impression & Plan Changes in vision, Stroke-like symptoms, Acute hyperkalemia ED Provider Note NAME: MARIELA RUBY AGE: 64 SEX: F : 1960 ARRIVES VIA: Ambulance INFORMANT: Patient, ED PROVIDER(S): Darron Levin MD CHIEF COMPLAINT: Stroke symptoms MEDICAL DECISION MAKING: I received a medical command call prior to arrival about patient's condition which was that the patient had right sided deficits and vision loss. IV was established and blood work was obtained. Patient maintaining her airway CT head and angiography's were ordered. Patient's blood work with a normal white count hemoglobin at 9.3. The patient's platelet count is unremarkable. Kidney function with a creatinine of 1.39. Blood sugar of 382. The patient's potassium was elevated at 5.9. The patient was ordered IV insulin, IV fluids 500 cc bolus, and calcium gluconate 1 g. No obvious EKG changes. Troponin negative. Patient CT angiography's of the head and neck were negative. Chest x-ray is clear. Patient's CT angiography of the neck did report moderate stenosis of the proximal left subclavian. I did speak with Dr. Peralta with [facility] who did evaluate the patient and did not recommend any transfer but recommended baby aspirin and Plavix 300. I did speak with the on-call hospital service Dr. Slater and the patient was admitted to the medicine service. Critical Care: I have personally spent 42 minutes of critical care time in direct management of this patient. This includes bedside care, interpretation of diagnostic studies, and testing, discussion with consultants, patient, and family members, and other require inpatient management activities. This 42 minutes is in excess of all separately billable procedures. Discussion w/ other healthcare providers: Dr. Peralta [facility] Dr. Slater inpatient medicine service Prior /Outside records reviewed: None Differential diagnosis: Stroke, mini stroke, mass, ICH, CRAO CRVO, retinal detachment infection, dehydration, metabolic abnormality, hypo/hyperglycemia, electrolyte imbalance, anemia, UTI, pneumonia, thyroid dysfunction among others were considered. Diagnostics, as interpreted by me: ECG: Normal sinus rhythm, rate 91, normal intervals, normal axis T wave version lead III no obvious ST elevations. Cardiac monitoring: An order was placed for continuous cardiac monitoring. The monitor shows a rate of 92 with sinus rhythm. Patient was placed on pulse oximetry Medical decision rules: None Imaging studies: I informally interpreted the patient's chest x-ray does not show evidence pneumonia or pneumothorax with formal report to follow. HPI: Patient presents due to concern for strokelike symptoms regarding around 10:00. The patient was having right-sided head neck and chest pain. Patient reportedly did have associated weakness of the right arm as well as vision loss in the right eye. Patient reportedly does not wear contact lenses or corrective lenses. Patient reportedly did a fall 2 weeks ago but does not take her blood thinning medications. Patient reportedly did hit her head at that time. PAST MEDICAL HISTORY: See Below PAST SURGICAL HISTORY: See Below SOCIAL HISTORY: See Below HOME MEDICATIONS: See Below ALLERGIES: See Below VITALS: See Below PHYSICAL EXAMINATION: GENERAL: NAD, non-toxic. EYE EXAM: Normal conjunctiva. PERRL, no anisocoria and EOM's grossly intact w/o pain. 20/30 in the left eye, 20/70 in the right eye. No obvious visual field deficits. OROPHARYNX: Moist mucus membranes, grossly normal dentition. NECK: Trachea midline, no stridor. LUNGS: Clear to auscultation. Normal chest wall mechanics. HEART: NSR, no MRG. ABDOMEN: Abdomen soft, non-tender, no masses, no rebound or guarding. BACK: No CVA TTP. SKIN: No rashes and no bruising. UPPER EXTREMITIES: Upper extremities are grossly normal. LOWER EXTREMITIES: Left BKA. NEURO EXAM: Awake and alert, follows commands, no obvious facial asymmetry, normal speech, moves all 4 extremities. Past Med/Surg History Problem List (Updated 01/11/25 @ 00:06 by Darron Levin MD) Acute hyperkalemia (Acute) Stroke-like symptoms (Acute) Changes in vision (Acute) TIA (transient ischemic attack) Smoking greater than 40 pack years Proteinuria Vitamin D deficiency Stage 3b chronic kidney disease Cellulitis of right leg (Acute) Anemia SANDIP (obstructive sleep apnea) 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 bone (Acute) Osteomyelitis of foot, right, acute (Acute) Acute blood loss as cause of postoperative anemia S/P femoral-popliteal bypass surgery (Acute) GERD (gastroesophageal reflux disease) PAD (peripheral artery disease) Insulin dependent diabetes mellitus Chronic lower back pain (Acute) Cervical strain (Acute) Depression (Chronic) Arthritis (Chronic) Asthma (Chronic) DM (diabetes mellitus) (Chronic) HTN (hypertension) (Chronic) Medical History Osteomyelitis Amputation of left lower extremity below knee Amputated toe of right foot Hx of sepsis treated at [facility] 01/2024? possible sepsis? Poor historian Osteoarthritis History of pressure ulcer right foot (2020?) treated with medication. pt reports resolved. Gout Degenerative disc disease Chronic back pain History of kidney stones no surgical intervention, passed on own Chronic kidney disease stage 2 History of bleeding ulcers Diabetes mellitus, type 2 Hx of cancer of uterus (1987) Chronic sinusitis Bipolar disorder Depression Anxiety History of migraine Peripheral neuropathy Hypertension History of pneumonia ~2013 last episode (not hospitalized) Chronic obstructive pulmonary disease Asthma PAD (peripheral artery disease) S/P arteriogram of extremity Hx of myocardial infarction "years ago" no surgical intervention. no gym attendant Sleep apnea non-compliant with machine - no machine Surgical History History of section x1 History of dilatation and curettage History of below knee amputation left History of cholecystectomy History of tooth extraction History of esophagogastroduodenoscopy (EGD) History of colonoscopy History of breast biopsy History of cataract surgery Bilateral History of arthroscopic knee surgery Meniiscectomy History of appendectomy History of total abdominal hysterectomy Family History Mother Diabetes Dementia Heart disease Thyroid disease Father Diabetes Heart disease Stroke Brother Diabetes Hypertension Sister Diabetes Hypertension Uncle Cancer of neck Family/Other Thyroid disease Other No family history of adverse response to anesthesia No pertinent family history Social History Smoking Status: Current every day smoker Tobacco Type: Cigarettes packs per day: 1; Cigarettes Per Day: 30 cigarettes or 1.5 packs; Second Hand Exposure: No; Do You Dip or Chew Tobacco: No; Hx Alcohol Use: No Hx Substance Use: No Preferred Language: Micronesian Communication Ability: Impaired Visual Impairment: No Limitations Hearing Ability: Normal Vehicle Sales Professional Required: No Beliefs That Will Affect Care: None marital status: Life Partner Current Living Situation: Significant Other Current Living Situation Comment: with significant other & 2 dogs & 1 iguana and 1 little bird current occupational status: disabled Feels Safe at Home: Yes Diet: regular Dental Care, Regularly: No Physical Activity Frequency: Does not Exercise Seatbelt Use: always Do you think of yourself as: straight/heterosexual Gender Identity: Female Assistive Devices: Prosthesis, Walker and Wheelchair Allergies Allergies Allergy/AdvReac Type Severity Reaction Status Date / Time strawberry Allergy Intermediate Hives Verified 01/10/25 16:20 tramadol Allergy Intermediate itchy Verified 01/10/25 16:20 metformin AdvReac Severe severe GI Verified 01/10/25 16:20 distress aspirin AdvReac Intermediate rectal Verified 01/10/25 16:20 bleeding codeine AdvReac Intermediate dizziness Verified 01/10/25 16:20 naproxen AdvReac Unknown avoids due Verified 01/10/25 16:20 to kidney disease stage 2 Home Meds Home Medications Medication Instructions Recorded Confirmed albuterol sulfate 90 mcg/actuation 2 puff inhalation .Q4-6H PRN 03/14/18 01/10/25 aerosol inhaler (Ventolin HFA) Shortness Of Breath Or Wheezing acetaminophen 500 mg tablet 1,000 mg PO Q12H PRN Pain 06/21/19 01/10/25 (Tylenol Extra Strength) blood sugar diagnostic (OneTouch #10 ea 06/21/19 10/22/24 Ultra Blue Test Strip) hydroxyzine HCl 25 mg tablet 25 mg PO TID PRN Itching 06/21/19 01/10/25 insulin glargine 100 unit/mL (3 28 units subcut BID 06/21/19 01/10/25 mL) subcutaneous pen (Lantus Solostar U-100 Insulin) lancets (OneTouch UltraSoft #50 ea 06/21/19 10/22/24 Lancets) pen needle, diabetic 31 gauge x #30 ea 06/21/19 10/22/24 3/16" (BD Ultra-Fine Mini Pen Needle) aripiprazole 2 mg tablet (Abilify) 2 mg PO DAILY 05/11/23 01/10/25 bupropion HCl 150 mg tablet,12 hr 150 mg PO BID 05/11/23 01/10/25 sustained-release (Wellbutrin SR) fluticasone fur. 100 mcg-umeclid 1 inh inhalation DAILY 05/11/23 01/10/25 62.5 mcg-vilant 25 mcg inhalat.powder (Trelegy Ellipta) famotidine 20 mg tablet 20 mg PO BID 03/09/24 01/10/25 lamotrigine 150 mg tablet 150 mg PO QAM 03/09/24 01/10/25 ondansetron 4 mg disintegrating 4 mg PO Q8H PRN n/v 03/09/24 01/10/25 tablet quetiapine 50 mg tablet 50 mg PO HS 03/09/24 01/10/25 trazodone 100 mg tablet 50 mg PO HS 03/09/24 01/10/25 empagliflozin 10 mg tablet 10 mg PO DAILY 10/12/24 01/10/25 (Jardiance) fexofenadine 180 mg tablet 180 mg PO DAILY 10/12/24 01/10/25 (Eva Allergy) furosemide 20 mg tablet 20 mg PO Q OTHER DAY 10/12/24 01/10/25 linaclotide 145 mcg capsule 145 mcg PO DAILY 10/12/24 01/10/25 (Linzess) mupirocin 2 % topical ointment 1 applic topical BID PRN Skin 10/12/24 01/10/25 Irritation sumatriptan succinate 25 mg tablet See Rx Instructions PO .COMPLEX 10/12/24 01/10/25 (Imitrex) insulin lispro 100 unit/mL 15 unit subcut TIDM 10/22/24 01/10/25 subcutaneous pen (Humalog KwikPen (U-100) Insulin) atorvastatin 20 mg tablet 20 mg PO DAILY 01/10/25 01/10/25 duloxetine 60 mg capsule,delayed 60 mg PO DAILY 01/10/25 01/10/25 release lisinopril 10 mg tablet 20 mg PO DAILY 01/10/25 01/10/25 Results & Data (ED) Vital Signs Vital Signs - 24 hr 01/10/25 14:42 01/10/25 15:26 01/10/25 15:36 Temperature 36.6 C Temperature Source Oral Pulse Rate 92 H 93 H 93 H Pulse Rate [Apical] Pulse Rate from SpO2 Sensor 93 H Respiratory Rate 19 24 Blood Pressure 132/95 139/75 Blood Pressure [Left Arm] Blood Pressure Mean 107 96 Blood Pressure Mean [Left Arm] Blood Pressure Position Semi-fowlers Pulse Oximetry 97 97 Oxygen Delivery Method Room Air Sepsis Recent Fever Within 48 Hours No Sepsis New/Unexplained Change in Mental Status No Sepsis Action Taken by Nursing No Action Required 01/10/25 16:15 Temperature Temperature Source Pulse Rate Pulse Rate [Apical] 90 Pulse Rate from SpO2 Sensor Respiratory Rate 18 Blood Pressure Blood Pressure [Left Arm] 151/87 H Blood Pressure Mean Blood Pressure Mean [Left Arm] 108 Blood Pressure Position Pulse Oximetry 98 Oxygen Delivery Method Sepsis Recent Fever Within 48 Hours Sepsis New/Unexplained Change in Mental Status Sepsis Action Taken by Retirement Medications Current Medication List: was personally reviewed by me Laboratory Data Attestation: I reviewed the patient's lab results. 01/10/25 15:12 01/10/25 22:52 Lab Results 01/10/25 01/10/25 Range/Units 15:12 15:17 WBC 8.72 (4.8-10.8) K/ul RBC 3.31 L (4.20-5.40) M/uL Hgb 9.3 L (12.0-16.0) g/dl Hct 29.3 L (37.0-47.0) % MCV 88.5 (80.0-100.0) fL MCH 28.1 (25.0-34.0) pg MCHC 31.7 L (32.0-36.0) g/dL RDW Std Deviation 44.7 (36.4-46.3) fL RDW Coeff of Iza 13.8 (11.5-14.5) % Plt Count 167 (130-400) K/uL MPV 9.6 (9.4-12.4) fL Immature Gran % (Auto) 1.5 % Neut % (Auto) 66.3 % Lymph % (Auto) 24.8 % Butts % (Auto) 6.4 % Eos % (Auto) 0.9 % Baso % (Auto) 0.1 % Neut # (Auto) 5.78 (1.40-6.50) K/uL Lymph # (Auto) 2.16 (1.20-3.40) K/uL Butts # (Auto) 0.56 (0.11-0.59) K/uL Eos # (Auto) 0.08 (0.00-0.50) K/uL Baso # (Auto) 0.01 (0.00-0.20) K/uL Immature Gran # (Auto) 0.13 (0.01-0.20) K/uL PT 9.7 (9.0-12.0) Seconds INR 0.9 (0.9-1.1) APTT 24 (21-31) Seconds PTT Ratio 0.9 Sodium 131 L (136-145) mmol/L Potassium 5.9 H (3.5-5.1) mmol/L Chloride 100 (98-107) mmol/L Carbon Dioxide 25 (21-32) mmol/L Anion Gap 6 (3-11) BUN 40 H (6-23) mg/dl Creatinine 1.39 H (0.6-1.2) mg/dl Est Cr Clr Drug Dosing 36.6 ml/min eGFR 42.11 BUN/Creatinine Ratio 28.8 H (10-20) Glucose 382 H* (70-99(Fasting)) mg/dl POC Glucose 387 H* (70-99) mg/dl Calcium 8.1 L (8.6-10.3) mg/dl Magnesium 1.9 (1.7-2.4) mg/dl Total Bilirubin 0.2 (0.2-1.0) mg/dl AST 10 L (13-39) U/L ALT 10 (7-52) U/L Alkaline Phosphatase 71 (34-104) U/L Troponin I High Sens 9.5 (0-14) pg/ml Total Protein 5.4 L (6.0-8.3) gm/dl Albumin 2.8 L (3.4-5.0) gm/dl Globulin 2.6 (2.5-4.0) gm/dl Albumin/Globulin Ratio 1.1 (0.9-2) Administered Medications Acetaminophen (Acetaminophen 325 Mg Tab) 650 mg PO Q4H PRN PRN Reason: Pain or Fever Stop: 02/09/25 16:49 Last Admin: 01/10/25 19:31 Dose: 650 mg Documented By: NENA Bupropion HCl (Bupropion Sr 150 Mg Tabcr) 150 mg PO BID [facility] Stop: 02/09/25 20:59 Last Admin: 01/10/25 21:14 Dose: 150 mg Documented By: NENA Famotidine (Famotidine 20 Mg Tab) 20 mg PO BID [facility] Stop: 02/09/25 20:59 Last Admin: 01/10/25 21:21 Dose: 20 mg Documented By: NENA Sodium Chloride (Nss) 1,000 mls @ 80 mls/hr IV .[id number] HU Stop: 01/13/25 16:44 Last Admin: 01/10/25 18:42 Dose: 80 mls/hr Documented By: CHITRA Insulin Aspart (Insulin Aspart Per Unit Charge) 0 units SC ACHS HU Stop: 02/09/25 20:59 Last Admin: 01/10/25 21:10 Dose: 10 units Documented By: NENA Co-signed By: [facility] Insulin Glargine (Lantus Per Unit Charge) 28 units SC BID HU Stop: 02/09/25 20:59 Last Admin: 01/10/25 21:21 Dose: 28 units Documented By: NENA Co-signed By: [facility] Miscellaneous (Order Awaiting Action: Saumya) 1 each N/A QS HU Stop: 02/10/25 00:00 Last Admin: 01/10/25 23:27 Dose: Not Given Documented By: NENA Quetiapine Fumarate (Quetiapine Fumarate 25 Mg Tablet) 50 mg PO HS HU Stop: 02/09/25 20:59 Last Admin: 01/10/25 21:15 Dose: 50 mg Documented By: NENA Trazodone HCl (Trazodone Hcl 50 Mg Tab) 50 mg PO HS HU Stop: 02/09/25 20:59 Last Admin: 01/10/25 21:21 Dose: 50 mg Documented By: NENA Discontinued Medications Aspirin (Aspirin Chew 324 Mg) 81 mg PO NOW STA Stop: 01/10/25 16:01 Last Admin: 01/10/25 16:29 Dose: 81 mg Documented By: TEOFILO Clopidogrel Bisulfate (Clopidogrel Bisulfate 300 Mg Tab) 300 mg PO NOW STA Stop: 01/10/25 16:01 Last Admin: 01/10/25 16:29 Dose: 300 mg Documented By: TEOFILO Calcium Gluconate () 1,000 mg in 60 mls @ 240 mls/hr IV NOW STA Stop: 01/10/25 16:29 Last Infusion: 01/10/25 16:44 Dose: Infused Documented By: Admin: 01/10/25 16:29 Dose: 240 mls/hr Documented By: TEOFILO Sodium Chloride (Nss) 500 mls @ 999 mls/hr IV .Q31M ONE Stop: 01/10/25 16:45 Last Infusion: 01/10/25 17:39 Dose: Infused Documented By: Admin: 01/10/25 16:56 Dose: 999 mls/hr Documented By: TEOFILO Insulin Human Regular 5 units/ (Syringe) 5 mls @ 3 mls/sec IV ONE STA Stop: 01/10/25 16:42 Last Admin: 01/10/25 16:53 Dose: 3 mls/sec Documented By: TEOFILO Co-signed By: ADDISON Insulin Aspart (Insulin Aspart Per Unit Charge) 0 units SC NOW ONE Stop: 01/10/25 18:31 Last Admin: 01/10/25 20:27 Dose: Not Given Documented By: ENNA Ioversol (Optiray 320 125ml) 115 ml IV ONCE ONE Stop: 01/10/25 15:06 Last Admin: 01/10/25 15:07 Dose: 115 ml Documented By: ANABELL Imaging Data Radiologist's Impression: Head CT 01/10/25 14:43 CT head/brain wo con CLINICAL HISTORY: neuro deficit, acute stroke suspected. TECHNIQUE: Multiple axial CT images of the head were obtained without contrast. A dose lowering technique was utilized adhering to the principles of ALARA. CT DOSE: 547.75 mGy.cm COMPARISON: 08/23/2019 FINDINGS: There are mildly progressive moderate chronic small vessel ischemic changes. No intracranial hemorrhage seen. No mass effect, midline shift, or hydrocephalus. No skull fracture seen. Visualized paranasal sinuses and mastoid air cells are clear. IMPRESSION: No acute findings. ACT 112: Negative or not required by law. The above report was generated using voice recognition software. It may contain grammatical, syntax or spelling errors. Electronically signed by: Miguel Horvath M.D. 01/10/2025 3:04 PM Head CTA 01/10/25 14:43 CT angio head w con CLINICAL HISTORY: neuro deficit, acute stroke suspected. TECHNIQUE: Unenhanced axial CT scan of the brain is performed. Subsequently, following the IV administration of 115 cc of Optiray, CT angiogram of the brain was performed from the skull base to the vertex. Images are reviewed in the axial, sagittal, and coronal planes. 3-D MIPS images are created and assessed. IV contrast was administered without complication. All measurements were obtained according to NASCET criteria. A dose lowering technique was utilized adhering to the principles of ALARA. CT DOSE: 442 COMPARISON STUDY: Head CT earlier today FINDINGS: Left vertebral artery is dominant and the right vertebral artery is diminutive beyond PICA, anatomic variant. Distal vertebral and internal carotid arteries are patent. Basilar artery is patent. Anterior, middle, and posterior cerebral arteries are patent bilaterally. There is predominantly origin of the left SYSTEMS ANALYSIS MANAGER, anatomic variant. Cerebral venous sinuses opacify normally. IMPRESSION: No significant arterial narrowing or occlusion seen at the brain. ACT 112: Negative or not required by law. The above report was generated using voice recognition software. It may contain grammatical, syntax or spelling errors. Electronically signed by: Miguel Horvath M.D. 01/10/2025 3:17 PM Neck CTA 01/10/25 14:43 CT ANGIOGRAPHY OF THE NECK WITH CONTRAST CLINICAL HISTORY: neuro deficit, acute stroke suspected. COMPARISON STUDY: Cervical spine CT August 23, 2019. Technique: CT angiography of the carotid and vertebral arteries was obtained using Optir[employer] and 3D reconstruction on an independent workstation. NASCET criteria was utilized. Automated exposure control was utilized for the study. A dose lowering technique was utilized adhering to the principles of ALARA. CT DOSE: 441.52 mGy.cm Findings: Mild emphysema is incidentally noted within the visualized lung apices. There is no cervical lymphadenopathy. No cervical spine fractures are present. Extensive calcified and noncalcified plaque within the proximal left subclavian artery results in moderate stenosis. The vertebral arteries are patent. The left vertebral artery is dominant. There is no stenosis, aneurysm or dissection within the major vessels of the neck. There is moderate plaque within the right carotid bifurcation and mild plaque within the left carotid bifurcation. The CTA of the head will be reported separately. IMPRESSION: 1. No stenosis or dissection within the bilateral common carotid, cervical internal carotid or vertebral arteries. 2. Moderate stenosis of the proximal left subclavian artery. ACT 112: Negative or not required by law. Electronically signed by: Carroll Choi M.D. 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 No consolidation or pleural effusion. No pneumothorax. IMPRESSION: No acute findings. ACT 112: Negative or not required by law. Electronically signed by: Miguel Horvath M.D. 01/10/2025 3:48 PM Brain MRI 01/10/25 16:43 Clinical History: Right-sided numbness and tingling Technique: Multiple T1 and T2-weighted magnetic resonance images were obtained of the brain without gadolinium contrast Findings: There is no sign of acute or old infarction with normal-appearing diffusion weighted images. There is cerebral atrophy, within expected limits for the patient's age. There are focal and confluent areas of increased T2 signal intensity within the periventricular white matter of the cerebral hemispheres bilaterally. This is most likely due to chronic small vessel ischemic disease. No definite mass lesion is seen on this noncontrast study. There is no intracranial hemorrhage or other fluid collection. No midline shift or other form of herniation is seen. There is no hydrocephalus. Normal flow-voids are seen within the arteries of the [id number]. The orbits and paranasal sinuses appear normal. The mastoid air cells appear clear. Impression: 1. Cerebral atrophy and chronic small vessel ischemic disease 2. Otherwise unremarkable noncontrast MRI of the brain Electronically signed by Alonso Mantilla 01-10-2025 6:03 PM Discharge Plan Visit Data Chief Complaint: Stroke Alert ED Provider: Darron Levin Discharge Problem: Changes in vision, Stroke-like symptoms, Acute hyperkalemia Patient Disposition: Admitted As Inpatient Condition: Good Discharge Instructions Interventions: ED Discharge Assessment Last Done: 01/10/25 17:41
--- NOTE | 2025-01-10 15:05 | CT Scan Report ---
CT head/brain wo con CLINICAL HISTORY: neuro deficit, acute stroke suspected. TECHNIQUE: Multiple axial CT images of the head were obtained without contrast. A dose lowering tech nique was utilized adhering to the principles of ALARA. CT DOSE: 547.75 mGy.cm COMPARISON: 08/23/2019 FINDINGS: There are mildly progressive moderate chronic small vessel ischemic changes. No intracrania l hemorrhage seen. No mass effect, midline shift, or hydrocephalus. No skull fracture seen. Visualize d paranasal sinuses and mastoid air cells are clear. IMPRESSION: No acute findings. ACT 112: Negative or not required by law. The above report was generated using voice recognition software. It may contain grammatical, syntax o r spelling errors. Electronically signed by: Miguel Horvath M.D. 01/10/2025 3:04 PM
[2025-01-10] MEDS: OPTIRAY 320 125ml IV ONE (15:07)
--- NOTE | 2025-01-10 15:19 | CT Scan Report ---
CT angio head w con CLINICAL HISTORY: neuro deficit, acute stroke suspected. TECHNIQUE: Unenhanced axial CT scan of the brain is performed. Subsequently, following the IV adminis tration of 115 cc of Optiray, CT angiogram of the brain was performed from the skull base to the vert ex. Images are reviewed in the axial, sagittal, and coronal planes. 3-D MIPS images are created and a ssessed. IV contrast was administered without complication. All measurements were obtained according to NASCET criteria. A dose lowering technique was utilized adhering to the principles of ALARA. CT DOSE: 442 COMPARISON STUDY: Head CT earlier today FINDINGS: Left vertebral artery is dominant and the right vertebral artery is diminutive beyond PICA, anatomic variant. Distal vertebral and internal carotid arteries are patent. Basilar artery is paten t. Anterior, middle, and posterior cerebral arteries are patent bilaterally. There is predominantly f etal origin of the left FRUIT RECEIVER, anatomic variant. Cerebral venous sinuses opacify normally. IMPRESSION: No significant arterial narrowing or occlusion seen at the brain. ACT 112: Negative or not required by law. The above report was generated using voice recognition software. It may contain grammatical, syntax o r spelling errors. Electronically signed by: Miguel Horvath M.D. 01/10/2025 3:17 PM
[2025-01-10 15:24] LABS: Hematocrit (blood only) 29.3 % (37.0-47.0); Hemoglobin 9.3 g/dl (12.0-16.0); Immature Granulocytes # (auto) 0.13 K/uL (0.01-0.20); Immature Granulocytes % (auto) 1.5 %; Mean Corpuscular Hemoglobin 28.1 pg (25.0-34.0); Mean Corpuscular Volume 88.5 fL (80.0-100.0); Platelet Count 167 K/uL (130-400); RDW Standard Deviation 44.7 fL (36.4-46.3); Red Blood Count 3.31 M/uL (4.20-5.40); White Blood Count 8.72 K/ul (4.8-10.8)
--- NOTE | 2025-01-10 15:26 | CT Scan Report ---
CT ANGIOGRAPHY OF THE NECK WITH CONTRAST CLINICAL HISTORY: neuro deficit, acute stroke suspected. COMPARISON STUDY: Cervical spine CT August 23, 2019. Technique: CT angiography of the carotid and vertebral arteries was obtained using Optir[employer] and 3D rec onstruction on an independent workstation. NASCET criteria was utilized. Automated exposure control was utilized for the study. A dose lowering technique was utilized adhering to the principles of ALA RA. CT DOSE: 441.52 mGy.cm Findings: Mild emphysema is incidentally noted within the visualized lung apices. There is no cervica l lymphadenopathy. No cervical spine fractures are present. Extensive calcified and noncalcified plaq ue within the proximal left subclavian artery results in moderate stenosis. The vertebral arteries ar e patent. The left vertebral artery is dominant. There is no stenosis, aneurysm or dissection within the major vessels of the neck. There is moderate plaque within the right carotid bifurcation and mild plaque within the left carotid bifurcation. The CTA of the head will be reported separately. IMPRESSION: 1. No stenosis or dissection within the bilateral common carotid, cervical internal carotid or verteb ral arteries. 2. Moderate stenosis of the proximal left subclavian artery. ACT 112: Negative or not required by law. Electronically signed by: Carroll Choi M.D. 01/10/2025 3:25 PM
--- NOTE | 2025-01-10 15:49 | XRay Report ---
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 No consolidation or pleural effusion. No p neumothorax. IMPRESSION: No acute findings. ACT 112: Negative or not required by law. Electronically signed by: Miguel Horvath M.D. 01/10/2025 3:48 PM
[2025-01-10 16:00] LABS: Alanine Aminotransferase 10.0 U/L (7-52); Albumin Globulin Ratio 1.1 (0.9-2); Alkaline Phosphatase 71.0 U/L (34-104); Anion Gap 6.0 (3-11); Bilirubin,Total 0.2 mg/dl (0.2-1.0); Blood Urea Nitrogen 40.0 mg/dl (6-23); Calcium 8.1 mg/dl (8.6-10.3); Carbon Dioxide 25.0 mmol/L (21-32); Chloride 100.0 mmol/L (98-107); Creatinine Clr Calc Pharmacy 36.6 ml/min; Globulin 2.6 gm/dl (2.5-4.0); Glucose 382.0 mg/dl (70-99(Fasting)); Magnesium 1.9 mg/dl (1.7-2.4); Potassium 5.9 mmol/L (3.5-5.1); Sodium 131.0 mmol/L (136-145); Total Protein 5.4 gm/dl (6.0-8.3)
[2025-01-10 16:07] LABS: INR 0.9 (0.9-1.1); Partial Thromboplastin Time 24 Seconds (21-31); Prothrombin Time 9.7 Seconds (9.0-12.0)
[2025-01-10] MEDS ORDERED: INSULIN HUMAN REGULAR PER UNIT 5 UNITS in SYRINGE 9.9 ML IV STA (16:15)
[2025-01-10] MEDS: CALCIUM GLUCONATE 1,000 MG/60 ML BAG IV STA (16:29)
[2025-01-10] MEDS: ASPIRIN CHEW 324 MG PO STA (16:29)
[2025-01-10] MEDS: CLOPIDOGREL BISULFATE 300 MG TAB PO STA (16:29)
[2025-01-10] MEDS ORDERED: PHARMACIST DISCHARGE MED REC CONSULT PRN (16:43)
[2025-01-10] MEDS ORDERED: DEXTROSE 50% 50 ML SYRINGE IV PRN (16:50)
[2025-01-10] MEDS ORDERED: GLUCAGON FOR INJ 1 MG VIAL SQ PRN (16:50)
[2025-01-10] MEDS ORDERED: GLUCOSE 40% GEL 15 GM TUBE PO PRN (16:50)
[2025-01-10] MEDS ORDERED: CARBOHYDRATES FOR HYPOGLYCEMIA PO PRN (16:50)
[2025-01-10] MEDS ORDERED: GLUCOSE 10 TAB/TUBE PO PRN (16:50)
[2025-01-10] MEDS: INSULIN HUMAN REGULAR PER UNIT 5 UNITS in SYRINGE 4.95 ML IV STA (16:53)
[2025-01-10] MEDS: SODIUM CHLORIDE 0.9% 500 ML IV ONE (16:56)
--- NOTE | 2025-01-10 17:02 | History & Physical Report ---
Date of Service January 10, 2025 Assessment & Plan (1) TIA (transient ischemic attack): Plan: Assessment: 1. TIA versus CVA. The patient's had an acute onset today of right sided facial numbness with associated decreased sensation of fine pinprick of the right upper extremity with decreased strength in the right upper extremity with discoordination of the right upper extremity compared to the left. In addition she has some decreased visual acuity of her right eye compared to her left. Telestroke was consulted in the ER. She was loaded with Plavix and aspirin. They are recommending ongoing Plavix and aspirin and admission under the stroke protocol. MRI has been ordered. Echocardiogram with bubble studies been ordered. Neurology consultation has been placed. We will allow for permissive hypertension and we have also ordered statin therapy. We have asked the patient if she has any change in her symptoms or any new symptoms to notify nursing staff immediately so Dr. On-call can be updated for reassessment. 2. Hyperkalemia. 5.9. IV insulin as well as calcium gluconate given in the ER. Repeat BMP at 11 PM with results to be called on-call provider. Hold any oral potassium supplements and/or ACEs/ARB's or any other medication potentially contributing to hyper kalemia. 3. CKD stage IIIb. Appears stable at approximate 1.4. 4. History of hypertension. Will allow for permissive hypertension at this point given the stroke symptomatology. 5. Diabetes mellitus type 2. Uncontrolled. Blood glucose over 380 today. She is given IV insulin. We have ordered her basal insulin as at home twice daily. We have also ordered a sliding scale. 6. Peripheral arterial disease. Severe. Status post BKA on the left and transmetatarsal amputation on the right. 7. History of bleeding ulcers. She has had no GI bleeding per the ER physician in over 15 years. 8. Anemia of chronic disease. Her baseline hemoglobin runs around 8. She is actually little higher than that today in the nines. Will monitor hemoglobin daily given the dual antiplatelet therapy. 9. Ongoing tobacco abuse. She admits to ongoing smoking of 1-1/2 packs of cigarettes per day-discussed with patient. 10. History of peripheral neuropathy. 11. History of bipolar disorder. 12. History of anxiety and depression. 13. History of uterine cancer remotely well over 30 years ago. Plan: As discussed above. Please refer to orders for further planning. History of Present Illness Chief Complaint: Right upper extremity discoordination and weakness with associated right facial numbness and decreased visual acuity right eye. Primary Care Provider: Gaby Chi Patient presented to the ER as a stroke alert due to the above symptoms. Her last known well time was 10 AM. Throughout the day she had been working on the computer when she noticed she was having trouble seeing from her right eye and t hen noticed she had some weakness and discoordination of her right arm with associated right facial numbness. She was brought to the ER for further evaluation and treatment. In the ER she underwent stroke evaluation by telestroke service. CT of the brain was negative for acute findings. CTA of the head and neck were negative for critical stenoses in the head and neck but did identify some subclavian stenosis. Laboratory studies demonstrated some mild hyperkalemia at 5.9 with a blood glucose level over 380. Course in the emergency department per telestroke's recommendations the patient was given a loading dose of Plavix and aspirin. Recommendation for admission to the stroke service for MRI and echocardiogram. Will continue dual antiplatelet therapy. Statin therapy with permissive hypertension. In terms of the hyper kalemia, the ER did give her a gram of calcium gluconate as well as 5 units of IV regular insulin. Will repeat a BMP at 11 PM. Allergies Allergy/AdvReac Type Severity Reaction Status Date / Time strawberry Allergy Intermediate Hives Verified 01/10/25 16:20 tramadol Allergy Intermediate itchy Verified 01/10/25 16:20 metformin AdvReac Severe severe GI Verified 01/10/25 16:20 distress aspirin AdvReac Intermediate rectal Verified 01/10/25 16:20 bleeding codeine AdvReac Intermediate dizziness Verified 01/10/25 16:20 naproxen AdvReac Unknown avoids due Verified 01/10/25 16:20 to kidney disease stage 2 Home Medications Medication Instructions Recorded Confirmed Type albuterol sulfate 90 mcg/actuation 2 puff inhalation .Q4-6H PRN 03/14/18 01/10/25 History aerosol inhaler (Ventolin HFA) Shortness Of Breath Or Wheezing acetaminophen 500 mg tablet 1,000 mg PO Q12H PRN Pain 06/21/19 01/10/25 History (Tylenol Extra Strength) blood sugar diagnostic (OneTouch #10 ea 06/21/19 10/22/24 History Ultra Blue Test Strip) hydroxyzine HCl 25 mg tablet 25 mg PO TID PRN Itching 06/21/19 01/10/25 History insulin glargine 100 unit/mL (3 28 units subcut BID 06/21/19 01/10/25 History mL) subcutaneous pen (Lantus Solostar U-100 Insulin) lancets (OneTouch UltraSoft #50 ea 06/21/19 10/22/24 History Lancets) pen needle, diabetic 31 gauge x #30 ea 06/21/19 10/22/24 History 3/16" (BD Ultra-Fine Mini Pen Needle) aripiprazole 2 mg tablet (Abilify) 2 mg PO DAILY 05/11/23 01/10/25 History bupropion HCl 150 mg tablet,12 hr 150 mg PO BID 05/11/23 01/10/25 History sustained-release (Wellbutrin SR) fluticasone fur. 100 mcg-umeclid 1 inh inhalation DAILY 05/11/23 01/10/25 History 62.5 mcg-vilant 25 mcg inhalat.powder (Trelegy Ellipta) famotidine 20 mg tablet 20 mg PO BID 03/09/24 01/10/25 History lamotrigine 150 mg tablet 150 mg PO QAM 03/09/24 01/10/25 History ondansetron 4 mg disintegrating 4 mg PO Q8H PRN n/v 03/09/24 01/10/25 History tablet quetiapine 50 mg tablet 50 mg PO HS 03/09/24 01/10/25 History trazodone 100 mg tablet 50 mg PO HS 03/09/24 01/10/25 History empagliflozin 10 mg tablet 10 mg PO DAILY 10/12/24 01/10/25 History (Jardiance) fexofenadine 180 mg tablet 180 mg PO DAILY 10/12/24 01/10/25 History (Eva Allergy) furosemide 20 mg tablet 20 mg PO Q OTHER DAY 10/12/24 01/10/25 History linaclotide 145 mcg capsule 145 mcg PO DAILY 10/12/24 01/10/25 History (Linzess) mupirocin 2 % topical ointment 1 applic topical BID PRN Skin 10/12/24 01/10/25 History Irritation sumatriptan succinate 25 mg tablet See Rx Instructions PO .COMPLEX 10/12/24 01/10/25 History (Imitrex) insulin lispro 100 unit/mL 15 unit subcut TIDM 10/22/24 01/10/25 History subcutaneous pen (Humalog KwikPen (U-100) Insulin) atorvastatin 20 mg tablet 20 mg PO DAILY 01/10/25 01/10/25 History duloxetine 60 mg capsule,delayed 60 mg PO DAILY 01/10/25 01/10/25 History release lisinopril 10 mg tablet 20 mg PO DAILY 01/10/25 01/10/25 History Past Med/Surg History Problem List (Updated 01/10/25 @ 17:00 by Mamadou Slater, PhD, DO) TIA (transient ischemic attack) Smoking greater than 40 pack years Proteinuria Vitamin D deficiency Stage 3b chronic kidney disease Cellulitis of right leg (Acute) Anemia SANDIP (obstructive sleep apnea) 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 bone (Acute) Osteomyelitis of foot, right, acute (Acute) Acute blood loss as cause of postoperative anemia S/P femoral-popliteal bypass surgery (Acute) GERD (gastroesophageal reflux disease) PAD (peripheral artery disease) Insulin dependent diabetes mellitus Chronic lower back pain (Acute) Cervical strain (Acute) Depression (Chronic) Arthritis (Chronic) Asthma (Chronic) DM (diabetes mellitus) (Chronic) HTN (hypertension) (Chronic) Medical History Osteomyelitis Amputation of left lower extremity below knee Amputated toe of right foot Hx of sepsis Poor historian Osteoarthritis History of pressure ulcer Gout Degenerative disc disease Chronic back pain History of kidney stones Chronic kidney disease History of bleeding ulcers Diabetes mellitus, type 2 Hx of cancer of uterus (1987) Chronic sinusitis Bipolar disorder Depression Anxiety History of migraine Peripheral neuropathy Hypertension History of pneumonia Chronic obstructive pulmonary disease Asthma PAD (peripheral artery disease) S/P arteriogram of extremity Hx of myocardial infarction Sleep apnea Surgical History History of section History of dilatation and curettage History of below knee amputation History of cholecystectomy History of tooth extraction History of esophagogastroduodenoscopy (EGD) History of colonoscopy History of breast biopsy History of cataract surgery History of arthroscopic knee surgery History of appendectomy History of total abdominal hysterectomy Family History Mother Diabetes Dementia Heart disease Thyroid disease Father Diabetes Heart disease Stroke Brother Diabetes Hypertension Sister Diabetes Hypertension Uncle Cancer of neck Family/Other Thyroid disease Other No family history of adverse response to anesthesia No pertinent family history Social History Smoking Status: Current every day smoker Tobacco Type: Cigarettes packs per day: 1; Cigarettes Per Day: 7 packs per week- use; Second Hand Exposure: No; Do You Dip or Chew Tobacco: No; Hx Alcohol Use: No Hx Substance Use: No Preferred Language: Frisian Communication Ability: Effective Visual Impairment: No Limitations Hearing Ability: Normal [place] Required: No Beliefs That Will Affect Care: None marital status: Life Partner Current Living Situation: Significant Other Current Living Situation Comment: with significant other & 2 dogs & 1 iguana current occupational status: disabled Feels Safe at Home: Yes Diet: regular Dental Care, Regularly: No Physical Activity Frequency: Does not Exercise Seatbelt Use: always Do you think of yourself as: straight/heterosexual Gender Identity: Female Assistive Devices: Walker and Wheelchair Review of Systems Review of Systems: A 10 point review of system was obtained and unless otherwise stated here or in history of present illness are negative and noncontributory to chief complaint. Physical Exam Physical Exam: In General: In general this is a 64-year-old female who is alert and oriented x 3 at time of examination. She has no other complaints other than described history of present illness which includes some right arm weakness and discoordination with associated right facial numbness and some decreased visual acuity from her right eye compared to her left. She interacts appropriately and pleasantly. It is noted that she has some mild dysarthria. HEENT: Minimal right sided facial droop, atraumatic pupils are equal round and reactive to light bilaterally. No scleral icterus no conjunctival injection e xternal auditory canals are patent septum is in the midline nose is without discharge oral mucosa is pink and moist without lesion. As documented in the ER report on visual acuity testing she does have decreased visual acuity in her right eye compared to her left. NECK: Supple no rigidity no lymphadenopathy no thyromegaly no carotid bruits no JVD no masses. HEART: Regular rate and rhythm I do not appreciate any ectopy or rub. No murmur. LUNGS: Clear to auscultation bilaterally and anteriorly with no evidence of adventitious sounds/wheezes rales or rhonchi. ABDOMEN: Soft nontender, no rebound, no peritoneal signs, positive bowel sounds, no appreciable organomegaly. EXTREMITIES: Intact, below the knee amputation noted on the left, transmetatarsal amputation noted on the right. Strength is 5 out of 5 in her extremities x 4 with exception of her right upper extremity she has 4 out of 5 strength in her right upper extremity compared to her left and she is right hand dominant. In addition she has discoordination of her right upper extremity with fine motor movements. With mild decrease sensation of fine pinprick of her right upper extremity compared to her left. No pronator drift. NEUROLOGICAL: Other than described above, cranial nerves II through XII are grossly intact with no focal deficit elicited upon examination. No tremor. Results & Data Results & Data Vital Signs (Past 12 Hours) Vital Signs Temp Pulse Pulse Resp BP BP Pulse Ox 01/10/25 16:15 90 18 151/87 H 98 01/10/25 15:36 93 H 24 139/75 97 01/10/25 15:26 93 H 01/10/25 14:42 36.6 C 92 H 19 132/95 97 O2 Del Method 01/10/25 16:15 01/10/25 15:36 01/10/25 15:26 01/10/25 14:42 Room Air Code Status & VTE Plan Code Status DNR/DNI. I personally discussed with the patient she is alert and oriented x 3 she wishes no heroic interventions but is agreeable to ongoing testing and medical management. VTE Prophylaxis Plan VTE Prophylaxis will be ordered: Yes PG Care Time/CCT Total # of Minutes Spent Total Time Spent with Patient: Total time spent is greater than 50% in coordination of care (as documented) at patient's floor/unit and/or counseling patient: Coding Level of Care Code 68909 INT INP/OBS CARE 3/75MIN Diagnoses TIA (transient ischemic attack) G45.9
[2025-01-10] MEDS ORDERED: ALBUTEROL HFA 8 GM INHALER INH PRN (18:04)
--- NOTE | 2025-01-10 18:04 | Magnetic Resonance Report ---
Clinical History: Right-sided numbness and tingling Technique: Multiple T1 and T2-weighted magnetic resonance images were obtained of the brain without gadolinium contrast Findings: There is no sign of acute or old infarction with normal-appearing diffusion weighted images. There is cerebral atrophy, within expected limits for the patient's age. There are focal and confluent areas of increased T2 signal intensity within the periventricular white matter of the cerebral hemispheres bilaterally. This is most likely due to chronic small vessel ischemic disease. No definite mass lesion is seen on this noncontrast study. There is no intracranial hemorrhage or other fluid collection. No midline shift or other form of herniation is seen. There is no hydrocephalus. Normal flow-voids are seen within the arteries of the [id number]. The orbits and paranasal sinuses appear normal. The mastoid air cells appear clear. Impression: 1. Cerebral atrophy and chronic small vessel ischemic disease 2. Otherwise unremarkable noncontrast MRI of the brain Electronically signed by Alonso Mantilla 01-10-2025 6:03 PM
[2025-01-10] MEDS: SODIUM CHLORIDE 0.9% 1,000 ML IV SCH (18:42)
[2025-01-10] MEDS: ACETAMINOPHEN 325 MG TAB PO PRN (19:31)
[2025-01-10] MEDS: INSULIN ASPART PER UNIT CHARGE SC ONE (20:27)
[2025-01-10] MEDS: INSULIN ASPART PER UNIT CHARGE SC SCH (21:10)
[2025-01-10] MEDS: FAMOTIDINE 20 MG TAB PO SCH (21:21)
[2025-01-10] MEDS: LANTUS PER UNIT CHARGE SC SCH (21:21)
[2025-01-10 23:48] LABS: Anion Gap 8.0 (3-11); Blood Urea Nitrogen 35.0 mg/dl (6-23); Calcium 9.0 mg/dl (8.6-10.3); Carbon Dioxide 22.0 mmol/L (21-32); Chloride 106.0 mmol/L (98-107); Creatinine Clr Calc Pharmacy 39.4 ml/min; Glucose 267.0 mg/dl (70-99(Fasting)); Potassium 4.2 mmol/L (3.5-5.1); Sodium 136.0 mmol/L (136-145)
[2025-01-11 02:57] VITALS: O2SAT 95
[2025-01-11 06:10] LABS: Hematocrit (blood only) 33.0 % (37.0-47.0); Hemoglobin 10.4 g/dl (12.0-16.0); Immature Granulocytes # (auto) 0.13 K/uL (0.01-0.20); Immature Granulocytes % (auto) 1.6 %; Mean Corpuscular Hemoglobin 28.0 pg (25.0-34.0); Mean Corpuscular Volume 88.9 fL (80.0-100.0); Platelet Count 196 K/uL (130-400); RDW Standard Deviation 44.7 fL (36.4-46.3); Red Blood Count 3.71 M/uL (4.20-5.40); White Blood Count 7.99 K/ul (4.8-10.8)
[2025-01-11 06:27] LABS: Alanine Aminotransferase 10.0 U/L (7-52); Albumin Globulin Ratio 1.0 (0.9-2); Alkaline Phosphatase 74.0 U/L (34-104); Anion Gap 5.0 (3-11); Bilirubin,Total 0.2 mg/dl (0.2-1.0); Blood Urea Nitrogen 29.0 mg/dl (6-23); Calcium 9.1 mg/dl (8.6-10.3); Carbon Dioxide 25.0 mmol/L (21-32); Chloride 110.0 mmol/L (98-107); Cholesterol 141.0 mg/dl (0-200); Creatinine Clr Calc Pharmacy 44.1 ml/min; Globulin 2.9 gm/dl (2.5-4.0); Glucose 181.0 mg/dl (70-99(Fasting)); HDL Cholesterol 35.0 mg/dl; Magnesium 1.9 mg/dl (1.7-2.4); Potassium 4.7 mmol/L (3.5-5.1); Sodium 140.0 mmol/L (136-145); Total Protein 5.9 gm/dl (6.0-8.3); Triglycerides 281.0 mg/dl (0-150)
[2025-01-11 06:40] LABS: Thyroid Stimulating Hormone 4.873 uIu/ml (0.300-4.500)
[2025-01-11 07:07] LABS: Hemoglobin A1C 12.3 % (4.5-5.6)
--- NOTE | 2025-01-11 07:40 | Neurology Consultation ---
Date of Consultation January 11, 2025 Assessment & Plan (1) Acute hyperkalemia: History of Present Illness Attending Physician: Ar Fagan MD History of Present Illness S: pt feeling well. resolved symptoms. mri negative. chart reviewed. admission HPI: Patient presented to the ER as a stroke alert due to the above symptoms. Her last known well time was 10 AM. Throughout the day she had been working on the computer when she noticed she was having trouble seeing from her right eye and then noticed she had some weakness and discoordination of her right arm with associated right facial numbness. She was brought to the ER for further evaluation and treatment. In the ER she underwent stroke evaluation by telestroke service. CT of the brain was negative for acute findings. CTA of the head and neck were negative for critical stenoses in the head and neck but did identify some subclavian stenosis. Laboratory studies demonstrated some mild hyperkalemia at 5.9 with a blood glucose level over 380. Course in the emergency department per telestroke's recommendations the patient was given a loading dose of Plavix and aspirin. Recommendation for admission to the stroke service for MRI and echocardiogram. Will continue dual antiplatelet therapy. Statin therapy with permissive hypertension. In terms of the hyper kalemia, the ER did give her a gram of calcium gluconate as well as 5 units of IV regular insulin. Will repeat a BMP at 11 PM. Allergies Allergy/AdvReac Type Severity Reaction Status Date / Time strawberry Allergy Intermediate Hives Verified 01/10/25 16:20 tramadol Allergy Intermediate itchy Verified 01/10/25 16:20 metformin AdvReac Severe severe GI Verified 01/10/25 16:20 distress aspirin AdvReac Intermediate rectal Verified 01/10/25 16:20 bleeding codeine AdvReac Intermediate dizziness Verified 01/10/25 16:20 naproxen AdvReac Unknown avoids due Verified 01/10/25 16:20 to kidney disease stage 2 Home Medications Medication Instructions Recorded Confirmed Type albuterol sulfate 90 mcg/actuation 2 puff inhalation .Q4-6H PRN 03/14/18 01/10/25 History aerosol inhaler (Ventolin HFA) Shortness Of Breath Or Wheezing acetaminophen 500 mg tablet 1,000 mg PO Q12H PRN Pain 06/21/19 01/10/25 History (Tylenol Extra Strength) blood sugar diagnostic (OneTouch #10 ea 06/21/19 10/22/24 History Ultra Blue Test Strip) hydroxyzine HCl 25 mg tablet 25 mg PO TID PRN Itching 06/21/19 01/10/25 History insulin glargine 100 unit/mL (3 28 units subcut BID 06/21/19 01/10/25 History mL) subcutaneous pen (Lantus Solostar U-100 Insulin) lancets (OneTouch UltraSoft #50 ea 06/21/19 10/22/24 History Lancets) pen needle, diabetic 31 gauge x #30 ea 06/21/19 10/22/24 History 3/16" (BD Ultra-Fine Mini Pen Needle) aripiprazole 2 mg tablet (Abilify) 2 mg PO DAILY 05/11/23 01/10/25 History bupropion HCl 150 mg tablet,12 hr 150 mg PO BID 05/11/23 01/10/25 History sustained-release (Wellbutrin SR) fluticasone fur. 100 mcg-umeclid 1 inh inhalation DAILY 05/11/23 01/10/25 History 62.5 mcg-vilant 25 mcg inhalat.powder (Trelegy Ellipta) famotidine 20 mg tablet 20 mg PO BID 03/09/24 01/10/25 History lamotrigine 150 mg tablet 150 mg PO QAM 03/09/24 01/10/25 History ondansetron 4 mg disintegrating 4 mg PO Q8H PRN n/v 03/09/24 01/10/25 History tablet quetiapine 50 mg tablet 50 mg PO HS 03/09/24 01/10/25 History trazodone 100 mg tablet 50 mg PO HS 03/09/24 01/10/25 History empagliflozin 10 mg tablet 10 mg PO DAILY 10/12/24 01/10/25 History (Jardiance) fexofenadine 180 mg tablet 180 mg PO DAILY 10/12/24 01/10/25 History (Eva Allergy) furosemide 20 mg tablet 20 mg PO Q OTHER DAY 10/12/24 01/10/25 History linaclotide 145 mcg capsule 145 mcg PO DAILY 10/12/24 01/10/25 History (Linzess) mupirocin 2 % topical ointment 1 applic topical BID PRN Skin 10/12/24 01/10/25 History Irritation sumatriptan succinate 25 mg tablet See Rx Instructions PO .COMPLEX 10/12/24 01/10/25 History (Imitrex) insulin lispro 100 unit/mL 15 unit subcut TIDM 10/22/24 01/10/25 History subcutaneous pen (Humalog KwikPen (U-100) Insulin) atorvastatin 20 mg tablet 20 mg PO DAILY 01/10/25 01/10/25 History duloxetine 60 mg capsule,delayed 60 mg PO DAILY 01/10/25 01/10/25 History release lisinopril 10 mg tablet 20 mg PO DAILY 01/10/25 01/10/25 History Patient History Medical History Osteomyelitis Amputation of left lower extremity below knee Amputated toe of right foot Hx of sepsis treated at [facility] 01/2024? possible sepsis? Poor historian Osteoarthritis History of pressure ulcer right foot (2020?) treated with medication. pt reports resolved. Gout Degenerative disc disease Chronic back pain History of kidney stones no surgical intervention, passed on own Chronic kidney disease stage 2 History of bleeding ulcers Diabetes mellitus, type 2 Hx of cancer of uterus (1987) Chronic sinusitis Bipolar disorder Depression Anxiety History of migraine Peripheral neuropathy Hypertension History of pneumonia ~2013 last episode (not hospitalized) Chronic obstructive pulmonary disease Asthma PAD (peripheral artery disease) S/P arteriogram of extremity Hx of myocardial infarction "years ago" no surgical intervention. 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 Sleep apnea non-compliant with machine - no machine Surgical History History of section x1 History of dilatation and curettage History of below knee amputation left History of cholecystectomy History of tooth extraction History of esophagogastroduodenoscopy (EGD) History of colonoscopy History of breast biopsy History of cataract surgery Bilateral History of arthroscopic knee surgery Meniiscectomy History of appendectomy History of total abdominal hysterectomy Family History Mother Diabetes Dementia Heart disease Thyroid disease Father Diabetes Heart disease Stroke Brother Diabetes Hypertension Sister Diabetes Hypertension Uncle Cancer of neck Family/Other Thyroid disease Other No family history of adverse response to anesthesia No pertinent family history Social History Smoking Status: Current every day smoker Tobacco Type: Cigarettes packs per day: 1; Cigarettes Per Day: 30 cigarettes or 1.5 packs; Second Hand Exposure: No; Do You Dip or Chew Tobacco: No; Hx Alcohol Use: No Hx Substance Use: No Preferred Language: Indonesian Communication Ability: Impaired Visual Impairment: No Limitations Hearing Ability: Normal 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 Beliefs That Will Affect Care: None marital status: Life Partner Current Living Situation: Significant Other Current Living Situation Comment: with significant other & 2 dogs & 1 iguana and 1 little bird current occupational status: disabled Feels Safe at Home: Yes Diet: regular Dental Care, Regularly: No Physical Activity Frequency: Does not Exercise Seatbelt Use: always Do you think of yourself as: straight/heterosexual Gender Identity: Female Assistive Devices: Prosthesis, Walker and Wheelchair Exam (Neuro) Physical Exam: HEENT: normocephalic grossly Neuro: Mental: AOx4, fluent speech, normal comprehension, no apraxia, CN: PERRL, Full EOM, symmetric face, midline T/U/P, Motor: No abnormal movements, normal tone, 5/5 t/o bilaterally, left leg below knee amputation. rt toe amputations. Sens: intact to touch b/l grossly Coord: intact Impression: 64 yo female transient neurological symptoms does not appears to be TIA/stroke in nature as her symptoms does not localize, she likely had metabolic disorder symptoms from hyperkalemia and hyperglycemia. mri brain negative. Recommendations: I do not feel she had stroke or TIA correct metabolic disorders strict DM control and stop smoking. no need for DAPT at this point, continue ASA as routine risk modifications. will sign off. Chart reviewed I have spent more than 50% educating patient about potential diagnosis and neurological evaluation and coordinating care with patient's treatment team. Total time spent (including chart review and coordination of care): 45 min (this includes chart review). Results & Data Vital Signs (Past 12 Hours) Vital Signs Temp Pulse Pulse Resp BP Pulse Ox O2 Del Method 01/11/25 02:56 36.7 C 85 18 128/80 95 Room Air 01/10/25 22:24 36.8 C 88 19 107/61 93 Room Air 01/10/25 21:56 89 01/10/25 19:41 36.8 C 88 19 126/81 97 Room Air PG Care Time/CCT Total # of Minutes Spent Total Time Spent with Patient: Total time spent is greater than 50% in coordination of care (as documented) at patient's floor/unit and/or counseling patient: Coding Level of Care Code 17929 IN/OBS CONSULT LVL 3,45M Diagnoses Acute hyperkalemia E87.5
[2025-01-11] MEDS: FLUTICASONE FUROATE 100MCG 14 PUFFS/INHALER INH SCH (07:43)
[2025-01-11] MEDS: UMECLIDINIUM/VILANTEROL 62.5/25MCG 7 PUFFS/INHALER INH SCH (07:43)
[2025-01-11] MEDS: lamoTRIgine 100 MG TAB PO SCH (07:44)
[2025-01-11] MEDS: ATORVASTATIN 40 MG TAB PO SCH (07:44)
[2025-01-11] MEDS: CLOPIDOGREL BISULFATE 75 MG TAB PO SCH (07:46)
[2025-01-11] MEDS: LINACLOTIDE 145 MCG CAPSULE PO SCH (07:46)
[2025-01-11] MEDS: ASPIRIN 81 MG ECTAB PO SCH (07:46)
[2025-01-11] MEDS: FEXOFENADINE HCL 180 MG TAB PO SCH (07:47)
[2025-01-11 08:47] VITALS: TEMP 97.9
--- NOTE | 2025-01-11 08:50 | Discharge Summary ---
Discharge Summary Date of Service January 11, 2025 Principal Dx & Hospital Course #1 = Principal Diagnosis (1) Stroke-like symptoms: To do as outpatient: 1. Continue baby aspirin 81 mg daily 2. Repeat BMP for potassium and creatinine check within 1 week, draw by PCP 3. Follow-up of diabetes and adjustment to medications as needed. She was discharged to continue Lantus twice daily, and her prior home dose of insulin 10 units + up to an additional 2 units if blood sugar is greater than either 230 or 260. She has a history of lows which occur exclusively when taking insulin but skipping meals, she will avoid doing this in the future. She has follow-up already scheduled with endocrinology for evaluation for an insulin pump. Strokelike symptoms Admitted for evaluation of TIA versus CVA. Had acute onset of right facial numbness and decree sensation to pinprick of right upper extremity, with poor coordination of right upper extremity compared to the left. Decreased visual acuity of right eye compared to the left Per telestroke consultation was loaded with aspirin/Plavix and this was recommended be continued under stroke protocol until MRI was available. MRIbrain: Small vessel disease, no acute findings CTAhead/neck: Moderate stenosis of proximal left subclavian. No stenosis or dissection of the carotid/vertebral systems. No intracranial vascular acute abnormalities. CThead without acute findings Neurology consulted. Recommendations reviewed. Consultation was not felt to have had symptoms consistent with TIA/stroke and reported symptoms did not localize to a stroke territory. More likely suspected symptoms from metabolic derangements including hyperkalemia and hyperglycemia. Was recommended for strict DM control, some tobacco cessation, electrolyte correction. Was not recommended for ongoing DAPT, did recommend continuing daily aspirin. Appreciate review and recommendations. Hyperkalemia Resolved with insulin, calcium gluconate, fluids Potassium 5.9 on admission, 4.2 on repeat, and stable at 4.7 following day Lisinopril apparently held HCTZ added for BP control. If potassium is stable can resume lisinopril as outpatient for renal protection Creatinine baseline approximately 1.281.3; creatinine downtrending at 1.24 following admission CKD: Stable, at baseline. No acute exacerbation Type 2 diabetes, uncontrolled Hemoglobin A1c 12.3% BSG 382 on admission, improved with IV insulin and fluids Home insulin glargine 28 units twice daily, lispro 15 units 3 times daily M Transitioned to glargine 28 units twice daily CR 5, CF 15 following admission. Reasonable BSG requiring around 7-12 units of short acting with her meals Metformin intolerant Patient is interested in switching to a insulin pump, she has an outpatient appointment scheduled with endocrinology for this She has had her prior adjustments where she would take an extra amount of insulin with meals stopped due to frequent hypoglycemia; however she is very clear that she never has hypoglycemic episodes unless she takes her insulin and then skips a meal. Outside of this she actually tends to run a little bit high, to sometimes within goal. Given this feel it is reasonable for her to continue taking 1 additional unit if her Premeal BSG is [id number], 2 additional units if greater than 230, and to contact her PCP for recommendations if more than 2 motions are greater than 180. Discussed that if she does not eat/skips a meal entirely then she should not take the mealtime insulin. When she has noticed in the past she has rapidly dropped her blood sugars to the 50s60s, to which she then goes to get candy bars or something sugary to bring her sugar back up. Fully by limiting her lows at subsequent intake, and allowing some adjustment that she will have more steady control overall. Follow-up with PCP within 1 week Hyperlipidemia: LDL 50, at goal. Total cholesterol 141. Atorvastatin 20 mg continued on discharge. PAD: Severe, s/p left BKA and trans metatarsal amputation on the right Tobacco abuse: Ongoing use 1.5 packs/day, cessation recommended patient (2) Smoking greater than 40 pack years: (3) Stage 3b chronic kidney disease: (4) Vitamin D deficiency: (5) DM (diabetes mellitus): (6) HTN (hypertension): Admission HPI Per Admitting Provider Patient presented to the ER as a stroke alert due to the above symptoms. Her last known well time was 10 AM. Throughout the day she had been working on the computer when she noticed she was having trouble seeing from her right eye and then noticed she had some weakness and discoordination of her right arm with associated right facial numbness. She was brought to the ER for further evaluation and treatment. In the ER she underwent stroke evaluation by telestroke service. CT of the brain was negative for acute findings. CTA of the head and neck were negative for critical stenoses in the head and neck but did identify some subclavian sten osis. Laboratory studies demonstrated some mild hyperkalemia at 5.9 with a blood glucose level over 380. Course in the emergency department per telestroke's recommendations the patient was given a loading dose of Plavix and aspirin. Recommendation for admission to the stroke service for MRI and echocardiogram. Will continue dual antiplatelet therapy. Statin therapy with permissive hypertension. In terms of the hyper kalemia, the ER did give her a gram of calcium gluconate as well as 5 units of IV regular insulin. Will repeat a BMP at 11 PM. Discharge Exam General: A&Ox3. NAD. Cooperative. HEENT: Atraumatic, normocephalic. Vision and hearing grossly intact Pulm: CTAB A&P. -wheezes, -rales, -rhonchi. Symmetrical chest rise. No increase in work of breathing. No respiratory distress. Cardiac: RRR, -mrg. Radial pulses intact and symmetrical. Abdominal: Nontender, nondistended, soft. BS present. Extremities: Left BKA, right transmetatarsal amputation. 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 Sensation to soft touch normal in hands and thighs without deficit or asymmetry at time of discharge exam Discharge Plan Discharge Items Patient Disposition: Home - Self-Care Reason For Visit: TIA VERSUS STROKE Discharge Diagnosis: Hyperglycemia Hyperkalemia Condition on Discharge: Good Activity: Resume your previous activity Non-emergency contact: Primary Care Provider Call non-emergency contact if: you have any medication questions, your symptoms worsen, your pain is not controlled and your pain is worsening Follow-up/Referrals: Gaby Chi PA-C [Primary Care Provider] - Diet: Carb Consistent or DM2 Addtl Attending Provider Instructions: You were seen in the hospital for strokelike symptoms and vision change/blurry vision. Your MRI did not show any evidence of a stroke. You were seen by neurology, and it was not felt that your symptoms were due to a stroke or mini stroke. Your potassium levels were elevated, and your blood sugar was very elevated. It was thought that your symptoms were due to metabolic causes (your potassium and blood sugar). Your lisinopril has been held and switched to a blood pressure medicine that can help lower rather than raise potassium. Please do not take your lisinopril at this time, your outpatient provider will advise you if/when to resume this. You been started on a medicine, hydrochlorothiazide. Please take hydrochlorothiazide 12.5 mg once daily every morning. This is a blood pressure medicine which can also help lower potassium. Please check your blood sugar before meals. If your blood sugar is between 575629, you may take 1 extra unit of insulin (11 units of short acting insulin total). If your blood sugar is greater than 230, you make take 2 extra units of short acting insulin with your meal (12 units of short acting insulin total). If your blood sugar is greater than 300 on 2 consecutive measurements, please contact your family medicine doctor or be driven to the ER for evaluation. You have a history of very low blood sugars from taking mealtime insulin when skipping meals. If you do not eat a meal, you may hold the short acting insulin for that meal. You should continue to take your long-acting insulin glargine 28 units twice daily. Please follow-up with your primary care physician, and you have had a referral to endocrinology pending for evaluation for further blood sugar control and possible transition to an insulin pump. Please take aspirin 81 mg daily. While your MRI did not show any evidence of stroke and your current presentation was not thought to be due to a mini stroke on consultation with neurology, you are at increased risk of stroke due to your history of diabetes, tobacco use, and hypertension. It is recommended to take a baby aspirin 81mg daily to reduce stroke risk. If you have any bloody/black bowel movements or stomach discomfort, please discuss this with your primary care physician If you develop any new or worsening symptoms including fever, chills, sweats, chest pain, chest pressure, difficulty breathing, uncontrolled nausea/vomiting, rash, wheezing, passing out or nearly passing out, bleeding, black/bloody bowel movements, or other new or concerning symptoms please call your primary care physician, or call 911 for re-evaluation in the emergency department if you are very concerned. Pending Studies at Discharge: No Stand-Alone Forms: [employer] [facility], Smoking Cessation Medications and DC Order Prescriptions: New aspirin 81 mg Tablet,Delayed Release (Dr/Ec) 81 mg PO DAILY Qty: 30 0RF hydrochlorothiazide 25 mg Tablet 12.5 mg PO QAM Qty: 30 0RF Continued aripiprazole [Abilify] 2 mg tablet 2 mg PO DAILY bupropion HCl [Wellbutrin SR] 150 mg tablet sustained-release 12 hr 150 mg PO BID Trelegy Ellipta 100-62.5-25 mcg blister with device 1 inh inhalation DAILY hydroxyzine HCl 25 mg tablet 25 mg PO TID PRN (Reason: Itching) (DME) OneTouch Ultra Blue Test Strip Strip See Rx Instructions .ROUTE .MEDSUPPLY Qty: 10 Rx Instructions: Test blood sugars three times a day (DME) lancets [OneTouch UltraSoft Lancets] Misc See Rx Instructions .ROUTE .MEDSUPPLY Qty: 50 Rx Instructions: Test blood sugars three times a day Lantus Solostar U-100 Insulin 100 unit/mL (3 mL) insulin pen 28 units SQ BID (DME) pen needle, diabetic [BD Ultra-Fine Mini Pen Needle] 31 gauge x 3/16" needle See Rx Instructions .ROUTE .MEDSUPPLY Qty: 30 Rx Instructions: Use 6 per day as directed with insulin acetaminophen [Tylenol Extra Strength] 500 mg tablet 1,000 mg PO Q12H PRN (Reason: Pain) Hold Instructions: Hold while taking oxycodone/acetaminophen. May restart when no longer taking oxycodone/acetaminophen sumatriptan succinate [Imitrex] 25 mg tablet See Rx Instructions PO .COMPLEX Rx Instructions: take 1 tab at onset of headache; if no relief may repeat 1 tab after at least 2 hrs; max = 4 tabs/24 hr PO Jardiance 10 mg tablet 10 mg PO DAILY fexofenadine [Eva Allergy] 180 mg tablet 180 mg PO DAILY Linzess 145 mcg capsule 145 mcg PO DAILY Rx Instructions: TAKE ON EMPTY STOMACH FOR CONSTIPATION furosemide 20 mg tablet 20 mg PO Q OTHER DAY mupirocin 2 % ointment 1 applic topical BID PRN (Reason: Skin Irritation) Rx Instructions: APPLY TO AFFECTED AREA BID albuterol sulfate [Ventolin HFA] 90 mcg/actuation HFA aerosol inhaler 2 puff Inhalation .Q4-6H PRN (Reason: Shortness Of Breath Or Wheezing) atorvastatin 20 mg tablet 20 mg PO DAILY duloxetine 60 mg capsule,delayed release(DR/EC) 60 mg PO DAILY ondansetron 4 mg Tablet,Disintegrating 4 mg PO Q8H PRN (Reason: n/v) lamotrigine 150 mg Tablet 150 mg PO QAM famotidine 20 mg Tablet 20 mg PO BID trazodone 100 mg Tablet 50 mg PO HS quetiapine 50 mg Tablet 50 mg PO HS Changed insulin lispro [Humalog KwikPen Insulin] 100 unit/mL insulin pen 10 unit SUBCUT TIDM Qty: 0 0RF Held lisinopril 10 mg Tablet 20 mg PO DAILY Hold Instructions: Resume on 01/30/25. Discharge Orders: Discharge Order (Routine); Ordered 01/11/25 Ordered By: Ar Fagan Admission Data Admit Date/Time: 01/10/25 16:50 Attending Provider: Ar Fagan Admit Provider: Mamadou Slaetr Primary Care Provider: Gaby Chi Other Providers: Mamadou Slater; Joey Ramirez Hospital Stay Data Consultations 01/10/25 16:17 ED Decision to Admit Stat 01/10/25 16:48 Consult Neurology Routine Diagnostic Imagining Performed 01/10/25 14:43 CT angio head w con Stat CT angio neck with con Stat CT head/brain wo con Stat 01/10/25 16:43 MR brain wo con Routine Discharge Instructions Given to Patient (Per Discharging Provider) You were seen in the hospital for strokelike symptoms and vision change/blurry vision. Your MRI did not show any evidence of a stroke. You were seen by neurology, and it was not felt that your symptoms were due to a stroke or mini stroke. Your potassium levels were elevated, and your blood sugar was very elevated. It was thought that your symptoms were due to metabolic causes (your potassium and blood sugar). Your lisinopril has been held and switched to a blood pressure medicine that can help lower rather than raise potassium. Please do not take your lisinopril at this time, your outpatient provider will advise you if/when to resume this. You been started on a medicine, hydrochlorothiazide. Please take hydrochlorothiazide 12.5 mg once daily every morning. This is a blood pressure medicine which can also help lower potassium. Please check your blood sugar before meals. If your blood sugar is between 102025, you may take 1 extra unit of insulin (11 units of short acting insulin total). If your blood sugar is greater than 230, you make take 2 extra units of short acting insulin with your meal (12 units of short acting insulin total). If your blood sugar is greater than 300 on 2 consecutive measurements, please contact your family medicine doctor or be driven to the ER for evaluation. You have a history of very low blood sugars from taking mealtime insulin when skipping meals. If you do not eat a meal, you may hold the short acting insulin for that meal. You should continue to take your long-acting insulin glargine 28 units twice daily. Please follow-up with your primary care physician, and you have had a referral to endocrinology pending for evaluation for further blood sugar control and possible transition to an insulin pump. Please take aspirin 81 mg daily. While your MRI did not show any evidence of stroke and your current presentation was not thought to be due to a mini stroke on consultation with neurology, you are at increased risk of stroke due to your history of diabetes, tobacco use, and hypertension. It is recommended to take a baby aspirin 81mg daily to reduce stroke risk. If you have any bloody/black bowel movements or stomach discomfort, please discuss this with your primary c are physician If you develop any new or worsening symptoms including fever, chills, sweats, chest pain, chest pressure, difficulty breathing, uncontrolled nausea/vomiting, rash, wheezing, passing out or nearly passing out, bleeding, black/bloody bowel movements, or other new or concerning symptoms please call your primary care physician, or call 911 for re-evaluation in the emergency department if you are very concerned. Total Time Total Time Spent Total Time Spent (In Minutes): Time spend day of discharge 55 minutes including direct patient care, documentation, review of labs and images, and coordination of care. Coding Level of Care Code 73966 INP/OBS DISCH >30 MIN Diagnoses Stroke-like symptoms R29.90 Smoking greater than 40 pack years F17.210 Stage 3b chronic kidney disease N18.32 Vitamin D deficiency E55.9 DM (diabetes mellitus) E11.9 HTN (hypertension) I10
[2025-01-11] MEDS ORDERED: NON-FORMULARY MEDICATION (Fluticasone-Umeclidin-Vilanter [Trelegy Ellipta] 100-62.5-25 mcg INH SCH (09:00)
[2025-01-11] MEDS: hydroCHLOROthiazide 25 MG TAB PO SCH (09:34)
[2025-01-11 12:23] VITALS: BP 134/72; RESP 18
[2025-01-11 15:37] VITALS: PULSE 89
--- NOTE | 2025-01-11 17:58 | XCELERA ---
[id number]
--- NOTE | 2025-01-12 05:54 | Electrocardiogram Report ---
Test Reason : Blood Pressure : */* mmHG Vent. Rate : 91 BPM Atrial Rate : 91 BPM P-R Int : 156 ms QRS Dur : 78 ms QT Int : 342 ms P-R-T Axes : -22 -18 -31 degrees QTcB Int : 420 ms Normal sinus rhythm Inferior infarct , age undetermined Abnormal ECG When compared with ECG of 23-Mar-2024 17:30, T wave inversion now evident in Inferior leads Confirmed by Jimbo Mejía ([id number]) on 01/12/2025 5:54:16 AM Referred By: REFERRED SELF Confirmed By: Jimbo Mejía
== END 2025-01-11 17:37 | disposition home or self-care (01) | DRG 641 ==
LOC: ED 14:42 → SUATTDRO 16:50 → 4W 16:50 → INTOOBSV 16:50 → 4W 17:41